=== PATIENT | female | born 1960 ===

== ENCOUNTER → 2020-03-04 15:56 | Outpatient (BNVA) | payer OTHER, SELFPAY | PROVIDERS: PCP Internal Medicine; Visit Provider Anesthesiology | DX: Z76.89 Persons encountering health services in other specified circumstances (principal) ==

== ENCOUNTER 2020-03-29 09:19 | Outpatient (REF) | payer OTHER, SELFPAY | END 2020-03-29 09:20 | disposition home or self-care (01) | LOC: HO.LAB 09:19 | PROVIDERS: Visit Provider Internal Medicine | DX: Z20.828 Contact with and (suspected) exposure to other viral communicable diseases (principal) | CPT/HCPCS: 87635 ==

== ENCOUNTER 2020-04-05 13:48 | Outpatient (REF) | payer OTHER, SELFPAY ==
--- NOTE | 2020-04-05 15:41 | XR_ITS ---
EXAMINATION: XR THORACOLUMBAR SPINE CLINICAL INFORMATION: M96.1 - Postlaminectomy syndrome, not elsewhere classified COMPARISON: Chest radiographs 08/26/2011 TECHNIQUE: AP and lateral views of the thoracic spine are obtained. FINDINGS: There is normal thoracic segmentation with 12 rib-bearing thoracic vertebrae of normal height and normal thoracic kyphosis. The T12 ribs are likely hypoplastic. There is gentle dextrocurvature thoracic spine. Spinal stimulator is present with electrodes extending up to the level of T6-T7. Visualized hardware appears intact. There is mild multilevel degenerative disc changes thoracic spine. Some bridging osteophytes are noted on the right at T9-T10. There is no thoracic vertebral compression, spondylolisthesis, or erosive changes, or paraspinal soft tissue swelling. XR/XR thoracic spine 2V IMPRESSION: 1. Gentle dextrocurvature lower thoracic spine. Mild multilevel degenerative disc changes. 2. Spinal stimulator with electrode tips at level T6-T7. 3. No vertebral compression, spondylolisthesis, or destructive process.
== END 2020-04-05 13:49 | disposition home or self-care (01) ==
LOC: HO.XRAY 13:48
PROVIDERS: Absent Provider Nurse Practitioner Family; PCP Internal Medicine; Visit Provider Anesthesiology
DX: M96.1 Postlaminectomy syndrome, not elsewhere classified (principal); Z98.890 Other specified postprocedural states; M54.16 Radiculopathy, lumbar region; E11.42 Type 2 diabetes mellitus with diabetic polyneuropathy
CPT/HCPCS: 72070; 99212

== ENCOUNTER 2020-04-19 10:52 | Outpatient (REF) | payer OTHER, SELFPAY | END 2020-04-19 10:53 | disposition home or self-care (01) | LOC: HO.LAB 10:52 | PROVIDERS: Visit Provider Internal Medicine | DX: Z20.828 Contact with and (suspected) exposure to other viral communicable diseases (principal) | CPT/HCPCS: C9803; U0003 ==

== ENCOUNTER 2020-06-03 09:01 | Outpatient (REF) | payer OTHER, SELFPAY | END 2020-06-03 09:02 | disposition home or self-care (01) | LOC: HO.LAB 09:01 | PROVIDERS: Visit Provider Internal Medicine | DX: Z20.828 Contact with and (suspected) exposure to other viral communicable diseases (principal) | CPT/HCPCS: C9803; U0003 ==

== ENCOUNTER 2020-06-30 08:26 | Outpatient (REF) | payer OTHER, SELFPAY ==
--- NOTE | 2020-06-30 08:45 | XR_ITS ---
EXAMINATION: XR CHEST CLINICAL INFORMATION: Chest pain. COMPARISON: None TECHNIQUE: 2 views of the chest were obtained. FINDINGS: The lungs are well-expanded and clear. The heart size and pulmonary vascularity is normal. No gross bony abnormality. There are spinal epidural electrodes in the mid thoracic spine. XR/XR chest 2V IMPRESSION: No acute process seen.
[2020-06-30 09:34] LABS: Estimated Average Glucose 117 mg/dL; Hemoglobin A1c % 5.7 %
[2020-06-30 09:35] LABS: Alanine Aminotransferase 22 U/L (0-31); Albumin Level 4.7 g/dL (3.5-5.0); Alkaline Phosphatase 66 U/L (39-117); Anion Gap 16 (12-20); Aspartate Amino Transferase 16 U/L (5-31); Bilirubin Total 0.6 mg/dL (0.0-1.0); Blood Urea Nitrogen 11 mg/dL (9-16); Calcium 9.3 mg/dL (8.4-10.2); Carbon Dioxide 20 mmol/L (22-29); Chloride 108 mmol/L (96-108); Cholesterol 182 mg/dL; Estimated Glomerular Filt Rate > 60; Glucose Fasting 114 mg/dL (60-99); HDL Cholesterol 33 mg/dL; LDL Cholesterol Calculated 99 mg/dl; Potassium 4.1 mmol/l (3.3-5.1); Sodium 140 mmol/L (135-145); Total Protein 7.2 g/dL (6.5-8.0); Triglycerides 253 mg/dL
[2020-06-30 09:36] LABS: Creatinine Urine 147.03 mg/dL; Microalbum/Creatinine Ratio Ur 78.8 ug/mg cr
[2020-06-30 09:55] LABS: Free T4 (Free Thyroxine) 0.89 ng/dL (0.71-1.85); Thyroid Stimulating Hormone 0.84 uIU/mL (0.32-4.0)
== END 2020-06-30 08:27 | disposition home or self-care (01) ==
LOC: HO.LAB 08:26
PROVIDERS: PCP Internal Medicine; Referring Provider Internal Medicine; Visit Provider Nurse Practitioner Gerontology
DX: R91.8 Other nonspecific abnormal finding of lung field (principal); E11.29 Type 2 diabetes mellitus with other diabetic kidney complication
CPT/HCPCS: 36415; 71046; 80053; 80061; 82043; 83036; 84439; 84443

== ENCOUNTER 2020-07-14 09:58 | Outpatient (REF) | payer OTHER, SELFPAY | END 2020-07-14 09:59 | disposition home or self-care (01) | LOC: HO.LAB 09:58 | PROVIDERS: Visit Provider Internal Medicine | DX: Z20.822 Contact with and (suspected) exposure to COVID-19 (principal) | CPT/HCPCS: 36415; C9803; U0003; U0005 ==

== ENCOUNTER 2020-08-26 10:07 | Outpatient (REF) | payer OTHER, SELFPAY | END 2020-08-26 10:08 | disposition home or self-care (01) | LOC: HO.LAB 10:07 | PROVIDERS: Visit Provider Internal Medicine | DX: Z20.822 Contact with and (suspected) exposure to COVID-19 (principal) | CPT/HCPCS: 36415; C9803; U0003; U0005 ==

== ENCOUNTER → 2020-11-17 07:34 | Outpatient (BNVA) | payer OTHER, SELFPAY | PROVIDERS: PCP Internal Medicine; Referring Provider Internal Medicine; Visit Provider Nurse Practitioner Gerontology | DX: E11.42 Type 2 diabetes mellitus with diabetic polyneuropathy (principal); E11.29 Type 2 diabetes mellitus with other diabetic kidney complication; E78.5 Hyperlipidemia, unspecified; E78.1 Pure hyperglyceridemia; R80.9 Proteinuria, unspecified | CPT/HCPCS: 82947; 99212 ==

== ENCOUNTER → 2020-11-18 13:52 | Outpatient (BNVA) | payer OTHER, SELFPAY | PROVIDERS: PCP Internal Medicine; Visit Provider Anesthesiology | DX: M54.16 Radiculopathy, lumbar region (principal); M96.1 Postlaminectomy syndrome, not elsewhere classified; E11.42 Type 2 diabetes mellitus with diabetic polyneuropathy; Z98.890 Other specified postprocedural states | CPT/HCPCS: 99212 ==

== ENCOUNTER → 2020-12-07 08:25 | Outpatient (REF) | payer OTHER, SELFPAY ==
--- NOTE | 2020-12-07 08:29 | CA_ITS ---
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 The visually estimated ejection fraction is between 60-65%. - E/E prime ratio is >15, consistent with elevated filling pressures. Evidence suggests grade I (mild) diastolic dysfunction. - There is mild to moderate aortic valve regurgitation. Findings Left Ventricle Normal left ventricular cavity size. There is moderately increased left ventricular wall thickness. The left ventricular systolic function is normal. The visually estimated ejection fraction is between 60-65%. There is no evidence of regional wall motion abnormalities. E/E prime ratio is >15, consistent with elevated filling pressures. Evidence suggests grade I (mild) diastolic dysfunction. Right Ventricle Normal right ventricular cavity size and systolic function. Atria The left atrium is mildly dilated. The right atrium is normal in size. Aortic Valve There is a normal trileaflet aortic valve. There is no aortic valve stenosis. There is mild to moderate aortic valve regurgitation. Mitral Valve The mitral valve appears normal. There is trace mitral valve regurgitation. There is no mitral valve stenosis. Pulmonic Valve The pulmonic valve was not well visualized. Tricuspid Valve Normal tricuspid valve structure. There is trace tricuspid valve regurgitation. The pulmonary artery systolic pressure is normal. Great Vessels The aortic annulus, sinuses of valsalva, and asc aorta are normal in size. Venous The inferior vena cava is normal in size and collapses greater than 50% with inspiration. Pericardium/Pleural There is no evidence of pericardial effusion. Prior Study Comparison No significant change compared to prior study dated: 12/19/2019. Measurements 2D Linear Measurements IVSd: 1.33 0.6-0.9/0.6-1.0 cm LVIDd: 4.14 3.9-5.3/4.2-5.9 cm LVIDd Index: 2.46 2.4-3.2/2.2-3.1 cm/m2 LVIDs: 2.34 2.0-3.6 cm LVPWd: 1.30 0.7-1.1 cm Ao Root: 3.10 2.1-3.5 cm LA Diam: 3.10 2.7-3.8/3.0-4.0 cm LAIDs Index: 1.85 1.5-2.3 cm/m2 LV Mass: 248.90 67-162/88-224 g LV Mass Index: 148.16 43-95/49-115 g/m2 LVOT Diam: 2.00 3.0+(-)1.3 cm Mitral Valve MV Pk E: 0.65 MV PK A: 1.06 MV Decel Time: 178.00 E/A: 0.60 E'Lateral: 4.57 E'Medial: 4.03 E/E' Med: 16.10 E/E' Lat: 14.20 PHT: 52.00 MVA PHT: 4.23 Decel [place]: 3.63 Aortic Valve AoV Pk Jacoby: 2.14 AoV Mn Jacoby: 1.36 AoV VTI: 0.41 AoV Pk Grad: 18.00 Aov Mn Grad: 9.00 JOSE Cont.VTI: 2.63 AI Pk Jacoby: 4.82 AI [place]: 3.49 LVOT LVOT Pk Jacoby: 1.62 LVOT Mn Jacoby: 1.10 LVOT VTI: 0.34 LVOT Pk Grad: 10.00 LVOT Mn Grad: 6.00 LVOT Diam: 2.00 LVOT Area: 3.14 Diastolic Function MV Pk E: 0.65 MV Pk A: 1.06 E/A: 0.60 E'Medial: 4.03 E/E' Med: 16.10 E' Laterial: 4.57 E/E' Lat: 14.20 Tricuspid Valve TR Pk Jacoby: 2.04 TR Pk Grad: 17.00 RA Press: 3.00 RVSP: 20.00 Great Vessels Aorta Ao Root-2D: 3.10 2.0-3.7 cm Ao Asc: 3.30 2.1-3.4 cm Pulmonary Valve PV Pk Jacoby: 1.00 Peak PV Grad: 4.00 Updated in Other Vendor System with Status of Final Anand Kowalski MD electronically signed on 12/07/2020 12:46:30 PM with status of Final
== END ==
LOC: HO.CARD 08:25
PROVIDERS: Visit Provider Internal Medicine
DX: I35.1 Nonrheumatic aortic (valve) insufficiency (principal); R94.39 Abnormal result of other cardiovascular function study
CPT/HCPCS: 93306

== ENCOUNTER → 2021-01-04 08:48 | Outpatient (BNVA) | payer OTHER, SELFPAY | PROVIDERS: PCP Internal Medicine; Referring Provider Internal Medicine; Visit Provider Internal Medicine | DX: I25.10 Atherosclerotic heart disease of native coronary artery without angina pectoris (principal); I10 Essential (primary) hypertension; F17.200 Nicotine dependence, unspecified, uncomplicated; E11.42 Type 2 diabetes mellitus with diabetic polyneuropathy; Z86.73 Personal history of transient ischemic attack (TIA), and cerebral infarction without residual deficits | CPT/HCPCS: 93005; 99212 ==

== ENCOUNTER → 2021-01-06 10:04 | Outpatient (BNVA) | payer OTHER, SELFPAY | PROVIDERS: PCP Internal Medicine; Visit Provider Nurse Practitioner Gerontology | DX: E11.42 Type 2 diabetes mellitus with diabetic polyneuropathy (principal); E11.29 Type 2 diabetes mellitus with other diabetic kidney complication; E78.5 Hyperlipidemia, unspecified; E78.1 Pure hyperglyceridemia; R80.9 Proteinuria, unspecified | CPT/HCPCS: 82947; 99212 ==

== ENCOUNTER 2021-01-21 11:17 | Outpatient (REF) | payer OTHER, SELFPAY ==
--- NOTE | ~2021-01-21 | MM_ITS ---
EXAMINATION: MM SCREENING DIGITAL BREAST TOMOSYNTHESIS, BILATERAL CLINICAL INFORMATION: Screening. Asymptomatic. The lifetime risk of breast cancer based on the Tyrer-Cuzick Model is 17%. COMPARISON: Mammography: 08/13/2019, 06/21/2018, 11/21/2017, 10/29/2015. TECHNIQUE: Digital breast tomosynthesis is performed in both the craniocaudal and mediolateral oblique views along with computer-aided detection (CAD). Synthesized 2D images are generated from the tomosynthesis. FINDINGS: There are scattered areas of fibroglandular density (ACR BI-RADS breast composition Category b). There are no significant masses, abnormal calcifications, or other abnormalities. Parenchymal pattern is similar to prior exams. Again, there is biopsy clip marker anterior upper outer left breast. Axillary nodes are similar to prior exams. The skin contours are smooth. There are no significant changes. MM/MM tomosynthesis screening BI IMPRESSION: No mammographic evidence of malignancy. ASSESSMENT: BI-RADS 2: Benign RECOMMENDATION: Routine annual mammography screening. This patient's information was entered into a reminder system with a target due date for their next mammogram.
== END 2021-01-21 11:18 | disposition home or self-care (01) ==
LOC: HO.MAMMO 11:17
PROVIDERS: Visit Provider Internal Medicine
DX: Z12.31 Encounter for screening mammogram for malignant neoplasm of breast (principal)
CPT/HCPCS: 77063; 77067

== ENCOUNTER 2021-06-24 07:51 | Outpatient (REF) | payer OTHER, SELFPAY ==
[2021-06-24 09:14] LABS: Alanine Aminotransferase 22 U/L (0-31); Albumin Level 4.3 g/dL (3.5-5.0); Alkaline Phosphatase 60 U/L (39-117); Anion Gap 11 (12-20); Aspartate Amino Transferase 16 U/L (5-31); Bilirubin Total 0.2 mg/dL (0.0-1.0); Blood Urea Nitrogen 18 mg/dL (9-16); Calcium 9.8 mg/dL (8.4-10.2); Carbon Dioxide 26 mmol/L (22-29); Chloride 109 mmol/L (96-108); Cholesterol 106 mg/dL; Estimated Glomerular Filt Rate > 60; Glucose Fasting 158 mg/dL (60-99); HDL Cholesterol 28 mg/dL; LDL Cholesterol Calculated 39 mg/dl; Potassium 3.9 mmol/L (3.3-5.1); Sodium 142 mmol/L (135-145); Total Protein 6.8 g/dL (6.5-8.0); Triglycerides 196 mg/dL
[2021-06-24 11:06] LABS: Creatinine Urine 87.86 mg/dL; Microalbum/Creatinine Ratio Ur 29.5 ug/mg cr
[2021-06-29 16:06] LABS: Vitamin D 25-OH, D2 <4 ng/mL; Vitamin D 25-OH, D3 15 ng/mL; Vitamin D 25-OH, Total 15 ng/mL (30-100)
== END 2021-06-24 07:52 | disposition home or self-care (01) ==
LOC: HO.LAB 07:51
PROVIDERS: Absent Provider Internal Medicine; PCP Internal Medicine; Visit Provider Nurse Practitioner Gerontology
DX: E11.29 Type 2 diabetes mellitus with other diabetic kidney complication (principal); E78.5 Hyperlipidemia, unspecified; E11.42 Type 2 diabetes mellitus with diabetic polyneuropathy; E55.9 Vitamin D deficiency, unspecified
CPT/HCPCS: 36415; 80053; 80061; 82043; 82306

== ENCOUNTER → 2021-08-22 10:33 | Outpatient (BNVA) | payer OTHER, SELFPAY | PROVIDERS: PCP Internal Medicine; Visit Provider Anesthesiology | DX: M96.1 Postlaminectomy syndrome, not elsewhere classified (principal); M54.16 Radiculopathy, lumbar region; I25.10 Atherosclerotic heart disease of native coronary artery without angina pectoris; I10 Essential (primary) hypertension; E11.42 Type 2 diabetes mellitus with diabetic polyneuropathy; E11.29 Type 2 diabetes mellitus with other diabetic kidney complication; E78.00 Pure hypercholesterolemia, unspecified; E78.2 Mixed hyperlipidemia; F17.210 Nicotine dependence, cigarettes, uncomplicated; Z96.82 Presence of neurostimulator; Z98.890 Other specified postprocedural states; Z88.6 Allergy status to analgesic agent | CPT/HCPCS: 99212 ==

== ENCOUNTER 2021-10-18 08:56 | Outpatient (REF) | payer OTHER, SELFPAY ==
[2021-10-18 10:04] LABS: Alanine Aminotransferase 23 U/L (0-31); Albumin Level 4.4 g/dL (3.5-5.0); Alkaline Phosphatase 46 U/L (39-117); Anion Gap 11 (12-20); Aspartate Amino Transferase 21 U/L (5-31); Bilirubin Total 0.5 mg/dL (0.0-1.0); Blood Urea Nitrogen 14 mg/dL (9-16); Calcium 9.7 mg/dL (8.4-10.2); Carbon Dioxide 25 mmol/L (22-29); Chloride 110 mmol/L (96-108); Cholesterol 103 mg/dL; Estimated Glomerular Filt Rate > 60; Glucose Fasting 128 mg/dL (60-99); HDL Cholesterol 30 mg/dL; LDL Cholesterol Calculated 46 mg/dl; Potassium 4.1 mmol/L (3.3-5.1); Sodium 142 mmol/L (135-145); Total Protein 7.1 g/dL (6.5-8.0); Triglycerides 135 mg/dL
[2021-10-18 10:54] LABS: Creatinine Urine 114.95 mg/dL; Microalbum/Creatinine Ratio Ur 48.7 ug/mg cr
== END 2021-10-18 08:57 | disposition home or self-care (01) ==
LOC: HO.LAB 08:56
PROVIDERS: PCP Internal Medicine; Visit Provider Internal Medicine
DX: E78.5 Hyperlipidemia, unspecified (principal); E11.9 Type 2 diabetes mellitus without complications
CPT/HCPCS: 36415; 80053; 80061; 82043

== ENCOUNTER → 2022-01-05 08:45 | Outpatient (BNVA) | payer OTHER, SELFPAY | PROVIDERS: PCP Internal Medicine; Referring Provider Internal Medicine; Visit Provider Internal Medicine | DX: I25.10 Atherosclerotic heart disease of native coronary artery without angina pectoris (principal); I10 Essential (primary) hypertension; E11.42 Type 2 diabetes mellitus with diabetic polyneuropathy; F17.200 Nicotine dependence, unspecified, uncomplicated; Z86.73 Personal history of transient ischemic attack (TIA), and cerebral infarction without residual deficits | CPT/HCPCS: 93005; 99212 ==

== ENCOUNTER 2022-02-17 09:46 | Day surgery (SDC) | payer OTHER, SELFPAY ==
[2022-02-14 08:41] VITALS: BMI 28.5
--- NOTE | 2022-02-16 11:26 | P.CONAN_ITS ---
Documented by User: Anel Pedroza NP 02/16/22 12:10 HPI - Anesthesia Eval Consult details Narrative: 61yo F for Lumbar Spinal Cord Stimulation EXplant Stable at 01/05/22 cardiac visit. Urged to quit smoking [facility] Active Problems Active Problems: All Active Problems (Updated 06/28/21 @ 07:57 by Neha Naylor MD) Mild recurrent major depression (Acute) Diabetes mellitus (Acute) History of stroke (Acute) Atherosclerotic cardiovascular disease (Acute) Overweight (BMI 25.0-29.9) (Acute) Smoker (Acute) Scalp tenderness (Acute) Left facial pain (Acute) GERD (gastroesophageal reflux disease) (Acute) Essential hypertension (Acute) Left hemiplegia (Acute) Lacunar infarction (Acute) Mixed hyperlipidemia (Acute) Pulmonary nodules (Acute) Type 2 diabetes mellitus with other diabetic kidney complication (Acute) Proteinuria (Acute) Hyperlipidemia LDL goal <70 (Acute) Hypertriglyceridemia (Acute) Lumbar radiculopathy (Acute) Postlaminectomy syndrome (Acute) Type 2 diabetes mellitus with polyneuropathy (Acute) Past Medical History Medical History Benign essential hypertension CAD (coronary artery disease) Depression Diabetes mellitus Essential hypertension Gastroesophageal reflux disease GERD (gastroesophageal reflux disease) Heart disease Hyperlipidemia LDL goal <70 Hypertriglyceridemia Lacunar infarct, acute Lacunar infarction Left breast mass Left facial pain Left hemiplegia Left hemiplegia Leukocytosis, 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 Low back pain Microalbuminuria Mild recurrent major depression Mixed hyperlipidemia Mixed hyperlipidemia Moderate persistent asthma without complication Overweight (BMI 25.0-29.9) Proteinuria Pulmonary nodules Pure hypercholesterolemia Scalp tenderness Slurred speech Smoker Tachycardia Type 2 diabetes mellitus 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 Brother No problems noted. Sister Diabetes Son Alive and well Daughter Alive and well Surgical History Surgical History Battery end of life of spinal cord stimulator History of back surgery History of tubal ligation S/P insertion of spinal cord stimulator Social History Social History Housing: House Alcohol intake: never Patient Tobacco Use Status: Current everyday Tobacco user Tobacco use type: Cigarette Cigarettes Per Day: 4 e-Cigarette/Vaping Use: Never Used Second Hand Smoke Exposure: No Advance Directives: No Advance Directives Information Provided: Yes service: No Current occupational status: disabled Cognitive needs: No Hearing needs: No Vision needs: No Meds Allergies Allergy/AdvReac Type Severity Reaction Status Date / Time Vicodin Allergy Intermediate Rash Verified 02/17/22 10:56 Home Medications Medication Instructions Recorded Confirmed Last Taken Type aripiprazole 5 mg tablet 5 mg PO DAILY 03/01/20 01/05/22 Unknown History blood-glucose meter (FreeStyle #1 ea 03/01/20 01/05/22 Unknown History [place] Lite kit) clonazepam 1 mg tablet 1 mg PO 03/01/20 01/05/22 Unknown History mirtazapine 30 mg tablet 30 mg PO BEDTIME 03/01/20 01/05/22 Unknown History pen needle, diabetic 32 gauge x #50 ea 03/01/20 01/05/22 Unknown History fluoxetine 20 mg capsule 20 mg PO DAILY 11/17/20 01/05/22 Unknown History Exam Exam Date and Time: February 16, 2022 1126 Height,Weight and Vital Signs: Height 5 ft 1 in Weight 68.4 kg Narrative Narrative: EKG 01/2022 sinus rhythm at 78/Min; no significant ST-T changes and otherwise unremarkable ECHO 12/2020 Conclusions: - The left ventricular systolic function is normal.? The visually estimated ejection fraction is between 60-65%. ? - E/E prime ratio is >15, consistent with elevated filling ? ? ? pressures.? Evidence suggests grade I (mild) diastolic ? dysfunction. ? - There is mild to moderate aortic valve regurgitation.? ? Carotid ultrasound from 2018 without any significant stenosis. Assessment and Plan Assessment Anesthesia Assessment: Chart Reviewed Documented by User: Delma Rodriguez MD 02/17/22 12:08 [facility] Past Medical History Medical History Benign essential hypertension CAD (coronary artery disease) Depression Diabetes mellitus Essential hypertension Gastroesophageal reflux disease GERD (gastroesophageal reflux disease) Heart disease Hyperlipidemia LDL goal <70 Hypertriglyceridemia Lacunar infarct, acute Lacunar infarction Left breast mass Left facial pain Left hemiplegia Left hemiplegia Leukocytosis, unspecified half-way current use of insulin Low back pain Microalbuminuria Mild recurrent major depression Mixed hyperlipidemia Mixed hyperlipidemia Moderate persistent asthma without complication Overweight (BMI 25.0-29.9) Proteinuria Pulmonary nodules Pure hypercholesterolemia Scalp tenderness Slurred speech Smoker Tachycardia Type 2 diabetes mellitus 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 Brother No problems noted. Sister Diabetes Son Alive and well Daughter Alive and well Family history of problems with anesthesia: No Surgical History Surgical History Battery end of life of spinal cord stimulator History of back surgery History of tubal ligation S/P insertion of spinal cord stimulator History of Problems with Anesthesia: No Social History Social History Housing: House Alcohol intake: never Patient Tobacco Use Status: Current everyday Tobacco user Tobacco use type: Cigarette Cigarettes Per Day: 4 e-Cigarette/Vaping Use: Never Used Second Hand Smoke Exposure: No Advance Directives: No Advance Directives Information Provided: Yes service: No Current occupational status: disabled Cognitive needs: No Hearing needs: No Vision needs: No Meds Allergies Allergy/AdvReac Type Severity Reaction Status Date / Time Vicodin Allergy Intermediate Rash Verified 02/17/22 10:56 Home Medications Medication Instructions Recorded Confirmed Last Taken Type aripiprazole 5 mg tablet 5 mg PO DAILY 03/01/20 01/05/22 Unknown History blood-glucose meter (FreeStyle #1 ea 03/01/20 01/05/22 Unknown History [place] Lite kit) clonazepam 1 mg tablet 1 mg PO 03/01/20 01/05/22 Unknown History mirtazapine 30 mg tablet 30 mg PO BEDTIME 03/01/20 01/05/22 Unknown History pen needle, diabetic 32 gauge x #50 ea 03/01/20 01/05/22 Unknown History fluoxetine 20 mg capsule 20 mg PO DAILY 11/17/20 01/05/22 Unknown History Exam Airway Mallampati Class: II TM Dist: >3cm Neck ROM: Full Denture: Upper Partial: Lower Heart: rrr Lungs: cta Assessment and Plan Assessment Anesthesia Assessment: Anesthesia Plan Discussed and Chart Reviewed Final Anesthetic Review Family History of Problems with Anesthesia: No History of Problems with Anesthesia: No NPO: Yes ASA Class: III Final Preanesthetic Review: No Changes in Pt Med Stat, Meds/Allgs Chart Reviewed and Consent Obtained/Reviewed Patient Risk: Intermediate Procedure Risk: Intermediate Anesthetic Plan Anesthetic Plan: GA Disposition: Standard PACU
[2022-02-17] VITALS (7 sets, daily range): BP systolic 112–142; BP diastolic 59–85; PULSE 90–98; RESP 12–16; TEMP 36.1–36.3; O2SAT 96–98
--- NOTE | ~2022-02-17 | FL_ITS ---
INDICATION: Intraoperative fluoroscopy FLUOROSCOPY: Fluoroscopy Time: 0.1 minutes Images saved: 3 FINDINGS: Multiple intraoperative fluoroscopic images are submitted during reported lumbar spinal stimulator explant. Correlation with operative report. Evaluation is limited secondary to fluoroscopic technique. FL/FL guidance in OR IMPRESSION: Intra-operative fluoroscopic imaging provided by radiology during reported InterStim placement. Please refer to operative note for further information.
--- NOTE | 2022-02-17 08:45 | MHC.SHP ---
Pre-Procedural Eval Section A Date of Service: 02/17/22 The patient is an INPATIENT: No Changes since office visit: Yes Patient answered all questions The History & Physical has been completed within 30 days and I have reviewed it.: No Section B Chief Complaint: postlaminectomy syndrome Details of Present Illness: as above Relevant Family History (Specify if Yes): No Relevant Social History: None Present Medications: see Short Stay Collaborative assessment Medical History: No relevant PMH History of Previous Operations: Relevant previous surgery/procedure and date(s) (h/o [employer] SCS implant , h/o of fusion lumbar spine) Allergies: Allergies Allergy/AdvReac Type Severity Reaction Status Date / Time Vicodin Allergy Intermediate Rash Verified 01/05/22 08:59 Review of Systems Sugical H&P ROS: Negative: Constitution, Cardiovascular, Respiratory, Neurological, Psychiatric, Hem-Onc, Allergic/Immunologic, Gastrointestinal, Genitourinary, Musculoskeletal, Integumentary, Endocrine and Eyes/Ears/Nose/Throat Exam Surgical H&P Exam: Normal: HEENT, Normal: Heart, Normal: Lungs, Normal: Extremities, Normal: Abdomen, Normal: Skin and Normal: Neurological Plan Diagnosis/Plan: Unchanged I have reviewed the history and physical and performed a pertinent physical examination on my patient. No changes have occurred unless specified.
--- NOTE | 2022-02-17 08:47 | W.PM.OPN ---
Operative Note Operative Note Date of Service: 02/17/22 Narrative: Sindi is 61 y.o female ?who came today into the operating room for explant of spinal cord stimulator? [employer],the device is Nonfunctional. She was explained before the surgery the risks and benefits of the procedure possibility of the infection possibility of I& D of the abscess if infection occurs. She insisted to remove the the device she said it irritates her loin on the left.. she was explained multiple times including this morning that it is not necessary to remove the device, he could live with the device without charging it - she continued to insist the explantation - just not charge the machine and it will be inactive. She was told that even not charged the device is fully compatible with MRI studies. She was reminded about risks of bleeding , infections and other possible complications. After obtaining informed consent patient was brought to the operating room, she was positioned supine on the stretcher, [place] [employer] monitors were applied and patient was induced with GETA. She was transferred on the OR table prone, all pressure points were protected. Time-out was performed delineating correct site, side, the nature of the procedure, patient's allergy, preoperative antibiotic.? All operating room staff was participating in OR time-out procedure. Patient's entire back was prepped with ChloraPrep twice and draped with full body drape .? Sterilely drink C-arm was brought over the operating field and picture of the device was demonstrated on the screen.. Local anesthetic mixture of lidocain and ropivacaine was injected along the scar in the right? upper buttock.? 6 cm long horizontal incision was performed onto the previous scar. wound was widened and deepened using scalpel and metzenbaum scissors.The body of the battery was located in the wound and anchoring sutures were severed, the device was delivered to the level of the skin and? gentle tugging force was applied on epidural leads.? I was able to withdraw epidural leads intact with anchoring devices on them, I? counted the number of the contacts and examined the tips of the leads closely.? The leads appear to be completely intact. after removal of the entire device thorough hemostasis was performed using electrocautery. After that the capsule of the pocket was excised using dull and sharp dissection with Metzenbaum scissors and electrocautery. The wound was irrigated? with Vancomycin containing normal saline, thorough hemostasis was checked, and after that the wound was closed using 2-0 Polysorb suture in most distal caudad portion of the wound after that 0 Polysorb sutures were used to close the main wound and after that 2-0 Polysorb sutures were used to approximate the level of the skin. The brynn were applied to the skin level. The bacitracin ointment was applied to the staple line and sterile dressing was applied using 4x4s and Medipore tape.The? patient was transferred on the stretcher supine,? awaken extubated and transferred to PACU.? she was recovering uneventfully in PACU. ?
[2022-02-17 10:49] LABS: Glucose, Whole Blood 104 mg/dL (60-115)
[2022-02-17] MEDS: Lactated Ringers 1,000 ML 100 ML IVCONT (10:58)
--- NOTE | 2022-02-17 13:59 | PM.OP ---
Brief Operative Note Date of Service: 02/17/22 Pre-op diagnosis: presence of non functional spinal cord stimulator [employer] Post-op diagnosis: same Procedure: removal of the non functional [employer] SCS Implants: none Surgeon: Duy Caraballo MD Anesthesia: GETA Was an Laborer High Density Press used for this Procedure?: No Estimated blood loss (mL): 13 Pathology: none sent Condition: stable Disposition: PACU
== END 2022-02-17 15:19 | disposition home or self-care (01) ==
PROVIDERS: PCP Internal Medicine; Visit Provider Anesthesiology
PROC: (CPT 63661; principal; 2022-02-17 12:10)
DX: Z45.42 Encounter for adjustment and management of neurostimulator (principal); M96.1 Postlaminectomy syndrome, not elsewhere classified; M54.16 Radiculopathy, lumbar region; E11.42 Type 2 diabetes mellitus with diabetic polyneuropathy; E11.29 Type 2 diabetes mellitus with other diabetic kidney complication; N28.9 Disorder of kidney and ureter, unspecified; Z79.4 Long term (current) use of insulin; E78.5 Hyperlipidemia, unspecified; J45.40 Moderate persistent asthma, uncomplicated; Z88.8 Allergy status to other drugs, medicaments and biological substances; F17.210 Nicotine dependence, cigarettes, uncomplicated; Z98.890 Other specified postprocedural states
CPT/HCPCS: 63661; 63688; 82947; J0690; J2250; J2370; J2405; J2795; J3010; J3370

== ENCOUNTER → 2022-02-23 08:55 | Outpatient (BNVA) | payer OTHER, SELFPAY | PROVIDERS: PCP Internal Medicine; Visit Provider Anesthesiology | DX: M54.16 Radiculopathy, lumbar region (principal); M96.1 Postlaminectomy syndrome, not elsewhere classified; E11.42 Type 2 diabetes mellitus with diabetic polyneuropathy; Z98.890 Other specified postprocedural states | CPT/HCPCS: 99212 ==

== ENCOUNTER → 2022-03-02 08:02 | Outpatient (BNVA) | payer OTHER, SELFPAY | PROVIDERS: PCP Internal Medicine; Visit Provider Anesthesiology | DX: M54.16 Radiculopathy, lumbar region (principal); Z98.890 Other specified postprocedural states; M96.1 Postlaminectomy syndrome, not elsewhere classified; E11.42 Type 2 diabetes mellitus with diabetic polyneuropathy | CPT/HCPCS: 99212 ==

== ENCOUNTER 2022-04-15 07:13 | Outpatient (REF) | payer OTHER, SELFPAY ==
[2022-04-15 08:35] LABS: Creatinine Urine 66.89 mg/dL; Microalbum/Creatinine Ratio Ur 22.4 ug/mg cr
[2022-04-15 08:42] LABS: Alanine Aminotransferase 28 U/L (0-31); Albumin Level 4.5 g/dL (3.5-5.0); Alkaline Phosphatase 49 U/L (39-117); Anion Gap 13 (12-20); Aspartate Amino Transferase 20 U/L (5-31); Bilirubin Total 0.3 mg/dL (0.0-1.0); Blood Urea Nitrogen 13 mg/dL (9-16); Calcium 9.1 mg/dL (8.4-10.2); Carbon Dioxide 21 mmol/L (22-29); Chloride 111 mmol/L (96-108); Cholesterol 141 mg/dL; Estimated Glomerular Filt Rate > 60; Glucose Fasting 124 mg/dL (60-99); HDL Cholesterol 26 mg/dL; LDL Cholesterol Calculated 77 mg/dl; Sodium 141 mmol/L (135-145); Total Protein 6.9 g/dL (6.5-8.0); Triglycerides 193 mg/dL; Vitamin D 25-OH Total 28.8 ng/mL (>30)
== END 2022-04-15 07:14 | disposition home or self-care (01) ==
LOC: HO.LAB 07:13
PROVIDERS: PCP Internal Medicine; Visit Provider Internal Medicine
DX: E55.9 Vitamin D deficiency, unspecified (principal); E78.5 Hyperlipidemia, unspecified; E11.9 Type 2 diabetes mellitus without complications
CPT/HCPCS: 36415; 80053; 80061; 82043; 82306

== ENCOUNTER 2022-09-28 10:52 | Outpatient (REF) | payer OTHER, SELFPAY ==
--- NOTE | ~2022-09-28 | MM_ITS ---
EXAMINATION: MM SCREENING DIGITAL BREAST TOMOSYNTHESIS, BILATERAL CLINICAL INFORMATION: Screening. Asymptomatic. The lifetime risk of breast cancer based on the Tyrer-Cuzick Model is 9.8%. COMPARISON: Mammography: January 21, 2021 and studies dating back to October 29, 2015 TECHNIQUE: Digital breast tomosynthesis is performed in both the craniocaudal and mediolateral oblique views along with computer-aided detection (CAD). Synthesized 2D images are generated from the tomosynthesis. FINDINGS: There are scattered areas of fibroglandular density (ACR BI-RADS breast composition Category b). There are no significant masses, abnormal calcifications, or other abnormalities. MM/MM tomosynthesis screening BI IMPRESSION: No significant changes from prior exam. ASSESSMENT: BI-RADS 1: Negative RECOMMENDATION: Routine annual mammography screening. This patient's information was entered into a reminder system with a target due date for their next mammogram.
== END 2022-09-28 10:53 | disposition home or self-care (01) ==
LOC: HO.MAMMO 10:52
PROVIDERS: PCP Internal Medicine; Visit Provider Internal Medicine
DX: Z12.31 Encounter for screening mammogram for malignant neoplasm of breast (principal)
CPT/HCPCS: 77063; 77067

== ENCOUNTER 2022-11-03 13:55 | Outpatient (REF) | payer OTHER, SELFPAY ==
--- NOTE | ~2022-11-03 | CT_ITS ---
EXAMINATION: LUNG CANCER SCREENING CT CHEST WITHOUT CONTRAST CLINICAL INFORMATION: Current smoker with 50 pack year history COMPARISON: None available at the time of dictation. TECHNIQUE: Multidetector volumetric CT imaging of the chest was obtained noncontrast using low dose screening CT technique. Axial thin section 0.625 mm reformations in soft tissue and lung windows were obtained. Sagittal and coronal reformations were obtained. Axial MIP images were also created and reviewed. This CT examination was performed using dose optimization techniques as appropriate, variously including the following: *Automated exposure control *Adjustment of mA and/or kV according to patient size (this includes techniques or standardized protocols for targeted exams where dose is matched to indication/reason for exam; i.e. extremities or head) *Use of iterative reconstruction technique TOTAL EXAM DLP: 47.05 mGy-cm FINDINGS: PULMONARY NODULES (see hightower images): No suspicious pulmonary nodules. There is a 4.3 mm nodule in the right upper lobe, a 3 mm pleural nodule along the right upper lobe, and a 3 mm pleural nodule along the left lower lobe. A small major fissural nodule in the left likely represents an intrapulmonary lymph node. LUNGS / PLEURA: Assessment for emphysema precluded by low-dose technique. No moderate or worse emphysematous changes evident. There is diffuse cylindrical bronchiectasis. No pleural effusion or pneumothorax. MEDIASTINUM / DIANNE: Heart normal in size without pericardial effusion. Great vessels normal caliber. No lymphadenopathy. Coronary calcifications present. Imaged thyroid gland unremarkable. CHEST WALL / AXILLA: Unremarkable. UPPER ABDOMEN: Hepatic steatosis. OSSEOUS STRUCTURES: No acute or suspicious osseous abnormalities. CT/CT lung screening IMPRESSION: * No evidence of pulmonary malignancy. * There are no pulmonary nodules that meet criteria for short interval follow-up at this time. * Hepatic steatosis. ASSESSMENT: Lung RADS category: 2S. Benign appearance or behavior. Nodules with a very low likelihood of becoming a clinically active cancer due to size or lack of growth. Continue annual screening with low-dose CT in 12 months. Probability of malignancy less than 1%. Clinically significant or potentially clinically significant findings (non lung cancer). Management as appropriate to the specific finding. RECOMMENDATION: Follow up low dose CT chest in 1 year.
== END 2022-11-03 13:56 | disposition home or self-care (01) ==
LOC: HO.CT 13:55
PROVIDERS: PCP Internal Medicine; Visit Provider Physician Assistant Medical
DX: Z12.2 Encounter for screening for malignant neoplasm of respiratory organs (principal); F17.210 Nicotine dependence, cigarettes, uncomplicated
CPT/HCPCS: 71271; G0296

== ENCOUNTER 2023-01-03 10:53 | Outpatient (AMB) | payer OTHER, SELFPAY ==
--- NOTE | 2023-01-03 11:10 | MHC.PC.OV ---
Vital Signs 01/03/23 11:11 Height 5 ft 1 in Weight 148 lb BMI 28.0 BP 128/70 Blood Pressure Location Rt brachial Position Sitting Intake Visit Reasons: dm Intake Note: Patient here for a follow up DM Experience Planning Strategist Required: No Accompanied by: Self / Same As Patient Allergies acetaminophen [From Vicodin] Allergy (Intermediate, Verified 01/03/23 11:19) Rash hydrocodone [From Vicodin] Allergy (Intermediate, Verified 01/03/23 11:19) Rash Medication List - Last Reconciled 01/03/23 by Neha Naylor MD amlodipine 5 mg PO DAILY 90 days aripiprazole 5 mg PO DAILY atorvastatin 80 mg PO DAILY blood sugar diagnostic (FreeStyle Lite Strips) Use 1 test strip twice a day blood-glucose meter (FreeStyle [place] Lite kit) As directed buspirone 10 mg PO BID clonazepam 1 mg PO dulaglutide (Trulicity) 0.75 mg (0.5 mL) subcut QWEEK ergocalciferol (vitamin D2) 1,250 mcg PO QWEEK 90 days fenofibrate 160 mg PO DAILY 90 days flash glucose sensor (FreeStyle [place] 14 Day Sensor kit) 1 ea topical Q2W 90 days fluoxetine 20 mg PO DAILY isosorbide mononitrate ER 30 mg PO QAM 90 days lisinopril 40 mg PO DAILY 90 days metformin 500 mg PO BID 90 days mirtazapine 30 mg PO BEDTIME omeprazole 20 mg PO DAILY 90 days ondansetron HCl 4 mg PO Q8H PRN 10 days pen needle, diabetic As directed transparent dressings (Tegaderm First Aid Style) As directed Ventolin HFA 90 mcg/actuation (albuterol sulfate) 2 puffs inhalation Q6H PRN 30 days NS Tobacco use date assessed: 08/29/22 Dental Screening Dental Screen Date: 01/03/23 Did you have a dental visit in the last 12 months?: Yes Did you have a dental problem in the last 6 months where you did not have access to dental care?: No Was dental information given to patient?: Patient has dentist HPI HPI Comments History of Present Illness Details This is a 62-year-old female with diabetes mellitus type 2, hypertension, mixed hyperlipidemia and mild recurrent major depression that comes today for follow-up on her conditions. A1c within goal. Blood pressure stable. Lipid panel will be order and her LDL goal should be less than 70. Depression also stable with medications. Denies any chest pain or shortness of breath. [facility] Medical History CAD (coronary artery disease) Essential hypertension GERD (gastroesophageal reflux disease) History of stroke Hypertriglyceridemia Left breast mass Left hemiplegia Leukocytosis, unspecified Low back pain Microalbuminuria Mild recurrent major depression Mixed hyperlipidemia Moderate persistent asthma without complication Nicotine dependence, cigarettes, uncomplicated Overweight (BMI 25.0-29.9) Pulmonary nodules Scalp tenderness Tachycardia Surgical History History of back surgery History of laparoscopy History of tubal ligation S/P insertion of spinal cord stimulator Family History Father Diabetes Mother Diabetes HTN (hypertension) CVD (cardiovascular disease) Brother No problems noted. Brother No problems noted. Sister Diabetes Son Alive and well Daughter Alive and well Social History Housing: House Alcohol intake: never Patient Tobacco Use Status: Current everyday Tobacco user Tobacco use type: Cigarette Cigarette Packs Per Day: 0.25 Years Smoked: (current smoker - onset 13yo, 1-2ppd x 49yrs, now 1/4ppd, 60pyh) Packs Per Year: 0 e-Cigarette/Vaping Use: Never Used Second Hand Smoke Exposure: No service: No Current occupational status: disabled Cognitive needs: No Hearing needs: No Vision needs: Yes Questionnaire Thrive Questionnaire Date Thrive assessed: 08/29/22 CIELO-7 AMB Questionnaire CIELO-7 Date CIELO - 7 assessed: 08/29/22 Source: Developed by Drs. Dmitry Ruffin, Supriya Wolff, Bg Low and colleagues, with an educational deb from [employer]. Review of Systems Const All systems reviewed & are unremarkable except as noted in HPI and below Eyes Reports no additional complaints, Denies change in vision and Denies other visual disturbances Card Denies chest pain at rest, Denies chest pain with activity, Denies edema, Denies irregular heart rhythm, Denies claudication, Denies dyspnea, Denies dyspnea on exertion, Denies orthopnea, Denies paroxysmal nocturnal dyspnea and Denies slow heart rate Resp Denies cough, Denies dyspnea and Denies dyspnea on exertion GI Denies abdominal pain, Denies change in bowel habits, Denies excessive flatus, Denies nausea and Denies vomiting Denies urinary incontinence, Denies urinary hesitancy and Denies urinary urgency Musc Denies abnormal gait, Denies atrophy, Denies deformity and Denies limited range of motion Skin/Breast Denies bleeding lesions, Denies changing lesions and Denies rash Neuro Denies abnormal gait and Denies lack of coordination Physical exam (Primary Care) Vital Signs: Last Vital Signs BP 128/70 01/03/23 11:11 BMI result Body Mass Index 28.0 Tobacco/Smoking Status: Tobacco use Status Tobacco use date assessed 08/29/22 01/03/23 11:14 Patient Tobacco Use Status Current everyday Tobacco 01/03/23 11:14 Tobacco use type Cigarette 01/03/23 11:14 e-Cigarette/Vaping Use Never Used 01/03/23 11:14 Thrive Assessment: Date of Thrive Assessment Date Thrive assessed 08/29/22 01/03/23 11:14 Eyes General: appearance normal, both eyes and all related structures Eyelids: Yes eyelids normal Conjunctivae: conjunctivae normal Neck Neck: Yes normal visual inspection and Yes supple Resp Effort & Inspection: normal respiratory effort Auscultation: clear to auscultation bilaterally Cardio Jugular venous distension: no JVD Rate: regular rate Rhythm: regular rhythm Heart sounds: S1 normal heart sound present and S2 normal heart sound present Extrem General: Yes full ROM Results AMB Hemoglobin A1c AMB Hemoglobin A1c 5.7 % Last Edit by MONY Villalobos on 01/03/23 11:18 Results Reviewed Results Reviewed: Laboratory Last Values Hgb A1c (Clinic) 5.7 % (4.0-6.0) 01/03/23 11:15 Assessment and Plan Assessment & Plan (1) Diabetes mellitus: Onset Date: ~2013 Comment: (DM2 - 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) Code(s): E11.9 - Type 2 diabetes mellitus without complications Plan: Continue insulin. A1c goal is equal or less than 7%. (2) Mixed hyperlipidemia: Code(s): E78.2 - Mixed hyperlipidemia Plan: Continue statins and fibrates. Repeat lipid panel. LDL goal is less than 70. (3) Essential hypertension: Code(s): I10 - Essential (primary) hypertension Plan: Continue amlodipine. Blood pressure goal is equal or less than 130/80. (4) Mild recurrent major depression: Code(s): F33.0 - Major depressive disorder, recurrent, mild Plan: Continue fluoxetine. Orders: Orders Comprehensive [place]. Panel Fast Today I25.10 - Atherosclerotic heart disease of [place] coronary artery without angina pectoris Lipid Panel Today E78.5 - Hyperlipidemia, unspecified Vitamin D 25-OH Total Today E55.9 - Vitamin D deficiency, unspecified Microalbumin, Random (w Creat) Today E11.9 - Type 2 diabetes mellitus without complications Complete Blood Count Auto Diff Today M54.16 - Radiculopathy, lumbar region AMB Hemoglobin A1c Today E11.9 - Type 2 diabetes mellitus without complications Coding Level of Care Code Est Pt Level 4 (56235) Diagnoses Diabetes mellitus E11.9 Mixed hyperlipidemia E78.2 Essential hypertension I10 Mild recurrent major depression F33.0 Time Spent (min) 23
[2023-01-03 11:11] VITALS: BP 128/70; BMI 28.0
== END 2023-01-03 11:27 | disposition home or self-care (01) ==
PROVIDERS: Visit Provider Internal Medicine
DX: E11.9 Type 2 diabetes mellitus without complications (principal); E78.2 Mixed hyperlipidemia; I10 Essential (primary) hypertension; F33.0 Major depressive disorder, recurrent, mild
CPT/HCPCS: 83036; 99214

== ENCOUNTER 2023-01-11 08:34 | Outpatient (AMB) | payer OTHER, SELFPAY ==
[2023-01-11 08:51] VITALS: BP 124/78; PULSE 80; BMI 28.4
--- NOTE | 2023-01-11 08:51 | A.OFFVIS_ITS ---
Intake Vital Signs 01/11/23 08:51 Height 5 ft 1 in Weight 150 lb 5.684 oz BMI 28.4 BP 124/78 Blood Pressure Location Lt brachial Position Sitting Pulse 80 Intake Visit Reasons: 1 year follow up Intake Note: 1 year follow up w/ EKG C S S Representative Required: Yes C S S Representative Language: Electrical Wirer Name: Natasha [id number] Accompanied by: Self / Same As Patient Allergies acetaminophen [From Vicodin] Allergy (Intermediate, Verified 01/11/23 08:53) Rash hydrocodone [From Vicodin] Allergy (Intermediate, Verified 01/11/23 08:53) Rash Medication List - Last Reconciled 01/11/23 by Anand Kowalski MD amlodipine 5 mg PO DAILY 90 days aripiprazole 5 mg PO DAILY aspirin (Isael Chewable Low Dose Aspirin) 81 mg PO DAILY atorvastatin 80 mg PO DAILY blood sugar diagnostic (Stroz Friedberg[place] Lite Strips) Use 1 test strip twice a day blood-glucose meter (Penelope[employer] Purse [place] Lite kit) As directed buspirone 10 mg PO BID clonazepam 1 mg PO dulaglutide (Trulicity) 0.75 mg (0.5 mL) subcut QWEEK ergocalciferol (vitamin D2) 1,250 mcg PO QWEEK 90 days fenofibrate 160 mg PO DAILY 90 days flash glucose sensor (Pen[employer] Purse Josiah 14 Day Sensor kit) 1 ea topical Q2W 90 days fluoxetine 20 mg PO DAILY isosorbide mononitrate ER 30 mg PO QAM 90 days lisinopril 40 mg PO DAILY 90 days metformin 500 mg PO BID 90 days mirtazapine 30 mg PO BEDTIME omeprazole 20 mg PO DAILY 90 days ondansetron HCl 4 mg PO Q8H PRN 10 days pen needle, diabetic As directed transparent dressings (Tegaderm First Aid Style) As directed Ventolin HFA 90 mcg/actuation (albuterol sulfate) 2 puffs inhalation Q6H PRN 30 days NS HPI HPI Comments History of Present Illness Details Sindi returns for follow-up. She has a history of stroke in the past. Has multiple cardiovascular risk factors including smoking, diabetes, hypertension, dyslipidemia. In 2018, she had a hospitalization at [facility] for stroke. Mostly recovered from that. Has reported chest pains in the past but nothing in the last few years. Unfortunately continues to smoke. From the cardiac standpoint, does not have any angina or shortness of breath or in fact anything cardiac related at all. [facility] Medical History CAD (coronary artery disease) Essential hypertension GERD (gastroesophageal reflux disease) History of stroke Hypertriglyceridemia Left breast mass Left hemiplegia Leukocytosis, unspecified Low back pain Microalbuminuria Mild recurrent major depression Mixed hyperlipidemia Moderate persistent asthma without complication Nicotine dependence, cigarettes, uncomplicated Overweight (BMI 25.0-29.9) Pulmonary nodules Scalp tenderness Tachycardia Surgical History History of back surgery History of laparoscopy History of tubal ligation S/P insertion of spinal cord stimulator Family History Father Diabetes Mother Diabetes HTN (hypertension) CVD (cardiovascular disease) Brother No problems noted. Brother No problems noted. Sister Diabetes Son Alive and well Daughter Alive and well Social History Housing: House Alcohol intake: never Patient Tobacco Use Status: Current everyday Tobacco user Tobacco use type: Cigarette Cigarette Packs Per Day: 0.25 Years Smoked: (current smoker - onset 13yo, 1-2ppd x 49yrs, now 1/4ppd, 60pyh) e-Cigarette/Vaping Use: Never Used Second Hand Smoke Exposure: No service: No Current occupational status: disabled Cognitive needs: No Hearing needs: No Vision needs: Yes Review of Systems Const Denies chills, Denies fatigue, Denies fever(s), Denies frequent falls, Denies weakness, Denies weight gain and Denies weight loss ENT Denies dizziness Card Denies chest pain, Denies leg edema, Denies lightheadedness, Denies palpitations, Denies dyspnea, Denies dyspnea on exertion, Denies orthopnea and Denies other (Loss of consciousness) Resp Denies cough, Denies dyspnea and Denies dyspnea on exertion GI Denies hematochezia and Denies change in bowel habits Musc Denies abnormal gait, Denies muscle weakness, Denies numbness, Denies radiating pain into limb and Denies tingling Neuro Denies abnormal gait, Denies dizziness, Denies frequent falls, Denies numbness, Denies tingling and Denies weakness Endo Denies fatigue and Denies palpitations Physical Exam Vital Signs: Last Vital Signs Pulse 80 01/11/23 08:51 BP 124/78 01/11/23 08:51 BMI result Body Mass Index 28.4 Const General: comfortable and no acute distress Orientation/consciousness: patient oriented x3 HEENT Other: Unremarkable Head: Yes normal to inspection Neck Neck: Yes normal visual inspection Chest Chest palpation & inspection: normal inspection of the chest Resp Auscultation: clear to auscultation bilaterally Cardio Palpation: normal PMI Heart sounds: S1 normal heart sound present, S2 normal heart sound present, no gallops, Murmur heart sound present systolic II/ and at the right sternal border and no rubs GI Palpation (GI): Soft to palpation Back/Spine/Pelvis Other: unremarkable Skin General skin exam: no rashes or lesions noted Neuro General: patient oriented x3 Extrem General: Yes normal to inspection Psych Mental Status: mental status grossly normal Assessment & Plan Assessment & Plan (1) Atherosclerotic cardiovascular disease: Code(s): I25.10 - Atherosclerotic heart disease of [place] coronary artery without angina pectoris (2) History of stroke: Comment: (Hx of lacunar infarction with left hemiplegia as residual deficit) Code(s): Z86.73 - Personal history of transient ischemic attack (TIA), and cerebral infarction without residual deficits (3) Smoker: Code(s): F17.200 - Nicotine dependence, unspecified, uncomplicated (4) Essential hypertension: Code(s): I10 - Essential (primary) hypertension (5) Type 2 diabetes mellitus with diabetic polyneuropathy: Code(s): E11.42 - Type 2 diabetes mellitus with diabetic polyneuropathy Qualifiers: Diabetes mellitus shelter insulin use: without long wall shear operator use Qualified Code(s): E11.42 - Type 2 diabetes mellitus with diabetic polyneuropathy Plan Cardiac studies reviewed. Myocardial perfusion imaging study from 2018 shows equivocal findings with a small area of possible distal anterior ischemia. Echocardiogram 2020 with normal LVEF, 60-65%, mild diastolic dysfunction and [id number] aortic regurgitation. Carotid ultrasound from 2018 without any significant stenosis. Overall, numerous cardiovascular risk factors including smoking, diabetes, hypertension, dyslipidemia, history of stroke. High likelihood of developing obstructive coronary disease. She is well aware of this. We will repeat cardiac testing with stress test and echocardiogram. She has aortic valve murmur any to also evaluate for aortic stenosis. Due to some back issues, unlikely to exercise on the treadmill hence can do pharmacological stress with Lexiscan. Patient is agreeable with the plan. Orders: Orders CA lexiscan stress w jean-pierre Today I25.10 - Atherosclerotic heart disease of [place] coronary artery without angina pectoris CA echo transthoracic complete Today I25.10 - Atherosclerotic heart disease of [place] coronary artery without angina pectoris NM cardiolite stress test Today I25.10 - Atherosclerotic heart disease of [place] coronary artery without angina pectoris, R07.2 - Precordial pain Quality Reporting (2019) Adult ([facility] 138//) Smoking risk assessment performed?: Yes Patient Tobacco Use Status: Current everyday Tobacco user Coding Level of Care Code Est Pt Level 4 (49754) Diagnoses Atherosclerotic cardiovascular disease I25.10 History of stroke Z86.73 Smoker F17.200 Essential hypertension I10 Type 2 diabetes mellitus with diabetic polyneuropathy E11.42 Diabetes mellitus shelter insulin use: without long wall shear operator use
== END 2023-01-11 09:12 | disposition home or self-care (01) ==
PROVIDERS: PCP Internal Medicine; Referring Provider Internal Medicine; Visit Provider Internal Medicine
DX: I25.10 Atherosclerotic heart disease of native coronary artery without angina pectoris (principal); Z86.73 Personal history of transient ischemic attack (TIA), and cerebral infarction without residual deficits; F17.200 Nicotine dependence, unspecified, uncomplicated; I10 Essential (primary) hypertension; E11.42 Type 2 diabetes mellitus with diabetic polyneuropathy
CPT/HCPCS: 93010; 99214

== ENCOUNTER 2023-01-11 08:34 | Outpatient (REF) | payer OTHER, SELFPAY ==
[2023-01-11 09:42] LABS: MANUAL DIFF FLAG NO
[2023-01-11 10:21] LABS: Basophils Absolute Auto 0.1 X10*3/uL (0.0-0.2); Basophils Percent Auto 0.6 % (0-2); Eosinophils Absolute Auto 0.3 X10*3/uL (0.0-0.4); Eosinophils Percent Auto 2.4 % (0-4); Hematocrit 41.8 % (37.0-47.0); Hemoglobin 13.1 g/dl (12.0-16.0); Imm Gran Abs Auto 0.03 X10*3/uL (0.00-0.03); Imm Gran Pct Auto 0.3 % (0.0-0.4); Lymphocytes Absolute Auto 4.3 X10*3/uL (1.2-4.9); Lymphocytes Percent Auto 39.5 % (20-40); Mean Corpuscular HGB Conc 31.3 g/dl (31.0-35.0); Mean Corpuscular Hemoglobin 26.1 pg (27.0-33.0); Mean Corpuscular Volume 83.4 fL (80.0-98.0); Mean Platelet Volume 11.6 fL (9.4-12.3); Monocytes Absolute Auto 0.9 X10*3/uL (0.1-1.2); Monocytes Percent Auto 8.4 % (2-11); Neutrophils Absolute Auto 5.3 x10*3/uL (2.0-8.3); Neutrophils Percent Auto 48.8 % (45-73); Platelet Count 298 X10*3/uL (160-400); Red Blood Count 5.01 X10*6/uL (4.20-5.50); Red Cell Distribution Width 15.5 % (11.0-16.0); White Blood Count 10.8 X10*3/uL (4.8-10.8)
[2023-01-11 10:50] LABS: Alanine Aminotransferase 20 U/L (0-31); Albumin Level 4.4 g/dL (3.5-5.0); Alkaline Phosphatase 47 U/L (39-117); Anion Gap 13 (12-20); Aspartate Amino Transferase 19 U/L (5-31); Bilirubin Total 0.2 mg/dL (0.0-1.0); Blood Urea Nitrogen 14 mg/dL (9-16); Calcium 9.8 mg/dL (8.4-10.2); Carbon Dioxide 22 mmol/L (22-29); Chloride 111 mmol/L (96-108); Cholesterol 116 mg/dL; Estimated Glomerular Filt Rate > 60; Glucose Fasting 126 mg/dL (60-99); HDL Cholesterol 30 mg/dL; LDL Cholesterol Calculated 59 mg/dl; Potassium 3.7 mmol/L (3.3-5.1); Sodium 142 mmol/L (135-145); Total Protein 7.2 g/dL (6.5-8.0); Triglycerides 137 mg/dL
[2023-01-11 11:06] LABS: Vitamin D 25-OH Total 38.5 ng/mL (>30)
[2023-01-11 11:39] LABS: Creatinine Urine 68.78 mg/dL; Microalbum/Creatinine Ratio Ur 17.4 ug/mg cr
== END 2023-01-11 08:35 | disposition home or self-care (01) ==
LOC: HO.LAB 08:34
PROVIDERS: PCP Internal Medicine; Referring Provider Internal Medicine; Visit Provider Internal Medicine
DX: I25.10 Atherosclerotic heart disease of native coronary artery without angina pectoris (principal); M54.16 Radiculopathy, lumbar region; E55.9 Vitamin D deficiency, unspecified; E78.5 Hyperlipidemia, unspecified; I10 Essential (primary) hypertension; E11.42 Type 2 diabetes mellitus with diabetic polyneuropathy; F17.200 Nicotine dependence, unspecified, uncomplicated; Z86.73 Personal history of transient ischemic attack (TIA), and cerebral infarction without residual deficits
CPT/HCPCS: 36415; 80053; 80061; 82043; 82306; 85025; 93005; 99212

== ENCOUNTER → 2023-02-15 07:58 | Outpatient (REF) | payer OTHER, SELFPAY ==
--- NOTE | ~2023-02-15 | NM_ITS ---
Lexiscan Myocardial perfusion study Indication: Chest pain, assess for coronary disease and ischemia Technique: The patient was brought in for a Lexiscan perfusion study on 02/15/2023 and was injected 0.4 mg of Lexiscan intravenously. Within a minute of this injection 25 mCi of sestamibi was given intravenously. Images were obtained using the SPECT gamma camera interlaced with the gating device. Images were obtained in supine position. Resting perfusion study was performed on 02/16/2023. Patient was administered 25 mCi of sestamibi intravenously at rest. Images were then obtained in supine position. Images were processed with the software and compared side to side in short axis, horizontal long axis and vertical long axis views. Total DLP 96mGy-cm. Findings: Raw acquisition reviewed. The stress perfusion study showed no significant perfusion abnormality. Both uncorrected as well as CT attenuation corrected images were reviewed. The gated study shows normal LV systolic function with calculated LVEF of 65%. LV cavity is normal in size. The gated study shows normal wall thickening and contraction of segments. Resting study shows no significant perfusion abnormality. Gating at rest reveals normal wall motion with ejection fraction at 71%. The findings are consistent with no clear reversible or fixed perfusion defects. NM/NM cardiolite stress test Impression: 1. Myocardial perfusion imaging study shows normal myocardial perfusion. 2. Gated LVEF is 64% during stress and 71% during rest. 3. Transient ischemic dilatation not present. EKG component of the test reported separately.
--- NOTE | 2023-02-15 08:01 | CA_ITS ---
Acquisition Time: 2023-02-15 08:20:39 Total Exercise Time: 00:03:04 Test Indications: CHEST PAIN Medications: SEE H Protocol: RAVI Max HR: 116 BPM 72% of Pred: 159 BPM Max BP: 144/072 mmHG Max Work Load: 4.6 METS Exercise stress test exercise 3 min 4 sec of Ravi protocol achieving 70% MPHR with request to stop due to difficulties with treadmill, without anginal symptoms, without arrhtyhmias, with normotensive response to exercise, with nondiagnositic EKGs. Test changed to pharmacolgoical stress test with Lexiscan injection, while sitting and kicking her legs, without anginal symptoms, without arrhythmias, with normotensive response to injection, with nondiagnostic EKGs. Aminophylline 75mg IVP given to reverse Lexiscan. Nuclear images pending. Test reviewed with Dr. Kowalski. PT wanted to attempt exercise stress test to avoid the medication stress test. Referred By: Anand Kowalski Overread By: Celine Gurrola
== END ==
LOC: HO.CARD 07:58
PROVIDERS: PCP Internal Medicine; Visit Provider Internal Medicine
DX: R07.2 Precordial pain (principal); I25.10 Atherosclerotic heart disease of native coronary artery without angina pectoris
CPT/HCPCS: 78452; 93017; A9500; J0280; J2785

== ENCOUNTER → 2023-02-15 08:01 | Outpatient (BNV) | payer OTHER, SELFPAY | PROVIDERS: PCP Internal Medicine; Visit Provider Nurse Practitioner | DX: R07.2 Precordial pain (principal) | CPT/HCPCS: 78452; 93016; 93018 ==

== ENCOUNTER → 2023-02-21 08:08 | Outpatient (REF) | payer OTHER, SELFPAY ==
--- NOTE | 2023-02-21 08:10 | CA_ITS ---
Transthoracic Echocardiogram Patient (Last, First, Middle): Sindi Dwyer E Gender: Female Date of : 1960 Age: 62 Procedure Date: 02/21/2023 Procedure Type: Transthoracic Echocardiogram Location: OP Height: 154.94 cm Weight: 68.04 kg BSA: 1.67 m2 Heart Rate: bpm BP: 128 / 82 mmHg Environmental Coordinator: JUAN CARLOS Referring MD: Anand Kowalski MD Symptoms: I25.10 - Atherosclerotic heart disease of [place] coronary artery without... Study Quality: Adequate ECG Rhythm: Sinus Conclusions: - The left ventricular systolic function is normal. The calculated ejection fraction is 63% by biplane method. - Evidence suggests grade I (mild) diastolic dysfunction. - There is moderately increased left ventricular wall thickness. Findings Left Ventricle Normal left ventricular cavity size. There is moderately increased left ventricular wall thickness. The left ventricular systolic function is normal. The calculated ejection fraction is 63% by biplane method. There is no evidence of regional wall motion abnormalities. Evidence suggests grade I (mild) diastolic dysfunction. LV peak GLS -17.1%. Right Ventricle Normal right ventricular cavity size and systolic function. Atria Both atria are normal in size. Aortic Valve There is a normal trileaflet aortic valve. There is mild calcification of the aortic valve. There is no aortic valve stenosis. There is mild to moderate aortic valve regurgitation. Mitral Valve The mitral valve appears normal. There is trace mitral valve regurgitation. There is no mitral valve stenosis. Pulmonic Valve The pulmonic valve is likely normal. Tricuspid Valve Normal tricuspid valve structure. There is trace tricuspid valve regurgitation. There is no evidence of pulmonary hypertension. Great Vessels The asc aorta is normal in size. Venous The inferior vena cava is normal in size and collapses greater than 50% with inspiration. Pericardium/Pleural There is no evidence of pericardial effusion. Prior Study Comparison No significant change compared to prior study dated: 12/07/2020. Measurements 2D Linear Measurements IVSd: 1.31 0.6-0.9/0.6-1.0 cm LVIDd: 3.79 3.9-5.3/4.2-5.9 cm LVIDd Index: 2.27 2.4-3.2/2.2-3.1 cm/m2 LVIDs: 2.63 2.0-3.6 cm LVPWd: 1.30 0.7-1.1 cm LA Diam: 3.00 2.7-3.8/3.0-4.0 cm LAIDs Index: 1.80 1.5-2.3 cm/m2 LV Mass: 216.01 67-162/88-224 g LV Mass Index: 129.35 43-95/49-115 g/m2 LVOT Diam: 1.80 3.0+(-)1.3 cm 2D Systolic Function EF 4C: 59.80 >55% EF 2C: 65.10 >55% EF BiP: 62.80 >55% Mitral Valve MV Pk E: 0.94 MV PK A: 1.10 MV Decel Time: 218.00 E/A: 0.90 E'Lateral: 3.92 E'Medial: 4.35 E/E' Med: 21.60 E/E' Lat: 23.90 PHT: 64.00 MVA PHT: 3.44 Decel Parke: 4.31 Aortic Valve AoV Pk Jacoby: 2.13 AoV Mn Jacoby: 1.45 AoV VTI: 0.46 AoV Pk Grad: 18.00 Aov Mn Grad: 10.00 JOSE Cont.VTI: 1.80 AI Pk Jacoby: 5.11 AI VTI: 1.95 AI Parke: 3.75 AI Alias Jacoby: 0.35 AI RV - PISA: 8.00 ERO - PISA: 4.00 LVOT LVOT Pk Jacoby: 1.57 LVOT Mn Jacoby: 1.03 LVOT VTI: 0.33 LVOT Pk Grad: 10.00 LVOT Mn Grad: 5.00 LVOT Diam: 1.80 LVOT Area: 2.54 Diastolic Function MV Pk E: 0.94 MV Pk A: 1.10 E/A: 0.90 E'Medial: 4.35 E/E' Med: 21.60 E' Laterial: 3.92 E/E' Lat: 23.90 Right Ventricle TAPSE (mm): 23.20 TVS' Jacoby: 12.90 Tricuspid Valve TR Pk Jacoby: 2.55 TR Pk Grad: 26.00 RA Press: 3.00 RVSP: 29.00 Great Vessels Aorta Sinus of Valsalva: 3.51 2.0-3.[address] [place]: 2.66 1.7-3.4 cm Ao Asc: 3.70 2.1-3.4 cm Updated in Other Vendor System with Status of Final Anand Kowalski MD electronically signed on 02/21/2023 4:08:07 PM with status of Final
== END ==
LOC: HO.CARD 08:08
PROVIDERS: PCP Internal Medicine; Visit Provider Internal Medicine
DX: I25.10 Atherosclerotic heart disease of native coronary artery without angina pectoris (principal)
CPT/HCPCS: 93306; 93356

== ENCOUNTER → 2023-02-21 08:10 | Outpatient (BNV) | payer OTHER, SELFPAY | PROVIDERS: PCP Internal Medicine; Visit Provider Internal Medicine | DX: I25.10 Atherosclerotic heart disease of native coronary artery without angina pectoris (principal); I35.1 Nonrheumatic aortic (valve) insufficiency | CPT/HCPCS: 93306 ==

== ENCOUNTER 2023-04-16 13:59 | Outpatient (REF) | payer OTHER, SELFPAY ==
[2023-04-16 14:28] LABS: MANUAL DIFF FLAG NO
[2023-04-16 14:44] LABS: Basophils Absolute Auto 0.1 X10*3/uL (0.0-0.2); Basophils Percent Auto 0.5 % (0-2); Eosinophils Absolute Auto 0.1 X10*3/uL (0.0-0.4); Eosinophils Percent Auto 1.3 % (0-4); Hemoglobin 14.3 g/dl (12.0-16.0); Imm Gran Abs Auto 0.02 X10*3/uL (0.00-0.03); Imm Gran Pct Auto 0.2 % (0.0-0.4); Lymphocytes Absolute Auto 4.4 X10*3/uL (1.2-4.9); Lymphocytes Percent Auto 43.4 % (20-40); Mean Corpuscular HGB Conc 31.8 g/dl (31.0-35.0); Mean Corpuscular Volume 81.8 fL (80.0-98.0); Mean Platelet Volume 10.1 fL (9.4-12.3); Monocytes Absolute Auto 0.8 X10*3/uL (0.1-1.2); Monocytes Percent Auto 7.4 % (2-11); Neutrophils Absolute Auto 4.8 x10*3/uL (2.0-8.3); Neutrophils Percent Auto 47.2 % (45-73); Platelet Count 406 X10*3/uL (160-400); Red Cell Distribution Width 15.4 % (11.0-16.0); White Blood Count 10.1 X10*3/uL (4.8-10.8)
[2023-04-16 15:14] LABS: Alanine Aminotransferase 19 U/L (0-31); Anion Gap 13 (12-20); Aspartate Amino Transferase 21 U/L (5-31); Carbon Dioxide 22 mmol/L (22-29); Chloride 109 mmol/L (96-108); Estimated Glomerular Filt Rate > 60; Potassium 3.7 mmol/L (3.3-5.1); Sodium 140 mmol/L (135-145)
[2023-04-17 07:25] LABS: HBsAGNum1 0.25 S/CO (0.00-0.99); HIV AB/AG Nonreactive (Nonreactive); HIV Num 1 0.13 S/CO (0.00-0.99); Hepatitis B Surface Antigen Negative (Negative); ~HepC Num1 0.39 S/CO (0.00-0.79); ~Hepatitis C Antibody Nonreactive (Nonreactive)
[2023-04-17 07:29] LABS: Syphilis Screen Nonreactive (Nonreactive)
== END 2023-04-16 14:00 | disposition home or self-care (01) ==
LOC: HO.LAB 13:59
PROVIDERS: PCP Internal Medicine; Visit Provider Internal Medicine Infectious Disease
DX: Z20.6 Contact with and (suspected) exposure to human immunodeficiency virus [HIV] (principal)
CPT/HCPCS: 36415; 80051; 82565; 84450; 84460; 85025; 86695; 86696; 86780; 86803; 87340; 87389

== ENCOUNTER 2023-05-04 08:53 | Outpatient (AMB) | payer OTHER, SELFPAY ==
[2023-05-04 09:47] VITALS: BP 120/74; PULSE 82; BMI 28.0
--- NOTE | 2023-05-04 09:47 | MHC.OFFVIS ---
Intake Vital Signs 05/04/23 09:47 Height 5 ft 1 in Weight 148 lb 2.41 oz BMI 28.0 BP 120/74 Blood Pressure Location Lt brachial Position Sitting Pulse 82 Pulse Source Pulse Oximeter Intake Visit Reasons: r/s 3 months followup stress/echo Horse Stud Worker Required: Yes Horse Stud Worker Name: [email or web address] [id number] vincenzo Allergies acetaminophen [From Vicodin] Allergy (Intermediate, Verified 05/04/23 09:50) Rash hydrocodone [From Vicodin] Allergy (Intermediate, Verified 05/04/23 09:50) Rash Medication List - Last Reconciled 05/04/23 by RENE Cuellar amlodipine 5 mg PO DAILY 90 days aripiprazole 5 mg PO DAILY atorvastatin 80 mg PO DAILY blood sugar diagnostic (FreeStyle Lite Strips) Use 1 test strip twice a day blood-glucose meter (FreeStyle [place] Lite kit) As directed buspirone 10 mg PO BID clonazepam 1 mg PO dulaglutide (Trulicity) 0.75 mg (0.5 mL) subcut QWEEK ergocalciferol (vitamin D2) 1,250 mcg PO QWEEK 90 days fenofibrate 160 mg PO DAILY 90 days flash glucose sensor (FreeStyle [place] 14 Day Sensor kit) 1 ea topical Q2W 90 days fluoxetine 20 mg PO DAILY isosorbide mononitrate ER 30 mg PO QAM 90 days lisinopril 40 mg PO DAILY 90 days metformin 500 mg PO BID 90 days mirtazapine 30 mg PO BEDTIME omeprazole 20 mg PO DAILY 90 days ondansetron HCl 4 mg PO Q8H PRN 10 days pen needle, diabetic As directed transparent dressings (Tegaderm First Aid Style) As directed Ventolin HFA 90 mcg/actuation (albuterol sulfate) 2 puffs inhalation Q6H PRN 30 days NS HPI r/s 3 months followup stress/echo HPI Details Sindi is a 62-year-old female with past medical history of diabetes, hypertension, hyperlipidemia, CVA, smoking, prior abnormal nuclear stress test to presents for follow-up after repeat nuclear stress test and echocardiogram. Today she reports that she has been doing well. She has no chest discomfort at rest or with activity. No shortness of breath, palpitations, presyncope, syncope, PND, orthopnea or edema. She does report fatigue. She does not walk much. She has some residual left-sided weakness from her prior CVA. She takes all her meds as directed. 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 [facility], LAT[facility] Medical History CAD (coronary artery disease) Essential hypertension GERD (gastroesophageal reflux disease) History of stroke Hypertriglyceridemia Left breast mass Left hemiplegia Leukocytosis, unspecified Low back pain Microalbuminuria Mild recurrent major depression Mixed hyperlipidemia Moderate persistent asthma without complication Nicotine dependence, cigarettes, uncomplicated Overweight (BMI 25.0-29.9) Pulmonary nodules Scalp tenderness Tachycardia Surgical History History of laparoscopy S/P insertion of spinal cord stimulator History of tubal ligation History of back surgery Family History (Updated 05/04/23 @ 09:52 by Tahmina Gaitan) Father Diabetes Mother Diabetes HTN (hypertension) CVD (cardiovascular disease) Brother No problems noted. Brother No problems noted. Sister Diabetes Breast cancer Son Alive and well Daughter Alive and well Breast cancer Social History Housing: House Alcohol intake: never Patient Tobacco Use Status: Current everyday Tobacco user Tobacco use type: Cigarette Cigarette Packs Per Day: 0.25 Years Smoked: (current smoker - onset 13yo, 1-2ppd x 49yrs, now 1/4ppd, 60pyh) e-Cigarette/Vaping Use: Never Used Second Hand Smoke Exposure: No service: No Current occupational status: disabled Cognitive needs: No Hearing needs: No Vision needs: Yes Review of Systems Const All systems reviewed & are unremarkable except as noted in HPI and below ENT Denies dizziness Card Denies chest pain, Denies chest pain at rest, Denies chest pain with activity, Denies rapid heart rate, Denies pedal edema, Denies edema, Denies leg edema, Denies lightheadedness, Denies palpitations, Denies dyspnea, Denies dyspnea on exertion and Denies orthopnea Resp Denies cough, Denies dyspnea and Denies dyspnea on exertion GI Denies hematochezia and Denies change in stool character Musc Denies abnormal gait, Denies limited range of motion, Denies muscle cramps, Denies muscle weakness, Denies numbness, Denies radiating pain into limb, Denies stiffness and Denies tingling Neuro Denies abnormal gait, Denies dizziness, Denies numbness and Denies tingling Endo Denies palpitations Physical Exam Vital Signs: Last Vital Signs Pulse 82 05/04/23 09:47 BP 120/74 05/04/23 09:47 BMI result Body Mass Index 28.0 Const General: cooperative, healthy appearing, comfortable and no acute distress Orientation/consciousness: patient oriented x3 Neck Neck: Yes normal visual inspection Resp Effort & Inspection: normal respiratory effort Auscultation: clear to auscultation bilaterally, no crackles, no rales, no rhonchi and no wheezes Cardio Jugular venous distension: no JVD Rate: regular rate Rhythm: regular rhythm Heart sounds: S1 normal heart sound present, S2 normal heart sound present, no murmurs and no rubs Neuro General: patient oriented x3 Extrem General: Yes normal to inspection, No no pedal edema and No calf tenderness Psych Appearance: grossly normal Mental Status: mental status grossly normal Speech and movement: Normal speech and movement present Assessment & Plan Assessment & Plan (1) Abnormal nuclear stress test: Code(s): R94.39 - Abnormal result of other cardiovascular function study Plan: Patient has coronary calcifications as seen on CT scan 11/03/2022. She has multiple cardiac risk factors including hypertension, hyperlipidemia, diabetes, smoking. She did have abnormal nuclear stress test in 2018 showing small distal anterior ischemia. On last visit due to high likely venous of developing obstructive coronary artery disease she underwent a repeat nuclear stress test and echocardiogram. Nuclear stress test done 02/15/2023 showed normal myocardial perfusion imaging. Echocardiogram done 02/21/2023 showed EF 63%, grade 1 diastolic dysfunction and moderate LVH. Test results reviewed with her in detail. Today she denies any anginal sounding symptoms. She tells me she is cutting down on smoking. On med rec today she reports not taking aspirin. Will have her restart aspirin 81 mg daily. Continue high-dose atorvastatin with ideal LDL goal less than 70. She is on isosorbide and denies any anginal symptoms. She can continue it for now. Signs and symptoms of angina reviewed. Cardiology follow-up in 6 months, sooner if needed (2) Aortic regurgitation: Code(s): I35.1 - Nonrheumatic aortic (valve) insufficiency Plan: Echocardiogram done 02/21/2023 shows normal EF and [id number] aortic regurgitation. This is overall unchanged from echocardiogram in 2020. She does not have symptoms of heart failure on examination. Continue to follow (3) LVH (left ventricular hypertrophy): Code(s): I51.7 - Cardiomegaly Plan: Recent echo showing moderate LVH. Blood pressure is currently well controlled. The importance of good blood pressure control reviewed with her. (4) CAD (coronary artery disease): Code(s): I25.10 - Atherosclerotic heart disease of [place] coronary artery without angina pectoris Plan: As above (5) History of stroke: Comment: (Hx of lacunar infarction with left hemiplegia as residual deficit) Code(s): Z86.73 - Personal history of transient ischemic attack (TIA), and cerebral infarction without residual deficits Plan: History of CVA. Restarting aspirin. Continue high-dose atorvastatin (6) Essential hypertension: Code(s): I10 - Essential (primary) hypertension Plan: Well controlled at present (7) Mixed hyperlipidemia: Code(s): E78.2 - Mixed hyperlipidemia Plan: [place] LDL goal less than 70. Labs done on 01/11/2023 shows LDL 59, normal LFT. Continue atorvastatin 80 mg daily Patient Instructions: Time spent on chart review, documentation, interview, assessment Quality Reporting (2019) Adult ([facility] 138/07/26/68) Smoking risk assessment performed?: Yes Patient Tobacco Use Status: Current everyday Tobacco user Coding Level of Care Code Est Pt Level 4 (68522) Diagnoses Abnormal nuclear stress test R94.39 Aortic regurgitation I35.1 LVH (left ventricular hypertrophy) I51.7 CAD (coronary artery disease) I25.10 History of stroke Z86.73 Essential hypertension I10 Mixed hyperlipidemia E78.2 Time Spent (min) 26
== END 2023-05-04 10:27 | disposition home or self-care (01) ==
PROVIDERS: PCP Internal Medicine; Visit Provider Nurse Practitioner Family
DX: R94.39 Abnormal result of other cardiovascular function study (principal); I35.1 Nonrheumatic aortic (valve) insufficiency; I51.7 Cardiomegaly; I25.10 Atherosclerotic heart disease of native coronary artery without angina pectoris; Z86.73 Personal history of transient ischemic attack (TIA), and cerebral infarction without residual deficits; I10 Essential (primary) hypertension; E78.2 Mixed hyperlipidemia
CPT/HCPCS: 99214

== ENCOUNTER → 2023-05-04 08:53 | Outpatient (BNVA) | payer OTHER, SELFPAY | PROVIDERS: PCP Internal Medicine; Visit Provider Nurse Practitioner Family | DX: R94.39 Abnormal result of other cardiovascular function study (principal); I35.1 Nonrheumatic aortic (valve) insufficiency; I51.7 Cardiomegaly; I25.10 Atherosclerotic heart disease of native coronary artery without angina pectoris; I10 Essential (primary) hypertension; E78.2 Mixed hyperlipidemia; Z86.73 Personal history of transient ischemic attack (TIA), and cerebral infarction without residual deficits | CPT/HCPCS: 99212 ==

== ENCOUNTER 2023-09-05 16:37 | Outpatient (AMB) | payer OTHER, SELFPAY ==
--- NOTE | 2023-09-05 16:53 | A.OFFPC_ITS ---
Vital Signs 09/05/23 16:58 Height 5 ft 1 in Weight 150 lb BMI 28.3 BP 142/80 H Blood Pressure Location Lt brachial Position Sitting Intake Visit Reasons: lump under arm Intake Note: Patient here c/o lump on right side forearm 2 weeks ago change in size Ventilated Rib Fitter Required: No Accompanied by: Self / Same As Patient Allergies acetaminophen [From Vicodin] Allergy (Intermediate, Verified 09/05/23 17:19) Rash hydrocodone [From Vicodin] Allergy (Intermediate, Verified 09/05/23 17:19) Rash Medication List - Last Reconciled 09/05/23 by Neha Naylor MD amlodipine 5 mg PO DAILY 90 days aripiprazole 5 mg PO DAILY atorvastatin 80 mg PO DAILY blood sugar diagnostic (FreeStyle Lite Strips) Use 1 test strip twice a day blood-glucose meter (FreeStyle [place] Lite kit) As directed buspirone 10 mg PO BID clonazepam 1 mg PO dulaglutide (Trulicity) 0.75 mg (0.5 mL) subcut QWEEK ergocalciferol (vitamin D2) 1,250 mcg PO QWEEK 90 days fenofibrate 160 mg PO DAILY 90 days flash glucose sensor (FreeStyle [place] 14 Day Sensor kit) 1 ea topical Q2W 90 days fluoxetine 20 mg PO DAILY isosorbide mononitrate ER 30 mg PO QAM 90 days lisinopril 40 mg PO DAILY 90 days metformin 500 mg PO BID 90 days mirtazapine 30 mg PO BEDTIME omeprazole 20 mg PO DAILY 90 days ondansetron HCl 4 mg PO Q8H PRN 10 days pen needle, diabetic As directed transparent dressings (Tegaderm First Aid Style) As directed Ventolin HFA 90 mcg/actuation (albuterol sulfate) 2 puffs inhalation Q6H PRN 30 days NS Tobacco use date assessed: 09/05/23 Dental Screening Dental Screen Date: 09/05/23 Did you have a dental visit in the last 12 months?: Yes Did you have a dental problem in the last 6 months where you did not have access to dental care?: No Was dental information given to patient?: Patient has dentist HPI HPI Comments History of Present Illness Details This is a 63-year-old female with hypertension, mixed hyperlipidemia, diabetes mellitus type 2 and left hemiplegia secondary to stroke that comes today complaining of subcutaneous right mass that has been bothering her for about 2 weeks and is increasing in size. Blood pressure stable. Lipid panel will be order. And LDL goal should be less than 70. Blood glucose stable. She also has mild recurrent major depression that is stable with SSRIs. Walks with a cane for gait stability due to left hemiplegia. Ultrasound will be order. Wants to quit smoking with a nicotine patch. [facility] Medical History (Updated 09/05/23 @ 17:30 by Neha Naylor MD) Nicotine dependence, cigarettes, uncomplicated Mild recurrent major depression History of stroke Overweight (BMI 25.0-29.9) Scalp tenderness GERD (gastroesophageal reflux disease) Left hemiplegia Mixed hyperlipidemia Pulmonary nodules Hypertriglyceridemia CAD (coronary artery disease) Low back pain Left breast mass Moderate persistent asthma without complication Essential hypertension Tachycardia Leukocytosis, unspecified Microalbuminuria Surgical History History of laparoscopy S/P insertion of spinal cord stimulator History of tubal ligation History of back surgery Family History Father Diabetes Mother Diabetes HTN (hypertension) CVD (cardiovascular disease) Brother No problems noted. Brother No problems noted. Sister Diabetes Breast cancer Son Alive and well Daughter Alive and well Breast cancer Social History Housing: House Alcohol intake: never Patient Tobacco Use Status: Current everyday Tobacco user Tobacco use type: Cigarette Cigarettes Per Day: 6 Years Smoked: (current smoker - onset 13yo, 1-2ppd x 49yrs, now 1/4ppd, 60pyh) Packs Per Year: 0 Packs per year/per ci.00 e-Cigarette/Vaping Use: Never Used Second Hand Smoke Exposure: No service: No Current occupational status: disabled Cognitive needs: No Hearing needs: No Vision needs: Yes Questionnaire PHQ-9 Over the last 2 weeks, how often have you been bothered by any of the following problems? 1. Little interest or pleasure in doing things: more than half the days 2. Feeling down, depressed, or hopeless: several days 3. Trouble falling or staying asleep, or sleeping too much: nearly every day 4. Feeling tired or having little energy: nearly every day 5. Poor appetite or overeating: several days 6. Feeling bad about yourself - or that you are a failure or have let yourself or your family down: not at all 7. Trouble concentrating on things, such as reading the newspaper or watching television: not at all 8. Moving or speaking so slowly that other people could have noticed. Or the opposite - being so fidgety or restless that you have been moving around a lot more than usual: not at all 9. Thoughts that you would be better off or of hurting yourself in some way: not at all Total score: 10 Depression Screening Interpretation: Positive Depression Screening Follow-up: Existing condition, In treatment and Community Mental Health Worker F/U Depression Screening Done: Yes 91035 - PHQ-9 Billing: Yes Source: Developed by Drs. mDitry Ruffin, Supriya Wolff, Bg Low and colleagues, with an educational deb from [employer]. Thrive Questionnaire Date Thrive assessed: 09/05/23 I am a: Patient What is your living situation today?: I have a steady place to live Within the past 12 months, did the food you bought not last and you didn't have the money to get more?: Never true Within the past 12 months, did you worry whether your food would run out before you got money to buy more?: Never true Do you have trouble paying for medicines?: No Do you have trouble getting transportation to medical appointments?: No Do you have trouble paying your heating and electricity bill?: No Do you have trouble taking care of your child, family member or friend?: No Do you have trouble with day-to-day activities such as bathing, preparing meals, shopping, managing finances, etc.?: No Are you currently unemployed and looking for a job?: No Are you interested in more education?: No Please select the resources that you would like help with: None Currently or been in a relationship where the following occur: no concerns reported THRIVE Score: 0 AUDIT C Alcohol Use Questionnaire (AUDIT-C) 1. How often do you have a drink containing alcohol?: Never Total Score: 0 Score Reviewed/Action Taken: No CIELO-7 AMB Questionnaire CIELO-7 Date CIELO - 7 assessed: 09/05/23 Feeling nervous, anxious, or on edge: 1 = Several days Not being able to stop or control worryin = Not at all Worrying too much about different things: 1 = Several days Trouble relaxin = Not at all Being so restless that it is hard to sit still: 0 = Not at all Becoming easily annoyed or irritable: 1 = Several days Feeling afraid as if something awful might happen: 1 = Several days Total CIELO-7 score (0-4 normal; 5-9 mild; 10-14 moderate; 15-21 severe): 4 Source: Developed by Drs. Dmitry Ruffin, Supriya Wolff, Bg Low and colleagues, with an educational deb from [employer]. CIELO-7 Assessment Billing CIELO-7 Assessment Tool: CIELO-7 Assessment 38738 Review of Systems Const All systems reviewed & are unremarkable except as noted in HPI and below Eyes Reports no additional complaints, Denies change in vision and Denies other visual disturbances Card Denies chest pain at rest, Denies chest pain with activity, Denies edema, Denies irregular heart rhythm, Denies claudication, Denies dyspnea, Denies dyspnea on exertion, Denies orthopnea, Denies paroxysmal nocturnal dyspnea and Denies slow heart rate Resp Denies cough, Denies dyspnea and Denies dyspnea on exertion GI Denies abdominal pain, Denies change in bowel habits, Denies excessive flatus, Denies nausea and Denies vomiting Denies urinary incontinence, Denies urinary hesitancy and Denies urinary urgency Physical exam (Primary Care) Vital Signs: Last Vital Signs BP 142/80 H 09/05/23 16:58 BMI result Body Mass Index 28.3 Tobacco/Smoking Status: Tobacco use Status Tobacco use date assessed 09/05/23 09/05/23 17:03 Patient Tobacco Use Status Current everyday Tobacco 09/05/23 16:53 Tobacco use type Cigarette 09/05/23 16:53 e-Cigarette/Vaping Use Never Used 09/05/23 16:53 PHQ-9: PHQ-9 Score PHQ-9: Total score 10 09/05/23 17:21 Depression Screening Interpretation: Positive Depression Screening Follow-up: Existing condition, In treatment and Community Mental Health Worker F/U Thrive Assessment: Date of Thrive Assessment Date Thrive assessed 09/05/23 09/05/23 17:03 Currently or been in a relationship where the following occur: no concerns reported Resp Effort & Inspection: normal respiratory effort Auscultation: clear to auscultation bilaterally Cardio Jugular venous distension: no JVD Rate: regular rate Rhythm: regular rhythm Heart sounds: S1 normal heart sound present and S2 normal heart sound present Neuro Other: left hemiplegia Extrem General: Yes full ROM Assessment and Plan Assessment & Plan (1) Diabetes mellitus: Onset Date: ~2013 Comment: (DM2 - dx 2014 - with kidney disease and polyneuropathy) Code(s): E11.9 - Type 2 diabetes mellitus without complications Plan: Continue Trulicity and metformin. A1c goal is equal or less than 7% (2) Mild recurrent major depression: Code(s): F33.0 - Major depressive disorder, recurrent, mild Plan: Continue fluoxetine. (3) Left hemiplegia: Code(s): G81.94 - Hemiplegia, unspecified affecting left nondominant side Plan: Walks with a cane for gait stability. (4) Mixed hyperlipidemia: Code(s): E78.2 - Mixed hyperlipidemia Plan: Continue statins and fibrates. LDL goal is less than 70 (5) Essential hypertension: Code(s): I10 - Essential (primary) hypertension Plan: Continue lisinopril. Blood pressure goal is equal or less than 130/80. (6) Subcutaneous mass of right forearm: Code(s): R22.31 - Localized swelling, mass and lump, right upper limb Plan: Ultrasound ordered. Orders: Orders Microalbumin, Random (w Creat) Today E11.9 - Type 2 diabetes mellitus without complications US extremity nonvascular dan Today R22.31 - Localized swelling, mass and lump, right upper limb Lipid Panel Today E78.5 - Hyperlipidemia, unspecified Vitamin D 25-OH Total Today E55.9 - Vitamin D deficiency, unspecified Comprehensive Many. Panel Fast Today E11.9 - Type 2 diabetes mellitus without complications Medications: New nicotine 1 patch transdermal Q24H 14 days 14 ea 0RF Coding Level of Care Code Est Pt Level 4 (76684) Diagnoses Diabetes mellitus E11.9 Mild recurrent major depression F33.0 Left hemiplegia G81.94 Mixed hyperlipidemia E78.2 Essential hypertension I10 Subcutaneous mass of right forearm R22.31 Additional Codes CIELO-7 Assessment Billing - CIELO-7 Assessment Tool: CIELO-7 Assessment [id number] ([id number]) Time Spent (min) 23
[2023-09-05 16:58] VITALS: BP 142/80; BMI 28.3
== END 2023-09-05 17:22 | disposition home or self-care (01) ==
PROVIDERS: PCP Internal Medicine; Visit Provider Internal Medicine
DX: R22.31 Localized swelling, mass and lump, right upper limb (principal); E11.9 Type 2 diabetes mellitus without complications; F33.0 Major depressive disorder, recurrent, mild; I69.354 Hemiplegia and hemiparesis following cerebral infarction affecting left non-dominant side; E78.2 Mixed hyperlipidemia; I10 Essential (primary) hypertension
CPT/HCPCS: 99214

== ENCOUNTER 2023-09-13 13:02 | Outpatient (REF) | payer OTHER, SELFPAY ==
--- NOTE | ~2023-09-13 | US_ITS ---
EXAMINATION: RIGHT ANTERIOR FOREARM ULTRASOUND CLINICAL INFORMATION: Swelling and lump right forearm. COMPARISON: None available. TECHNIQUE: High-frequency linear ultrasound transducer was used to examine the area of clinical concern. FINDINGS: There is an ovoid 3.6 x 0.7 x 2.8 cm well defined solid mass present with identical echogenicity to surrounding fat. No vascularity is seen. US/US extremity nonvascular dan IMPRESSION: The mass in question is consistent with a lipoma.
== END 2023-09-13 13:03 | disposition home or self-care (01) ==
LOC: HO.US 13:02
PROVIDERS: PCP Internal Medicine; Visit Provider Internal Medicine
DX: R22.31 Localized swelling, mass and lump, right upper limb (principal)
CPT/HCPCS: 76882

== ENCOUNTER 2023-09-26 08:37 | Outpatient (AMB) | payer OTHER, SELFPAY ==
--- NOTE | 2023-09-26 08:38 | A.OFFVIS_ITS ---
Vital Signs 09/26/23 08:49 Height 5 ft 1 in Weight 151 lb BMI 28.5 BP 146/80 H Blood Pressure Location Lt brachial Position Sitting Respiration 14 Pulse 86 Pulse Source Pulse Oximeter Pulse Oximetry (%) 97 Oxygen Delivery Method Room Air Intake Visit Reasons: Radiculopathy, lumbar region Intake Note: Patient was last seen in office on 03/02/2022. Today she is accompanied by a family friend name Lia. Reports pain 10/10. Allergies acetaminophen [From Vicodin] Allergy (Intermediate, Verified 09/26/23 08:48) Rash hydrocodone [From Vicodin] Allergy (Intermediate, Verified 09/26/23 08:48) Rash HPI Comments Details: Sindi is back in in my office with continuous complain on pain in lower back with radiation into the left lower extremity all the way down to her toes. She reports numbness and weakness of the left lower extremity. She reports pain 8/10 today. She is on permanent disability. She denies incontinence with urine or stool. She denies urinary retention. She brought the MRI results of which dictated in as below. She has severe spinal canal stenosis at L4-5. I explained to the patient that she needs to go for repeat MRI because this MRI was almost a year ago. I am planning to schedule her with Dr. Rosales for e valuation. Prior: Previously this patient was under my care after she admitted several sets of the injections elsewhere. She was offered [employer] SCS and initially the trial went very well. SCS was implanted. However later on patient started to complain on discomfort in the projection of the battery of spinal cord stimulator as well as not effectiveness of the device treat her pain. She insisted on removal of spinal cord stimulator although she was explained that if she does not want the action of spinal cord stimulator she just need to turn it off. Nevertheless she insisted on spinal cord stimulator removal. Spinal cord stimulator was removed. The healing went very well, however daughter of the patient who presented with the patient when brynn were removed asked me if thi s office prescribes opioid medications. When my answer was no she became visibly upset. The patient did not react at all to this statement. Opioid diversion is suspected. Please do not admit this patient in the future for the chronic opioid program. Off note: This patient had 4.5 cm procedure incision and recommended to have Tylenol and ibuprofen to treat her postoperative pain.? She is not complaining on pain today.? However her relative who was with her told me today that her pain was very severe and that she was not prescribed opioid medications postoperative.? I did receive the telephone call next day after surgery and IA explained the patient my recommendations about Tylenol and ibuprofen.? I recommended them if pain continues despite Tylenol and NSAID in takes give the call to me on Sunday02/20/2022.? However this office did not receive any telephone calls on Sunday.? The patient went to emergency room at [facility] when she was given 6 pills of oxycodone.? The relatively the patient is complaining that 6 pills of oxycodone was not enough to treat her pain.? I carefully explained the patient that small incisions which are not getting deeper than subcutaneous tissues most likely do not require our opioid medications in postoperative time.? Majority of the patient's are doing well, the visit to emergency room of [facility] gave the patient 6 pills of oxycodone which in my opinion far than enough to treat this patient's pain.? There is no signs of infection or inflammation [facility] Medical History Nicotine dependence, cigarettes, uncomplicated Mild recurrent major depression History of stroke Overweight (BMI 25.0-29.9) Scalp tenderness GERD (gastroesophageal reflux disease) Left hemiplegia Mixed hyperlipidemia Pulmonary nodules Hypertriglyceridemia CAD (coronary artery disease) Low back pain Left breast mass Moderate persistent asthma without complication Essential hypertension Tachycardia Leukocytosis, unspecified Microalbuminuria Surgical History History of laparoscopy S/P insertion of spinal cord stimulator History of tubal ligation History of back surgery Family History Father Diabetes Mother Diabetes HTN (hypertension) CVD (cardiovascular disease) Brother No problems noted. Brother No problems noted. Sister Diabetes Breast cancer Son Alive and well Daughter Alive and well Breast cancer Social History Housing: House Alcohol intake: never Patient Tobacco Use Status: Current everyday Tobacco user Tobacco use type: Cigarette Cigarettes Per Day: 6 Years Smoked: (current smoker - onset 13yo, 1-2ppd x 49yrs, now 1/4ppd, 60pyh) e-Cigarette/Vaping Use: Never Used Second Hand Smoke Exposure: No service: No Current occupational status: disabled Cognitive needs: No Hearing needs: No Vision needs: Yes Review of Systems Const All systems reviewed & are unremarkable except as noted in HPI and below ENT Reports Normal hearing present Neuro Reports Normal hearing present, Denies Abnormal speech present, Denies confusion and Denies Sensory deficit (Neuro) Psych Denies confusion Physical Exam Vital Signs: Last Vital Signs Pulse 86 09/26/23 08:49 Resp 14 09/26/23 08:49 BP 146/80 H 09/26/23 08:49 Pulse Ox 97 09/26/23 08:49 Oxygen Delivery Method Room Air 09/26/23 08:49 BMI result Body Mass Index 28.5 Const General: No confusion Orientation/consciousness: No confusion Neck Neck: Yes full ROM Chest Chest palpation & inspection: normal inspection of the chest Resp Effort & Inspection: normal respiratory effort, able to speak in complete sentences, normal respiratory pattern, no audible wheezes and no cough Cardio Jugular venous distension: no JVD GI Inspection: Yes normal to inspection Back/Spine/Pelvis Other: Unable to stand on bilateral tiptoes exhibits weakness of the left lower extre mity in the forward foot flexion. Reports numbness in the left sole. Neuro General: No confusion Cranial nerves: Yes Normal hearing present Speech: No Abnormal speech present Gait exam (Neuro): Normal gait present Motor exam (neuro): 5/5 motor strength present throughout Sensory Exam: No Sensory deficit (Neuro) Psych Speech and movement: Normal speech and movement present Affect: normal affect Attitude: cooperative Quality Reporting (2019) Adult ([facility] 138/07/26/68) Smoking risk assessment performed?: Yes Patient Tobacco Use Status: Current everyday Tobacco user Results Reviewed Results Reviewed: MRI lumbar spine 10/27/2022. Findings: Mild levoconvex curvature of the lumbar spine. There is maintenance of lumbar lordosis. The lumbar vertebral bodies are normal in height. Degenerative disc disease, disc space narrowing and endplate degenerative changes at L4-5 and L5- S1 level. No acute fractures is seen within the lumbar spine. The conus terminates normally and is normal in signal. Axial images: L3-L4 mild retrolisthesis moderate disc bulge extending the neural foramina facet and ligamentum flavum degenerative changes, moderate right neural foramina and mild left neural foraminal stenosis. L4-5 severe disc bulge focal foraminal disc protrusion and facet and ligamentum flavum degenerative changes resulting in severe central spinal canal and severe neural bilateral foraminal stenosis. There are postsurgical changes at L5-S1 level. There are degenerative changes of the sacroiliac joint spaces. Assessment & Plan Assessment & Plan (1) Lumbar radiculopathy: Code(s): M54.16 - Radiculopathy, lumbar region Category: Medical (2) Other specified postprocedural states: Code(s): Z98.890 - Other specified postprocedural states Category: Surgical (3) Postlaminectomy syndrome: Code(s): M96.1 - Postlaminectomy syndrome, not elsewhere classified Category: Medical (4) Type 2 diabetes mellitus with polyneuropathy: Code(s): E11.42 - Type 2 diabetes mellitus with diabetic polyneuropathy Category: Medical (5) Spinal stenosis: Code(s): M48.00 - Spinal stenosis, site unspecified Category: Medical (6) Spinal stenosis at L4-L5 level: Code(s): M48.061 - Spinal stenosis, lumbar region without neurogenic claudication Category: Medical (7) Left lumbar radiculopathy: Code(s): M54.16 - Radiculopathy, lumbar region Category: Medical Plan I will send this patient to the MRI and after that to Dr. Rosales for evaluation. The diagnosis is spinal canal stenosis radiculopathy lumbar. Last time in my office diversion was suspected. Do not admit this patient to chronic opioid program. Orders: Orders MR lumbar spine wo con Today M48.00 - Spinal stenosis, site unspecified, M48.061 - Spinal stenosis, lumbar region without neurogenic claudication, M54.16 - Radiculopathy, lumbar region Referrals Neuro Spine Referral M48.00 - Spinal stenosis, site unspecified, M48.061 - Spinal stenosis, lumbar region without neurogenic claudication, M54.16 - Radiculopathy, lumbar region Patient Instructions: I here by testify that I spent 32 minutes in conversation with this patient using voice porter marina [phone], as well as evaluating her prior records and diagnostic studies as well as planning her care organizing this note.. Coding Level of Care Code Est Pt Level 4 (88480) Diagnoses Lumbar radiculopathy M54.16 Other specified postprocedural states Z98.890 Postlaminectomy syndrome M96.1 Type 2 diabetes mellitus with polyneuropathy E11.42 Spinal stenosis M48.00 Spinal stenosis at L4-L5 level M48.061 Left lumbar radiculopathy M54.16
[2023-09-26 08:49] VITALS: BP 146/80; PULSE 86; RESP 14; O2SAT 97; BMI 28.5
== END 2023-09-26 09:09 | disposition home or self-care (01) ==
PROVIDERS: PCP Internal Medicine; Visit Provider Anesthesiology
DX: M54.16 Radiculopathy, lumbar region (principal); Z98.890 Other specified postprocedural states; M96.1 Postlaminectomy syndrome, not elsewhere classified; E11.42 Type 2 diabetes mellitus with diabetic polyneuropathy; M48.00 Spinal stenosis, site unspecified; M48.061 Spinal stenosis, lumbar region without neurogenic claudication
CPT/HCPCS: 99214

== ENCOUNTER → 2023-09-26 08:37 | Outpatient (BNVA) | payer OTHER, SELFPAY | PROVIDERS: PCP Internal Medicine; Visit Provider Anesthesiology | DX: M54.16 Radiculopathy, lumbar region (principal); M96.1 Postlaminectomy syndrome, not elsewhere classified; M48.00 Spinal stenosis, site unspecified; M48.061 Spinal stenosis, lumbar region without neurogenic claudication; E11.42 Type 2 diabetes mellitus with diabetic polyneuropathy; Z98.890 Other specified postprocedural states | CPT/HCPCS: 99212 ==

== ENCOUNTER 2023-10-01 09:05 | Outpatient (AMB) | payer OTHER, SELFPAY ==
--- NOTE | 2023-10-01 09:06 | MHC.OFFVIS ---
Vital Signs 10/01/23 09:12 Height 5 ft 1 in Weight 151 lb BMI 28.5 BP 161/81 H Blood Pressure Location Rt brachial Position Sitting Pulse 85 Intake Visit Reasons: Mass~ Rt forearm Intake Note: Patient referred by PCP Dr. Barrera Naylor for mass on rt forearm. Present for 2m. Patient c/o: enlarging. Denies pain or dsicomfort. Journeyman Level Acoustic Analyst Required: Yes Accompanied by: Self / Same As Patient Allergies acetaminophen [From Vicodin] Allergy (Intermediate, Verified 10/01/23 09:11) Rash hydrocodone [From Vicodin] Allergy (Intermediate, Verified 10/01/23 09:11) Rash Medication List - Last Reconciled 10/01/23 by Jj Aleman MD amlodipine 5 mg PO DAILY 90 days aripiprazole 5 mg PO DAILY atorvastatin 80 mg PO DAILY blood sugar diagnostic (FreeStyle Lite Strips) Use 1 test strip twice a day blood-glucose meter (FreeStyle Kelliher Lite kit) As directed buspirone 10 mg PO BID clonazepam 1 mg PO dulaglutide (Trulicity) 0.75 mg (0.5 mL) subcut QWEEK ergocalciferol (vitamin D2) 1,250 mcg PO QWEEK 90 days fenofibrate 160 mg PO DAILY 90 days flash glucose sensor (FreeStyle Josiah 14 Day Sensor kit) 1 ea topical Q2W 90 days fluoxetine 20 mg PO DAILY isosorbide mononitrate ER 30 mg PO QAM 90 days lisinopril 40 mg PO DAILY 90 days metformin 500 mg PO BID 90 days mirtazapine 30 mg PO BEDTIME nicotine 1 patch transdermal Q24H 14 days omeprazole 20 mg PO DAILY 90 days ondansetron HCl 4 mg PO Q8H PRN 10 days pen needle, diabetic As directed transparent dressings (Tegaderm First Aid Style) As directed Ventolin HFA 90 mcg/actuation (albuterol sulfate) 2 puffs inhalation Q6H PRN 30 days NS HPI Comments Details: Patient presents with a soft tissue mass over her dorsal aspect of right mid forearm. She has had this indeterminate amount of time. It is increasing in size, become more symptomatic. She would like to have removed. Chart was reviewed patient evaluate [facility] Medical History Nicotine dependence, cigarettes, uncomplicated Mild recurrent major depression History of stroke Overweight (BMI 25.0-29.9) Scalp tenderness GERD (gastroesophageal reflux disease) Left hemiplegia Mixed hyperlipidemia Pulmonary nodules Hypertriglyceridemia CAD (coronary artery disease) Low back pain Left breast mass Moderate persistent asthma without complication Essential hypertension Tachycardia Leukocytosis, unspecified Microalbuminuria Surgical History History of laparoscopy S/P insertion of spinal cord stimulator History of tubal ligation History of back surgery Family History Father Diabetes Mother Diabetes HTN (hypertension) CVD (cardiovascular disease) Brother No problems noted. Brother No problems noted. Sister Diabetes Breast cancer Son Alive and well Daughter Alive and well Breast cancer Social History Housing: House Alcohol intake: never Patient Tobacco Use Status: Current everyday Tobacco user Tobacco use type: Cigarette Cigarettes Per Day: 6 Years Smoked: (current smoker - onset 13yo, 1-2ppd x 49yrs, now 1/4ppd, 60pyh) e-Cigarette/Vaping Use: Never Used Second Hand Smoke Exposure: No service: No Current occupational status: disabled Cognitive needs: No Hearing needs: No Vision needs: Yes Physical Exam Vital Signs: Last Vital Signs Pulse 85 10/01/23 09:12 BP 161/81 H 10/01/23 09:12 BMI result Body Mass Index 28.5 Extrem Other: Proximally 3 x 2 cm mid dorsal right forearm mass consistent with lipoma. Office Procedures Excision Details: After appropriate positioning, patient underwent 1% lidocaine and Betadine prep and a longitudinal incision was made over the mass in question and carried down through skin, subcutaneous tissue, with uneventfully enucleation of mass consistent with lipoma measuring approximately 3 x 2 cm. Specimen sent to pathology. Wounds irrigated, secured hemostasis, and closed using running subcuticular 3-0 Vicryl suture followed by Steri-Strips and sterile dressings. Patient tolerated procedure well. 39798-bmimm/arms/legs 2.1-3cm Procedure code (CPT) selection complete Office Meds lidocaine 1 %-epinephrine 1:100,000 injection solution Performing Provider: Jj Aleman MD [place]forming Location[place] [facility] Administered by: Jj Aleman MD on 10/01/23 10:19 Dose Route Admin Location Dispensed Lot Number Expiration Date NDC Barrel Drum Cutter 10 mL Infiltration 10 mL Quality Reporting (2019) Adult ([facility] 138/07/26/68) Smoking risk assessment performed?: Yes Patient Tobacco Use Status: Current everyday Tobacco user Assessment & Plan Assessment & Plan (1) Lipoma of arm: Code(s): D112.21 - Benign lipomatous neoplasm of skin and subcutaneous tissue of unspecified limb Category: Surgical Plan: Risks, benefits, alternatives of excision of right forearm soft tissue mass reviewed the patient included but not limited to bleeding, infection, recurrence, numbness, pain, scarring, wound dehiscence, seroma formation and the patient wished to proceed. All questions answered. Plan Patient has been given local instructions including isolated wound periodically, may shower in 2 days, no strenuous activities, elevation of the wound, Tylenol or Motrin p.r.n.. All questions answered. Patient will see me as directed or p.r.n.. Orders: Orders Surgical Today D112.21 - Benign lipomatous neoplasm of skin and subcutaneous tissue of unspecified limb, R22.31 - Localized swelling, mass and lump, right upper limb AMB Excision Today - Benign lipomatous neoplasm of skin and subcutaneous tissue of unspecified limb Medications: New lidocaine-epinephrine 1 %-1:100,000 10 mL Infiltration ONCE 30 mL 0RF D112.21 - Benign lipomatous neoplasm of skin and subcutaneous tissue of unspecified limb Coding Level of Care Code New Pt Level 5 (71459) Diagnoses Lipoma of arm CPT Codes Trunk/Arms/Legs - CPT: 89608-kpvno/arms/legs 2.1-3cm ([id number])
[2023-10-01 09:12] VITALS: BP 161/81; PULSE 85; BMI 28.5
== END 2023-10-01 09:36 | disposition home or self-care (01) ==
PROVIDERS: PCP Internal Medicine; Referring Provider Internal Medicine; Visit Provider Surgery
DX: D17.21 Benign lipomatous neoplasm of skin and subcutaneous tissue of right arm (principal)
CPT/HCPCS: 11403; 99204

== ENCOUNTER 2023-10-01 09:05 | Outpatient (REF) | payer OTHER, SELFPAY | END 2023-10-01 09:06 | disposition home or self-care (01) | LOC: HO.LNP 09:05 | PROVIDERS: PCP Internal Medicine; Referring Provider Internal Medicine; Visit Provider Surgery | DX: D17.20 Benign lipomatous neoplasm of skin and subcutaneous tissue of unspecified limb (principal); R22.31 Localized swelling, mass and lump, right upper limb | CPT/HCPCS: 11403; 88304; 99202 ==

== ENCOUNTER 2023-10-02 09:12 | Outpatient (REF) | payer OTHER, SELFPAY ==
--- NOTE | ~2023-10-02 | MM_ITS ---
EXAMINATION: MM SCREENING DIGITAL BREAST TOMOSYNTHESIS, BILATERAL CLINICAL INFORMATION: Screening. Asymptomatic. COMPARISON: Mammography: This study is compared with prior exams dating back to 2019. TECHNIQUE: Digital breast tomosynthesis is performed in both the craniocaudal and mediolateral oblique views along with computer-aided detection (CAD). Synthesized 2D images are generated from the tomosynthesis. FINDINGS: There are scattered areas of fibroglandular density (ACR BI-RADS breast composition Category b). There are no significant masses, abnormal calcifications, or other abnormalities. There is a tissue marker present in the upper outer quadrant of the left breast from prior benign percutaneous biopsy. MM/MM tomosynthesis screening BI IMPRESSION: No mammographic evidence of malignancy. ASSESSMENT: BI-RADS BI-RADS 2 - Benign Findings RECOMMENDATION: Routine annual mammography screening. 1 year F/U This examination should not preclude the clinical evaluation of a suspicious palpable abnormality. This patient's information was entered into a reminder system with a target due date for their next mammogram.
== END 2023-10-02 09:13 | disposition home or self-care (01) ==
LOC: HO.MAMMO 09:12
PROVIDERS: PCP Internal Medicine; Visit Provider Internal Medicine
DX: Z12.31 Encounter for screening mammogram for malignant neoplasm of breast (principal)
CPT/HCPCS: 77063; 77067

== ENCOUNTER → 2023-10-02 10:00 | Outpatient (BNV) | payer OTHER, SELFPAY | PROVIDERS: PCP Internal Medicine; Visit Provider Radiology Diagnostic Radiology | DX: Z12.31 Encounter for screening mammogram for malignant neoplasm of breast (principal) | CPT/HCPCS: 77063; 77067 ==

== ENCOUNTER 2023-10-05 09:23 | Outpatient (REF) | payer OTHER, SELFPAY ==
--- NOTE | ~2023-10-05 | XR_ITS ---
EXAMINATION: XR LUMBOSACRAL SPINE CLINICAL INFORMATION: Reason for Exam M54.16 - Radiculopathy, lumbar region COMPARISON: Lumbar spine radiographs 12/16/2018 TECHNIQUE: 4 views of the lumbar spine FINDINGS: 5 nonrib-bearing lumbar-type vertebral bodies. Vertebral body heights are maintained. Levoconvex curvature of the lumbar spine. Straightening of the usual lumbar lordosis. Moderate multilevel degenerative disc disease with loss of disc space height and facet arthropathy similar to prior. No instability on flexion extension views. Atherosclerosis of the abdominal aorta. Right upper quadrant cholecystectomy clips. XR/XR lumbar spine 4V min IMPRESSION: Levoconvex curvature of the lumbar spine. Straightening of the usual lumbar lordosis. No instability on flexion extension views. 1. Moderate multilevel degenerative disc disease with loss of disc space height and facet arthropathy.
== END 2023-10-05 09:24 | disposition home or self-care (01) ==
LOC: HO.HOSX 09:23
PROVIDERS: PCP Internal Medicine; Visit Provider Physician Assistant
DX: M54.16 Radiculopathy, lumbar region (principal); M48.061 Spinal stenosis, lumbar region without neurogenic claudication
CPT/HCPCS: 72110; 99202

== ENCOUNTER 2023-10-05 09:23 | Outpatient (AMB) | payer OTHER, SELFPAY ==
--- NOTE | 2023-10-05 10:54 | HO.SPINEOV ---
Intake Visit Reasons: Radiculopathy, lumbar region Intake Note: Ms. Dwyer is here today c/o Low back pain. Senior Energy Market Coordinator Required: Yes Senior Energy Market Coordinator Name: Natasha Allergies acetaminophen [From Vicodin] Allergy (Intermediate, Verified 10/01/23 09:11) Rash hydrocodone [From Vicodin] Allergy (Intermediate, Verified 10/01/23 09:11) Rash Assessment & Plan Assessment & Plan (1) Left lumbar radiculopathy: Code(s): M54.16 - Radiculopathy, lumbar region Category: Medical (2) Spinal stenosis at L4-L5 level: Code(s): M48.061 - Spinal stenosis, lumbar region without neurogenic claudication Category: Medical Plan Dear Dr Caraballo, Thank you for referring Mrs Dwyer to our office today. She is a very nice 63-year-old female who underwent what sounds like lumbar diskectomy about 10 years ago or so in [place]. She believes it was at [facility] but can not remember the name of the doctors did the procedure. She tells me that at the time she had the exact same pain that she has now traveling from her low back into her left posterior lateral thigh down into her calf and into her foot. Her foot feels numb. After the procedure she was told by the doctor that there was nothing more that could be done. She is seen him recently in the not too distant past and was told that she would never be a surgical candidate again. Despite this, she continues to have severe pain which is aggravated with standing and walking. She is trialed numerous rounds of conservative treatment including years worth of injections. She underwent a spinal cord stimulator trial and had it removed. She is done medications, including [id number] medications like Motrin and Tylenol. She comes in today to see us for evaluation with an MRI at [facility] done last year showing severe stenosis at L4-5 and disc herniation at L5-S1 on the left. PMH: She is diabetic, but has not had her A1c checked in quite some time. She had a few strokes maybe 10 years ago or so when she was under tremendous amount of stress, her daughter thinks it may have been related to that. She is history of high cholesterol. She did have a tubal ligation. She has never had a heart attack, any issues with her lungs, kidneys, liver, cancer, bleeding disorders, blood clots. No history extensive intra-abdominal surgery. Social hx: She does smoke a pack a day, does not drink use any recreational drugs Medications: Amlodipine, aripiprazole, atorvastatin, buspirone, Klonopin, Trulicity, vitamin-D, fenofibrate, fluoxetine, isosorbide, lisinopril, metformin, mirtazapine, nicotine patch, omeprazole, ondansetron Allergies: Vicodin Physical exam: Very pleasant woman no acute distress, his daughter is here with her today who is helping interpret, she has weakness of both her dorsiflexion and plantar flexion which I would rate as 4-5. She has an absent Achilles reflex. Rest of her neurological examination is normal. Imaging review: I was able to review her original preoperative lumbar MRI in 2012 at [facility] as well as her imaging from 2022 done on her lumbar spine at [facility]. I can see the original large extruded disc fragment is slightly larger on the new MRI but it still residual causing compression on the nerve root. The images done without contrast so it is hard to make out specific details where the disc herniation ends in the nerve root start. Sagittal images show it fairly well that there is still about 50% of the disc still left in the lateral recess at L5-S1. The L4-5 area, is a little more difficult to make out, I can not tell exactly if there has been surgery done in this area. There is moderate to severe central canal stenosis here and some type of crowding in the lateral recess just as the nerve takes off from the dura. It may represent a soft disc fragment that is isointense, or it could be postsurgical scarring. It is difficult to make out. It extends down into the foramen. There is neuroforaminal stenosis on the L5 nerve at this level as well. Impression: 63-year-old female with previous lumbar surgery done in 2012 for which she had no appreciable relief of her leg pain. She can not recall the name of the surgeon, she did follow up with him recently and was told he she would never be a surgical candidate again. She had undergone a spinal cord stimulator but that was removed after had no effect. She has been through numerous rounds of conservative treatment including the typical physical therapy, cortisone injections etc.. The imaging from last year is a little confusing because it was done without contrast so that limits the evaluation but she certainly has some residual disc material at L5-S1 on the left and there may even be a disc herniation at L4-5 superimposed on central canal stenosis. It has an isointense finding and this can be seen with scar tissue as well in patients with previous surgery. She has an upcoming MRI, it is ordered without contrast, I will order it with and without contrast so we can see some of the postsurgical details better. Also, I am going to order a standing x-ray with flexion-extension views. I am also going to get the operative reports from the surgeon in [place]. Her daughter will call me with the name of the surgeon and we can get the records because it should be made clear exactly why despite seeing significant pathology she was told she would never be a surgical candidate it again. Sometimes this happens because the surgeon saw something at the time of surgery that was so concerning or because there was some kind of nerve injury at the time of surgery that they expect there will never be improvement again with another operation. We need to know this before considering her surgical candidate. Thank you for allowing us to care for your patient. The total time spent with this visit with this patient was 45 minutes reviewing history, physical exam, lumbar imaging review, and implementation of treatment plan or further diagnostic testing Fawad Rosales MD,PhD [facility] Orders: Orders XR lumbar spine 4V min Today M54.16 - Radiculopathy, lumbar region MR lumbar spine wo/w con Today M48.061 - Spinal stenosis, lumbar region without neurogenic claudication, M54.16 - Radiculopathy, lumbar region Coding Level of Care Code New Pt Level 4 (32169) Diagnoses Left lumbar radiculopathy M54.16 Spinal stenosis at L4-L5 level M48.061
== END 2023-10-05 11:44 | disposition home or self-care (01) ==
PROVIDERS: PCP Internal Medicine; Referring Provider Anesthesiology; Visit Provider Physician Assistant
DX: M54.16 Radiculopathy, lumbar region (principal); M48.061 Spinal stenosis, lumbar region without neurogenic claudication
CPT/HCPCS: 99204

== ENCOUNTER 2023-10-09 09:42 | Outpatient (AMB) | payer OTHER, SELFPAY ==
--- NOTE | 2023-10-09 09:49 | A.OFFVIS_ITS ---
Intake Visit Reasons: S/p Mass~ Rt forearm-in office procedure Intake Note: Patient here s/p exc on Rt inner forearm. Reports incision healing well. Patient c/o: steri strips never fell off. Site getting itchy. 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 She has no wound issues or complaints. Pathology is benign. [facility] Medical History Nicotine dependence, cigarettes, uncomplicated Mild recurrent major depression History of stroke Overweight (BMI 25.0-29.9) Scalp tenderness GERD (gastroesophageal reflux disease) Left hemiplegia Mixed hyperlipidemia Pulmonary nodules Hypertriglyceridemia CAD (coronary artery disease) Low back pain Left breast mass Moderate persistent asthma without complication Essential hypertension Tachycardia Leukocytosis, unspecified Microalbuminuria Surgical History Hx of surgical procedure (10/01/23) History of laparoscopy S/P insertion of spinal cord stimulator History of tubal ligation History of back surgery Family History Father Diabetes Mother Diabetes HTN (hypertension) CVD (cardiovascular disease) Brother No problems noted. Brother No problems noted. Sister Diabetes Breast cancer Son Alive and well Daughter Alive and well Breast cancer Social History Housing: House Alcohol intake: never Patient Tobacco Use Status: Current everyday Tobacco user Tobacco use type: Cigarette Cigarettes Per Day: 6 Years Smoked: (current smoker - onset 13yo, 1-2ppd x 49yrs, now 1/4ppd, 60pyh) e-Cigarette/Vaping Use: Never Used Second Hand Smoke Exposure: No service: No Current occupational status: disabled Cognitive needs: No Hearing needs: No Vision needs: Yes Physical Exam Extrem Other: Right forearm incision is clean dry and intact healing very well. Resolving ecchymosis. Quality Reporting (2019) Adult ([facility] 138/07/26/68) Smoking risk assessment performed?: Yes Patient Tobacco Use Status: Current everyday Tobacco user Assessment & Plan Assessment & Plan (1) Postop check: Code(s): Z09 - Encounter for follow-up examination after completed treatment for conditions other than malignant neoplasm Category: Surgical Plan Patient has been given local instructions, and will follow-up p.r.n.. All questions answered Coding Level of Care Code Global (61884) Diagnoses Postop check Z09
== END 2023-10-09 09:56 | disposition home or self-care (01) ==
PROVIDERS: PCP Internal Medicine; Visit Provider Surgery
DX: Z09 Encounter for follow-up examination after completed treatment for conditions other than malignant neoplasm (principal)
CPT/HCPCS: 99024

== ENCOUNTER → 2023-10-09 09:42 | Outpatient (BNVA) | payer OTHER, SELFPAY | PROVIDERS: PCP Internal Medicine; Visit Provider Surgery | DX: Z09 Encounter for follow-up examination after completed treatment for conditions other than malignant neoplasm (principal) | CPT/HCPCS: 99212 ==

== ENCOUNTER 2023-10-15 06:35 | Outpatient (REF) | payer OTHER, SELFPAY ==
[2023-10-15 06:57] LABS: MANUAL DIFF FLAG NO
[2023-10-15 07:52] LABS: Basophils Absolute Auto 0.1 X10*3/uL (0.0-0.2); Basophils Percent Auto 0.4 % (0-2); Eosinophils Absolute Auto 0.2 X10*3/uL (0.0-0.4); Eosinophils Percent Auto 1.3 % (0-4); Hematocrit 41.2 % (37.0-47.0); Hemoglobin 13.2 g/dl (12.0-16.0); Imm Gran Abs Auto 0.04 X10*3/uL (0.00-0.03); Imm Gran Pct Auto 0.3 % (0.0-0.4); Lymphocytes Percent Auto 33.4 % (20-40); Mean Corpuscular Hemoglobin 26.1 pg (27.0-33.0); Mean Corpuscular Volume 81.4 fL (80.0-98.0); Mean Platelet Volume 10.8 fL (9.4-12.3); Monocytes Absolute Auto 0.9 X10*3/uL (0.1-1.2); Monocytes Percent Auto 7.3 % (2-11); Neutrophils Absolute Auto 6.8 x10*3/uL (2.0-8.3); Neutrophils Percent Auto 57.3 % (45-73); Platelet Count 438 X10*3/uL (160-400); Red Blood Count 5.06 X10*6/uL (4.20-5.50); Red Cell Distribution Width 14.6 % (11.0-16.0); White Blood Count 11.9 X10*3/uL (4.8-10.8)
[2023-10-15 08:31] LABS: Alanine Aminotransferase 20 U/L (0-31); Albumin Level 4.4 g/dL (3.5-5.0); Alkaline Phosphatase 57 U/L (39-117); Anion Gap 15 (12-20); Aspartate Amino Transferase 15 U/L (5-31); Bilirubin Total 0.3 mg/dL (0.0-1.0); Blood Urea Nitrogen 14 mg/dL (9-16); Calcium 10.6 mg/dL (8.4-10.2); Carbon Dioxide 21 mmol/L (22-29); Chloride 111 mmol/L (96-108); Cholesterol 125 mg/dL (<200); Estimated Glomerular Filt Rate > 60; Glucose Fasting 190 mg/dL (60-99); HDL Cholesterol 34 mg/dL (>40); LDL Cholesterol Calculated 56 mg/dL (<100); Potassium 3.7 mmol/L (3.3-5.1); Sodium 143 mmol/L (135-145); Total Protein 7.2 g/dL (6.5-8.0); Triglycerides 175 mg/dL (<150)
[2023-10-15 08:32] LABS: Creatinine Urine 125.79 mg/dL; Microalbum/Creatinine Ratio Ur 31.7 ug/mg cr (<30)
[2023-10-15 08:37] LABS: Alanine Aminotransferase 18 U/L (0-31); Anion Gap 15 (12-20); Aspartate Amino Transferase 16 U/L (5-31); Carbon Dioxide 21 mmol/L (22-29); Chloride 112 mmol/L (96-108); Estimated Glomerular Filt Rate > 60; Potassium 3.6 mmol/L (3.3-5.1); Sodium 144 mmol/L (135-145)
[2023-10-15 08:52] LABS: Vitamin D 25-OH Total 16.1 ng/mL (>30)
[2023-10-15 09:08] LABS: HBsAGNum1 0.23 S/CO (0.00-0.99); HIV AB/AG Nonreactive (Nonreactive); HIV Num 1 0.03 S/CO (0.00-0.99); Hepatitis B Surface Antigen Negative (Negative); ~HepC Num1 0.69 S/CO (0.00-0.79); ~Hepatitis C Antibody Nonreactive (Nonreactive)
[2023-10-15 09:11] LABS: Syphilis Screen Nonreactive (Nonreactive)
[2023-10-15 11:26] LABS: CT PCR NOT DETECTED (Not Detect.); NG PCR NOT DETECTED (Not Detect.)
== END 2023-10-15 06:36 | disposition home or self-care (01) ==
LOC: HO.LAB 06:35
PROVIDERS: Absent Provider Internal Medicine Infectious Disease; PCP Internal Medicine; Visit Provider Internal Medicine
DX: E55.9 Vitamin D deficiency, unspecified (principal); E78.5 Hyperlipidemia, unspecified; E11.9 Type 2 diabetes mellitus without complications; Z20.6 Contact with and (suspected) exposure to human immunodeficiency virus [HIV]
CPT/HCPCS: 0353U; 36415; 80051; 80053; 80061; 82043; 82306; 82565; 82570; 84450; 84460; 85025; 86695; 86696; 86780; 86803; 87340; 87389

== ENCOUNTER 2023-10-22 10:29 | Outpatient (REF) | payer OTHER, SELFPAY ==
[2023-10-22 11:58] LABS: Phosphorus 2.5 mg/dL (2.7-4.5)
[2023-10-22 12:02] LABS: Parathyroid Hormone Intact 20.1 pg/mL (8.7-77.1)
[2023-10-23 18:48] LABS: Calcium, Random Urine 22.7 mg/dL
[2023-10-24 12:59] LABS: Calcium, Ionized 5.3 mg/dL (4.7-5.5)
[2023-10-25 05:34] LABS: Vitamin A 45 mcg/dL (38-98)
== END 2023-10-22 10:30 | disposition home or self-care (01) ==
LOC: HO.LAB 10:29
PROVIDERS: PCP Internal Medicine; Visit Provider Internal Medicine
DX: E83.52 Hypercalcemia (principal); F17.210 Nicotine dependence, cigarettes, uncomplicated
CPT/HCPCS: 36415; 82310; 82330; 83970; 84100; 84590

== ENCOUNTER 2023-10-25 12:52 | Outpatient (AMB) | payer OTHER, SELFPAY ==
[2023-10-25 13:07] VITALS: BP 128/70; BMI 28.3
--- NOTE | 2023-10-25 13:07 | MHC.PC.OV ---
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 Required: No Accompanied by: Self / Same As Patient Allergies acetaminophen [From Vicodin] Allergy (Intermediate, Verified 10/25/23 13:49) Rash hydrocodone [From Vicodin] Allergy (Intermediate, Verified 10/25/23 13:49) Rash Medication List - Last Reconciled 10/25/23 by Neha Naylor MD amlodipine 5 mg PO DAILY 90 days aripiprazole 5 mg PO DAILY atorvastatin 80 mg PO DAILY blood sugar diagnostic (FreeStyle Lite Strips) Use 1 test strip twice a day blood-glucose meter (FreeStyle Paramount Lite kit) As directed buspirone 10 mg PO BID cholecalciferol (vitamin D3) 50 mcg PO DAILY 90 days clonazepam 1 mg PO dulaglutide (Trulicity) 0.75 mg (0.5 mL) subcut QWEEK fenofibrate 160 mg PO DAILY 90 days flash glucose sensor (FreeStyle Josiah 14 Day Sensor kit) 1 ea topical Q2W 90 days fluoxetine 20 mg PO DAILY isosorbide mononitrate ER 30 mg PO QAM 90 days lisinopril 40 mg PO DAILY 90 days metformin 500 mg PO BID 90 days mirtazapine 30 mg PO BEDTIME nicotine 1 patch transdermal Q24H 14 days omeprazole 20 mg PO DAILY 90 days ondansetron HCl 4 mg PO Q8H PRN 10 days pen needle, diabetic As directed transparent dressings (Tegaderm First Aid Style) As directed Ventolin HFA 90 mcg/actuation (albuterol sulfate) 2 puffs inhalation Q6H PRN 30 days NS Tobacco use date assessed: 09/05/23 Dental Screening Dental Screen Date: 09/05/23 HPI HPI Comments History of Present Illness Details This is a 63-year-old female with diabetes mellitus type 2, mild recurrent major depression follow by Psychiatry and left hemiplegia secondary to CVA few years ago that comes for her physical exam. A1c elevated and I will increase Trulicity.. Depression stable with medications and closely follow by Psychiatry. Walks with a cane for gait stability due to her left hemiplegia. Labs were discussed. Mammogram is up-to-date. Last Pap smear was about 5 years ago. As per patient she had a fit test which was negative last year but I do not have those records. Diabetic eye exam was this year. [facility] Medical History (Updated 10/26/23 @ 13:32 by Neha Naylor MD) Nicotine dependence, cigarettes, uncomplicated Mild recurrent major depression History of stroke Overweight (BMI 25.0-29.9) Scalp tenderness GERD (gastroesophageal reflux disease) Left hemiplegia Mixed hyperlipidemia Pulmonary nodules Hypertriglyceridemia CAD (coronary artery disease) Low back pain Left breast mass Moderate persistent asthma without complication Essential hypertension Tachycardia Leukocytosis, unspecified Microalbuminuria Surgical History Hx of surgical procedure (10/01/23) History of laparoscopy S/P insertion of spinal cord stimulator History of tubal ligation History of back surgery Family History Father Diabetes Mother Diabetes HTN (hypertension) CVD (cardiovascular disease) Brother No problems noted. Brother No problems noted. Sister Diabetes Breast cancer Son Alive and well Daughter Alive and well Breast cancer Social History Housing: House Alcohol intake: never Patient Tobacco Use Status: Current everyday Tobacco user Tobacco use type: Cigarette Cigarettes Per Day: 4 Years Smoked: (current smoker - onset 13yo, 1-2ppd x 49yrs, now 1/4ppd, 60pyh) e-Cigarette/Vaping Use: Never Used Second Hand Smoke Exposure: No service: No Current occupational status: disabled Cognitive needs: No Hearing needs: No Vision needs: Yes Questionnaire PHQ-9 Over the last 2 weeks, how often have you been bothered by any of the following problems? 1. Little interest or pleasure in doing things: several days 2. Feeling down, depressed, or hopeless: several days 3. Trouble falling or staying asleep, or sleeping too much: several days 4. Feeling tired or having little energy: several days 5. Poor appetite or overeating: not at all 6. Feeling bad about yourself - or that you are a failure or have let yourself or your family down: not at all 7. Trouble concentrating on things, such as reading the newspaper or watching television: not at all 8. Moving or speaking so slowly that other people could have noticed. Or the opposite - being so fidgety or restless that you have been moving around a lot more than usual: not at all 9. Thoughts that you would be better off or of hurting yourself in some way: not at all Total score: 4 Depression Screening Interpretation: Positive Depression Screening Follow-up: Existing condition, In treatment, Community Mental Health Worker F/U and Follow-up Visit Requested Depression Screening Done: Yes 48617 - PHQ-9 Billing: Yes Source: Developed by Drs. Dmitry Ruffin, Bg Singh and colleagues, with an educational deb from [employer]. Thrive Questionnaire Date Thrive assessed: 09/05/23 Currently or been in a relationship where the following occur: no concerns reported THRIVE Score: 0 AUDIT C Alcohol Use Questionnaire (AUDIT-C) 1. How often do you have a drink containing alcohol?: Never 2. How many drinks containing alcohol do you have on a typical day when you are drinking?: 1 or 2 Total Score: 0 Score Reviewed/Action Taken: No CIELO-7 AMB Questionnaire CIELO-7 Date CIELO - 7 assessed: 09/05/23 Source: Developed by Drs. Dmitry Ruffin, Supriya Wolff, Bg Low and colleagues, with an educational deb from [employer]. Review of Systems Const All systems reviewed & are unremarkable except as noted in HPI and below Eyes Reports no additional complaints, Denies change in vision and Denies other visual disturbances Card Denies chest pain at rest, Denies chest pain with activity, Denies edema, Denies irregular heart rhythm, Denies claudication, Denies dyspnea, Denies dyspnea on exertion, Denies orthopnea, Denies paroxysmal nocturnal dyspnea and Denies slow heart rate Resp Denies cough, Denies dyspnea and Denies dyspnea on exertion Musc Reports abnormal gait Neuro Reports abnormal gait and Reports focal weakness Physical exam (Primary Care) Vital Signs: Last Vital Signs BP 128/70 10/25/23 13:07 BMI result Body Mass Index 28.3 Tobacco/Smoking Status: Tobacco use Status Tobacco use date assessed 09/05/23 10/25/23 13:12 Patient Tobacco Use Status Current everyday Tobacco 10/25/23 13:12 Tobacco use type Cigarette 10/25/23 13:12 e-Cigarette/Vaping Use Never Used 10/25/23 13:12 Are you ready to quit: Yes Tobacco cessation counseling provided: Yes Items discussed: Nicotine replacement and QuitWorks Relapse Prevention: discussed the importance of a supportive environment, discussed extending NRT, discussed negative mood or depression after quitting, weight gain after smoking is common and discussed dietary, exercise and/or lifestyle changes Number of minutes spent counselin CPT code: 02030 - 4-10 Minutes Depression Screening Interpretation: Positive Depression Screening Follow-up: Existing condition, In treatment, Community Mental Health Worker F/U and Follow-up Visit Requested Thrive Assessment: Date of Thrive Assessment Date Thrive assessed 09/05/23 10/25/23 13:12 Currently or been in a relationship where the following occur: no concerns reported Const General: cooperative Orientation/consciousness: patient oriented x3 Limitations: ambulation with cane HENMT Head: Yes normal to inspection, Yes normocephalic and Yes atraumatic Ears: external ears normal Eyes General: appearance normal, both eyes and all related structures Eyelids: Yes eyelids normal Conjunctivae: conjunctivae normal Neck Neck: Yes normal visual inspection and Yes supple Resp Effort & Inspection: normal respiratory effort Auscultation: clear to auscultation bilaterally Cardio Jugular venous distension: no JVD Rate: regular rate Rhythm: regular rhythm Heart sounds: S1 normal heart sound present and S2 normal heart sound present GI Inspection: Yes normal to inspection Palpation (GI): Soft to palpation and nontender Auscultation: normal bowel sounds Skin General skin exam: no rashes or lesions noted Neuro General: patient oriented x3 Cognition (Neuro): normal cognition Gait exam (Neuro): Assistive device used Motor exam (neuro): Abnormal motor strength present (5/5 right side, 3/5 left side) Psych Speech and movement: Clear speech present Affect: Sad affect present Attitude: cooperative Results AMB Hemoglobin A1c AMB Hemoglobin A1c 7.8 % Last Edit by MONY Villalobos on 10/25/23 13:23 Results Reviewed Results Reviewed: Laboratory Last Values Hgb A1c (Clinic) 7.8 % (4.0-6.0) H 10/25/23 13:16 Assessment and Plan Assessment & Plan (1) Diabetes mellitus: Onset Date: ~2013 Comment: (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 Continue metformin. A1c goal is equal or less than 7%. (2) Mild recurrent major depression: Code(s): F33.0 - Major depressive disorder, recurrent, mild Plan: Continue fluoxetine and mirtazapine. Follow-up with psychiatry. (3) Left hemiplegia: Code(s): G81.94 - Hemiplegia, unspecified affecting left nondominant side Plan: Continue the use of a cane for gait stability. Orders: Orders AMB Hemoglobin A1c 10/25/23 E11.9 - Type 2 diabetes mellitus without complications Medications: New dulaglutide (Trulicity) 1.5 mg (0.5 mL) subcut QWEEK 90 days 6.5 mL 1RF Discontinued dulaglutide (Trulicity) Discontinued Reason: Patient Completed Course 0.75 mg (0.5 mL) subcut QWEEK 6 mL 1RF E11.42 - Type 2 diabetes mellitus with diabetic polyneuropathy Coding Level of Care Code Est Pt Prev Care 40-64y(14282) Diagnoses Type 2 diabetes mellitus with hyperglycemia, without long-term current use of insulin E11.65 Diabetes mellitus type: type 2 Diabetes mellitus retirement insulin use: without retirement use Diabetes mellitus complication status: with hyperglycemia Mild recurrent major depression F33.0 Left hemiplegia G81.94 Additional Codes Vital Signs *Quality* - CPT code: 20109 - 4-10 Minutes ([id number]) Time Spent (min) 40
== END 2023-10-25 14:08 | disposition home or self-care (01) ==
PROVIDERS: PCP Internal Medicine; Visit Provider Internal Medicine
DX: Z00.00 Encounter for general adult medical examination without abnormal findings (principal); E11.65 Type 2 diabetes mellitus with hyperglycemia; F33.0 Major depressive disorder, recurrent, mild; G81.94 Hemiplegia, unspecified affecting left nondominant side; F17.210 Nicotine dependence, cigarettes, uncomplicated
CPT/HCPCS: 83036; 99396; 99406

== ENCOUNTER 2023-10-31 08:32 | Outpatient (AMB) | payer OTHER, SELFPAY ==
--- NOTE | 2023-10-31 09:36 | HO.SPINEOV ---
Intake Visit Reasons: MRI f/u Intake Note: Ms. Dwyer is here today for her F/u on MRI Radio Talk Show Host Required: Yes Radio Talk Show Host Name: Tablet Allergies acetaminophen [From Vicodin] Allergy (Intermediate, Verified 10/25/23 13:49) Rash hydrocodone [From Vicodin] Allergy (Intermediate, Verified 10/25/23 13:49) Rash Assessment & Plan Assessment & Plan (1) Left lumbar radiculopathy: Code(s): M54.16 - Radiculopathy, lumbar region Category: Medical Plan Sindi is a pleasant 63 y/o female who comes in today for a subsequent follow-up visit after being previously evaluated in clinic for her lumbar radiculopathy. To recap she has a history of an L5-S1 microdiskectomy with metrics completed by Dr. Armijo in November of 2012. She reports that he informed her she will never be a surgical candidate again. Additionally, she reports that she never had resolution of symptoms after surgery, and has been dealing with persistent left-sided lumbar radiculopathy since 2012. When describing her radiculopathy she states the pain begins in her low back, radiates into her left posterior lateral thigh, travels down into her calf and terminates in her left foot. Additionally, she states her left foot feels numb. I reviewed her MRI imaging with the attending neurosurgeon Dr. Rosales. There appears to be evidence of a disc herniation at both L4-5 and L5-S1. The disc bulge/herniation at L4-5 is causing moderate-severe central canal and severe bilateral foraminal stenosis. The disc herniation at L5-S1 seems more severe nature in his causing severe compression of the left-sided S1 nerve root. This is likely responsible for her reported symptoms. I would like to send Sindi for a CT scan of the lumbar spine to evaluate for any calcification around the disc herniations as she has likely had one or both for about a decade. In the interim our medical referral coordinator Neha we will be attempting to obtain the operative reports from Dr. Armijo in 2012, has NEL Page previously discussed. It is imperative that we review this report and ensure that no extreme abnormalities were encountered as the patient was informed she will never be a surgical candidate again. We will see the patient back in office after CT scan is completed and the operative reports are obtained. Total amount of time spent in this visit was 30 minutes in discussion of symptoms, MRI imaging results and subsequent plan of care Neil Rosales MD,PhD [facility] Orders: Orders CT lumbar spine wo IV con Today M54.16 - Radiculopathy, lumbar region Coding Level of Care Code Est Pt Level 4 (75415) Diagnoses Left lumbar radiculopathy M54.16
== END 2023-10-31 10:03 | disposition home or self-care (01) ==
PROVIDERS: PCP Internal Medicine; Visit Provider Physician Assistant
DX: M54.16 Radiculopathy, lumbar region (principal)
CPT/HCPCS: 99214

== ENCOUNTER → 2023-10-31 08:32 | Outpatient (BNVA) | payer OTHER, SELFPAY | PROVIDERS: PCP Internal Medicine; Visit Provider Physician Assistant | DX: M54.16 Radiculopathy, lumbar region (principal) | CPT/HCPCS: 99212 ==

== ENCOUNTER 2023-11-13 08:35 | Outpatient (AMB) | payer OTHER, SELFPAY ==
[2023-11-13 09:13] VITALS: BP 144/82; PULSE 84; BMI 28.4
--- NOTE | 2023-11-13 09:13 | MHC.OFFVIS ---
Vital Signs 11/13/23 09:13 Height 5 ft 1 in Weight 150 lb 5.684 oz BMI 28.4 BP 144/82 H Blood Pressure Location Rt brachial Position Sitting Pulse 84 Pulse Source Pulse Oximeter Intake Visit Reasons: 6 month follow up National Sales Consultant Required: Yes National Sales Consultant Name: yahaira marie [id number] Allergies acetaminophen [From Vicodin] Allergy (Intermediate, Verified 11/13/23 09:15) Rash hydrocodone [From Vicodin] Allergy (Intermediate, Verified 11/13/23 09:15) Rash Medication List - Last Reconciled 11/13/23 by RENE Cuellar amlodipine 5 mg PO DAILY 90 days atorvastatin 80 mg PO DAILY blood sugar diagnostic (FreeStyle Lite Strips) Use 1 test strip twice a day blood-glucose meter (FreeStyle Julian Lite kit) As directed buspirone 10 mg PO BID cholecalciferol (vitamin D3) 50 mcg PO DAILY 90 days clonazepam 1 mg PO dulaglutide (Trulicity) 1.5 mg (0.5 mL) subcut QWEEK 90 days fenofibrate 160 mg PO DAILY 90 days flash glucose sensor (FreeStyle Josiah 14 Day Sensor kit) 1 ea topical Q2W 90 days fluoxetine 20 mg PO DAILY isosorbide mononitrate ER 30 mg PO QAM 90 days lisinopril 40 mg PO DAILY 90 days metformin 500 mg PO BID 90 days mirtazapine 30 mg PO BEDTIME nicotine 1 patch transdermal Q24H 14 days ondansetron HCl 4 mg PO Q8H PRN 10 days pen needle, diabetic As directed transparent dressings (Tegaderm First Aid Style) As directed Ventolin HFA 90 mcg/actuation (albuterol sulfate) 2 puffs inhalation Q6H PRN 30 days NS HPI HPI 6 month follow up: Details: Sindi is a 63-year-old female with past medical history of diabetes, hypertension, hyperlipidemia, CVA, smoking, prior abnormal nuclear stress test who presents for follow-up. Today she reports that she has been doing well. She has no chest discomfort at rest or with activity. No shortness of breath, palpitations, presyncope, syncope, PND, orthopnea or edema. She does report fatigue. She admits to being mostly sedentary. She has chronic back pain. She has some residual left-sided weakness from her prior CVA. She takes all her meds as directed. 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 [facility] Medical History Nicotine dependence, cigarettes, uncomplicated Mild recurrent major depression History of stroke Overweight (BMI 25.0-29.9) Scalp tenderness GERD (gastroesophageal reflux disease) Left hemiplegia Mixed hyperlipidemia Pulmonary nodules Hypertriglyceridemia CAD (coronary artery disease) Low back pain Left breast mass Moderate persistent asthma without complication Essential hypertension Tachycardia Leukocytosis, unspecified Microalbuminuria Surgical History Hx of surgical procedure (10/01/23) History of laparoscopy S/P insertion of spinal cord stimulator History of tubal ligation History of back surgery Family History Father Diabetes Mother Diabetes HTN (hypertension) CVD (cardiovascular disease) Brother No problems noted. Brother No problems noted. Sister Diabetes Breast cancer Son Alive and well Daughter Alive and well Breast cancer Social History Housing: House Alcohol intake: never Patient Tobacco Use Status: Current everyday Tobacco user Tobacco use type: Cigarette Cigarettes Per Day: 4 Years Smoked: (current smoker - onset 13yo, 1-2ppd x 49yrs, now 1/4ppd, 60pyh) e-Cigarette/Vaping Use: Never Used Second Hand Smoke Exposure: No service: No Current occupational status: disabled Cognitive needs: No Hearing needs: No Vision needs: Yes Review of Systems Const All systems reviewed & are unremarkable except as noted in HPI and below ENT Denies dizziness Card Details: palpitation Denies chest pain, Denies chest pain at rest, Denies chest pain with activity, Denies rapid heart rate, Denies pedal edema, Denies edema, Denies leg edema, Denies lightheadedness, Denies palpitations, Denies dyspnea, Denies dyspnea on exertion and Denies orthopnea Resp Denies cough, Denies dyspnea and Denies dyspnea on exertion GI Denies hematochezia and Denies change in stool character Musc Details: low back pain Reports abnormal gait, Reports limited range of motion, Denies muscle cramps, Denies muscle weakness, Denies numbness, Denies radiating pain into limb, Denies stiffness and Denies tingling Neuro Reports abnormal gait, Denies dizziness, Denies numbness and Denies tingling Endo Denies palpitations Physical Exam Vital Signs: Last Vital Signs Pulse 84 11/13/23 09:13 BP 144/82 H 11/13/23 09:13 BMI result Body Mass Index 28.4 Const General: cooperative, healthy appearing, comfortable and no acute distress Orientation/consciousness: patient oriented x3 Neck Neck: Yes normal visual inspection Resp Effort & Inspection: normal respiratory effort Auscultation: clear to auscultation bilaterally, no crackles, no rales, no rhonchi and no wheezes Cardio Jugular venous distension: no JVD Rate: regular rate Rhythm: regular rhythm Heart sounds: S1 normal heart sound present, S2 normal heart sound present, no murmurs and no rubs Neuro General: patient oriented x3 Extrem General: Yes normal to inspection, No no pedal edema and No calf tenderness Psych Appearance: grossly normal Mental Status: mental status grossly normal Speech and movement: Normal speech and movement present Quality Reporting (2019) Adult ([facility] ) Smoking risk assessment performed?: Yes Patient Tobacco Use Status: Current everyday Tobacco user Assessment & Plan Assessment & Plan (1) Abnormal nuclear stress test: Code(s): R94.39 - Abnormal result of other cardiovascular function study Category: Medical Plan: Presumed history of nonobstructive CAD. Patient has coronary calcifications as seen on CT scan 11/03/2022. She has multiple cardiac risk factors including hypertension, hyperlipidemia, diabetes, smoking. She did have abnormal nuclear stress test in 2018 showing small distal anterior ischemia. She then had Nuclear stress test done 02/15/2023 showed normal myocardial perfusion imaging. Echocardiogram done 02/21/2023 showed EF 63%, grade 1 diastolic dysfunction and moderate LVH. She denies any anginal sounding symptoms. She tells me she is still cutting down on smoking. On med rec today she reports not taking aspirin. Again will have her restart aspirin 81 mg daily- sent to her pharmacy.. Continue high-dose atorvastatin with ideal LDL goal less than 70. Labs done 10/15/2023 showed LDL 56. She is on isosorbide 30 mg daily which she can continue at this time. She has not on beta-yolanda for unclear reason. Since she is feeling well will continue her current med management. Signs and symptoms of angina reviewed. Cardiology follow-up in 6 months, sooner if needed (2) Aortic regurgitation: Code(s): I35.1 - Nonrheumatic aortic (valve) insufficiency Category: Medical Plan: Echocardiogram done 02/21/2023 shows normal EF and [id number] aortic regurgitation. This is overall unchanged from echocardiogram in 2020. She does not have symptoms of heart failure on examination. Continue to follow (3) LVH (left ventricular hypertrophy): Code(s): I51.7 - Cardiomegaly Category: Medical Plan: Recent echo showing moderate LVH. Blood pressure mildly elevated at 144/82. Blood pressure trending reviewed and overall is somewhat elevated. Will increase her amlodipine up to 10 mg daily. The importance of good blood pressure control reviewed with her. She has follow-up with PCP in a few months. (4) CAD (coronary artery disease): Code(s): I25.10 - Atherosclerotic heart disease of tang[place]q coronary artery without angina pectoris Category: Medical Plan: As above (5) History of stroke: Comment: (Hx of lacunar infarction with left hemiplegia as residual deficit) Code(s): Z86.73 - Personal history of transient ischemic attack (TIA), and cerebral infarction without residual deficits Category: Medical Plan: History of CVA. Restarting aspirin. Continue high-dose atorvastatin (6) Essential hypertension: Code(s): I10 - Essential (primary) hypertension Category: Medical Plan: As above (7) Mixed hyperlipidemia: Code(s): E78.2 - Mixed hyperlipidemia Category: Medical Plan: [place] LDL goal less than 70. Labs done on 01/11/2023 shows LDL 59, normal LFT. Continue atorvastatin 80 mg daily Plan Time spent on chart review, documentation, interview and assessment Medications: New aspirin 81 mg PO DAILY 90 tabs 3RF amlodipine Dose increased 10 mg PO DAILY 90 tabs 3RF Discontinued amlodipine Discontinued Reason: Doctor's Order 5 mg PO DAILY 90 days 90 tabs 3RF Coding Level of Care Code Est Pt Level 4 (41513) Diagnoses Abnormal nuclear stress test R94.39 Aortic regurgitation I35.1 LVH (left ventricular hypertrophy) I51.7 CAD (coronary artery disease) I25.10 History of stroke Z86.73 Essential hypertension I10 Mixed hyperlipidemia E78.2 Time Spent (min) 28
== END 2023-11-13 09:40 | disposition home or self-care (01) ==
PROVIDERS: PCP Internal Medicine; Visit Provider Nurse Practitioner Family
DX: R94.39 Abnormal result of other cardiovascular function study (principal); I35.1 Nonrheumatic aortic (valve) insufficiency; I51.7 Cardiomegaly; I25.10 Atherosclerotic heart disease of native coronary artery without angina pectoris; Z86.73 Personal history of transient ischemic attack (TIA), and cerebral infarction without residual deficits; I10 Essential (primary) hypertension; E78.2 Mixed hyperlipidemia
CPT/HCPCS: 99214

== ENCOUNTER → 2023-11-13 08:35 | Outpatient (BNVA) | payer OTHER, SELFPAY | PROVIDERS: PCP Internal Medicine; Visit Provider Nurse Practitioner Family | DX: R94.39 Abnormal result of other cardiovascular function study (principal); I35.1 Nonrheumatic aortic (valve) insufficiency; I51.7 Cardiomegaly; I25.10 Atherosclerotic heart disease of native coronary artery without angina pectoris; I10 Essential (primary) hypertension; E78.2 Mixed hyperlipidemia; Z86.73 Personal history of transient ischemic attack (TIA), and cerebral infarction without residual deficits | CPT/HCPCS: 99212 ==

== ENCOUNTER 2023-12-05 07:02 | Outpatient (REF) | payer OTHER, SELFPAY ==
--- NOTE | ~2023-12-05 | CT_ITS ---
EXAMINATION: CT LUMBAR SPINE WITHOUT CONTRAST CLINICAL INFORMATION: Lumbar radiculopathy COMPARISON: Lumbar spine x-ray on 10/05/2023, CT scan of abdomen and pelvis on 01/20/2019. TECHNIQUE: Multiple 3 mm axial images of the lumbar spine were obtained from lower T12 to S1 levels without IV contrast enhancement. Bone window and soft tissue window images were reconstructed. Coronal and Sagittal bone window images were also reconstructed from the axial image data. This CT examination was performed using dose optimization techniques as appropriate, variously including the following: *Automated exposure control *Adjustment of mA and/or kV according to patient size (this includes techniques or standardized protocols for targeted exams where dose is matched to indication/reason for exam; i.e. extremities or head) *Use of iterative reconstruction technique DLP; 437 mGy-cm FINDINGS: The visualized lumbar vertebrae are intact with mild L3-L4 levoscoliosis. T12/L1: Bony structures are intact with normal alignment. Intervertebral disc height is normal. Bilateral neuroforamina are patent. Bilateral apophyseal joints are intact with normal alignment. Bilateral apophyseal joints show loss of joint space, sclerosis, facet hypertrophy and osteophytosis. L-1/L-2: Bony structures are intact with normal alignment. Intervertebral disc height is normal. Bilateral neuroforamina are patent. Bilateral apophyseal joints are intact with normal alignment. Bilateral apophyseal joints show loss of joint space, sclerosis, facet hypertrophy and osteophytosis. L2/L3: Bony structures are intact with normal alignment. Bilateral L3 syndesmophytes are present. Intervertebral disc height is normal. Bilateral neuroforamina are patent. Bilateral apophyseal joints are intact with normal alignment. Bilateral apophyseal joints show loss of joint space, sclerosis, facet hypertrophy and osteophytosis. L3/L4: Bony structures are intact with normal alignment. Sharp bilateral L3 and L4 syndesmophytes are present, more prominent on the right side. Intervertebral disc height is normal. Bilateral neuroforamina are patent. Bilateral apophyseal joints are intact with normal alignment. Bilateral apophyseal joints show loss of joint space, sclerosis, facet hypertrophy and osteophytosis. L4/L5: Bony structures are intact with left lateral L4 on L5 displacement by 0.5 cm. Intervertebral disc height is markedly decreased with vacuum disc phenomenon. Moderate posterior disc protrusion is present. There is marked spinal stenosis due to additional impingement by hypertrophic ligamentum flavum. There is marked asymmetric right L4-L5 neural foramen stenosis due to impingement by syndesmophytes. Bilateral apophyseal joints are intact with normal alignment. Bilateral apophyseal joints show loss of joint space, sclerosis, facet hypertrophy and osteophytosis. L5/S1: Bony structures are intact with normal alignment. Intervertebral disc height is normal with vacuum disc phenomenon. Marked midline and asymmetric left posterior disc protrusion with calcified rim, completely effacing the left lateral recess is present. There is mild spinal stenosis due to additional impingement by hypertrophic ligamentum flavum. Bilateral neuroforamina are patent. Bilateral apophyseal joints are intact with normal alignment. Bilateral apophyseal joints show loss of joint space, sclerosis, facet hypertrophy and osteophytosis. CT/CT lumbar spine wo IV con IMPRESSION: 1. No evidence of acute fracture or dislocation. 2. Interval development of Marked L4-L5 spinal stenosis due to increased moderate posterior disc protrusion and hypertrophic ligamentum flavum, marked right L4-L5 neural foramen stenosis. 3. Unchanged Marked L5-S1 midline and asymmetric left posterior disc protrusion with calcified rim, completely effacing the left lateral recess. Unchanged Mild spinal stenosis due to additional impingement by hypertrophic ligamentum flavum. 4. Unchanged Mild L3-L4 levoscoliosis and left-sided L4-L5 spondylolisthesis. 5. Multilevel degenerative changes of the lumbar spine, advanced L4-L5 and L5-S1 degenerative lumbar disc disease. 6. Interval removal of left posterior lumbar nerve stimulator and lower thoracic spinal canal electrodes.
[2023-12-05 07:17] LABS: MANUAL DIFF FLAG NO
[2023-12-05 07:41] LABS: Basophils Absolute Auto 0.1 X10*3/uL (0.0-0.2); Basophils Percent Auto 0.4 % (0-2); Eosinophils Absolute Auto 0.2 X10*3/uL (0.0-0.4); Hematocrit 41.3 % (37.0-47.0); Hemoglobin 13.3 g/dl (12.0-16.0); Imm Gran Abs Auto 0.04 X10*3/uL (0.00-0.03); Imm Gran Pct Auto 0.3 % (0.0-0.4); Lymphocytes Absolute Auto 4.4 X10*3/uL (1.2-4.9); Lymphocytes Percent Auto 37.4 % (20-40); Mean Corpuscular HGB Conc 32.2 g/dl (31.0-35.0); Mean Corpuscular Hemoglobin 26.7 pg (27.0-33.0); Mean Corpuscular Volume 82.8 fL (80.0-98.0); Mean Platelet Volume 10.5 fL (9.4-12.3); Monocytes Percent Auto 8.2 % (2-11); Neutrophils Percent Auto 51.7 % (45-73); Platelet Count 411 X10*3/uL (160-400); Red Blood Count 4.99 X10*6/uL (4.20-5.50); Red Cell Distribution Width 15.4 % (11.0-16.0); White Blood Count 11.7 X10*3/uL (4.8-10.8)
[2023-12-05 08:04] LABS: Alanine Aminotransferase 18 U/L (0-31); Anion Gap 12 (12-20); Aspartate Amino Transferase 17 U/L (5-31); Carbon Dioxide 23 mmol/L (22-29); Chloride 110 mmol/L (96-108); Estimated Glomerular Filt Rate > 60; Potassium 3.7 mmol/L (3.3-5.1); Sodium 141 mmol/L (135-145)
[2023-12-05 08:19] LABS: Syphilis Screen Nonreactive (Nonreactive)
[2023-12-05 08:20] LABS: HIV AB/AG Nonreactive (Nonreactive); HIV Num 1 0.05 S/CO (0.00-0.99); ~Hepatitis C Antibody Nonreactive (Nonreactive)
[2023-12-05 09:47] LABS: CT PCR NOT DETECTED (Not Detect.); NG PCR NOT DETECTED (Not Detect.)
== END 2023-12-05 07:03 | disposition home or self-care (01) ==
LOC: HO.CT 07:02
PROVIDERS: Absent Provider Internal Medicine; PCP Internal Medicine; Referring Provider Internal Medicine Infectious Disease; Visit Provider Physician Assistant
DX: M54.16 Radiculopathy, lumbar region (principal); Z20.6 Contact with and (suspected) exposure to human immunodeficiency virus [HIV]
CPT/HCPCS: 72132; 80051; 82565; 84450; 84460; 85025; 86780; 86803; 87389; 87491; 87591

== ENCOUNTER 2024-01-15 14:45 | Outpatient (AMB) | payer OTHER, SELFPAY ==
--- NOTE | 2024-01-15 15:03 | HO.SPINEOV ---
Intake Visit Reasons: CT follow up Intake Note: Ms. Dwyer is here today to F/u on CT. Outpatient Pharmacy Manager Required: Yes Outpatient Pharmacy Manager Name: Tablet Allergies acetaminophen [From Vicodin] Allergy (Intermediate, Verified 01/15/24 15:13) Rash hydrocodone [From Vicodin] Allergy (Intermediate, Verified 01/15/24 15:13) Rash Assessment & Plan Assessment & Plan (1) Spinal stenosis at L4-L5 level: Code(s): M48.061 - Spinal stenosis, lumbar region without neurogenic claudication Category: Medical Plan Sindi comes in today to discuss her CT scan results. To recap she was previously seen by NEL Page for left lumbar radiculopathy. She has a surgical history of a L5-S1 microdiskectomy with metrics completed by Dr. Armijo in November of 2012. She never got any better after the surgery. A repeat MRI was ordered by our colleagues in pain management, unfortunately it was done without gadolinium. NEL Page attempted to order a subsequent MRI with gadolinium but it appears it was not completed in the without contrast MRI was completed instead. CT scan of the lumbar spine completed here at [facility] shows some calcification formed over the disc space at L5-S1. We discussed these results. We extensively discussed the continued pathology seen at L4-5 and L5-S1. Her symptoms continue to worsen per the patient's report. I will be reviewing her operative report, her MRI imaging, and her CT scan with Dr. Rosales later this week, and will call her within the next week or so with a surgical decision. Neil Rosales MD,PhD [facility] Coding Level of Care Code Global (01880) Diagnoses Spinal stenosis at L4-L5 level M48.061
== END 2024-01-15 15:35 | disposition home or self-care (01) ==
PROVIDERS: PCP Internal Medicine; Visit Provider Physician Assistant
DX: M48.061 Spinal stenosis, lumbar region without neurogenic claudication (principal)
CPT/HCPCS: 99213

== ENCOUNTER → 2024-01-15 14:45 | Outpatient (BNVA) | payer OTHER, SELFPAY | PROVIDERS: PCP Internal Medicine; Visit Provider Physician Assistant | DX: Z01.818 Encounter for other preprocedural examination (principal); M48.061 Spinal stenosis, lumbar region without neurogenic claudication | CPT/HCPCS: 99212 ==

== ENCOUNTER 2024-01-27 12:16 | Emergency (ER) | payer OTHER, SELFPAY ==
--- NOTE | ~2024-01-27 | US_ITS ---
EXAMINATION: US BREAST, LEFT CLINICAL INFORMATION: Left breast pain in the upper outer quadrant, rule out abscess COMPARISON: Mammography most recent 10/02/2023 and left breast ultrasound at 11/21/2017 TECHNIQUE: High-resolution grayscale sonography was performed with attention to the upper outer quadrant of the left breast. FINDINGS: Ultrasound examination demonstrates no abscess or drainable collection in the upper outer quadrant of the left breast. At the site of palpable in the 1:00-2:00 position, there is a tubular structure containing echogenic soft tissue or debris, and also demonstrating prominent vascularity, felt to reflect a distended duct with wall thickening. US/US breast LT limited IMPRESSION: 1. Tubular soft tissue structure in the left upper outer quadrant at 1:00, with wall thickening and increased vascularity. This is felt to reflect a distended duct with either inflammation, debris or perhaps intraductal neoplasm. Follow-up left mammogram and targeted/monitored left breast ultrasound are recommended. Surgical consultation also should be considered. 2. No abscess or drainable collection in the left upper outer quadrant. BI-RADS 0- Incomplete- Need additional imaging evaluation and/or prior studies for comparison. Electronically signed by: Home Vinson MD 01/27/2024 04:34 PM EDT
[2024-01-27 12:25] VITALS: BP 132/84; PULSE 89; RESP 18; TEMP 36.6; O2SAT 97; BMI 28.2
--- NOTE | 2024-01-27 12:26 | ED_ITS ---
HPI - General Adult General Chief complaint: Back Pain/Injury Stated complaint: Bump on breast/back pain Time Seen by Provider: 01/27/24 12:37 Source: patient, RN notes reviewed, old records reviewed and production shift supervisor (Trinidadian) Mode of arrival: ambulatory Limitations: language barrier (Trinidadian speaking) History of Present Illness ED Provider: DEO DAVIS PA-C HPI narrative: 63 year old vincentian speaking female with pmhx significant for known left breast mass, asthma, HTN, HDL, GERD, MDD, nicotine dependence, L4/5 spinal stenosis with lumbar radiculopathy presents to the ED today for evaluation of left breast pain since last night. Patient states she began having pain around her left nipple last night and noticed a small, painful mass. Denies overlying skin changes to the breast. Denies discharge from the nipple. Reports history of benign left breast mass years ago for which she had biopsy done. Admits to mammograms year. Last mammogram was in August 2023 and was normal. She also endorses acute on chronic low back pain. She has known spinal stenosis of L4/L5 with subsequent radiculopathy. She follows with neuro spine for this and has surgery scheduled for 03/13/24. She currently takes Aleve for this (last dose this morning) however states this no longer works for her. Has been having diffculty sleeping due to the pain. Requesting pain control. Denies new numbness/tingling/weakness of the LEs, saddle anesthesia, bowel/bladder incontinence or retention, dysuria, hematuria. Denies recent injury/ trauma. Denies hx of IVDU. Denies hx of spinal surgery. police chief utilized throughout visit to communicate with patient. Related Data Home Medications ?Medication ?Instructions ?Recorded ?Confirmed blood-glucose meter (FreeStyle #1 ea 03/01/20 11/13/23 [place]ck Lite kit) clonazepam 1 mg tablet 1 mg PO 03/01/20 11/13/23 mirtazapine 30 mg tablet 30 mg PO BEDTIME 03/01/20 11/13/23 pen needle, diabetic 32 gauge x #50 ea 03/01/20 11/13/23 fluoxetine 20 mg capsule 20 mg PO DAILY 11/17/20 11/13/23 buspirone 10 mg tablet 10 mg PO BID 03/02/22 11/13/23 Previous Rx's ?Medication ?Instructions ?Recorded transparent dressings 2 3/8 X 2 #8 ea 11/17/20 3/4 (Tegaderm First Aid Style) ondansetron HCl 4 mg tablet 4 mg PO Q8H PRN nausea and 12/17/20 vomiting 10 days #30 tabs isosorbide mononitrate 30 mg 30 mg PO QAM 90 days #90 tabs 03/10/23 tablet,extended release 24 hr lisinopril 40 mg tablet 40 mg PO DAILY 90 days #90 tabs 05/24/23 fenofibrate 160 mg tablet 160 mg PO DAILY 90 days #90 tabs 08/01/23 Ventolin HFA 90 mcg/actuation 2 puff inhalation Q6H PRN 08/27/23 aerosol inhaler (albuterol sulfate) bronchospasm 30 days #8 grams nicotine 7 mg/24 hr daily 1 patch transdermal Q24H 14 days 09/05/23 transdermal patch #14 ea metformin 500 mg tablet 500 mg PO BID 90 days #180 tabs 10/22/23 dulaglutide 1.5 mg/0.5 mL 1.5 mg (0.5 mL) subcut QWEEK 90 10/25/23 subcutaneous pen injector days #6.5 mL (Trulicity) blood sugar diagnostic (FreeStyle #50 ea 10/29/23 Lite Strips) amlodipine 10 mg tablet 10 mg PO DAILY #90 tabs 11/13/23 aspirin 81 mg tablet,delayed 81 mg PO DAILY #90 tabs 11/13/23 release flash glucose sensor (FreeStyle 1 ea topical Q2W 90 days #6 kits 12/27/23 Josiah 14 Day Sensor kit) cholecalciferol (vitamin D3) 50 50 mcg PO DAILY 90 days #90 caps 01/08/24 mcg (2,000 unit) capsule atorvastatin 80 mg tablet 80 mg PO DAILY #90 tabs 01/15/24 baclofen 5 mg tablet 5 mg PO TID #12 tabs 01/27/24 lidocaine 5 % topical patch 1 patch topical DAILY #15 ea 01/27/24 (Lidoderm) naproxen 500 mg tablet 500 mg PO Q8-12H PRN pain (scale 01/27/24 score 4-6) #14 tabs Allergies Allergy/AdvReac Type Severity Reaction Status Date / Time acetaminophen [From Vicodin] Allergy Intermediate Rash Verified 01/27/24 12:27 hydrocodone [From Vicodin] Allergy Intermediate Rash Verified 01/27/24 12:27 Review of Systems Review of Systems: Constitutional: No fever, chills, fatigue, night sweats, weight changes ENT/Mouth: No ear pain, hearing loss, nasal congestion, sinus pain, rhinorrhea, sore throat Eyes: No eye pain, swelling, redness, vision changes, discharge Cardio: No chest pain, palpitations, RODRIGES, orthopnea, peripheral edema Pulm: No SOB, cough, sputum, wheezing, dyspnea, hemoptysis GI: No nausea, vomiting, hematemesis, abdominal pain, diarrhea, constipation, hematochezia, melena : No irregular bleeding, dysuria, frequency, urgency, hesitancy, hematuria, flank pain, urinary flow changes, urinary incontinence or retention MSK: No neck pain, joint pain, myalgias, +back pain, +left breast pain Skin: No lesions, rashes Neuro: No weakness, numbness, paresthesias, LOC, dizziness, headache Psych: No anxiety/panic, depression, SI/HI, AH/VH All other systems reviewed and are negative. [facility] Past Medical History Attestation statement: The following information was validated with the patient. Source: old records reviewed and nursing notes reviewed Medical History Nicotine dependence, cigarettes, uncomplicated Mild recurrent major depression History of stroke Overweight (BMI 25.0-29.9) Scalp tenderness GERD (gastroesophageal reflux disease) Left hemiplegia Mixed hyperlipidemia Pulmonary nodules Hypertriglyceridemia CAD (coronary artery disease) Low back pain Left breast mass Moderate persistent asthma without complication Essential hypertension Tachycardia Leukocytosis, unspecified Microalbuminuria Surgical History Hx of surgical procedure (10/01/23) History of laparoscopy S/P insertion of spinal cord stimulator History of tubal ligation History of back surgery Family History Family History Father Diabetes Mother Diabetes HTN (hypertension) CVD (cardiovascular disease) Brother No problems noted. Brother No problems noted. Sister Diabetes Breast cancer Son Alive and well Daughter Alive and well Breast cancer Social History Social History Housing: House Alcohol intake: never Patient Tobacco Use Status: Current everyday Tobacco user Tobacco use type: Cigarette Cigarettes Per Day: 4 Years Smoked: (current smoker - onset 13yo, 1-2ppd x 49yrs, now 1/4ppd, 60pyh) e-Cigarette/Vaping Use: Never Used Second Hand Smoke Exposure: No Advance Directives: No Do you have a plan to hurt others: No Plan service: No Current occupational status: disabled Cognitive needs: No Hearing needs: No Vision needs: Yes Physical Exam ED Vital Signs: Vital Signs - 24 hr 01/27/24 12:25 01/27/24 15:17 Temperature 97.8 F 98.9 F Pulse Rate 89 83 Respiratory Rate 18 16 Blood Pressure 132/84 131/66 Pulse Oximetry 97 94 Oxygen Delivery Method Room Air Room Air BMI result Body Mass Index 28.2 Vital signs stable. General: Well appearing, in no acute distress. Skin: Warm, dry, intact. No rashes or lesions. Head: Normocephalic, atraumatic. Neck: Supple without LAD. FROM. Trachea midline.? Cardiac: Chest wall symmetric. RRR. No MRG. No JVD. Breast: hand knitter offered - patient declined. right breast unremarkable. left breast without overlying skin changes/ deformity. no expressible discharge from nipple. ttp over left upper outer quadrant with small palpable mass that is mobile yet firm. ttp. Lungs: Normal respiratory effort without accessory muscle use. CTA bilaterally. No rales, rhonchi, or wheezes.? Abdomen: Soft, non-tender, non-distended. No rebound tenderness or guarding. Positive BS x4. Back: No midline spinous or paraspinal tenderness. No step off deformity. Ambulating with steady gait. Ext: Upper and lower extremities atraumatic, without tenderness, deformity, swelling or erythema. Full ROM throughout. Capillary refill <2 seconds in all extremities. Pulses 2+ equal and bilateral. Neuro: AOx3. Normal speech. CN 2-12 grossly intact. Strength 5/5 intact throughout. No saddle anesthesia. Sensation intact to light touch. NV intact distally. Reflexes 2+ bilaterally. Psych: Appropriate mood and affect. Responds appropriately to questions. Course Course Course Narrative: This is a rapid medical exam performed by Kris Wright NP: Additional HPI, ROS, PE not included below will be deferred to primary provider. Patient is a 63-year-old female presenting with complaint of mass to left breast which is painful for two days, also chronic back pain for which she is scheduled to have surgery in March. Breast not examined in triage due to privacy concerns. Plan: u/s breast Reevaluation(s) Reevaluation #1: 8333-- I did review mammogram obtained on 10/02/2023 which shows scattered areas of fibroglandular density without significant masses, calcifications or other abnormalities. No evidence of malignancy. > ultrasound pending. 1643 -- US of left breast shows tubular soft tissue structure in the left upper outer quadrant at 1:00 with wall thickening and increased vascularity that is felt to reflect a distended duct with either inflammation, debris or perhaps intraductal neoplasm. Recommending follow up mammogram and or surgical consultation. There is no evidence of abscess or drainable collection within the left breast. > I did discuss these workup results with patient. I stressed the fact that cancer can not be definitively ruled out and she will require a follow-up mammogram. I stressed the importance of calling her PCP/ OBGYN tomorrow morning to schedule this. I will also provide her with a referral to Dr. Barclay for follow-up. She verbalizes understanding. Will send naproxen to pharmacy for pain control in the meantime. > on re-evaluation, she does report a significant improvement in her back pain with baclofen and lidocaine patch. Will send these to pharmacy for pain control. she is agreeable with this. Patient has remained stable throughout ED visit today. Discussed worrisome signs and symptoms and when to return to the ED. All questions answered at this time. Patient is agreeable with disposition and stable for discharge. Medications Administered Discontinued Medications Generic Name Dose Route Start Last Admin Trade Name Freq PRN Reason Stop Dose Admin Baclofen 10 mg 01/27/24 13:44 01/27/24 14:25 Baclofen 10 Mg Tablet PO 01/27/24 13:45 10 mg ONCE ONE Administration Lidocaine 1 patch 01/27/24 13:44 01/27/24 14:25 Lidocaine 4 % Patch Adh..Patch TRANSDERMA 01/27/24 13:45 1 patch ONCE ONE Administration Protocol Medical Decision Making Medical Decision Making MDM Narrative: 63 year old vincentian speaking female with pmhx significant for known left breast mass, asthma, HTN, HDL, GERD, MDD, nicotine dependence, L4/5 spinal stenosis with lumbar radiculopathy presents to the ED today for evaluation of left breast pain since last night. Vital signs stable. Afebrile. She is nontoxic appearing in no acute distress. On exam, there is no midline spinous tenderness or step off deformity. No paraspinal muscle tenderness. She is ambulating with steady gait. NV intact distally. Strength and sensation to light touch intact throughout. On breast examination, left breast does not demonstrate overlying skin changes or deformity. There is no expressible discharge from the nipple. She is tender to palpation over the left upper outer quadrant with small palpable mass that is mobile yet firm just adjacent to the nipple. Tender to palpation. Differential diagnosis includes fibroadenoma. Lower suspicion for breast abscess, malignancy. Suspicion for chronic spinal stenosis and lumbar radiculopathy. Lower suspicion for fracture. Unlikely cauda equina, Guillain- Harbert, epidural abscess, cord compression. Plan for ultrasound, pain control, re-evaluation. Given lumbar pain is unchanged from priors without new injury/ trauma, will treat with pain control. Imaging is not warranted at this time. Differential Diagnosis Differential Diagnoses: The differential diagnosis associated with the presentation includes as above. Admission/Observation not indicated. Independent Interpretation I performed an independent interpretation of an: Ultrasound and CT Scan Interpretation: CT lumbar spine 12/05/23 with out obvious fracture, agree with radiologist's interpretation. US left breast with mass noted to LUOQ, agree with radiologist's interpretation. Radiology Impression Discussion of test interpretation with radiology: I have reviewed the radiologist's reading. Radiologist Impression: EXAMINATION: MM SCREENING DIGITAL BREAST TOMOSYNTHESIS, BILATERAL CLINICAL INFORMATION: Screening. Asymptomatic. COMPARISON: Mammography: This study is compared with prior exams dating back to 2019. TECHNIQUE: Digital breast tomosynthesis is performed in both the craniocaudal and mediolateral oblique views along with computer-aided detection (CAD). Synthesized 2D images are generated from the tomosynthesis. FINDINGS: There are scattered areas of fibroglandular density (ACR BI-RADS breast composition Category b). There are no significant masses, abnormal calcifications, or other abnormalities. There is a tissue marker present in the upper outer quadrant of the left breast from prior benign percutaneous biopsy. MM/MM tomosynthesis screening BI IMPRESSION: No mammographic evidence of malignancy. ASSESSMENT: BI-RADS BI-RADS 2 - Benign Findings RECOMMENDATION: Routine annual mammography screening. 1 year F/U This examination should not preclude the clinical evaluation of a suspicious palpable abnormality. This patient's information was entered into a reminder system with a target due date for their next mammogram. EXAMINATION: CT LUMBAR SPINE WITHOUT CONTRAST CLINICAL INFORMATION: Lumbar radiculopathy COMPARISON: Lumbar spine x-ray on 10/05/2023, CT scan of abdomen and pelvis on 01/20/2019. TECHNIQUE: Multiple 3 mm axial images of the lumbar spine were obtained from lower T12 to S1 levels without IV contrast enhancement. Bone window and soft tissue window images were reconstructed. Coronal and Sagittal bone window images were also reconstructed from the axial image data. This CT examination was performed using dose optimization techniques as appropriate, variously including the following: *Automated exposure control *Adjustment of mA and/or kV according to patient size (this includes techniques or standardized protocols for targeted exams where dose is matched to indication/reason for exam; i.e. extremities or head) *Use of iterative reconstruction technique DLP; 437 mGy-cm FINDINGS: The visualized lumbar vertebrae are intact with mild L3-L4 levoscoliosis. T12/L1: Bony structures are intact with normal alignment. Intervertebral disc height is normal. Bilateral neuroforamina are patent. Bilateral apophyseal joints are intact with normal alignment. Bilateral apophyseal joints show loss of joint space, sclerosis, facet hypertrophy and osteophytosis. L-1/L-2: Bony structures are intact with normal alignment. Intervertebral disc height is normal. Bilateral neuroforamina are patent. Bilateral apophyseal joints are intact with normal alignment. Bilateral apophyseal joints show loss of joint space, sclerosis, facet hypertrophy and osteophytosis. L2/L3: Bony structures are intact with normal alignment. Bilateral L3 syndesmophytes are present. Intervertebral disc height is normal. Bilateral neuroforamina are patent. Bilateral apophyseal joints are intact with normal alignment. Bilateral apophyseal joints show loss of joint space, sclerosis, facet hypertrophy and osteophytosis. L3/L4: Bony structures are intact with normal alignment. Sharp bilateral L3 and L4 syndesmophytes are present, more prominent on the right side. Intervertebral disc height is normal. Bilateral neuroforamina are patent. Bilateral apophyseal joints are intact with normal alignment. Bilateral apophyseal joints show loss of joint space, sclerosis, facet hypertrophy and osteophytosis. L4/L5: Bony structures are intact with left lateral L4 on L5 displacement by 0.5 cm. Intervertebral disc height is markedly decreased with vacuum disc phenomenon. Moderate posterior disc protrusion is present. There is marked spinal stenosis due to additional impingement by hypertrophic ligamentum flavum. There is marked asymmetric right L4-L5 neural foramen stenosis due to impingement by syndesmophytes. Bilateral apophyseal joints are intact with normal alignment. Bilateral apophyseal joints show loss of joint space, sclerosis, facet hypertrophy and osteophytosis. L5/S1: Bony structures are intact with normal alignment. Intervertebral disc height is normal with vacuum disc phenomenon. Marked midline and asymmetric left posterior disc protrusion with calcified rim, completely effacing the left lateral recess is present. There is mild spinal stenosis due to additional impingement by hypertrophic ligamentum flavum. Bilateral neuroforamina are patent. Bilateral apophyseal joints are intact with normal alignment. Bilateral apophyseal joints show loss of joint space, sclerosis, facet hypertrophy and osteophytosis. CT/CT lumbar spine wo IV con IMPRESSION: 1. No evidence of acute fracture or dislocation. 2. Interval development of Marked L4-L5 spinal stenosis due to increased moderate posterior disc protrusion and hypertrophic ligamentum flavum, marked right L4-L5 neural foramen stenosis. 3. Unchanged Marked L5-S1 midline and asymmetric left posterior disc protrusion with calcified rim, completely effacing the left lateral recess. Unchanged Mild spinal stenosis due to additional impingement by hypertrophic ligamentum flavum. 4. Unchanged Mild L3-L4 levoscoliosis and left-sided L4-L5 spondylolisthesis. 5. Multilevel degenerative changes of the lumbar spine, advanced L4-L5 and L5-S1 degenerative lumbar disc disease. 6. Interval removal of left posterior lumbar nerve stimulator and lower thoracic spinal canal electrodes. EXAMINATION: US BREAST, LEFT CLINICAL INFORMATION: Left breast pain in the upper outer quadrant, rule out abscess COMPARISON: Mammography most recent 10/02/2023 and left breast ultrasound at 11/21/2017 TECHNIQUE: High-resolution grayscale sonography was performed with attention to the upper outer quadrant of the left breast. FINDINGS: Ultrasound examination demonstrates no abscess or drainable collection in the upper outer quadrant of the left breast. At the site of palpable in the 1:00-2:00 position, there is a tubular structure containing echogenic soft tissue or debris, and also demonstrating prominent vascularity, felt to reflect a distended duct with wall thickening. US/US breast LT limited IMPRESSION: 1. Tubular soft tissue structure in the left upper outer quadrant at 1:00, with wall thickening and increased vascularity. This is felt to reflect a distended duct with either inflammation, debris or perhaps intraductal neoplasm. Follow-up left mammogram and targeted/monitored left breast ultrasound are recommended. Surgical consultation also should be considered. 2. No abscess or drainable collection in the left upper outer quadrant. BI-RADS 0- Incomplete- Need additional imaging evaluation and/or prior studies for comparison. Electronically signed by: Home Vinson MD 01/27/2024 04:34 PM EDT External Record Review External record reviewed: Inpatient record, Office record, Outpatient record, Prior outpatient labs, Prior outpatient radiology, Primary care record and Outside ED record Prescription Management I considered prescription management with: Pain Medication (naproxen) and Other (lidocaine patch, baclofen) Chronic Conditions Patient?s care impacted by: Other (chronic back pain) Social Determinants Patient?s care significantly limited by Social Determinants of Health including: Other Social Determinant of Health Critical Care Time Critical Care Time Critical Care Time: No Discharge Plan Discharge Clinical Impression: Breast mass, left, Chronic lumbar radiculopathy Patient Disposition: Home, Self-Care Instructions: Breast Cancer in Women (DC), Breast Mass (ED), Fine Needle Breast Biopsy (DC) Additional Instructions: You were evaluated in the Emergency Department today for left breast pain. As discussed, the ultrasound of your breast shows the following: US breast LT limited IMPRESSION: 1. Tubular soft tissue structure in the left upper outer quadrant at 1:00, with wall thickening and increased vascularity. This is felt to reflect a distended duct with either inflammation, debris or perhaps intraductal neoplasm. Follow-up left mammogram and targeted/monitored left breast ultrasound are recommended. Surgical consultation also should be considered. 2. No abscess or drainable collection in the left upper outer quadrant. It is extremely important that you follow-up with your PCP and or OBGYN for repeat mammogram as cancer can not be ruled out at this time. Please call them tomorrow morning to make an appointment. You were also provided with a referral to our general surgeon Dr. Barclay. Please call him to schedule an appointment for follow up. In the mean time, I recommend anti-inflammatory pain medication for your left breast pain. Naproxen has been sent to your pharmacy for you to take as needed. Do not take this with other NSAIDs such as Motrin as this may cause increased risk of GI bleeding. Regarding your chronic back pain, your pain improved in ED with lidocaine patch and baclofen. Avoid bending, lifting, or twisting. Use ice several times per day for 20 minutes at a time for the next 48 hours and then change to heat. Baclofen is a muscle relaxer. Take this at night as it makes you drowsy. Do not drive, drink alcohol, or operate machinery while taking it. Lidoderm patches are numbing patches. Apply to painful areas. Please schedule an appointment for follow-up with your primary care provider this week for further evaluation of your symptoms. Return to the Emergency Department if you experience worsening back pain, difficulty walking, fevers, numbness, tingling, incontinence, or any other concerning symptoms. In the case of an emergency call 911. Prescriptions: New naproxen 500 mg tablet 500 mg PO Q8-12H PRN (Reason: pain (scale score 4-6)) Qty: 14 0RF lidocaine [Lidoderm] 5 % adhesive patch,medicated 1 patch topical DAILY Qty: 15 0RF Rx Instructions: leave on most painful area for up to 12 hrs baclofen 5 mg tablet 5 mg PO TID Qty: 12 0RF No Action isosorbide mononitrate 30 mg tablet extended release 24 hr 30 mg PO QAM 90 Days Qty: 90 3RF lisinopril 40 mg tablet 40 mg PO DAILY 90 Days Qty: 90 3RF fenofibrate 160 mg tablet 160 mg PO DAILY 90 Days Qty: 90 3RF Rx Instructions: 1 tablet with food Orally Once a day albuterol sulfate [Ventolin HFA] 90 mcg/actuation HFA aerosol inhaler 2 puff inhalation Q6H PRN (Reason: bronchospasm) 30 Days Qty: 8 3RF metformin 500 mg tablet 500 mg PO BID 90 Days Qty: 180 1RF (DME) FreeStyle Lite Strips Strip See Rx Instructions .ROUTE .MEDSUPPLY Qty: 50 6RF Rx Instructions: Use 1 test strip twice a day FreeStyle Josiah 14 Day Sensor Kit 1 ea topical Q2W 90 Days Qty: 6 2RF cholecalciferol (vitamin D3) 50 mcg (2,000 unit) capsule 50 mcg PO DAILY 90 Days Qty: 90 0RF atorvastatin 80 mg tablet 80 mg PO DAILY Qty: 90 1RF ondansetron HCl 4 mg tablet 4 mg PO Q8H PRN (Reason: nausea and vomiting) 10 Days Qty: 30 1RF Trulicity 1.5 mg/0.5 mL pen injector 1.5 mg subcut QWEEK 90 Days Qty: 6.5 1RF nicotine 7 mg/24 hr patch 24 hour 1 patch transdermal Q24H 14 Days Qty: 14 0RF (DME) transparent dressings [Tegaderm First Aid Style] 2 3/8 X 2 3/4 bandage See Rx Instructions .ROUTE .MEDSUPPLY Qty: 8 3RF Rx Instructions: As directed clonazepam 1 mg tablet 1 mg PO (DME) pen needle, diabetic 32 gauge x 5/32 needle See Rx Instructions .ROUTE .MEDSUPPLY Qty: 50 Rx Instructions: As directed mirtazapine 30 mg tablet 30 mg PO BEDTIME (DME) blood-glucose meter [FreeStyle [place] Lite] Kit See Rx Instructions .ROUTE .MEDSUPPLY Qty: 1 Rx Instructions: As directed fluoxetine 20 mg capsule 20 mg PO DAILY buspirone 10 mg tablet 10 mg PO BID aspirin 81 mg tablet,delayed release (DR/EC) 81 mg PO DAILY Qty: 90 3RF amlodipine 10 mg tablet 10 mg PO DAILY Qty: 90 3RF Rx Instructions: Dose increased Referrals: [facility] [place] [facility] [Provider Group] Gume Barclay MD [Physician] - 2 days (ubular soft tissue structure in the left upper outer quadrant at 1:00, with wall thickening and increased vascularity. This is felt to reflect a distended duct with either inflammation, debris or perhaps intraductal neoplasm. Follow-up left mammogram and targeted/monitored left breast ultrasound are recommended. Surgical consultation also should be considered.) Neha Benoit MD [Primary Care Provider] - Interventions: ED Discharge Assessment Last Done: 01/27/24 17:37 Discharge Date/Time: 01/27/24 17:37 Print Language: Trinidadian
[2024-01-27] MEDS: Baclofen 10 MG TABLET PO (14:25)
[2024-01-27] MEDS: Lidocaine 4 % Patch ADH..PATCH 1 PATCH TRANSDERMA (14:25)
[2024-01-27 15:17] VITALS: BP 131/66; PULSE 83; RESP 16; TEMP 37.2; O2SAT 94
[2024-01-27 17:37] VITALS: BP 131/66; PULSE 83; RESP 16; TEMP 37.2; O2SAT 94
== END 2024-01-27 17:37 | disposition home or self-care (01) ==
PROVIDERS: Emergency Provider Emergency Medicine; PCP Internal Medicine
DX: N63.20 Unspecified lump in the left breast, unspecified quadrant (principal); M54.16 Radiculopathy, lumbar region
CPT/HCPCS: 76642; 99283

== ENCOUNTER 2024-01-30 08:37 | Outpatient (AMB) | payer OTHER, SELFPAY ==
[2024-01-30 08:42] VITALS: BP 118/70; BMI 28.3
--- NOTE | 2024-01-30 08:42 | A.OFFPC_ITS ---
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 Accompanied by: Self / Same As Patient Allergies acetaminophen [From Vicodin] Allergy (Intermediate, Verified 01/30/24 09:16) Rash hydrocodone [From Vicodin] Allergy (Intermediate, Verified 01/30/24 09:16) Rash trulicity Adverse Reaction (Intermediate, Uncoded 01/30/24 09:16) headaches Medication List - Last Reconciled 01/30/24 by Neha Naylor MD amlodipine 10 mg PO DAILY aspirin 81 mg PO DAILY atorvastatin 80 mg PO DAILY baclofen 5 mg PO TID blood sugar diagnostic (FreeStyle Lite Strips) Use 1 test strip twice a day blood-glucose meter (FreeStyle [place] Lite kit) As directed buspirone 10 mg PO BID cholecalciferol (vitamin D3) 50 mcg PO DAILY 90 days clonazepam 1 mg PO dulaglutide (Trulicity) 1.5 mg (0.5 mL) subcut QWEEK 90 days fenofibrate 160 mg PO DAILY 90 days flash glucose sensor (FreeStyle Josiah 14 Day Sensor kit) 1 ea topical Q2W 90 days fluoxetine 20 mg PO DAILY isosorbide mononitrate ER 30 mg PO QAM 90 days lidocaine 5% (Lidoderm) 1 patch topical DAILY lisinopril 40 mg PO DAILY 90 days metformin 500 mg PO BID 90 days mirtazapine 30 mg PO BEDTIME naproxen 500 mg PO Q8-12H PRN nicotine 1 patch transdermal Q24H 14 days ondansetron HCl 4 mg PO Q8H PRN 10 days pen needle, diabetic As directed transparent dressings (Tegaderm First Aid Style) As directed Ventolin HFA 90 mcg/actuation (albuterol sulfate) 2 puffs inhalation Q6H PRN 30 days NS Tobacco use date assessed: 09/05/23 Dental Screening Dental Screen Date: 01/30/24 Did you have a dental visit in the last 12 months?: Yes Did you have a dental problem in the last 6 months where you did not have access to dental care?: No Was dental information given to patient?: Patient has dentist HPI HPI Comments History of Present Illness Details This is a 63-year-old female with diabetes mellitus type 2, hypertension, mixed hyperlipidemia, mild recurrent major depression and lumbar stenosis that comes today complaining of left breast pain that started about 5 days ago when she wakes up in the morning. She felt left breast swelling that has mildly improved. Went to ER and had ultrasound of the breast showing tissue swelling at 01:00 o'clock. Had a mammogram in September of this year which was negative. I will order diagnostic mammogram. She already has an appointment with surgeon next week. No nipple discharge or retraction. No breast redness. A1c elevated today and said that Trulicity gives her headaches. I will increase metformin and start her on Ozempic. Patient was advised that it can cause weight loss and abdominal pain as well as nausea and vomiting. Blood pressure stable. Lipid panel will be order and her LDL goal should be less than 70. Depression stable with SSRIs. Has lumbar stenosis and walks with a cane for gait stability. Will have surgery in March for this matter. [facility] Medical History Nicotine dependence, cigarettes, uncomplicated Mild recurrent major depression History of stroke Overweight (BMI 25.0-29.9) Scalp tenderness GERD (gastroesophageal reflux disease) Left hemiplegia Mixed hyperlipidemia Pulmonary nodules Hypertriglyceridemia CAD (coronary artery disease) Low back pain Left breast mass Moderate persistent asthma without complication Essential hypertension Tachycardia Leukocytosis, unspecified Microalbuminuria Surgical History Hx of surgical procedure (10/01/23) History of laparoscopy S/P insertion of spinal cord stimulator History of tubal ligation History of back surgery Family History Father Diabetes Mother Diabetes HTN (hypertension) CVD (cardiovascular disease) Brother No problems noted. Brother No problems noted. Sister Diabetes Breast cancer Son Alive and well Daughter Alive and well Breast cancer Social History Housing: House Alcohol intake: never Patient Tobacco Use Status: Current everyday Tobacco user Tobacco use type: Cigarette Cigarettes Per Day: 4 Years Smoked: (current smoker - onset 13yo, 1-2ppd x 49yrs, now 1/4ppd, 60pyh) e-Cigarette/Vaping Use: Never Used Second Hand Smoke Exposure: No service: No Current occupational status: disabled Cognitive needs: No Hearing needs: No Vision needs: Yes Questionnaire Thrive Questionnaire Date Thrive assessed: 09/05/23 CIELO-7 AMB Questionnaire CIELO-7 Date CIELO - 7 assessed: 09/05/23 Source: Developed by Drs. Dmitry Ruffin, Supriya Wolff, Bg Low and colleagues, with an educational deb from [employer]. Review of Systems Const All systems reviewed & are unremarkable except as noted in HPI and below Card Denies chest pain at rest, Denies chest pain with activity, Denies edema, Denies irregular heart rhythm, Denies claudication, Denies dyspnea, Denies dyspnea on exertion, Denies orthopnea, Denies paroxysmal nocturnal dyspnea and Denies slow heart rate Resp Denies cough, Denies dyspnea and Denies dyspnea on exertion Skin/Breast Reports breast pain Physical exam (Primary Care) Vital Signs: Last Vital Signs BP 118/70 01/30/24 08:42 BMI result Body Mass Index 28.3 BMI Assessment/Plan discussion: High BMI High, discussed plan: lifestyle, weight reduction, dietary and physical activity Tobacco/Smoking Status: Tobacco use Status Tobacco use date assessed 09/05/23 01/30/24 08:43 Patient Tobacco Use Status Current everyday Tobacco 01/30/24 08:43 Tobacco use type Cigarette 01/30/24 08:43 e-Cigarette/Vaping Use Never Used 01/30/24 08:43 Are you ready to quit: No Tobacco cessation counseling provided: Yes Items discussed: Nicotine replacement Relapse Prevention: discussed the importance of a supportive environment and discussed extending NRT Number of minutes spent counselin CPT code: Less than 3 minutes Thrive Assessment: Date of Thrive Assessment Date Thrive assessed 09/05/23 01/30/24 08:43 Const General: cooperative Limitations: ambulation with cane Chest Breast/axilla inspection: normal inspection of the breasts and normal inspection of the axillae Breast/axilla palpation: normal palpation of the axillae and abnormal palpation of the breast (left breast pain at 1 o'clock) Resp Effort & Inspection: normal respiratory effort Auscultation: clear to auscultation bilaterally Cardio Jugular venous distension: no JVD Rate: regular rate Rhythm: regular rhythm Heart sounds: S1 normal heart sound present and S2 normal heart sound present Results AMB Hemoglobin A1c AMB Hemoglobin A1c 8.7 % Last Edit by MONY Villalobos on 01/30/24 08:5 5 Results Reviewed Results Reviewed: Laboratory Last Values Hgb A1c (Clinic) 8.7 % (4.0-6.0) H 01/30/24 08:41 Assessment and Plan Assessment & Plan (1) Breast pain, left: Code(s): N64.4 - Mastodynia Plan: Mammogram ordered. Follow-up with breast surgeon. (2) Spinal stenosis at L4-L5 level: Code(s): M48.061 - Spinal stenosis, lumbar region without neurogenic claudication Plan: Follow-up with pain management. Surgery scheduled for March. 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 Discontinue Trulicity. Start Ozempic. A1c goal is equal or less than 7%. (4) Essential hypertension: Code(s): I10 - Essential (primary) hypertension Plan: Continue lisinopril. Blood pressure goal is equal or less than 130/80. (5) Mixed hyperlipidemia: Code(s): E78.2 - Mixed hyperlipidemia Plan: Continue statins and fibrates. LDL goal is less than 70. Repeat lipid panel. Advised to continue low-cholesterol diet. (6) Mild recurrent major depression: Code(s): F33.0 - Major depressive disorder, recurrent, mild Plan: Continue SSRIs. Orders: Orders AMB Hemoglobin A1c Today E11.65 - Type 2 diabetes mellitus with hyperglycemia Microalbumin, Random (w Creat) Today E11.9 - Type 2 diabetes mellitus without complications Lipid Panel Today E78.5 - Hyperlipidemia, unspecified Comprehensive [place]. Panel Fast Today E11.65 - Type 2 diabetes mellitus with hyperglycemia MM diagnostic mammo unilat LT Today N64.4 - Mastodynia Medications: New metformin 1,000 mg PO BID 90 days 180 tabs 1RF E11.65 - Type 2 diabetes mellitus with hyperglycemia semaglutide (Ozempic) for 4 weeks 0.25 mg (0.368 mL) subcut QWEEK 4 weeks 1.472 mL 0RF E11.65 - Type 2 diabetes mellitus with hyperglycemia Discontinued metformin Discontinued Reason: Patient Completed Course 500 mg PO BID 90 days 180 tabs 1RF E11.9 - Type 2 diabetes mellitus without complications dulaglutide (Trulicity) Discontinued Reason: Patient Completed Course 1.5 mg (0.5 mL) subcut QWEEK 90 days 6.5 mL 1RF Coding Level of Care Code Est Pt Level 4 (57919) Complex EM visit Add On G2211 Diagnoses Breast pain, left N64.4 Spinal stenosis at L4-L5 level M48.061 Type 2 diabetes mellitus with hyperglycemia, without long-term current use of insulin E11.65 Diabetes mellitus type: type 2 Diabetes mellitus custodial insulin use: without education managers use Diabetes mellitus complication status: with hyperglycemia Essential hypertension I10 Mixed hyperlipidemia E78.2 Mild recurrent major depression F33.0 Time Spent (min) 25
== END 2024-01-30 09:10 | disposition home or self-care (01) ==
PROVIDERS: PCP Internal Medicine; Visit Provider Internal Medicine
DX: N64.4 Mastodynia (principal); M48.061 Spinal stenosis, lumbar region without neurogenic claudication; E11.65 Type 2 diabetes mellitus with hyperglycemia; I10 Essential (primary) hypertension; E78.2 Mixed hyperlipidemia; F33.0 Major depressive disorder, recurrent, mild
CPT/HCPCS: 83036; 99214; G2211

== ENCOUNTER 2024-02-05 12:43 | Outpatient (AMB) | payer OTHER, SELFPAY ==
--- NOTE | 2024-02-05 12:44 | MHC.OFFVIS ---
Vital Signs 02/05/24 12:45 Height 5 ft 1 in Weight 150 lb BMI 28.3 Intake Visit Reasons: left breast mass Intake Note: Patient is seen in office for ER follow up visit, following left breast mass. Pt c/o: reports she feels a mass on her left breast. ED/US B: 01/27/24 Manager Underwriting Required: No Accompanied by: Other Relationship Allergies acetaminophen [From Vicodin] Allergy (Intermediate, Verified 02/05/24 12:51) Rash hydrocodone [From Vicodin] Allergy (Intermediate, Verified 02/05/24 12:51) Rash trulicity Adverse Reaction (Intermediate, Uncoded 02/05/24 12:51) headaches Medication List - Last Reconciled 02/05/24 by Gume Barclay MD amlodipine 10 mg PO DAILY aspirin 81 mg PO DAILY atorvastatin 80 mg PO DAILY baclofen 5 mg PO TID blood sugar diagnostic (FreeStyle Lite Strips) Use 1 test strip twice a day blood-glucose meter (FreeStyle [place] Lite kit) As directed buspirone 10 mg PO BID cholecalciferol (vitamin D3) 50 mcg PO DAILY 90 days clonazepam 1 mg PO fenofibrate 160 mg PO DAILY 90 days flash glucose sensor (FreeStyle Josiah 14 Day Sensor kit) 1 ea topical Q2W 90 days fluoxetine 20 mg PO DAILY isosorbide mononitrate ER 30 mg PO QAM 90 days lidocaine 5% (Lidoderm) 1 patch topical DAILY lisinopril 40 mg PO DAILY 90 days metformin 1,000 mg PO BID 90 days mirtazapine 30 mg PO BEDTIME naproxen 500 mg PO Q8-12H PRN nicotine 1 patch transdermal Q24H 14 days ondansetron HCl 4 mg PO Q8H PRN 10 days pen needle, diabetic As directed semaglutide (Ozempic) 0.25 mg (0.368 mL) subcut QWEEK 4 weeks transparent dressings (Tegaderm First Aid Style) As directed Ventolin HFA 90 mcg/actuation (albuterol sulfate) 2 puffs inhalation Q6H PRN 30 days NS HPI Comments Details: 63-year-old female patient presenting for evaluation of a left breast mass. She recently was evaluated in the emergency department for this painful breast mass at which time an ultrasound of the left breast was obtained. She reports a previous history of a left breast needle biopsy proximally 10 years ago which was benign. She denies a history of breast surgery. Her family history is significant for a sister with breast cancer. She currently reports pain in the upper outer quadrant extending towards the nipple. She denies a history of trauma or infection. Ultrasound revealed a tubular soft tissue structure in the upper outer quadrant left breast felt to be a distended duct or inflammation and further workup with a diagnostic mammogram and focused ultrasound was recommended. She has not been scheduled for this test as of yet. [facility] Medical History Nicotine dependence, cigarettes, uncomplicated Mild recurrent major depression History of stroke Overweight (BMI 25.0-29.9) Scalp tenderness GERD (gastroesophageal reflux disease) Left hemiplegia Mixed hyperlipidemia Pulmonary nodules Hypertriglyceridemia CAD (coronary artery disease) Low back pain Left breast mass Moderate persistent asthma without complication Essential hypertension Tachycardia Leukocytosis, unspecified Microalbuminuria Surgical History Hx of surgical procedure (10/01/23) History of laparoscopy S/P insertion of spinal cord stimulator History of tubal ligation History of back surgery Family History Father Diabetes Mother Diabetes HTN (hypertension) CVD (cardiovascular disease) Brother No problems noted. Brother No problems noted. Sister Diabetes Breast cancer Son Alive and well Daughter Alive and well Breast cancer Social History Housing: House Alcohol intake: never Patient Tobacco Use Status: Current everyday Tobacco user Tobacco use type: Cigarette Cigarettes Per Day: 4 Years Smoked: (current smoker - onset 13yo, 1-2ppd x 49yrs, now 1/4ppd, 60pyh) e-Cigarette/Vaping Use: Never Used Second Hand Smoke Exposure: No service: No Current occupational status: disabled Cognitive needs: No Hearing needs: No Vision needs: Yes Review of Systems Const All systems reviewed & are unremarkable except as noted in HPI and below Physical Exam Vital Signs: BMI result Body Mass Index 28.3 Const General: cooperative and no acute distress Nutritional Appearance: well nourished Orientation/consciousness: patient oriented x3 Limitations: no limitations HEENT Head: Yes normocephalic and Yes atraumatic Ears: hearing grossly normal bilaterally Chest Other: Left breast with an area of tenderness extending from the 2 o'clock position at the nipple-areolar complex and extending to the axilla. A palpable density is noted in the lateral upper outer quadrant close to the axilla and may represent lymphadenopathy. This is exquisitely tender to palpation and measures least 2 cm in diameter. No other palpable abnormalities are appreciated. There are no overlying skin changes no nipple discharge could be expressed. Right breast reveals no skin change, nipple discharge, palpable mass or enlarged lymph nodes. There is no tenderness to palpation. Resp Effort & Inspection: normal respiratory effort, no audible wheezes, no cough and no respiratory distress Cardio Jugular venous distension: no JVD GI Inspection: Yes normal to inspection Skin Other: Warm, dry, no rash Neuro General: patient oriented x3 Extrem General: Yes no clubbing, cyanosis or edema Quality Reporting (2019) Adult ([facility] 138/07/26/68) Smoking risk assessment performed?: Yes Patient Tobacco Use Status: Current everyday Tobacco user Assessment & Plan Assessment & Plan (1) Left breast mass: Code(s): N63.20 - Unspecified lump in the left breast, unspecified quadrant Category: Medical Qualifiers: Breast mass location: upper outer quadrant Qualified Code(s): N63.21 - Unspecified lump in the left breast, upper outer quadrant (2) Breast pain, left: Code(s): N64.4 - Mastodynia Category: Medical Plan 63-year-old female patient with complaints of a painful breast mass in the upper outer quadrant of the left breast. Examination confirmed a palpable mass which may be lymphadenopathy in the upper outer quadrant of the left breast. I have requested the mammogram and ultrasound and asked the patient to return following the study to review the results and discuss treatment options. She expressed understanding and agrees with the plan. Orders: Orders US breast LT limited Today N63.20 - Unspecified lump in the left breast, unspecified quadrant, N64.4 - Mastodynia MM diagnostic mammo unilat LT Today N63.20 - Unspecified lump in the left breast, unspecified quadrant, N64.4 - Mastodynia Coding Level of Care Code New Pt Level 4 (11692) Diagnoses Mass of upper outer quadrant of left breast N63.21 Breast mass location: upper outer quadrant Breast pain, left N64.4
[2024-02-05 12:45] VITALS: BMI 28.3
== END 2024-02-05 13:05 | disposition home or self-care (01) ==
PROVIDERS: PCP Internal Medicine; Visit Provider Surgery
DX: N63.21 Unspecified lump in the left breast, upper outer quadrant (principal); N64.4 Mastodynia
CPT/HCPCS: 99204

== ENCOUNTER → 2024-02-05 12:43 | Outpatient (BNVA) | payer OTHER, SELFPAY | PROVIDERS: PCP Internal Medicine; Visit Provider Surgery | DX: N63.21 Unspecified lump in the left breast, upper outer quadrant (principal); N64.4 Mastodynia | CPT/HCPCS: 99202 ==

== ENCOUNTER 2024-02-28 08:58 | Outpatient (REF) | payer OTHER, SELFPAY ==
[2024-02-28 10:06] LABS: Creatinine Urine 98.69 mg/dL; Microalbum/Creatinine Ratio Ur 25.3 ug/mg cr (<30)
[2024-02-28 10:09] LABS: Alanine Aminotransferase 20 U/L (0-31); Albumin Level 4.6 g/dL (3.5-5.0); Alkaline Phosphatase 57 U/L (39-117); Anion Gap 11 (12-20); Aspartate Amino Transferase 16 U/L (5-31); Bilirubin Total 0.3 mg/dL (0.0-1.0); Blood Urea Nitrogen 17 mg/dL (9-16); Carbon Dioxide 25 mmol/L (22-29); Chloride 110 mmol/L (96-108); Cholesterol 144 mg/dL (<200); Estimated Glomerular Filt Rate > 60; Glucose Fasting 180 mg/dL (60-99); HDL Cholesterol 31 mg/dL (>40); LDL Cholesterol Calculated 80 mg/dL (<100); Sodium 142 mmol/L (135-145); Total Protein 7.6 g/dL (6.5-8.0); Triglycerides 165 mg/dL (<150)
== END 2024-02-28 08:59 | disposition home or self-care (01) ==
LOC: HO.LAB 08:58
PROVIDERS: PCP Internal Medicine; Visit Provider Internal Medicine
DX: E11.65 Type 2 diabetes mellitus with hyperglycemia (principal); E11.9 Type 2 diabetes mellitus without complications; E78.5 Hyperlipidemia, unspecified
CPT/HCPCS: 36415; 80053; 80061; 82043; 82570

== ENCOUNTER 2024-03-04 14:10 | Outpatient (REF) | payer OTHER, SELFPAY ==
--- NOTE | ~2024-03-04 | MM_ITS ---
EXAMINATION: MM DIAGNOSTIC DIGITAL BREAST TOMOSYNTHESIS, LEFT US BREAST LIMITED, LEFT MAMMOGRAPHY: CLINICAL INFORMATION: 63-year-old female, complaining of palpable abnormality periareolar 1-2 o'clock axis left breast with associated tenderness. Patient was seen in the emergency department 01/27/2024 for this same complaint, underwent a left breast targeted ultrasound of the same area, and was discharged with instructions to follow-up with a surgeon. She states the palpable focus persists but has greatly improved since that time . COMPARISON: Mammography: 10/02/2023, 09/28/2022, 01/21/2021, 08/13/2019, 06/21/2018. Left breast [place]27[place]2024 [place] [facility] [place] TECHNIQUE: Digital left breast tomosynthesis is performed in both the craniocaudal and mediolateral oblique views along with computer-aided detection (CAD). Synthesized 2D images are generated from the tomosynthesis. FINDINGS: There are scattered areas of fibroglandular density (ACR BI-RADS breast composition Category b). There is a prominent ectatic duct again noted in the 1-2 o'clock axis periareolar location. Stable appearance of lymph nodes in the left axilla. There is a post benign biopsy clip in the upper outer left breast anterior one third. There are a few scattered benign-appearing calcifications. There are no suspicious masses, areas of architectural distortion, suspicious grouped calcifications, skin, or axillary abnormality. ULTRASOUND: CLINICAL INFORMATION: As above. COMPARISON: 01/27/2024 left breast targeted ultrasound. TECHNIQUE: Targeted sonographic evaluation was performed using a high frequency linear transducer. Left breast was evaluated from the 11-2 o'clock axis to include the area of concern. Selected archived documentation. FINDINGS: LEFT BREAST: Correlating with the area of palpable concern in the 1-2:00 axis left breast, there is focal duct ectasia without intraductal mass or echogenic debris. Previously seen edematous changes surrounding these ducts has resolved, as has inflammatory appearance of the surrounding fatty tissue. Findings overall suggest resolved focal mastitis. This finding correlated well with the area of palpable concern. There are no findings suspicious for malignancy. No masses, abnormal shadowing, or architectural abnormalities. MM/MM tomosynthesis diagnostic LT IMPRESSION: 1. Area of palpable concern correlates with a focus of duct ectasia at the 1-2 o'clock axis far anterior right breast. Previously seen inflammatory changes have essentially resolved, and likely represented focal mastitis or an infected debris-filled duct. No persistent intraductal abnormality seen. No persistent inflammation seen. 2. No findings suspicious for malignancy in the left breast. Recommend the patient resume routine annual screening mammography. Clinical management recommended for any residual left breast symptomatology. OVERALL ASSESSMENT: Mammography: BI-RADS 2 - Benign Findings Ultrasound: BI-RADS 2 - Benign Findings RECOMMENDATION: 1 year F/U Electronically signed by: Vikram Gurrola MD 03/04/2024 05:17 PM EDT
== END 2024-03-04 14:11 | disposition home or self-care (01) ==
LOC: HO.MAMMO 14:10
PROVIDERS: PCP Internal Medicine; Visit Provider Surgery
DX: N64.4 Mastodynia (principal)
CPT/HCPCS: 76642; 77061; 77065

== ENCOUNTER → 2024-03-04 15:00 | Outpatient (BNV) | payer OTHER, SELFPAY | PROVIDERS: PCP Internal Medicine; Visit Provider Radiology Diagnostic Radiology | DX: N63.21 Unspecified lump in the left breast, upper outer quadrant (principal) | CPT/HCPCS: 76642; 77065; G0279 ==

== ENCOUNTER 2024-03-11 08:53 | Outpatient (AMB) | payer OTHER, SELFPAY ==
--- NOTE | 2024-03-11 09:30 | A.OFFVIS_ITS ---
Vital Signs 03/11/24 09:39 Height 5 ft 1 in Weight 151 lb BMI 28.5 BP 137/70 Blood Pressure Location Lt brachial Position Sitting Pulse 80 Intake Visit Reasons: 03/04 Mammo Follow up Intake Note: Patient is seen in office for ultrasound and mammogram results, following left breast mass. Pt c/o: no pain or changes in the breast, here for results us & mm:03/04/24 Suppression Crew Leader Required: Yes Suppression Crew Leader Language: S[employer] Maker Services: Suppression Crew Leader Offered & Declined Suppression Crew Leader Name: Ruma SYKES Information Interpreted: non-clinical & clinical Pediatric Nurse: Pediatric Nurse Present Accompanied by: Self / Same As Patient Allergies hydrocodone [From Vicodin] Allergy (Intermediate, Verified 03/11/24 09:59) Rash trulicity Adverse Reaction (Intermediate, Uncoded 03/11/24 09:59) headaches Medication List - Last Reconciled 03/11/24 by Gume Barclay MD amlodipine 10 mg PO DAILY aspirin 81 mg PO DAILY atorvastatin 80 mg PO DAILY baclofen 5 mg PO TID blood sugar diagnostic (FreeStyle Lite Strips) Use 1 test strip twice a day blood-glucose meter (FreeStyle [place] Lite kit) As directed buspirone 10 mg PO BID cholecalciferol (vitamin D3) 50 mcg PO DAILY 90 days clonazepam 1 mg PO fenofibrate 160 mg PO DAILY 90 days flash glucose sensor (FreeStyle Josiah 14 Day Sensor kit) 1 ea topical Q2W 90 days fluoxetine 20 mg PO DAILY isosorbide mononitrate ER 30 mg PO QAM 90 days lidocaine 5% (Lidoderm) 1 patch topical DAILY lisinopril 40 mg PO DAILY 90 days metformin 1,000 mg PO BID 90 days mirtazapine 30 mg PO BEDTIME naproxen 500 mg PO Q8-12H PRN nicotine 1 patch transdermal Q24H 14 days ondansetron HCl 4 mg PO Q8H PRN 10 days pen needle, diabetic As directed semaglutide (Ozempic) 0.25 mg subcut .QWEDNESDAY transparent dressings (Tegaderm First Aid Style) As directed [Tums ] Ventolin HFA 90 mcg/actuation (albuterol sulfate) 2 puffs inhalation Q6H PRN 30 days NS HPI Comments Details: 63-year-old female patient presenting for evaluation of a left breast mass. She recently was evaluated in the emergency department for this painful breast mass at which time an ultrasound of the left breast was obtained. She reports a previous history of a left breast needle biopsy proximally 10 years ago which was benign. She denies a history of breast surgery. Her family history is significant for a sister with breast cancer. She currently reports pain in the upper outer quadrant extending towards the nipple. She denies a history of trauma or infection. Ultrasound revealed a tubular soft tissue structure in the upper outer quadrant left breast felt to be a distended duct or inflammation and further workup with a diagnostic mammogram and focused ultrasound was recommended. She returns today feeling much improved with no further breast pain. Follow-up mammogram and ultrasound performed on 03/04/2024 revealed no residual suspicious findings. Routine follow-up is recommended. [facility] Medical History CVA (cerebral vascular accident) (~2018) Cardiomegaly Nicotine dependence, cigarettes, uncomplicated Mild recurrent major depression History of stroke Overweight (BMI 25.0-29.9) Scalp tenderness GERD (gastroesophageal reflux disease) Left hemiplegia Mixed hyperlipidemia Pulmonary nodules Hypertriglyceridemia CAD (coronary artery disease) Low back pain Left breast mass Moderate persistent asthma without complication Essential hypertension Tachycardia Leukocytosis, unspecified Microalbuminuria Surgical History Hx of surgical procedure (10/01/23) History of laparoscopy S/P insertion of spinal cord stimulator History of tubal ligation History of back surgery Family History Father Diabetes Mother Diabetes HTN (hypertension) CVD (cardiovascular disease) Brother No problems noted. Brother No problems noted. Sister Diabetes Breast cancer Son Alive and well Daughter Alive and well Breast cancer Social History Household Members: None Housing: House Housing Other:: 2 family Are you a primary skin care therapist to a significant other at home: No Do you presently have visiting nurse or other home services: Yes ([employer] daily) Alcohol intake: never Patient Tobacco Use Status: Current everyday Tobacco user Tobacco use type: Cigarette Cigarettes Per Day: 5 Years Smoked: (current smoker - onset 13yo, 1-2ppd x 49yrs, now 1/4ppd, 60pyh) e-Cigarette/Vaping Use: Never Used Second Hand Smoke Exposure: No service: No Current occupational status: disabled Cognitive needs: No Hearing needs: No Vision needs: Yes Review of Systems Const All systems reviewed & are unremarkable except as noted in HPI and below Physical Exam Vital Signs: Last Vital Signs Pulse 80 03/11/24 09:39 BP 137/70 03/11/24 09:39 BMI result Body Mass Index 28.5 Const General: cooperative and no acute distress Nutritional Appearance: well nourished Orientation/consciousness: patient oriented x3 Limitations: no limitations HEENT Head: Yes normocephalic and Yes atraumatic Ears: hearing grossly normal bilaterally Chest Other: Exam deferred Resp Effort & Inspection: normal respiratory effort, no audible wheezes, no cough and no respiratory distress Cardio Jugular venous distension: no JVD GI Inspection: Yes normal to inspection Skin Other: Warm, dry, no rash Neuro General: patient oriented x3 Extrem General: Yes no clubbing, cyanosis or edema Quality Reporting (2019) Adult ([facility] 138/07/26/68) Smoking risk assessment performed?: Yes Patient Tobacco Use Status: Current everyday Tobacco user Assessment & Plan Assessment & Plan (1) Left breast mass: Code(s): N63.20 - Unspecified lump in the left breast, unspecified quadrant Category: Medical Qualifiers: Breast mass location: upper outer quadrant Qualified Code(s): N63.21 - Unspecified lump in the left breast, upper outer quadrant (2) Breast pain, left: Code(s): N64.4 - Mastodynia Category: Medical Plan 63-year-old female patient with complaints of a painful breast mass in the upper outer quadrant of the left breast. Patient is now much improved with no further pain or palpable mass. This is confirmed by mammogram and ultrasound which revealed benign findings (BI-RADS 2). Routine follow-up mammogram is recommended due in 09/21/2024. She should follow up as needed. Coding Level of Care Code Est Pt Level 3 (90398) Diagnoses Mass of upper outer quadrant of left breast N63.21 Breast mass location: upper outer quadrant Breast pain, left N64.4
[2024-03-11 09:39] VITALS: BP 137/70; PULSE 80; BMI 28.5
== END 2024-03-11 09:57 | disposition home or self-care (01) ==
PROVIDERS: PCP Internal Medicine; Visit Provider Surgery
DX: N63.21 Unspecified lump in the left breast, upper outer quadrant (principal); N64.4 Mastodynia
CPT/HCPCS: 99213

== ENCOUNTER → 2024-03-11 08:53 | Outpatient (BNVA) | payer OTHER, SELFPAY | PROVIDERS: PCP Internal Medicine; Visit Provider Surgery | DX: Z09 Encounter for follow-up examination after completed treatment for conditions other than malignant neoplasm (principal); N63.21 Unspecified lump in the left breast, upper outer quadrant; N64.4 Mastodynia; Z87.2 Personal history of diseases of the skin and subcutaneous tissue | CPT/HCPCS: 99212 ==

== ENCOUNTER 2024-03-11 09:55 | Outpatient (AMB) | payer OTHER, SELFPAY ==
--- NOTE | 2024-03-11 09:56 | A.OFFVIS_ITS ---
Vital Signs 03/11/24 09:57 Height 5 ft 1 in Weight 151 lb BMI 28.5 BP 137/70 Blood Pressure Location Lt brachial Position Sitting Pulse 80 Intake Visit Reasons: Wound check Intake Note: Patient here for wound check. Hx of lipoma excision in October. Patient c/o: bumpy, burning sensation under scarline. Patient here s/p abdominal drain insertion. Patient wants to make sure site is healing the way it's supposed to. 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 She would like to have it checked to make sure there are no issues. [facility] Medical History CVA (cerebral vascular accident) (~2018) Cardiomegaly Nicotine dependence, cigarettes, uncomplicated Mild recurrent major depression History of stroke Overweight (BMI 25.0-29.9) Scalp tenderness GERD (gastroesophageal reflux disease) Left hemiplegia Mixed hyperlipidemia Pulmonary nodules Hypertriglyceridemia CAD (coronary artery disease) Low back pain Left breast mass Moderate persistent asthma without complication Essential hypertension Tachycardia Leukocytosis, unspecified Microalbuminuria Surgical History Hx of surgical procedure (10/01/23) History of laparoscopy S/P insertion of spinal cord stimulator History of tubal ligation History of back surgery Family History Father Diabetes Mother Diabetes HTN (hypertension) CVD (cardiovascular disease) Brother No problems noted. Brother No problems noted. Sister Diabetes Breast cancer Son Alive and well Daughter Alive and well Breast cancer Social History Household Members: None Housing: House Housing Other:: 2 family Are you a primary healthcare economics manager to a significant other at home: No Do you presently have visiting nurse or other home services: Yes (RABBLER daily) Alcohol intake: never Patient Tobacco Use Status: Current everyday Tobacco user Tobacco use type: Cigarette Cigarettes Per Day: 5 Years Smoked: (current smoker - onset 13yo, 1-2ppd x 49yrs, now 1/4ppd, 60pyh) e-Cigarette/Vaping Use: Never Used Second Hand Smoke Exposure: No service: No Current occupational status: disabled Cognitive needs: No Hearing needs: No Vision needs: Yes Physical Exam Vital Signs: Last Vital Signs Pulse 80 03/11/24 09:57 BP 137/70 03/11/24 09:57 BMI result Body Mass Index 28.5 Extrem Other: Dorsal right mid forearm incision clean dry and intact healing very well. Patient was reassured. Quality Reporting (2019) Adult ([facility] 138/07/26/68) Smoking risk assessment performed?: Yes Patient Tobacco Use Status: Current everyday Tobacco user Assessment & Plan Assessment & Plan (1) Encounter for wound re-check: Code(s): Z51.89 - Encounter for other specified aftercare Category: Surgical Plan Patient has no evidence of recurrence of her lipoma or wound issues or infection. Patient was reassured. All questions answered. She will otherwise follow-up p.r.n.. Coding Level of Care Code Est Pt Level 3 (77897) Diagnoses Encounter for wound re-check Z51.89
[2024-03-11 09:57] VITALS: BP 137/70; PULSE 80; BMI 28.5
== END 2024-03-11 10:00 | disposition home or self-care (01) ==
LOC: HO.HGS 09:55
PROVIDERS: PCP Internal Medicine; Visit Provider Surgery
DX: Z51.89 Encounter for other specified aftercare (principal)
CPT/HCPCS: 99213

== ENCOUNTER 2024-03-13 06:43 | Day surgery (SDC) | payer OTHER, SELFPAY ==
--- NOTE | 2024-02-28 | ECG_ITS ---
Test Reason : pre op Blood Pressure : / mmHG Vent. Rate : 092 BPM Atrial Rate : 092 BPM P-R Int : 140 ms QRS Dur : 070 ms QT Int : 360 ms P-R-T Axes : 043 042 050 degrees QTc Int : 445 ms Normal sinus rhythm Nonspecific T wave abnormality Abnormal ECG When compared with ECG of 12-DEC-2017 13:38, No significant change was found Referred By: Anel Pedroza Electronically Signed By:NORI MARC
[2024-02-28 11:28] VITALS: BP 144/82; PULSE 100; RESP 16; O2SAT 96; BMI 28.4
--- NOTE | 2024-02-28 11:59 | P.CONAN_ITS ---
Documented by User: Anel Pedroza NP 03/03/24 13:52 HPI - Anesthesia Eval Consult details Narrative: 63yo F for Left L5-S1 Lumbar Decompression, 03/13/24 s/p spinal stim implant removal 2021 with GA-ETT No recent illness No CP/SOB with minimal activity CVA 2018: Left side weakness Nonobstructive CAD: [place] [facility] [place]. Stable at 11/2023 office visit Smoker: 5 cigs daily Asthma: albuterol twice daily DM: recently started ozempic Anesthesia Pre-Procedure Meds Is the patient on any of the following meds?: GLP1/DPP4 PMFSH Active Problems Active Problems: All Active Problems Breast pain, left (Acute) Hypercalcemia (Acute) Postop check (Acute) Left lumbar radiculopathy (Acute) Spinal stenosis at L4-L5 level (Acute) Spinal stenosis (Acute) Lipoma of arm (Acute) Subcutaneous mass of right forearm (Acute) LVH (left ventricular hypertrophy) (Acute) Aortic regurgitation (Acute) Abnormal nuclear stress test (Acute) Hepatic steatosis (Acute) Costovertebral angle tenderness (Acute) Right knee pain (Acute) Diabetes mellitus (Acute ~2013) Atherosclerotic cardiovascular disease (Acute) Left facial pain (Acute) Lumbar radiculopathy (Acute) Postlaminectomy syndrome (Acute) Left breast mass (Acute) CAD (coronary artery disease) (Acute) History of stroke (Acute) Essential hypertension (Acute) Mixed hyperlipidemia (Acute) Hypertriglyceridemia (Acute) GERD (gastroesophageal reflux disease) (Acute) Nicotine dependence, cigarettes, uncomplicated (Acute) Pulmonary nodules (Acute) Mild recurrent major depression (Acute) Overweight (BMI 25.0-29.9) (Acute) Left hemiplegia (Acute) Past Medical History Medical History CVA (cerebral vascular accident) (~2018) Cardiomegaly Nicotine dependence, cigarettes, uncomplicated Mild recurrent major depression History of stroke Overweight (BMI 25.0-29.9) Scalp tenderness GERD (gastroesophageal reflux disease) Left hemiplegia Mixed hyperlipidemia Pulmonary nodules Hypertriglyceridemia CAD (coronary artery disease) Low back pain Left breast mass Moderate persistent asthma without complication Essential hypertension Tachycardia Leukocytosis, unspecified Microalbuminuria Family History Family History Father Diabetes Mother Diabetes HTN (hypertension) CVD (cardiovascular disease) Brother No problems noted. Brother No problems noted. 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 If so, by whom?: No Spiritual Healthcare Practices: none Synagogue Healthcare Practices: none Cultural Healthcare Practices: none Are you DNR?: No Advance Directives: No Advance Directives Information Provided: Yes Advance Directives on File: No Recently lost weight without trying: No Nutrition Risks: No Nutritional Risk service: No Current occupational status: disabled Cognitive needs: No Hearing needs: No Vision needs: Yes Meds Allergies Allergy/AdvReac Type Severity Reaction Status Date / Time hydrocodone [From Vicodin] Allergy Intermediate Rash Verified 03/11/24 09:59 trulicity AdvReac Intermediate headaches Uncoded 03/11/24 09:59 Home Medications ?Medication ?Instructions ?Recorded ?Confirmed ?Last Taken ?Type blood-glucose meter (FreeStyle #1 ea 03/01/20 03/12/24 Unknown History [place] Lite kit) clonazepam 1 mg tablet 1 mg PO 03/01/20 03/12/24 Unknown History mirtazapine 30 mg tablet 30 mg PO BEDTIME 03/01/20 03/12/24 Unknown History pen needle, diabetic 32 gauge x #50 ea 03/01/20 03/12/24 Unknown History fluoxetine 20 mg capsule 20 mg PO DAILY 11/17/20 03/12/24 Unknown History buspirone 10 mg tablet 10 mg PO BID 03/02/22 03/12/24 Unknown History Tums 02/28/24 03/12/24 Unknown History semaglutide 0.25 mg or 0.5 mg (2 0.25 mg subcut .QWEDNESDAY 02/28/24 03/12/24 Unknown History mg/3 mL) subcutaneous pen injector (Ozempic) Exam Height,Weight and Vital Signs: Height 5 ft 1 in Weight 68.3 kg Last Vital Signs Pulse 100 02/28/24 11:28 Resp 16 02/28/24 11:28 BP 144/82 H 02/28/24 11:28 Pulse Ox 96 02/28/24 11:28 O2 Del Method Room Air 02/28/24 11:28 Pertinent Lab Results Pertinent Lab Results: Laboratory Tests 01/20/19 10/18/21 12/05/23 01:04 09:27 07:16 WBC 11.7 H Hgb 13.3 Hct 41.3 Plt Count 411 H 02/28/24 09:05 WBC Hgb Hct Plt Count Sodium 142 Potassium 4.0 Chloride 110 H Carbon Dioxide 25 BUN 17 H Creatinine 0.71 Narrative Narrative: EKG 02/2024 Vent. Rate : 092 BPM Atrial Rate : 092 BPM P-R Int : 140 ms QRS Dur : 070 ms QT Int : 360 ms P-R-T Axes : 043 042 050 degrees QTc Int : 445 ms Normal sinus rhythm Nonspecific T wave abnormality Abnormal ECG When compared with ECG of 12-DEC-2017 13:38, No significant change was found Airway Mallampati Class: II TM Dist: >3cm Neck ROM: Full Denture: Upper Partial: Lower Heart: tachy, +M Lungs: CTAB Assessment and Plan Assessment Anesthesia Assessment: Anesthesia Plan Discussed, Smoking Cess. Discussed and PAT Visit Final Anesthetic Review Family History of Problems with Anesthesia: No History of Problems with Anesthesia: No Documented by User: Dlema Rodriguez MD 03/13/24 07:38 [facility] Past Medical History Medical History CVA (cerebral vascular accident) (~2018) Cardiomegaly Nicotine dependence, cigarettes, uncomplicated Mild recurrent major depression History of stroke Overweight (BMI 25.0-29.9) Scalp tenderness GERD (gastroesophageal reflux disease) Left hemiplegia Mixed hyperlipidemia Pulmonary nodules Hypertriglyceridemia CAD (coronary artery disease) Low back pain Left breast mass Moderate persistent asthma without complication Essential hypertension Tachycardia Leukocytosis, unspecified Microalbuminuria Family History Family History Father Diabetes Mother Diabetes HTN (hypertension) CVD (cardiovascular disease) Brother No problems noted. Brother No problems noted. 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 If so, by whom?: No Spiritual Healthcare Practices: none Synagogue Healthcare Practices: none Cultural Healthcare Practices: none Are you DNR?: No Advance Directives: No Advance Directives Information Provided: Yes Advance Directives on File: No Recently lost weight without trying: No Nutrition Risks: No Nutritional Risk service: No Current occupational status: disabled Cognitive needs: No Hearing needs: No Vision needs: Yes Meds Allergies Allergy/AdvReac Type Severity Reaction Status Date / Time hydrocodone [From Vicodin] Allergy Intermediate Rash Verified 03/11/24 09:59 trulicity AdvReac Intermediate headaches Uncoded 03/11/24 09:59 Home Medications ?Medication ?Instructions ?Recorded ?Confirmed ?Last Taken ?Type blood-glucose meter (FreeStyle #1 ea 03/01/20 03/12/24 Unknown History [place] Lite kit) clonazepam 1 mg tablet 1 mg PO 03/01/20 03/12/24 Unknown History mirtazapine 30 mg tablet 30 mg PO BEDTIME 03/01/20 03/12/24 Unknown History pen needle, diabetic 32 gauge x #50 ea 03/01/20 03/12/24 Unknown History fluoxetine 20 mg capsule 20 mg PO DAILY 11/17/20 03/12/24 Unknown History buspirone 10 mg tablet 10 mg PO BID 03/02/22 03/12/24 Unknown History Tums 02/28/24 03/12/24 Unknown History semaglutide 0.25 mg or 0.5 mg (2 0.25 mg subcut .QWEDNESDAY 02/28/24 03/12/24 Unknown History mg/3 mL) subcutaneous pen injector (Ozempic) Assessment and Plan Assessment Anesthesia Assessment: Chart Reviewed Final Anesthetic Review NPO: Yes ASA Class: III Final Preanesthetic Review: No Changes in Pt Med Stat, Meds/Allgs Chart Reviewed and Consent Obtained/Reviewed Patient Risk: Intermediate Procedure Risk: Low Anesthetic Plan Anesthetic Plan: GA Disposition: Standard PACU
[2024-03-13] VITALS (9 sets, daily range): BP systolic 108–139; BP diastolic 62–83; PULSE 87–98; RESP 12–18; TEMP 36.1–37; O2SAT 93–97; BMI 28.5
--- NOTE | 2024-03-13 07:14 | MHC.SHP ---
Pre-Procedural Eval Section A - 24 Hr Update-Section A only Date of Service: 03/13/24 The patient is an INPATIENT: No Changes since office visit: No Cold of Flu in the past 2 weeks, No New Medical Problems, No Changes in Medication and No Patient answered all questions The patient has been examined within 24 hours of the surgical procedure. The History & Physical has been completed within 30 days and I have reviewed it.: No Section B - Complete if H&P > 30 days Chief Complaint: Spinal stenosis, lumbar region without neurogenic Allergies: Allergies Allergy/AdvReac Type Severity Reaction Status Date / Time hydrocodone [From Vicodin] Allergy Intermediate Rash Verified 03/11/24 09:59 trulicity AdvReac Intermediate headaches Uncoded 03/11/24 09:59 Review of Systems Sugical H&P ROS: Negative: Constitution, Cardiovascular, Respiratory, Neurological, Psychiatric, Hem-Onc, Allergic/Immunologic, Gastrointestinal, Genitourinary, Musculoskeletal, Integumentary, Endocrine and Eyes/Ears/Nose/Throat Exam Surgical H&P Exam: Normal: HEENT, Normal: Heart, Normal: Lungs, Normal: Extremities, Normal: Abdomen, Normal: Skin and Normal: Neurological (awake, alert,oriented x 3 ) Plan Diagnosis/Plan: Unchanged left L5-S1 decompression Time Spent With Patient Time: Total time managing care of this patient today __4__ minutes.
[2024-03-13 07:48] LABS: Glucose, Whole Blood 158 mg/dL (60-115)
[2024-03-13] MEDS: Gabapentin 300 MG CAPSULE PO (07:58)
[2024-03-13] MEDS: methocarbamoL 750 MG TABLET PO (07:58)
--- NOTE | 2024-03-13 10:28 | P.OP_ITS ---
Operative Note Operative Note Date of Service: 03/13/24 Narrative: Preoperative Diagnosis: Left L4-5, L5-S1 spinal stenosis/lateral recess stenosis/neural foraminal stenosis Operation: Left L4-5 and L5-S1 Laminotomy, Partial facetectomy; left L5 foraminotomy; left L5-S1 diskectomy with use of microscope Consent Informed Consent was obtained for this operation. I have explained the nature, purpose and benefits of the operation. I have discussed the risks and benefit of the operation including possible complications or adverse events with patient/family. Alternative(s) were discussed with the patient with their relative benefits and risks as well as the consequences of not accepting the operation were included in obtaining consent. Surgeon: KAE ADEN MD, PHD Procedure Assisted By: Fawad Mujica Description of Procedure This 63-year-old female who had a left L5-S1 lumbar microdiskectomy done in another institution and never experienced any relief. The patient saw us for 2nd opinion. Repeat MRI and CT scan of the lumbar spine shows severe L4-5 spinal stenosis, L5 foraminal stenosis and severe L5-S1 lateral recess stenosis . There may or may not be a herniated disc involved at those levels. The patient was offered a decompression. The procedure complications were explained. The patient was consented. The patient was brought to the operating room and endotracheally intubated. The patient was turned in prone position on the Masoud frame. Prep and drape was done followed by timeout. The Physician assistant food service director provided access. A mid lumbar incision was made followed by release of the paravertebral muscle on the left side to expose the L4-5 and S1 lamina and facet joints. An intraoperative x-ray was obtained to confirm the correct level. The microscope was brought in. I took over the procedure. The high-speed drill was used to do a left L4-5 laminotomy until flavum ligament was reached. A #2 Kerrison was used to expand the laminotomy near flush to the pedicles and to include a partial facetectomy. The flavum ligament was opened and resected with a #3 Kerrison to decompress the underlying thecal sac. The flavum ligament was removed to decompress the lateral recess. The L5 nerve root was not identified. The nerve root was severely compressed. When the decompression of the lateral recess was done and a left L5 foraminotomy was performed the nerve root returned to its original color as sign of adequate decompression. I extended the L5 laminotomy caudally until I felt the S1 pedicle. Between the L5 nerve root an S1 nerve root a mixture of calcification ligaments and disc fragments were removed. I used a nerve hook to go under the S1 nerve root and felt a L5-S1 disc bulge. I did perform a diskectomy but majority of compression was from the material described before. Anatomically there was an abnormality as the L5 nerv e root was significantly dilated. Palpation did not show any resistance so I do not think a benign tumor was involved. In the end A long nerve hook could be easily passed along the medial side of the pedicles as a sign of adequate decompression. The microscope was removed. Hemostasis was done. The physician assistant food service director close the Incision in 2 layers. Steri-Strips were used to approximate incision. An OpSite with Tegaderm was used to cover the incision. All sponge needle counts were correct. Patient was extubated and transported in stable is to recovery room. Anesthesia: General Estimated Blood Loss (ml): 30 Complications: None Duration of Surgery: 60 Minutes Postoperative Plan: Discharge to home
--- NOTE | 2024-03-13 10:33 | PM.DS ---
DS: Providers Provider Date of Service: 03/13/24 Date of discharge: 03/13/24 Primary care physician: Neha Naylor MD Admitting clinician: Alexey Rosales DS: Diagnosis Discharge Diagnosis (1) Left lumbar radiculopathy: Status: Acute DS: Summary Time Attestation Discharge Coordination Time (in mins): 5 Quality: Safe Use of Opioids Does Pt have an Active Cancer Diagnosis on the Problem List?: No Quality: Stroke Does the patient have a stroke diagnosis?: No Physical Exam Vital Signs: Vital Signs: Last Vital Signs Temp 98.6 F 03/13/24 07:55 Pulse 87 03/13/24 07:55 Resp 18 03/13/24 07:55 BP 108/62 03/13/24 07:55 Pulse Ox 95 03/13/24 07:55 O2 Del Method Room Air 03/13/24 07:55 BMI result Body Mass Index 28.5 DS: Data Data Completed and Pending Labs on day of discharge: Laboratory Results - last 24 hr 03/13/24 07:44 POC Glucose 158 H Discharge Plan Discharge Patient Disposition: Home, Self-Care Referrals: Neha Benoit MD [Primary Care Provider] - 1 Week Discharge Medications: New docusate sodium [Colace] 100 mg capsule 100 mg PO BID Qty: 20 0RF oxycodone 5 mg tablet 5 mg PO Q4H PRN (Reason: pain) Qty: 20 0RF Rx Instructions: Partial Fill upon patient request. Continued isosorbide mononitrate 30 mg tablet extended release 24 hr 30 mg PO QAM 90 Days Qty: 90 3RF lisinopril 40 mg tablet 40 mg PO DAILY 90 Days Qty: 90 3RF fenofibrate 160 mg tablet 160 mg PO DAILY 90 Days Qty: 90 3RF Rx Instructions: 1 tablet with food Orally Once a day albuterol sulfate [Ventolin HFA] 90 mcg/actuation HFA aerosol inhaler 2 puff inhalation Q6H PRN (Reason: bronchospasm) 30 Days Qty: 8 3RF (DME) FreeStyle Lite Strips Strip See Rx Instructions .ROUTE .MEDSUPPLY Qty: 50 6RF Rx Instructions: Use 1 test strip twice a day FreeStyle Josiah 14 Day Sensor Kit 1 ea topical Q2W 90 Days Qty: 6 2RF cholecalciferol (vitamin D3) 50 mcg (2,000 unit) capsule 50 mcg PO DAILY 90 Days Qty: 90 0RF atorvastatin 80 mg tablet 80 mg PO DAILY Qty: 90 1RF Tums Ozempic 0.25 mg or 0.5 mg (2 mg/3 mL) pen injector 0.25 mg subcut .QWEDNESDAY Rx Instructions: for 4 weeks naproxen 500 mg tablet 500 mg PO Q8-12H PRN (Reason: pain (scale score 4-6)) Qty: 14 0RF lidocaine [Lidoderm] 5 % adhesive patch,medicated 1 patch topical DAILY Qty: 15 0RF Rx Instructions: leave on most painful area for up to 12 hrs baclofen 5 mg tablet 5 mg PO TID Qty: 12 0RF ondansetron HCl 4 mg tablet 4 mg PO Q8H PRN (Reason: nausea and vomiting) 10 Days Qty: 30 1RF nicotine 7 mg/24 hr patch 24 hour 1 patch transdermal Q24H 14 Days Qty: 14 0RF metformin 1,000 mg tablet 1,000 mg PO BID 90 Days Qty: 180 1RF (DME) transparent dressings [Tegaderm First Aid Style] 2 3/8 X 2 3/4 bandage See Rx Instructions .ROUTE .MEDSUPPLY Qty: 8 3RF Rx Instructions: As directed clonazepam 1 mg tablet 1 mg PO (DME) pen needle, diabetic 32 gauge x 5/32 needle See Rx Instructions .ROUTE .MEDSUPPLY Qty: 50 Rx Instructions: As directed mirtazapine 30 mg tablet 30 mg PO BEDTIME (DME) blood-glucose meter [FreeStyle [place] Lite] Kit See Rx Instructions .ROUTE .MEDSUPPLY Qty: 1 Rx Instructions: As directed fluoxetine 20 mg capsule 20 mg PO DAILY buspirone 10 mg tablet 10 mg PO BID amlodipine 10 mg tablet 10 mg PO DAILY Qty: 90 3RF Rx Instructions: Dose increased Held aspirin 81 mg tablet,delayed release (DR/EC) 81 mg PO DAILY Qty: 90 3RF Hold Instructions: Resume on 03/20/24. You may resume aspirin 1 week from the date of surgery Discharge Orders: Discharge Order (Routine); Ordered 03/13/24 Ordered By: Fawad Page Diet: Advance to usual diet Activity on Discharge: As tolerated Activity Restrictions/Additional Instructions: After your spinal surgery we ask you to observe the following restrictions/guidelines: Activity: It is normal to feel some discomfort as you increase your activity, but that will improve with time. We ask you avoid heavy lifting or acitivities that cause pain. As a general rule, 8lbs is a safe limit for lifting right after surgery. Walk as much as you feel comfortable but not to exhaustion. You will feel extra tired the first few days after surgery. Stay well hydrated. It is OK to walk up and down stairs You may return to driving when you are off narcotics (such as vicodin, oxycodone, dilaudid, etc), and you are back to normal functional capacity. If you have any concerns please check with office before driving. Return to work is specific to each patient and each surgery, so please speak with your doctor/PA at first follow up. Please bring paperwork such as FMLA at that time if you need it filled out. Medications: You may resume aspirin 1 week after the date of surgery For optimum pain control, it is best to start with a combination of 500 mg of Tylenol every 4 hours with 600 mg of Motrin every 8 hours, and use narcotics as needed in between for breakthrough pain. We will give you a short supply of narcotics after surgery (usually one weeks worth). If you need more please call the office but do not use more than prescribed. You will need to give our office 48 hours notice if you need narcotics refilled and we do not fill narcotics on weekends or evenings. If you are on a narcotic, it is a good idea to take a stool softener such as colace or senna to avoid constipation If you take blood thinner such as aspirin, Plavix, Coumadin, Effient, Eliquis etc for conditions such as Afib, DVT, Pulmonary embolus, coronary disease, stents etc please speak with your surgeon about specific details as to when you can resume these medications. You can resume NSAIDs on post op day 1 (eg: Motrin, Naproxen, etc). Follow up: Please call the office, , after surgery to arrange a 3 week follow up for wound check. Wound Care: You may remove your dressing on the first day after surgery. ?You may ?leave open to air. Please do not remove the steri strips underneath. they will fall off on their own in one week. IT IS NORMAL FOR THE WOUND TO OOZE OR BE BLOODY FOR A FEW DAYS AFTER SURGERY. ?IF THIS HAPPENS JUST PLACE NEW DRESSING OVER IT TO AVOID STAINING CLOTHES. You may shower on post op day # 1 We ask that you do not let the water soak the wound. If it does get wet, just towel dry lightly. Please do not scrub your incision or place any type of chemical/ointment on the wound. No tub baths, pools or jacuzzis for one month. If you have any leaking or redness from your wound, or fevers, please call office Print Language: Vietnamese
[2024-03-13] MEDS: fentaNYL citrate/PF 100 MCG/2 ML VIAL 50 MCG IVPUSH (11:15)
== END 2024-03-13 12:46 | disposition home or self-care (01) ==
PROVIDERS: PCP Internal Medicine; Visit Provider Neurological Surgery
PROC: (CPT 63047; principal; 2024-03-13 09:20)
DX: M48.061 Spinal stenosis, lumbar region without neurogenic claudication (principal); M54.16 Radiculopathy, lumbar region; I25.10 Atherosclerotic heart disease of native coronary artery without angina pectoris; I10 Essential (primary) hypertension; I69.954 Hemiplegia and hemiparesis following unspecified cerebrovascular disease affecting left non-dominant side; E11.9 Type 2 diabetes mellitus without complications; J45.909 Unspecified asthma, uncomplicated; Z79.85 Long-term (current) use of injectable non-insulin antidiabetic drugs; Z88.5 Allergy status to narcotic agent; F17.210 Nicotine dependence, cigarettes, uncomplicated; Z98.890 Other specified postprocedural states
CPT/HCPCS: 63047; 63048; 82947; 93005; J0131; J0690; J1100; J1885; J2003; J2250; J2405; J2704; J3010

== ENCOUNTER → 2024-03-13 06:43 | Outpatient (BNV) | payer OTHER, SELFPAY | PROVIDERS: PCP Internal Medicine; Visit Provider Neurological Surgery | DX: M48.062 Spinal stenosis, lumbar region with neurogenic claudication (principal) | CPT/HCPCS: 63047; 63048; 99499 ==

== ENCOUNTER 2024-03-27 10:15 | Outpatient (AMB) | payer OTHER, SELFPAY ==
[2024-03-27 10:24] VITALS: BP 110/76; BMI 27.8
--- NOTE | 2024-03-27 10:24 | A.OFFPC_ITS ---
Vital Signs 03/27/24 10:24 Height 5 ft 1 in Weight 147 lb BMI 27.8 BP 110/76 Blood Pressure Location Lt brachial Position Sitting Intake Visit Reasons: 4 month follow up Intake Note: Patient here for a 4 month follow up Parachute Crown Sewer Required: No Accompanied by: Self / Same As Patient Allergies hydrocodone [From Vicodin] Allergy (Intermediate, Verified 03/27/24 10:36) Rash trulicity Adverse Reaction (Intermediate, Uncoded 03/27/24 10:36) headaches Medication List - Last Reconciled 03/27/24 by Neha Naylor MD amlodipine 10 mg PO DAILY aspirin 81 mg PO DAILY atorvastatin 80 mg PO DAILY baclofen 5 mg PO TID blood sugar diagnostic (FreeStyle Lite Strips) Use 1 test strip twice a day blood-glucose meter (FreeStyle [place] Lite kit) As directed buspirone 10 mg PO BID cholecalciferol (vitamin D3) 50 mcg PO DAILY 90 days clonazepam 1 mg PO docusate sodium (Colace) 100 mg PO BID fenofibrate 160 mg PO DAILY 90 days flash glucose sensor (FreeStyle Josiah 14 Day Sensor kit) 1 ea topical Q2W 90 days fluoxetine 20 mg PO DAILY isosorbide mononitrate ER 30 mg PO QAM 90 days lidocaine 5% (Lidoderm) 1 patch topical DAILY lisinopril 40 mg PO DAILY 90 days metformin 1,000 mg PO BID 90 days mirtazapine 30 mg PO BEDTIME naproxen 500 mg PO Q8-12H PRN nicotine 1 patch transdermal Q24H 14 days ondansetron HCl 4 mg PO Q8H PRN 10 days oxycodone 5 mg PO Q4H PRN pen needle, diabetic As directed semaglutide (Ozempic) 0.25 mg (0.368 mL) subcut QWEEK 4 weeks transparent dressings (Tegaderm First Aid Style) As directed [Tums ] Ventolin HFA 90 mcg/actuation (albuterol sulfate) 2 puffs inhalation Q6H PRN 30 days NS Tobacco use date assessed: 09/05/23 Dental Screening Dental Screen Date: 01/30/24 HPI HPI Comments History of Present Illness Details This is a 63-year-old female with diabetes mellitus type 2, hypertension, mixed hyperlipidemia, mild recurrent major depression and left hemiplegia secondary to CVA that comes today for follow-up on her conditions. Last A1c was elevated and dietary changes were advised. Blood pressure stable. LDL very close to goal and she is compliant with her medications. Low- cholesterol diet was advised. Depression stable with SSRIs. Use a cane due to her left hemiplegia. On aspirin for secondary prophylaxis for CVA. Had a lumbar procedure recently and complains of low back pain radiating to the left leg. Will see neurosurgeon soon. No fever, bowel or bladder incontinence. She has been complaining of GERD and wants to restart omeprazole. [facility] Medical History CVA (cerebral vascular accident) (~2018) Cardiomegaly Nicotine dependence, cigarettes, uncomplicated Mild recurrent major depression History of stroke Overweight (BMI 25.0-29.9) Scalp tenderness GERD (gastroesophageal reflux disease) Left hemiplegia Mixed hyperlipidemia Pulmonary nodules Hypertriglyceridemia CAD (coronary artery disease) Low back pain Left breast mass Moderate persistent asthma without complication Essential hypertension Tachycardia Leukocytosis, unspecified Microalbuminuria Surgical History Hx of surgical procedure (10/01/23) History of laparoscopy S/P insertion of spinal cord stimulator History of tubal ligation History of back surgery Family History Father Diabetes Mother Diabetes HTN (hypertension) CVD (cardiovascular disease) Brother No problems noted. Brother No problems noted. Sister Diabetes Breast cancer Son Alive and well Daughter Alive and well Breast cancer Social History Household Members: None Housing: House Housing Other:: 2 family Are you a primary home care chaplain to a significant other at home: No Do you presently have visiting nurse or other home services: No Alcohol intake: never Patient Tobacco Use Status: Current everyday Tobacco user Tobacco use type: Cigarette Cigarette Packs Per Day: 1 Cigarettes Per Day: 20.0 Years Smoked: (current smoker - onset 13yo, 1-2ppd x 49yrs, now 1/4ppd, 60pyh) e-Cigarette/Vaping Use: Never Used Second Hand Smoke Exposure: No service: No Current occupational status: disabled Cognitive needs: No Hearing needs: No Vision needs: Yes Questionnaire Thrive Questionnaire Date Thrive assessed: 09/05/23 AUDIT C Alcohol Use Questionnaire (AUDIT-C) 3. How often do you have six or more drinks on one occasion?: Never Total Score: 0 CIELO-7 AMB Questionnaire CIELO-7 Date CIELO - 7 assessed: 09/05/23 Source: Developed by Drs. Dmitry Ruffin, Supriya Wolff, Bg Low and colleagues, with an educational deb from [employer]. Review of Systems Const All systems reviewed & are unremarkable except as noted in HPI and below Card Denies chest pain at rest, Denies chest pain with activity, Denies edema, Denies irregular heart rhythm, Denies claudication, Denies dyspnea, Denies dyspnea on exertion, Denies orthopnea, Denies paroxysmal nocturnal dyspnea and Denies slow heart rate Resp Denies cough, Denies dyspnea and Denies dyspnea on exertion GI Denies abdominal pain, Denies change in bowel habits, Denies excessive flatus, Denies nausea and Denies vomiting Denies urinary incontinence, Denies urinary hesitancy and Denies urinary urgency Musc Reports back pain, Denies atrophy, Denies deformity and Denies limited range of motion Physical exam (Primary Care) BMI result Body Mass Index 27.8 BMI Assessment/Plan discussion: High BMI High, discussed plan: lifestyle, weight reduction, dietary and physical activity Tobacco/Smoking Status: Tobacco use Status Tobacco use date assessed 09/05/23 03/27/24 10:30 Patient Tobacco Use Status Current everyday Tobacco 03/27/24 10:30 Tobacco use type Cigarette 03/27/24 10:30 e-Cigarette/Vaping Use Never Used 03/27/24 10:30 Are you ready to quit: No Tobacco cessation counseling provided: No Thrive Assessment: Date of Thrive Assessment Date Thrive assessed 09/05/23 03/27/24 10:30 Resp Effort & Inspection: normal respiratory effort Auscultation: clear to auscultation bilaterally Cardio Jugular venous distension: no JVD Rate: regular rate Rhythm: regular rhythm Heart sounds: S1 normal heart sound present and S2 normal heart sound present Neuro Cognition (Neuro): normal cognition Motor exam (neuro): Abnormal motor strength present (4/5 left side, 5/5 right side) Extrem General: Yes full ROM Office Procedures Flu Questionnaire Does the patient have a severe egg allergy?: No Does the patient have severe life threatening allergies?: No Does the patient have a fever or illness today?: No Has the patient ever had Guillain-[place] Syndrome?: No Has the patient ever had any past reaction to a flu shot?: No Immunizations Fluarix Triv [id number] (PF) 45 mcg (15 mcg x 3)/0.5 mL IM syringe Performing Provider: Neha Naylor MD [facility] [place] [facility] Administered by: MONY Villalobos on 03/27/24 10:46 Dose Route Admin Location Dispensed Lot Number Expiration Date NDC Front Office Coordinator 0.5 mL IM Left Deltoid 0.5 mL [id number] 12/01/24 [id number] [email or web address] VIS Given Date VIS Provided VIS Publication Date 03/27/24 Single Vaccine 21 Eligibility Eligibility Date [place] [facility] [place]/27/24 Private Coding Level of Care Code Est Pt Level 4 (62093) Complex EM visit Add On G2211 Diagnoses Type 2 diabetes mellitus with hyperglycemia, without long-term current use of insulin E11.65 Diabetes mellitus type: type 2 Diabetes mellitus detention insulin use: without long term care pharmacist use Diabetes mellitus complication status: with hyperglycemia Mixed hyperlipidemia E78.2 Mild recurrent major depression F33.0 Left hemiplegia G81.94 Essential hypertension I10 Gastroesophageal reflux disease, unspecified whether esophagitis present K21.9 Esophagitis presence: esophagitis presence not specified Time Spent (min) 23 Assessment & Plan Assessment & Plan (1) Diabetes mellitus: Onset Date: ~2013 Comment: (DM2 - 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) Code(s): E11.9 - Type 2 diabetes mellitus without complications Category: Medical Qualifiers: Diabetes mellitus type: type 2 Diabetes mellitus long term care pharmacist insulin use: without detention use Diabetes mellitus complication status: with hyperglycemia Qualified Code(s): E11.65 - Type 2 diabetes mellitus with hyperglycemia Plan: Continue metformin and Ozempic. A1c goal is equal or less than 7%. (2) Mixed hyperlipidemia: Code(s): E78.2 - Mixed hyperlipidemia Category: Medical Plan: Continue statins and fibrates. LDL goal is less than 70. (3) Mild recurrent major depression: Code(s): F33.0 - Major depressive disorder, recurrent, mild Category: Medical Plan: Continue SSRIs. (4) Left hemiplegia: Code(s): G81.94 - Hemiplegia, unspecified affecting left nondominant side Category: Medical Plan: Continue aspirin for secondary prophylaxis. Use a cane for support. (5) Essential hypertension: Code(s): I10 - Essential (primary) hypertension Category: Medical Plan: Continue amlodipine and lisinopril. Blood pressure goal is equal or less than 130/80. (6) GERD (gastroesophageal reflux disease): Code(s): K21.9 - Gastro-esophageal reflux disease without esophagitis Category: Medical Qualifiers: Esophagitis presence: esophagitis presence not specified Qualified Code(s): K21.9 - Gastro-esophageal reflux disease without esophagitis Plan: Restart omeprazole. Orders: Orders Vitamin D 25-OH Total 4 Months Nhea Naylor MD E55.9 - Vitamin D deficiency, unspecified Complete Blood Count Auto Diff 4 Months Neha Naylor MD D64.9 - Anemia, unspecified Influenza [id number] Immunization Today Neha Naylor MD Z23 - Encounter for immunization Lipid Panel 4 Months Neha Naylor MD E78.5 - Hyperlipidemia, unspecified Microalbumin, Random (w Creat) 4 Months Neha Naylor MD R80.9 - Proteinuria, unspecified Comprehensive Avant. Panel Fast 4 Months Neha Naylor MD E11.65 - Type 2 diabetes mellitus with hyperglycemia Medications: New omeprazole 20 mg PO DAILY 90 days 90 caps 0RF Neha Naylor MD omeprazole 20 mg PO DAILY 90 days 90 caps 0RF Neha Naylor MD Refilled atorvastatin 80 mg PO DAILY 90 tabs 1RF Neha Naylor MD E78.5 - Hyperlipidemia, unspecified Resumed aspirin 81 mg PO DAILY 90 tabs 3RF RENE Cuellar
== END 2024-03-27 10:50 | disposition home or self-care (01) ==
PROVIDERS: PCP Internal Medicine; Visit Provider Internal Medicine
DX: E11.65 Type 2 diabetes mellitus with hyperglycemia (principal); E78.2 Mixed hyperlipidemia; F33.0 Major depressive disorder, recurrent, mild; G81.94 Hemiplegia, unspecified affecting left nondominant side; I10 Essential (primary) hypertension; K21.9 Gastro-esophageal reflux disease without esophagitis; Z23 Encounter for immunization

== ENCOUNTER → 2024-03-27 10:15 | Outpatient (BNVA) | payer OTHER, SELFPAY | PROVIDERS: PCP Internal Medicine; Visit Provider Internal Medicine | DX: Z23 Encounter for immunization (principal); E11.65 Type 2 diabetes mellitus with hyperglycemia; E78.2 Mixed hyperlipidemia; F33.0 Major depressive disorder, recurrent, mild; G81.94 Hemiplegia, unspecified affecting left nondominant side; I10 Essential (primary) hypertension; K21.9 Gastro-esophageal reflux disease without esophagitis | CPT/HCPCS: 90471; 90656; 99212 ==

== ENCOUNTER 2024-04-03 09:26 | Outpatient (AMB) | payer OTHER, SELFPAY ==
--- NOTE | 2024-04-03 09:44 | A.SPINEOV_ITS ---
Intake Visit Reasons: 1st post op Intake Note: Ms. Dwyer is here today for her 1st post-op. Insurance Claim Auditor Required: Yes Insurance Claim Auditor Name: Tablet Allergies hydrocodone [From Vicodin] Allergy (Intermediate, Verified 03/27/24 10:36) Rash trulicity Adverse Reaction (Intermediate, Uncoded 03/27/24 10:36) headaches Assessment & Plan Assessment & Plan (1) Status post lumbar spine surgery for decompression of spinal cord: Code(s): Z98.890 - Other specified postprocedural states Category: Surgical Plan Procedure: Left L4-5 and L5-S1 Laminotomy, Partial facetectomy; left L5 foraminotomy; left L5-S1 diskectomy Sindi is a pleasant 63-year-old female who comes in today for her 1st postoperative visit. To recap she was initially seen in the office for low back pain and shooting pain into her left posterior lateral thigh down into her calf and into her foot. She reports very good resolution of her back pain since her surgery. Unfortunately she still has some shooting pains into her left lower extremity, but does feel as though these have lessened since surgery. She is ambulating well, but does still have some difficulty with stairs. She continues to intermittently take oxycodone and/or tramadol while at home but only takes it on days where she feels she has flare-ups of her pain. We discussed the postoperative healing course, and I answered all of her questions to the best of my ability. No new disclosed neurological deficits. The patient ambulates well without any assistive devices. Her posterior incision site appears closed and well healing. I would like to follow up with Sindi again in 6 weeks to evaluate her progress once the bulk of her postoperative inflammation has gone down. Neil Rosales MD,PhD [facility] Coding Level of Care Code Global (38134) Diagnoses Status post lumbar spine surgery for decompression of spinal cord Z98.890
== END 2024-04-03 09:58 | disposition home or self-care (01) ==
LOC: HO.HNS 09:27
PROVIDERS: PCP Internal Medicine; Visit Provider Physician Assistant
DX: Z98.890 Other specified postprocedural states (principal)
CPT/HCPCS: 99024

== ENCOUNTER → 2024-04-03 09:26 | Outpatient (BNVA) | payer OTHER, SELFPAY | PROVIDERS: PCP Internal Medicine; Visit Provider Physician Assistant | DX: Z48.89 Encounter for other specified surgical aftercare (principal); Z98.890 Other specified postprocedural states | CPT/HCPCS: 99212 ==

== ENCOUNTER 2024-05-08 07:27 | Outpatient (AMB) | payer OTHER, SELFPAY ==
--- NOTE | 2024-05-08 07:43 | A.OFFPC_ITS ---
Vital Signs 05/08/24 07:46 05/08/24 08:20 Height 5 ft 1 in Weight 145 lb BMI 27.4 BP 156/82 H 150/80 H Blood Pressure Location Lt brachial Lt brachial Position Sitting Sitting Intake Visit Reasons: Ulcer f/u Hospital Administrator Required: No Accompanied by: Self / Same As Patient Allergies hydrocodone [From Vicodin] Allergy (Intermediate, Verified 05/08/24 08:05) Rash trulicity Adverse Reaction (Intermediate, Uncoded 05/08/24 08:05) headaches Medication List - Last Reconciled 05/08/24 by Neha Naylor MD amlodipine 10 mg PO DAILY aspirin 81 mg PO DAILY atorvastatin 80 mg PO DAILY baclofen 5 mg PO TID blood sugar diagnostic (FreeStyle Lite Strips) Use 1 test strip twice a day blood-glucose meter (FreeStyle [place] Lite kit) As directed buspirone 10 mg PO BID cholecalciferol (vitamin D3) 50 mcg PO DAILY 90 days clonazepam 1 mg PO docusate sodium (Colace) 100 mg PO BID fenofibrate 160 mg PO DAILY 90 days flash glucose sensor (FreeStyle [place] 14 Day Sensor kit) 1 ea topical Q2W 90 days fluoxetine 20 mg PO DAILY isosorbide mononitrate ER 30 mg PO QAM 90 days lidocaine 5% (Lidoderm) 1 patch topical DAILY lisinopril 40 mg PO DAILY 90 days metformin 1,000 mg PO BID 90 days mirtazapine 30 mg PO BEDTIME naproxen 500 mg PO Q8-12H PRN nicotine 1 patch transdermal Q24H 14 days omeprazole 20 mg PO DAILY 90 days ondansetron HCl 4 mg PO Q8H PRN 10 days oxycodone 5 mg PO Q4H PRN pen needle, diabetic As directed semaglutide (Ozempic) 0.25 mg (0.368 mL) subcut QWEEK 4 weeks transparent dressings (Tegaderm First Aid Style) As directed [Tums ] Ventolin HFA 90 mcg/actuation (albuterol sulfate) 2 puffs inhalation Q6H PRN 30 days NS Tobacco use date assessed: 09/05/23 Dental Screening Dental Screen Date: 01/30/24 HPI HPI Comments History of Present Illness Details The patient is a 63-year-old female presenting with follow-up for management of diabetes mellitus and to address concerns regarding excess skin after significant weight loss. She reports a history of Type 2 Diabetes Mellitus, with recent improvement in glycemic control; her current A1c is 6.4, down from 8.7 in January. She attributes this improvement to the use of Ozempic, which she states has decreased her appetite significantly. As a result, she has experienced a notable weight reduction, with her current weight at 145 pounds. The most she has weighed since 2019 was 154 pounds. Throughout the last several years, her weight has oscillated, with significant loss occurring in conjunction with her diabetes treatment. However, she is now concerned about excess skin due to this weight loss, which she has been advised can be managed surgically through plastic surgery. Additionally, the patient treated a skin ulcer by herself, using Betadine and an antibiotic ointment, and it appears to have healed. The ulcer was located on the lower abdomen, and she has reported previous issues with skin adherence and potential infection risks due to this excess skin. Her blood pressure during the visit is noted to be elevated and her target goal of less than 130/80. Prior interventions have included various medications for diabetes, hypertension, lipid management, and mental health support. [facility] Medical History (Updated 05/08/24 @ 08:14 by Neha Naylor MD) CVA (cerebral vascular accident) (~2018) Cardiomegaly Nicotine dependence, cigarettes, uncomplicated Mild recurrent major depression History of stroke Overweight (BMI 25.0-29.9) Scalp tenderness GERD (gastroesophageal reflux disease) Left hemiplegia Mixed hyperlipidemia Pulmonary nodules Hypertriglyceridemia CAD (coronary artery disease) Low back pain Left breast mass Moderate persistent asthma without complication Essential hypertension Tachycardia Leukocytosis, unspecified Microalbuminuria Surgical History (Updated 04/03/24 @ 09:59 by NEL Cardenas) Hx of surgical procedure (10/01/23) History of laparoscopy S/P insertion of spinal cord stimulator History of tubal ligation History of back surgery Family History Father Diabetes Mother Diabetes HTN (hypertension) CVD (cardiovascular disease) Brother No problems noted. Brother No problems noted. Sister Diabetes Breast cancer Son Alive and well Daughter Alive and well Breast cancer Social History Household Members: None Housing: House Housing Other:: 2 family Are you a primary child care specialist to a significant other at home: No Do you presently have visiting nurse or other home services: No Alcohol intake: never Patient Tobacco Use Status: Current everyday Tobacco user Tobacco use type: Cigarette Cigarette Packs Per Day: 1 Cigarettes Per Day: 20.0 Years Smoked: (current smoker - onset 13yo, 1-2ppd x 49yrs, now 1/4ppd, 60pyh) e-Cigarette/Vaping Use: Never Used Second Hand Smoke Exposure: No service: No Current occupational status: disabled Cognitive needs: No Hearing needs: No Vision needs: Yes Questionnaire Thrive Questionnaire Date Thrive assessed: 09/05/23 CIELO-7 AMB Questionnaire CIELO-7 Date CIELO - 7 assessed: 09/05/23 Source: Developed by Drs. Dmitry Ruffin, Supriya Wolff, Bg Low and colleagues, with an educational deb from [employer]. Review of Systems Const All systems reviewed & are unremarkable except as noted in HPI and below ENT Denies change in voice, Denies nasal discharge and Denies sinus pain Card Denies chest pain at rest, Denies chest pain with activity, Denies edema, Denies irregular heart rhythm, Denies claudication, Denies dyspnea, Denies dyspnea on exertion, Denies orthopnea, Denies paroxysmal nocturnal dyspnea and Denies slow heart rate Resp Denies cough, Denies dyspnea and Denies dyspnea on exertion GI Denies abdominal pain, Denies change in bowel habits, Denies excessive flatus, Denies nausea and Denies vomiting Physical exam (Primary Care) Vital Signs: Last Vital Signs BP 156/82 H 05/08/24 07:46 BMI result Body Mass Index 27.4 Tobacco/Smoking Status: Tobacco use Status Tobacco use date assessed 09/05/23 05/08/24 07:43 Patient Tobacco Use Status Current everyday Tobacco 05/08/24 07:43 Tobacco use type Cigarette 05/08/24 07:43 e-Cigarette/Vaping Use Never Used 05/08/24 07:43 Are you ready to quit: Yes Tobacco cessation counseling provided: Yes Items discussed: Nicotine replacement and QuitWorks Relapse Prevention: discussed the importance of a supportive environment, discussed negative mood or depression after quitting, weight gain after smoking is common and discussed dietary, exercise and/or lifestyle changes Number of minutes spent counselin CPT code: 20601 - 4-10 Minutes Thrive Assessment: Date of Thrive Assessment Date Thrive assessed 09/05/23 05/08/24 07:43 Resp Effort & Inspection: normal respiratory effort Auscultation: clear to auscultation bilaterally Cardio Jugular venous distension: no JVD Rate: regular rate Rhythm: regular rhythm Heart sounds: S1 normal heart sound present and S2 normal heart sound present Results AMB Hemoglobin A1c AMB Hemoglobin A1c 6.4 % Last Edit by MONY Villalobos on 05/08/24 08:0 2 Results Reviewed Results Reviewed: Laboratory Last Values Hgb A1c (Clinic) 6.4 % (4.0-6.0) H 05/08/24 08:01 Coding Level of Care Code Est Pt Level 4 (05469) Complex EM visit Add On G2211 Diagnoses Excess skin L98.7 Type 2 diabetes mellitus with hyperglycemia, without long-term current use of insulin E11.65 Diabetes mellitus type: type 2 Diabetes mellitus ocean transportation intermediary insulin use: without shelter use Diabetes mellitus complication status: with hyperglycemia Essential hypertension I10 Mixed hyperlipidemia E78.2 Mild recurrent major depression F33.0 Additional Codes Vital Signs *Quality* - CPT code: 56434 - 4-10 Minutes ([id number]) Time Spent (min) 24 Assessment & Plan Assessment & Plan (1) Excess skin: Code(s): L98.7 - Excessive and redundant skin and subcutaneous tissue Category: Medical (2) Diabetes mellitus: Onset Date: ~2013 Comment: (DM2 - 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) Code(s): E11.9 - Type 2 diabetes mellitus without complications Category: Medical Qualifiers: Diabetes mellitus type: type 2 Diabetes mellitus ocean transportation intermediary insulin use: without shelter use Diabetes mellitus complication status: with hyperglycemia Qualified Code(s): E11.65 - Type 2 diabetes mellitus with hyperglycemia (3) Essential hypertension: Code(s): I10 - Essential (primary) hypertension Category: Medical (4) Mixed hyperlipidemia: Code(s): E78.2 - Mixed hyperlipidemia Category: Medical (5) Mild recurrent major depression: Code(s): F33.0 - Major depressive disorder, recurrent, mild Category: Medical Plan - Type 2 Diabetes Mellitus: Continue current regimen of Metformin and Ozempic, as they have shown efficacy in glycemic control and weight management. - Essential Hypertension: Re-evaluate blood pressure in three weeks. Consider modifying antihypertensive therapy if persistently elevated. - Hyperlipidemia: Repeat lipid panel in August to evaluate LDL cholesterol levels. Continue atorvastatin 80 mg daily. - Depression and Anxiety: Maintain current medication regimen fluoxetine, buspirone, clonazepam). Monitor symptoms. - GERD: Continue omeprazole for symptom management. - Skin Ulcer: No further treatment necessary as it is healed. - Excess Skin After Weight Loss: Referral to plastic surgery for evaluation and management of excess skin and potential surgical intervention. Patient was informed and verbally consented to the use of an ambient scribe for clinic note documentation during this visit. During the consultation, I addressed the management of the patient's Type 2 Diabetes Mellitus, highlighting the significant improvement in her A1c level. I explained the role of Ozempic in her weight loss and controlled appetite. The potential plastic surgery to address excess skin was discussed, including risks of infection and cosmetic options. We also reviewed her recent hypertension readings and planned for re-evaluation shortly, with discussions of possible medication adjustments if necessary. Additionally, I advised continuous lipid management and psychiatric medication adherence for her depression and anxiety. The patient is encouraged to maintain her dietary adjustments and continue smoking cessation efforts due to their positive impact on overall health. Orders: Orders AMB Hemoglobin A1c Today E11.65 - Type 2 diabetes mellitus with hyperglycemia Referrals Plastic Surgery Referral L98.7 - Excessive and redundant skin and subcutaneous tissue Patient Instructions: - Continue all prescribed medications and monitor blood pressure regularly. - Maintain current dietary plan focusing on low carbohydrate intake. - Schedule follow-up appointment for blood pressure evaluation in three weeks. - Attend plastic surgery consultation for excess skin management. - Follow up with regular laboratory evaluations as discussed, with lipid panel review in August. - Continue smoking cessation efforts and seek support if needed.
[2024-05-08 07:46] VITALS: BP 156/82; BMI 27.4
[2024-05-08 08:20] VITALS: BP 150/80
--- OUTSIDE RECORDS SUMMARY | 2024-05-13 23:24 | XMS_ITS | Data Portability ---
Author Organization [place] - DILIP IBRD MD [facility], Main Office Address [address] [place] [address] Assessment Encounter Date Assessment Date Assessment LastModified by Organization Details LastModified Time 02/07/2024 02/07/2024 telemedicine. video. 18 min. pt home in [place] [email or web address] Not available 02/07/2024 13:03:28 Plan of Treatment Reminders Order Date Submit Date Provider Last Modified By Organization Details Last Modified Time Details Appointments PREP FOLLOW UP 2024 01:20P oBnnie Casanova MD Not available Not available Not available Lab CBC w/ diff [address] (Lab), [address] [place] [address], [id number], 05/03/2023 16:49:38 electrol ytes panel, blood [address] (Lab), [address] [place] [address], 73932, 05/03/2023 16:49:38 ALT (alanine aminotra nsferase ), serum or plasma [address] (Lab), [address] [place] [address], 13254, 05/03/2023 16:49:38 AST/SGOT (asparta te aminotra nsferase ), serum or plasma [address] (Lab), [address] [place] [address], 82390, 05/03/2023 16:49:38 CT + NG DNA, PCR, unspecif ied specimen 2022 023 [place] [id number] Not available 05/03/2023 16:49:38 creatini ne w/ estimate d GFR (eGFR), serum or plasma [address] (Lab), [address] [place] [address], 78945, 05/03/2023 16:49:38 hepatiti s C virus Ab, serum [address] (Lab), [address] [place] [address], 64702, 05/03/2023 16:49:39 RPR (rapid plasma reagin), serum [address] (Lab), [address] [place] [address], 86695, 05/03/2023 16:49:39 bacteria l vaginosi s + vaginiti s panel, vaginal 2022 023 [place] [id number] Not available 05/03/2023 16:49:39 HIV (1+2) Ab screen, serum [address] (Lab), [address] [place] [address], 92996, 05/03/2023 16:49:39 hsv (1+2) igg Ab, serum [address] (Lab), [address] [place] [address], 67404, 05/03/2023 16:49:39 HBsAg (hepatit is B surface Ag), serum [address] (Lab), [address] [place] [address], 12933, 05/03/2023 16:49:39 CBC w/ diff [address] (Lab), [address] [place] [address], 53153, 07/27/2023 16:21:38 electrol ytes panel, blood [address] (Lab), [address] [place] [address], 70042, 07/27/2023 16:21:38 ALT (alanine aminotra nsferase ), serum or plasma [address] (Lab), [address] [place] [address], 99918, 07/27/2023 16:21:38 AST/SGOT (asparta te aminotra nsferase ), serum or plasma [address] (Lab), [address] [place] [address], 35720, 07/27/2023 16:21:38 CT + NG DNA, PCR, unspecif ied specimen 2023 024 [facility], [address] [place] [address], [id number], 07/18/2023 20:31:31 creatini ne w/ estimate d GFR (eGFR), serum or plasma [address] (Lab), [address] [place] [address], [id number], 07/27/2023 16:21:38 hepatiti s C virus Ab, serum [address] (Lab), [address] [place] [address], 83089, 07/27/2023 16:21:38 RPR (rapid plasma reagin), serum [address] (Lab), [address] [place] [address], 81615, 07/27/2023 16:21:38 HIV (1+2) Ab screen, serum [address] (Lab), [address] [place] [address], 24834, 07/27/2023 16:21:38 hsv (1+2) igg Ab, serum [address] (Lab), [address] [place] [address], 87460, 07/27/2023 16:21:38 HBsAg (hepatit is B surface Ag), serum [address] (Lab), [address] [place] [address], 61722, 07/27/2023 16:21:38 CBC w/ diff [address] (Lab), [address] [place] [address], 45417, 12/11/2023 13:02:53 electrol ytes panel, blood [address] (Lab), [address] [place] [address], 37813, 12/11/2023 13:02:53 ALT (alanine aminotra nsferase ), serum or plasma [address] (Lab), [address] [place] [address], 70833, 12/11/2023 13:02:53 AST/SGOT (asparta te aminotra nsferase ), serum or plasma [address] (Lab), [address] [place] [address], 25520, 12/11/2023 13:02:53 CT + NG DNA, PCR, unspecif ied specimen [address] (Lab), [address] [place] [address], 40151, 12/11/2023 13:02:54 creatini ne w/ estimate d GFR (eGFR), serum or plasma [address] (Lab), [address] [place] [address], 59716, 12/11/2023 13:02:54 hepatiti s C virus Ab, serum [address] (Lab), [address] [place] [address], 46929, 12/11/2023 13:02:54 RPR (rapid plasma reagin), serum [address] (Lab), [address] [place] [address], 23771, 12/11/2023 13:02:54 HIV (1+2) Ab screen, serum [address] (Lab), [address] [place] [address], 63490, 12/11/2023 13:02:54 CBC w/ diff [address] (Lab), [address] [place] [address], 04076, 02/14/2024 11:58:31 electrol ytes panel, blood [address] (Lab), [address] [place] [address], 35467, 02/14/2024 11:58:31 ALT (alanine aminotra nsferase ), serum or plasma [address] (Lab), [address] [place] [address], 97583, 02/14/2024 11:58:31 AST/SGOT (asparta te aminotra nsferase ), serum or plasma [address] (Lab), [address] [place] [address], 40043, 02/14/2024 11:58:31 CT + NG DNA, PCR, unspecif ied specimen [address] (Lab), [address] [place] [address], 40497, 02/14/2024 11:58:31 creatini ne w/ estimate d GFR (eGFR), serum or plasma [address] (Lab), [address] [place] [address], 33537, 02/14/2024 11:58:31 hepatiti s C virus Ab, serum [address] [place] [address] (Lab), [address] [place] [address], 87359, 02/14/2024 11:58:31 RPR (rapid plasma reagin), serum [address] [place] [address] (Lab), [address] [place] [address], 18404, 02/14/2024 11:58:32 HIV (1+2) Ab screen, serum [address] [place] [address] (Lab), [address] [place] [address], 91435, 02/14/2024 11:58:32 Referral None recorded . Procedures None recorded . Surgeries None recorded . Imaging None recorded . Medication Orders Truvada 200 mg-300 mg tablet 2022 023 [email or web address] [facility]armacy #[id number], [address] [place], [address], 04/10/2023 01:49:13 emtricit abine 200 mg-tenof ovir disoprox il fumarate 300 mg tablet 2022 023 [facility]/Pharmacy #4471, [address] [place], [address], 04/09/2023 15:03:02 emtricit abine 200 mg-tenof ovir disoprox il fumarate 300 mg tablet 2023 024 [email or web address] [facility]/Pharmacy #4471, [address] [place] [address], 86[address], 07/18/2023 12:44:12 emtricit abine 200 mg-tenof ovir disoprox il fumarate 300 mg tablet 2023 024 [facility]/Pharmacy #4471, [address] [place], [address], 10/19/2023 11:11:59 nicotine 21 mg/24 hr daily transder mal patch 2023 024 [facility]/Pharmacy #1026, [address] [place], [address], 10/19/2023 11:11:58 emtricit abine 200 mg-tenof ovir disoprox il fumarate 300 mg tablet 2023 024 [email or web address] [facility]/Pharmacy #4471, [address] [place], [address], 12/04/2023 12:31:20 lidocain e 5 % topical patch 2023 024 [email or web address], [address] [place], [address], 12/04/2023 12:31:21 nicotine 21 mg/24 hr daily transder mal patch 2023 024 [email or web address] [facility]/Pharmacy #1026, [address] [place], [address], 12/04/2023 12:31:20 emtricit abine 200 mg-tenof ovir disoprox il fumarate 300 mg tablet 2023 024 [facility]/Pharmacy #4471, [address] [place], [address], 02/07/2024 13:03:15 Naprosyn 500 mg tablet 2023 024 [facility]/Pharmacy #1026, [address] [place], [address], 02/07/2024 13:03:15 nicotine 21 mg/24 hr daily transder mal patch 2023 024 [facility] [address] [place], [address], 02/07/2024 13:03:15 Patient TargetsNo targets recorded. Patient InstructionsNo instructions recorded. Reason for Referral None Reported. Results Created Date Observation Date Name Description Value Unit Range Abnormal Flag Note LastModifiedBy Organization Detail LastModifiedTime 04/09/20 23 04/10/2023 CHLAM YDIA DNA URINE chlamydia DNA urine NEGATI VE negati ve Not Available [facility] [address] [place] [address], 80657, 04/10/2023 10:46:07 04/09/20 23 04/10/2023 GC DNA URINE GC DNA urine NEGATI VE negati ve Not Available [facility] [address] [place] [address], 13[address], 04/10/2023 10:46:07 04/09/20 23 04/10/2023 GC DNA URINE performing lab Perfor [facility] [address] [place] [address] Medic al Direc braden mares MD Not Available [facility] [address] [place], [address], 04/10/2023 10:46:07 04/09/20 23 04/10/2023 VAGIN OSIS DNA PANEL trichomonas vaginalis NEGATI VE negati ve Not Available [facility] [address] [place] [address], 57185, 04/10/2023 11:24:12 04/09/20 23 04/10/2023 VAGIN OSIS DNA PANEL garderella vaginalis NEGATI VE negati ve Not Available [facility] [address] [place], [address], 04/10/2023 11:24:12 04/09/20 23 04/10/2023 VAGIN OSIS DNA PANEL camron species NEGATI VE negati ve Not Available [facility] [address] [place] [address], 930[address], 04/10/2023 11:24:12 04/09/20 23 04/10/2023 VAGIN OSIS DNA PANEL performing lab Perfor shayna [facility], niko chang r of [address] [place] [address] Medic al [facility] braden mares MD Not Available [facility] [address] [place], [address], 04/10/2023 11:24:12 04/10/20 23 04/11/2023 CHLAM YDIA DNA SWAB chlamydia DNA swab NEGATI VE negati ve Not Available [facility] [address] [place], [address], 04/11/2023 10:47:38 04/10/20 23 04/11/2023 GC DNA SWAB GC DNA swab NEGATI VE negati ve Not Available [facility] [address] [place] [address], 21442, 04/11/2023 10:47:38 04/10/20 23 04/11/2023 GC DNA SWAB performing lab Perfor sh[facility]na [facility], a [facility] [address] [address] [address] Medic al Dire braden mares MD Not Available [facility] [address], [place], [address], 04/11/2023 10:47:38 Result Notes None recorded. Problems Name Problem SNOMED Code Status Onset Date Resolution Date Notes Provider Name and Address Organization Details Recorded Time Smoker 59527543 Active 024 Dilip Casanova MD [address] [place] [address], [phone] , DARVIN CASANOVA MD [facility] 12/04/2023 12:12:45 Genital herpes simplex 53325362 Active Dilip Casanova MD [address] [place] [address], [phone] , DARVIN CASANOVA MD [facility] 12/04/2023 12:31:12 Problem Notes None recorded. Medical Equipment None Reported. Medications Name Sig Start Date Stop Date Status Note LastModified by Organization Details LastModified Time quetiapine 25 mg tablet TOME MARIA LUZ TABLETA POR V A ORAL TODOS LOS D AL ACOSTARSE active Not Available Not Available No t Available metformin 500 mg tablet TOME 1 TABLETA POR V A ORAL DOS VECES AL D A FOR 90 DAYS active Not Available Not Available No t Available atorvastatin 80 mg tablet TOME MARIA LUZ TABLETA POR V A ORAL TODOS LOS D active Not Available Not Available No t Available nicotine 14 mg/24 hr daily transdermal patch APPLY 1 PATCH PATCH EVERY MORNING REMOVE AT NIGHT. active Not Available Not Available No t Available isosorbide mononitrate ER 30 mg tablet,exten ded release 24 hr TOME MARIA LUZ TABLETA POR V A ORAL CADA MA RICK active Not Available Not Available Not Available clonazepam 1 mg tablet TOME 1 TABLETA POR V A ORAL DOS VECES AL D A CUANDO SEA NECESARIO active Not Available Not Available No t Available amlodipine 5 mg tablet TOME MARIA LUZ TABLETA POR V A ORAL TODOS LOS D active Not Available Not Available No t Available aspirin 81 mg tablet,delay ed release TOME 1 TABLETA POR V A ORAL TODOS LOS D active Not Available Not Available No t Available amlodipine 10 mg tablet TOME MARIA LUZ TABLETA POR V A ORAL TODOS LOS D active Not Available Not Available No t Available erythromycin 5 mg/gram (0.5 %) eye ointment active Not Available Not Available Not Available mirtazapine 30 mg tablet TOME MARIA LUZ TABLETA TODOS LOS D AL ACOSTARSE active Not Available Not Available No t Available metformin 1,000 mg tablet TOME 1 TABLETA POR V A ORAL DOS VECES AL D A active Not Available Not Available No t Available lidocaine 5 % topical patch APPLY 1 PATCH TOPICALLY ONCE DAILY, 12 HOURS ON 12 HOURS OFF active Not Available Not Available No t Available nicotine 21 mg/24 hr daily transdermal patch APPLY 1 PATCH EVERY DAY BY TRANSDERMAL ROUTE FOR 30 DAYS, FOR SMOKING CESSATION. active Not Available Not Available N ot Available omeprazole 20 mg capsule,josefa yed release TOME MARIA LUZ C PSULA TODOS LOS D FOR 90 DAYS active Not Available Not Available Not Available lisinopril 40 mg tablet TOME MARIA LUZ TABLETA POR V A ORAL TODOS LOS D active Not Available Not Available No t Available naproxen 500 mg tablet TOME MARIA LUZ TABLETA POR VIA ORAL DOS VECES AL ROBBY CUANDO SEA NECESARIO FOR BACK PAIN active Not Available Not Available No t Available nicotine 7 mg/24 hr daily transdermal patch APPLY 1 PATCH TRANSDERMAL LY EVERY 24 HOURS FOR 14 DAYS active Not Available Not Available No t Available Ventolin HFA 90 mcg/actuatio n aerosol inhaler INHALE 2 PUFFS CADA SEIS HORAS CUANDO SEA NECESARIO FOR BRONCHOSPAS MS active Not Available Not Available No t Available bupropion HCl XL 150 mg 24 hr tablet, extended release TOME MARIA LUZ TABLETA TODOS LOS D EN LA MA RICK active Not Available Not Available No t Available emtricitabin e 200 mg-tenofovir disoproxil fumarate 300 mg tablet Take 1 tablet every day by oral route for 30 days. 2023 active Not Available Not Available Not Avai lable fenofibrate 160 mg tablet TAKE 1 TABLET BY MOUTH WITH FOOD ONCE DAILY. active Not Available Not Available No t Available FreeStyle Lite Strips USE 1 TEST STRIP TWICE A DAY active Not Available Not Available No t Available cholecalcife rol (vitamin D3) 50 mcg (2,000 unit) capsule TOME 1 C PSULA POR V A ORAL TODOS LOS D FOR 90 MCCORD active Not Available Not Available No t Available Trulicity 1.5 mg/0.5 mL subcutaneous pen injector INJECT 1 PEN POR V A SUBCUT JANUSZ ONCE WEEKLY active Not Available Not Available Not Available Trulicity 0.75 mg/0.5 mL subcutaneous pen injector INYECTE 0.75 MG (0.5 ML) POR V A SUBCUT JANUSZ SEMANALMENT E active Not Available Not Available No t Available baclofen 5 mg tablet TOME MARIA LUZ TABLETA POR V A ORAL LASHELL VECES AL D A active Not Available Not Available No t Available FreeStyle Josiah 14 Day Sensor kit APPLY TOPICALLY TO CHECK BLOOD SUGAR EVERY 14 DAYS active Not Available Not Available No t Available Ozempic 0.25 mg or 0.5 mg (2 mg/3 mL) subcutaneous pen injector 0.25 MG (0.368 ML) SUBCUTANEOU SLY EVERY WEEK FOR 4 WEEKS FOR 4 WEEKS active Not Available Not Available No t Available Vitals Date Recorded Body height Heart rate Respiratory rate Body temperature Body mass index (BMI) Body weight Oxygen saturation Oxygen saturation in Arterial blood by Pulse oximetry Systolic blood pressure Diastolic blood pressure Provider Name and Address Organization Details Last Updated DateTime 4 154.94 cm 103 /min 16 /min 98.7 [degF] 28.5 kg/m2 34560.4 5 g 98 % 98 % 140 mm[Hg] 78 mm[Hg] Mattie CASANOVA MD [facility] 4 11:01:50 Date Recorded Body height Heart rate Respiratory rate Body temperature Body mass index (BMI) Body weight Systolic blood pressure Diastolic blood pressure Provider Name and Address Organization Details Last Updated DateTime 4 154.94 cm 98 /min 11 /min 97.9 [degF] 28.7 kg/m2 62128.0 4 g 119 mm[Hg] 70 mm[Hg] Roseanna CASANOVA MD [facility] 4 12:04:08 Date Recorded Body height Body temperature Body mass index (BMI) Body weight Systolic blood pressure Diastolic blood pressure Provider Name and Address Organization Details Last Updated DateTime 4 154.94 cm 97.5 [degF] 28.5 kg/m2 42837.4 5 g 130 mm[Hg] 70 mm[Hg] Roseanna CASANOVA MD [facility] 12:31:38 Social History None recorded. Functional Status None recorded. Mental Status None recorded. Family History Nothing Reported. Medical History No medical history recorded. Gynecological HistoryNo gynecological history recorded. Obstetrics History GPAL:G 0 P 0 0 0 0 Past Encounters Encounter ID Performer Location Encounter Start Date Encounter Closed Date Diagnosis/Indication Diagnosis SNOMED-CT Code Diagnosis ICD10 Code [id number] Dilip Casanova MD Main Office [address] [place] [address] [phone] [id number] 04/09/2023 14:02:53 04/09/2023 15:05:19 Exposure to Human immunodeficiency virus 283056073 Z20.6 [id number] Dilip Casanova MD Main Office [address] [place] [address] [phone] 07/18/2023 12:22:25 07/18/2023 15:10:38 Exposure to Human immunodeficiency virus 127622483 Z20.6 Genital he rpes simplex 39732102 A60.9 [id number] Dilip Casanova MD Main Office [address] [place] [address] [phone] 10/19/2023 10:44:43 10/19/2023 11:15:21 Exposure to Human immunodeficiency virus 953082088 Z20.6 Genital he rpes simplex 40336524 A60.9 Smoker 02623893 F17.200 [id number] Dilip Casanova MD Main Office [address] [place] [address] [id number] 12/04/2023 11:59:20 12/04/2023 12:18:34 Exposure to Human immunodeficiency virus 164923282 Z20.6 Genital he rpes simplex 94875685 A60.9 Smoker 67714725 F17.200 Spasm of back muscles 20 4207159 M62.830 [id number] Dilip Casanova MD Main Office [address] [place] [address] [phone] 6 02/07/2024 12:27:38 02/07/2024 13:08:01 Exposure to Human immunodeficiency virus 044951821 Z20.6 Genital he rpes simplex 33106489 A60.9 Smoker 98452522 F17.200 Spasm of back muscles 20 9150694 M62.830 Health Concerns Section Related Observation LastModified by Organization Detai ls LastModified Time None Recorded Concern Status LastModified by Organization Details LastModified Time None Recorded Advance Directives Directive None Recorded Payers Encounter Date Sequence Insurance Name Policy Number Policy Fraser Covered Member ID Fraser Member ID Guarantor Name 04/09/2023 1 [facility] - DOS ON OR AFTER 2022 - [place]IC[place]ANT[place] - PPO) Sindi Dwyer [id number] Sindi Grier 07/18/2023 1 [facility] - DOS ON OR AFTER 2022 - [place]ANT[place] - [place]PO) Sindi Dwyer [id number] Sindi Grier 10/19/2023 1 [facility] - DOS ON OR AFTER 2022 - [place] - PPO) Sindi Dwyer [id number] Sindi Grier 12/04/2023 1 [facility] - DOS ON OR AFTER 2022 - [place]ANT[place] - PPO) Sindi Dwyer [id number] Sindi Grier 02/07/2024 1 [facility] - DOS ON OR AFTER 2022 - [place] RE[place]ANT[place] - PPO) Sindi Dwyer [id number] Sindi Grier Notes Date Note Type Note Provider Name and Address Organization Details Recorded Time 04/09/2023 text/html came in for STi testing.no STI sx nor sx of STI'shas one male partner. 1 male partner in the last 2 years. another male partner prior to this last timeWants to get tested for STI's because male partner has used drugs up until recently.no fever. no thrush. no chills. no sweats. no weight loss.no rash. no vaginal discharge.no hx STI.male partnerGERD,takes her meds.last ETOH use 2015; denies liver disease.no jaundiceno drug use.Hx DM. Hx sciatica. Denies renal disease. Dilip Casanova MD [address] [place] [address], [phone], DARVIN CASANOVA MD [facility] 04/10/2023 01:53:21 07/18/2023 text/html PrePstarted Truv ada 1 tab po qdtaking daily. compliant.no concernsno side effectsno n/v/d. no abd pain.no STI sx nor sx of STI'shas one male partner. 1 male partner in the last 2 years. from partner.no rash. no vaginal discharge.no hx STI.GERD stable. no worse w trauvada.no drug use.Hx DM. Hx sciatica. Denies renal disease.04/2023 GC/chlamydia neg; BD affirm neg; HIV neg; HCV neg; HBV neg; ALT/AST wnl; eGFR>60; no syphilis ; HSV 1 and 2 serology positive. no hx of active flareupsvaccines upto date to include COVID and flu vaccines. Dilip Casanova MD [address] [place] [address], [phone], DARVIN CASANOVA MD [facility] 07/18/2023 12:46:12 10/19/2023 text/html PrePOn daily Rod anette 1 tab po qdtaking daily. compliant.no concernsno side effectshappy w regimenno n/v/d. no abd pain.no STI sx nor sx of STI'shas one male partner.no rash. no vaginal discharge.no hx STI.GERD stable. no worse w trauvada.no drug use.10/2023: HIV neg; HCV neg; syphilis neg;04/2023 GC/chlamydia neg; BD affirm neg; HIV neg; HCV neg; HBV neg; ALT/AST wnl; eGFR>60; no syphilis ; HSV 1 and 2 serology positive. no hx of active flareupsmammogram 2023; PAP uptodate; never colonoscopyinterested in smoking cessation Dilip Casanova MD [address] [place] [address], [phone], DARVIN CASANOVA MD [facility] 10/19/2023 11:58:11 12/04/2023 text/html PrePOn daily Rod anette 1 tab po qddenies missing dosestaking daily. compliant.no concernsno side effectsno new medsno n/v/d. no abd pain. no jaundiceno STI sx nor sx of STI'shas one male partner.no rash. no vaginal discharge.no drug use. R back pain: spams for few days.wishes to continue smoking cessation patch; smoking less. 10/2023: HIV neg; HCV neg; syphilis neg;04/2023 GC/chlamydia neg; BD affirm neg; HIV neg; HCV neg; HBV neg; ALT/AST wnl; eGFR>60; no syphilis ; HSV 1 and 2 serology positive. no hx of active flareupsmammogram 2023; PAP uptodate; never colonoscopyinterested in smoking cessation Dilip Casanova MD [address] [place] [address], [phone], DARVIN CASANOVA MD [facility] 12/04/2023 12:32:21 02/07/2024 text/html PreP On daily Truvada 1 tab po qd denies missing doses taking daily. compliant. no concerns no side effects no n/v/d. no abd pain. no jaundice no STI sx nor sx of STI's has one male partner. sexually acyive no rash. no vaginal discharge. no drug use. R back pain: spams for few days. needs naprosyn for pain . will undergo surgery 02/2024. on pain tx. wishes to continue smoking cessation patch; it is helping her with sx. 12/2023 HIV negative; GC/chlamydia neg eGFR>60; RPR NR; HCV negl ALT/AST wnl; neg syphilis.10/2023: HIV neg; HCV neg; syphilis neg; Dilip Casanova MD [address] [place] [address], [phone], DARVIN CASANOVA MD [facility] 02/07/2024 13:06:12 OBGyn Episode No OBEpisode recorded.
== END 2024-05-08 08:18 | disposition home or self-care (01) ==
PROVIDERS: PCP Internal Medicine; Visit Provider Internal Medicine
DX: L98.7 Excessive and redundant skin and subcutaneous tissue (principal); E11.65 Type 2 diabetes mellitus with hyperglycemia; I10 Essential (primary) hypertension; E78.2 Mixed hyperlipidemia; F33.0 Major depressive disorder, recurrent, mild

== ENCOUNTER → 2024-05-08 07:27 | Outpatient (BNVA) | payer OTHER, SELFPAY | PROVIDERS: PCP Internal Medicine; Visit Provider Internal Medicine | DX: L98.7 Excessive and redundant skin and subcutaneous tissue (principal); E11.65 Type 2 diabetes mellitus with hyperglycemia; E78.2 Mixed hyperlipidemia; I10 Essential (primary) hypertension; F33.0 Major depressive disorder, recurrent, mild | CPT/HCPCS: 83036; 99212 ==

== ENCOUNTER 2024-05-15 08:58 | Outpatient (AMB) | payer OTHER, SELFPAY ==
--- NOTE | 2024-05-15 09:10 | A.SPINEOV_ITS ---
Intake Visit Reasons: 2nd post op Intake Note: Ms. Dwyer is here today for a 2nd post op. Aerial Hurricane Hunter Required: Yes Aerial Hurricane Hunter Name: Tablet Allergies hydrocodone [From Vicodin] Allergy (Intermediate, Verified 05/08/24 08:05) Rash trulicity Adverse Reaction (Intermediate, Uncoded 05/08/24 08:05) headaches Assessment & Plan Assessment & Plan (1) Status post lumbar spine surgery for decompression of spinal cord: Code(s): Z98.890 - Other specified postprocedural states Category: Surgical Plan Operation: Left L4-5 and L5-S1 Laminotomy, Partial facetectomy; left L5 foraminotomy; left L5-S1 diskectomy Sindi comes in today for her 2nd postoperative visit. To recap she was initially seen in the office for low back pain and shooting pain into her left posterior lateral thigh down into her calf and into her foot. During her last office visit she was reporting some continuation of shooting pains into her left lower extremity. Unfortunately she continues to report this pain during this visit today. She states that it is newer pain than the pain that she had prior to surgery. When describing the pain she runs her hand from her low back on the left side over her left lateral thigh down toward the left lateral calf. She denies any numbness/tingling associated with this pain. We discussed the postoperative healing course, and I answered all of her questions to the best of my ability. No new neurological deficits. The patient ambulates well and rises from a seated position without assistance. No assistive devices to walk. Her posterior incision site is closed and well healed. Sindi is status post 2 level lumbar decompression with diskectomy at L5-S1. Her back pain is gone, and her right leg pain has gone. Given this, she continues to have this newer onset left leg pain which arose after surgery. I would like to send her for a set of lumbar x-rays to ensure that she does not have any instability after decompression. I will also be sending her to physical therapy and would like to have her follow up with me again after physical therapy to ensure that her symptoms are improving. We will call her with the results of the x-ray. Neil Rosales MD,PhD [facility] Coding Level of Care Code Global (07148) Diagnoses Status post lumbar spine surgery for decompression of spinal cord Z98.890
--- OUTSIDE RECORDS SUMMARY | 2024-05-15 09:11 | XMS_ITS | Data Portability ---
Author Organization [place] - DILIP BIRD MD [facility], Main Office Address [address] [place] [address] Assessment Encounter Date Assessment Date Assessment LastModified by Organization Details LastModified Time 02/07/2024 02/07/2024 telemedicine. video. 18 min. pt home in [place] [email or web address] Not available 02/07/2024 13:03:28 Plan of Treatment Reminders Order Date Submit Date Provider Last Modified By Organization Details Last Modified Time Details Appointments PREP FOLLOW UP 2024 01:20P Bonnie Casanova MD Not available Not available Not available Lab CBC w/ diff [address] (Lab), [address] [place] [address], [id number], 05/03/2023 16:49:38 electrol ytes panel, blood [address] (Lab), [address] [place] [address], 24015, 05/03/2023 16:49:38 ALT (alanine aminotra nsferase ), serum or plasma [address] (Lab), [address] [place] [address], [id number], 05/03/2023 16:49:38 AST/SGOT (asparta te aminotra nsferase ), serum or plasma [address] (Lab), [address] [place] [address], 70738, 05/03/2023 16:49:38 CT + NG DNA, PCR, unspecif ied specimen 2022 023 [place] [id number] Not available 05/03/2023 16:49:38 creatini ne w/ estimate d GFR (eGFR), serum or plasma [address] (Lab), [address] [place] [address], [id number], 05/03/2023 16:49:38 hepatiti s C virus Ab, serum [address] (Lab), [address] [place] [address], 20485, 05/03/2023 16:49:39 RPR (rapid plasma reagin), serum [address] (Lab), [address] [place] [address], 81089, 05/03/2023 16:49:39 bacteria l vaginosi s + vaginiti s panel, vaginal 2022 023 [place] [id number] Not available 05/03/2023 16:49:39 HIV (1+2) Ab screen, serum [address] (Lab), [address] [place] [address], 33763, 05/03/2023 16:49:39 hsv (1+2) igg Ab, serum [address] (Lab), [address] [place] [address], 92352, 05/03/2023 16:49:39 HBsAg (hepatit is B surface Ag), serum [address] (Lab), [address] [place] [address], 00595, 05/03/2023 16:49:39 CBC w/ diff [address] (Lab), [address] [place] [address], 15950, 07/27/2023 16:21:38 electrol ytes panel, blood [address] (Lab), [address] [place] [address], 40604, 07/27/2023 16:21:38 ALT (alanine aminotra nsferase ), serum or plasma [address] (Lab), [address] [place] [address], [id number], 07/27/2023 16:21:38 AST/SGOT (asparta te aminotra nsferase ), serum or plasma [address] (Lab), [address] [place] [address], 56131, 07/27/2023 16:21:38 CT + NG DNA, PCR, unspecif ied specimen 2023 024 [facility], [address] [place] [address], [id number], 07/18/2023 20:31:31 creatini ne w/ estimate d GFR (eGFR), serum or plasma [address] (Lab), [address] [place] [address], 11763, 07/27/2023 16:21:38 hepatiti s C virus Ab, serum [address] (Lab), [address] [place] [address], 49823, 07/27/2023 16:21:38 RPR (rapid plasma reagin), serum [address] (Lab), [address] [place] [address], 84877, 07/27/2023 16:21:38 HIV (1+2) Ab screen, serum [address] (Lab), [address] [place] [address], 59899, 07/27/2023 16:21:38 hsv (1+2) igg Ab, serum [address] (Lab), [address] [place] [address], 96067, 07/27/2023 16:21:38 HBsAg (hepatit is B surface Ag), serum [address] (Lab), [address] [place] [address], 07051, 07/27/2023 16:21:38 CBC w/ diff [address] (Lab), [address] [place] [address], 19436, 12/11/2023 13:02:53 electrol ytes panel, blood [address] (Lab), [address] [place] [address], 46327, 12/11/2023 13:02:53 ALT (alanine aminotra nsferase ), serum or plasma [address] (Lab), [address] [place] [address], 81009, 12/11/2023 13:02:53 AST/SGOT (asparta te aminotra nsferase ), serum or plasma [address] (Lab), [address] [place] [address], 05086, 12/11/2023 13:02:53 CT + NG DNA, PCR, unspecif ied specimen [address] (Lab), [address] [place] [address], 58116, 12/11/2023 13:02:54 creatini ne w/ estimate d GFR (eGFR), serum or plasma [address] (Lab), [address] [place] [address], 64925, 12/11/2023 13:02:54 hepatiti s C virus Ab, serum [address] (Lab), [address] [place] [address], 24091, 12/11/2023 13:02:54 RPR (rapid plasma reagin), serum [address] (Lab), [address] [place] [address], 84345, 12/11/2023 13:02:54 HIV (1+2) Ab screen, serum [address] (Lab), [address] [place] [address], 87829, 12/11/2023 13:02:54 CBC w/ diff [address] (Lab), [address] [place] [address], 99091, 02/14/2024 11:58:31 electrol ytes panel, blood [address] (Lab), [address] [place] [address], 26229, 02/14/2024 11:58:31 ALT (alanine aminotra nsferase ), serum or plasma [address] (Lab), [address] [place] [address], 15648, 02/14/2024 11:58:31 AST/SGOT (asparta te aminotra nsferase ), serum or plasma [address] (Lab), [address] [place] [address], 19208, 02/14/2024 11:58:31 CT + NG DNA, PCR, unspecif ied specimen [address] (Lab), [address] [place] [address], 73528, 02/14/2024 11:58:31 creatini ne w/ estimate d GFR (eGFR), serum or plasma [address] (Lab), [address] [place] [address], 44415, 02/14/2024 11:58:31 hepatiti s C virus Ab, serum [address] [place] [address] (Lab), [address] [place] [address], 00142, 02/14/2024 11:58:31 RPR (rapid plasma reagin), serum [address] [place] [address] (Lab), [address] [place] [address], 86653, 02/14/2024 11:58:32 HIV (1+2) Ab screen, serum [address] [place] [address] (Lab), [address] [place] [address], 08141, 02/14/2024 11:58:32 Referral None recorded . Procedures None recorded . Surgeries None recorded . Imaging None recorded . Medication Orders Truvada 200 mg-300 mg tablet 2022 023 [email or web address] [facility]/Pharmacy #[id number], [address] [place], [address], 04/10/2023 01:49:13 emtricit abine 200 mg-tenof ovir disoprox il fumarate 300 mg tablet 2022 023 [facility] #4471, [address] [place], [address], 04/09/2023 15:03:02 emtricit abine 200 mg-tenof ovir disoprox il fumarate 300 mg tablet 2023 024 cmartorell [facility]/Pharmacy #4471, [address] [place] [address], [address], 07/18/2023 12:44:12 emtricit abine 200 mg-tenof ovir disoprox il fumarate 300 mg tablet 2023 024 [facility] [place]armacy #4471, [address] [place], [address], 10/19/2023 11:11:59 nicotine 21 mg/24 hr daily transder mal patch 2023 024 [facility]armacy #1026, [address] [place], [address], 10/19/2023 11:11:58 emtricit abine 200 mg-tenof ovir disoprox il fumarate 300 mg tablet 2023 024 [email or web address] [facility]/Pharmacy #4471, [address] [place], [address], 12/04/2023 12:31:20 lidocain e 5 % topical [facility] [address] [place], [address], 12/04/2023 12:31:21 nicotine 21 mg/24 hr daily transder mal patch 2023 024 cmartorell [facility]/Pharmacy #1026, [address] [place], [address], 12/04/2023 12:31:20 emtricit abine 200 mg-tenof ovir disoprox il fumarate 300 mg tablet 2023 024 [facility] [place] [place]armacy #4471, [address] [place], [address], 02/07/2024 13:03:15 Naprosyn 500 mg tablet 2023 024 [facility] [place] [place]armacy #1026, [address] [place], [address], 02/07/2024 13:03:15 nicotine 21 mg/24 hr daily transder mal patch [facility]23 [facility]24 [facility] [address] [place], [address], 02/07/2024 13:03:15 Patient TargetsNo targets recorded. Patient InstructionsNo instructions recorded. Reason for Referral None Reported. Results Created Date Observation Date Name Description Value Unit Range Abnormal Flag Note LastModifiedBy Organization Detail LastModifiedTime 04/09/20 23 04/10/2023 CHLAM YDIA DNA URINE chlamydia DNA urine NEGATI VE negati ve Not Available [facility] [address] [place] [address], [address], 04/10/2023 10:46:07 04/09/20 23 04/10/2023 GC DNA URINE GC DNA urine NEGATI VE negati ve Not Available [facility] [address] [place] [address], [address], 04/10/2023 10:46:07 04/09/20 23 04/10/2023 GC DNA URINE performing lab [facility] [address] [place] [address] Medic al Direc braden mares MD Not Available [facility] [address] [place], [address], 04/10/2023 10:46:07 04/09/20 23 04/10/2023 VAGIN OSIS DNA PANEL trichomonas vaginalis NEGATI VE negati ve Not Available [facility] [address] [place] [address], [address], 04/10/2023 11:24:12 04/09/20 23 04/10/2023 VAGIN OSIS DNA PANEL garderella vaginalis NEGATI VE negati ve Not Available [facility] [address] [place], [address], 04/10/2023 11:24:12 04/09/20 23 04/10/2023 VAGIN OSIS DNA PANEL camron species NEGATI VE negati ve Not Available [facility] [address] [place] [address], [address], 04/10/2023 11:24:12 04/09/20 23 04/10/2023 VAGIN OSIS DNA PANEL performing lab Perfor sh[facility], [facility]iko chang r of [address] [place] [address] Medic al [facility] braden mares MD Not Available [facility] [address] [place], [address], 04/10/2023 11:24:12 04/10/20 23 04/11/2023 CHLAM YDIA DNA SWAB chlamydia DNA swab NEGATI VE negati ve Not Available [facility] [address] [place], [address], 04/11/2023 10:47:38 04/10/20 23 04/11/2023 GC DNA SWAB GC DNA swab NEGATI VE negati ve Not Available [facility] [address] [place] [address], [address], 04/11/2023 10:47:38 04/10/20 23 04/11/2023 GC DNA SWAB performing lab Perfor [facility], [facility] [address] [place] [address] Medic al Dire braden mares MD Not Available [facility] [address], [place], [address], 04/11/2023 10:47:38 Result Notes None recorded. Problems Name Problem SNOMED Code Status Onset Date Resolution Date Notes Provider Name and Address Organization Details Recorded Time Smoker 41105416 Active 024 Dilip Casanova MD [address] [place] [address], [phone] , DARVIN CASANOVA MD [facility] 12/04/2023 12:12:45 Genital herpes simplex 18543334 Active Dilip Casanova MD [address] [place] [address], [phone] , DARVIN CASANOVA MD [facility] 12/04/2023 12:31:12 Problem Notes None recorded. Medical [...] /min 16 /min 98.7 [degF] 28.5 kg/m2 05381.4 5 g 98 % 98 % 140 mm[Hg] 78 mm[Hg] Mattie CASANOVA MD [facility] 4 11:01:50 Date Recorded Body height Heart rate Respiratory rate Body temperature Body mass index (BMI) Body weight Systolic blood pressure Diastolic blood pressure Provider Name and Address Organization Details Last Updated DateTime 4 154.94 cm 98 /min 11 /min 97.9 [degF] 28.7 kg/m2 96461.0 4 g 119 mm[Hg] 70 mm[Hg] Roseanna CASANOVA MD [facility] 4 12:04:08 Date Recorded Body height Body temperature Body mass index (BMI) Body weight Systolic blood pressure Diastolic blood pressure Provider Name and Address Organization Details Last Updated DateTime 4 154.94 cm 97.5 [degF] 28.5 kg/m2 15119.4 5 g 130 mm[Hg] 70 mm[Hg] Roseanna CASANOVA MD [facility] 12:31:38 Social History None recorded. Functional Status None recorded. Mental Status None recorded. Family History Nothing Reported. Medical History No medical history recorded. Gynecological HistoryNo gynecological history recorded. Obstetrics History GPAL:G 0 P 0 0 0 0 Past Encounters Encounter ID Performer Location Encounter Start Date Encounter Closed Date Diagnosis/Indication Diagnosis SNOMED-CT Code Diagnosis ICD10 Code [id number] Dilip Casanova MD Main Office [address] [place] [phone] 04/09/2023 14:02:53 04/09/2023 15:05:19 Exposure to Human immunodeficiency virus 185299159 Z20.6 [id number] Dilip Casanova MD Main Office [address] [place] [address] [phone] 07/18/2023 12:22:25 07/18/2023 15:10:38 Exposure to Human immunodeficiency virus 178940217 Z20.6 Genital he rpes simplex 05355706 A60.9 [id number] Dilip Casanova MD Main Office [address] [place] [address] [phone] 10/19/2023 10:44:43 10/19/2023 11:15:21 Exposure to Human immunodeficiency virus 385056129 Z20.6 Genital he rpes simplex 07152889 A60.9 Smoker 19329661 F17.200 [id number] Dilip Casanova MD Main Office [address] [place] [address] [phone] 12/04/2023 11:59:20 12/04/2023 12:18:34 Exposure to Human immunodeficiency virus 728823486 Z20.6 Genital he rpes simplex 06028199 A60.9 Smoker 08062574 F17.200 Spasm of back muscles 20 0932689 M62.830 [id number] Dilip Casanova MD Main Office [address] [place] [address] [phone] 6 02/07/2024 12:27:38 02/07/2024 13:08:01 Exposure to Human immunodeficiency virus 283068992 Z20.6 Genital he rpes simplex 24280062 A60.9 Smoker 55804405 F17.200 Spasm of back muscles 20 9007239 M62.830 Health Concerns Section Related Observation LastModified by Organization Detai ls LastModified Time None Recorded Concern Status LastModified by Organization Details LastModified Time None Recorded Advance Directives Directive None Recorded Payers Encounter Date Sequence Insurance Name Policy Number Policy Fraser Covered Member ID Fraser Member ID Guarantor Name 04/09/2023 1 [facility] [employer] - DOS ON OR AFTER 2022 - [place]IC[place]ANT[place] - PPO) Sindi Dwyer [id number] Sindi Grier 07/18/2023 1 [facility] [employer] [employer] - DOS ON OR AFTER 2022 - [place]ANT[place] - [place]PO) Sindi Dwyer [id number] Sindi Grier 10/19/2023 1 [facility] [employer] - DOS ON OR AFTER 2022 - [place] - [place]) Sindi Dwyer [id number] Sindi Grier 12/04/2023 1 [facility] - DOS ON OR AFTER 2022 - [place]ANT[place] - PPO) Sindi Dwyer [id number] Sindi Grier 02/07/2024 1 [facility] [employer] - DOS ON OR AFTER 2022 - [place]ANT[place] - PPO) Sindi Dwyer [id number] Sindi Grier Notes Date Note Type Note [...] sciatica. Denies renal disease. Dilip Casanova MD [address] [place] [address], [phone], DARVIN CASANOVA MD [facility] 04/10/2023 01:53:21 07/18/2023 text/html PrePstarted Truv ada [...] COVID and flu vaccines. Dilip Casanova MD [address] [place] [address], [phone], DARVIN CASANOVA MD [facility] 07/18/2023 12:46:12 10/19/2023 text/html PrePOn daily Rod [...] colonoscopyinterested in smoking cessation Dilip Casanova MD [address] [place] [address], [phone], DARVIN CASANOVA MD [facility] 10/19/2023 11:58:11 12/04/2023 text/html PrePOn daily Rod [...] colonoscopyinterested in smoking cessation Dilip Casanova MD [address] [place] [address], [phone], DARVIN CASANOVA MD [facility] 12/04/2023 12:32:21 02/07/2024 text/html PreP On daily [...] HCV neg; syphilis neg; Dilip Casanova MD [address] [place] [address], [phone], DARVNI CASANOVA MD [facility] 02/07/2024 13:06:12 OBGyn Episode No OBEpisode recorded.
== END 2024-05-15 09:29 | disposition home or self-care (01) ==
PROVIDERS: PCP Internal Medicine; Visit Provider Physician Assistant
DX: Z98.890 Other specified postprocedural states (principal)
CPT/HCPCS: 99024

== ENCOUNTER 2024-05-15 08:58 | Outpatient (REF) | payer OTHER, SELFPAY | END 2024-05-15 08:59 | disposition home or self-care (01) | LOC: HO.HOSX 08:58 | PROVIDERS: PCP Internal Medicine; Visit Provider Physician Assistant | DX: Z13.89 Encounter for screening for other disorder (principal) | CPT/HCPCS: 99212 ==

== ENCOUNTER 2024-05-15 09:39 | Outpatient (REF) | payer OTHER, SELFPAY | END 2024-05-15 09:40 | disposition home or self-care (01) | LOC: HO.XRAY 09:39 | PROVIDERS: PCP Internal Medicine; Visit Provider Physician Assistant | DX: Z98.890 Other specified postprocedural states (principal) | CPT/HCPCS: 72110 ==

== ENCOUNTER → 2024-05-22 08:58 | Outpatient (BNVA) | payer OTHER, SELFPAY | PROVIDERS: PCP Internal Medicine ==

== ENCOUNTER 2024-06-26 09:43 | Outpatient (RCR) | payer OTHER, SELFPAY ==
--- NOTE | 2024-06-26 14:22 | MHC.PT.EP ---
[facility] [place] Office [place] Office [address] Desire Mcgee [address] [phone] F: [phone] F: [phone] F: [phone] F: [phone] Physical Therapy Plan of Care Date of Evaluation: 06/26/24 Date of Surgery: 03/13/24 Diagnosis: left leg pain (RL) s/p L4-L5, L5-S1 lumbar decompression w/ discectomy at L5-S1 03/13/24 Assessment: pt is a 64 y/o female presenting to physical therapy w/ referring diagnosis of left leg pain. pt underwent Left L4-5 and L5-S1 Laminotomy, Partial facetectomy; left L5 foraminotomy; left L5-S1 diskectomy on 03/13/24. Impairments include pain, decreased range of motion, decreased strength, impaired functional mobility, impaired postural awareness, and altered ambulation mechanics. pt is a fair candidate for skilled PT due to age, potential remediation of impairments, typical disease/condition progression and prognosis, comorbidities, and motivation. pt would benefit from skilled PT intervention to provide a tailored strengthening and stretching exercise program, functional training, gait training, postural re-training, neuromuscular re-education, modalities as needed for pain, equipment safety demonstration. Frequency and Duration: The patient will be seen 1x/wk for 3 wks Short Term Goals: pt will be I w/ HEP to promote self-management of condition. pt will demo proper sitting posture w/ lumbar roll to promote neutral spine w/ seated ADLs. Snf Goals: pt will improve B quad strength by 1 MMT to promote ease in sit<>stand transfers. pt will report a statistically significant improvement in self-reported outcome measure, LEFI, to promote return to PLOF. Treatment Plan: Modalities to reduce pain, spasms and effusion. Manual therapy to restore motion and function. Therapeutic exercise to improve strength and flexibility. Neuromuscular re-education for posture and balance. Therapeutic activities to return to functional activities of daily living. Electronically signed by: Delma Garcia PT, DPT Please sign and return to therapist. Thank you for your referral.
--- NOTE | 2024-07-17 10:19 | MHC.PT.DC ---
[facility] [place] Office [place] Office [place] Office [address] Desire Mcgee 140 [facility] [phone] F: [phone] F: [phone] F: [phone] F: [phone] Physical Therapy Discharge Report Diagnosis: left leg pain (RL) s/p L4-L5, L5-S1 lumbar decompression w/ discectomy at L5-S1 03/13/24 Date of Surgery: 03/13/24 Date of Evaluation: 06/26/24 Date of Discharge: 07/17/24 Treatments to Date: 1 Cancellations to Date: 1 No Shows to Date: 2 Discharge Status: Discharge Summary: The patient attended the initial evaluation but cancelled or no showed the follow-up appointments she scheduled. Per [facility] policy she is discharged from this physical therapy plan of care. Of note, the patient did endorse a history of two CVAs that affected her left side. Questionable left lower extremity pain and dysfunction as a result of strokes versus radiculopathy due to lumbar derangements. Electronically signed by: Delma Garcia PT, DPT Please sign and return to therapist. Thank you for your referral.
== END 2024-07-17 10:19 | disposition home or self-care (01) ==
LOC: HO.PT 09:43
PROVIDERS: PCP Internal Medicine; Visit Provider Physician Assistant
DX: M79.605 Pain in left leg (principal); Z98.890 Other specified postprocedural states
CPT/HCPCS: 97112; 97162

== ENCOUNTER 2024-06-26 11:04 | Outpatient (REF) | payer OTHER, SELFPAY ==
[2024-06-26 11:22] LABS: MANUAL DIFF FLAG NO
[2024-06-26 11:56] LABS: Basophils Absolute Auto 0.1 X10*3/uL (0.0-0.2); Basophils Percent Auto 0.4 % (0-2); Eosinophils Absolute Auto 0.2 X10*3/uL (0.0-0.4); Eosinophils Percent Auto 1.7 % (0-4); Hematocrit 42.9 % (37.0-47.0); Hemoglobin 13.5 g/dl (12.0-16.0); Imm Gran Abs Auto 0.05 X10*3/uL (0.00-0.03); Imm Gran Pct Auto 0.4 % (0.0-0.4); Lymphocytes Absolute Auto 4.6 X10*3/uL (1.2-4.9); Lymphocytes Percent Auto 38.4 % (20-40); Mean Corpuscular HGB Conc 31.5 g/dl (31.0-35.0); Mean Corpuscular Hemoglobin 25.6 pg (27.0-33.0); Mean Corpuscular Volume 81.4 fL (80.0-98.0); Mean Platelet Volume 10.4 fL (9.4-12.3); Monocytes Absolute Auto 1.1 X10*3/uL (0.1-1.2); Monocytes Percent Auto 8.9 % (2-11); Neutrophils Percent Auto 50.2 % (45-73); Platelet Count 471 X10*3/uL (160-400); Red Blood Count 5.27 X10*6/uL (4.20-5.50); Red Cell Distribution Width 16.2 % (11.0-16.0); White Blood Count 11.9 X10*3/uL (4.8-10.8)
[2024-06-26 12:28] LABS: Alanine Aminotransferase 26 U/L (0-31); Anion Gap 11 (12-20); Aspartate Amino Transferase 25 U/L (5-31); Carbon Dioxide 27 mmol/L (22-29); Chloride 112 mmol/L (96-108); Estimated Glomerular Filt Rate > 60; Potassium 4.2 mmol/L (3.3-5.1); Sodium 146 mmol/L (135-145)
[2024-06-26 12:51] LABS: HBsAGNum1 0.39 S/CO (0.00-0.99); HIV AB/AG Nonreactive (Nonreactive); HIV Num 1 0.05 S/CO (0.00-0.99); Hepatitis B Surface Antigen Negative (Negative); Syphilis Screen Nonreactive (Nonreactive); ~HepC Num1 0.75 S/CO (0.00-0.79); ~Hepatitis C Antibody Nonreactive (Nonreactive)
--- OUTSIDE RECORDS SUMMARY | 2024-06-26 13:20 | XMS_ITS | Data Portability ---
Author Organization [facility], Main Office Address [address] [place] [phone] Assessment Encounter Date Assessment Date Assessment LastModified by Organization Details LastModified Time 02/07/2024 02/07/2024 telemedicine. video. 18 min. pt home in [place] cmartorell Not available 02/07/2024 13:03:28 06/12/2024 06/12/2024 telemedicine. video. 18 min. pt home in [place] cmartore[place] Not available 06/12/2024 13:51:28 Plan of Treatment Reminders Order Date Submit Date Provider Last Modified By Organization Details Last Modified Time Details Appointments PREP FOLLOW UP 2024 02:00P Bonnie Casanova MD Not available Not available Not available Lab CBC w/ diff [address] (Lab), [address] [place] [address], [id number], 07/27/2023 16:21:38 electrol ytes panel, blood [address] (Lab), [address] [place] [address], [id number], 07/27/2023 16:21:38 ALT (alanine aminotra nsferase ), serum or plasma [address] (Lab), [address] [place] [address], 16892, 07/27/2023 16:21:38 AST/SGOT (asparta te aminotra nsferase ), serum or plasma [address] (Lab), [address] [place] [address], 530[address], 07/27/2023 16:21:38 CT + NG DNA, PCR, unspecif ied specimen 2023 024 [facility], [address] [place] [address], [id number], 07/18/2023 20:31:31 creatini ne w/ estimate d GFR (eGFR), serum or plasma [address] (Lab), [address] [place] [address], 00[address], 07/27/2023 16:21:38 hepatiti s C virus Ab, serum [address] [place] [address] (Lab), [address] [place] [address], [address], 07/27/2023 16:21:38 RPR (rapid plasma reagin), serum [address] [place] [address] (Lab), [address] [place] [address], 59560, 07/27/2023 16:21:38 HIV (1+2) Ab screen, serum [address] [place] [address] (Lab), [address] [place] [address], 7[address], 07/27/2023 16:21:38 hsv (1+2) igg Ab, serum [address] [place] [address] (Lab), [address] [place] [address], [address], 07/27/2023 16:21:38 HBsAg (hepatit is B surface Ag), serum [address] (Lab), [address] [place] [address], 286[address], 07/27/2023 16:21:38 CBC w/ diff [address] (Lab), [address] [place] [address], 610[address], 12/11/2023 13:02:53 electrol ytes panel, blood [address] (Lab), [address] [place] [address], 770[address], 12/11/2023 13:02:53 ALT (alanine aminotra nsferase ), serum or plasma [address] (Lab), [address] [place] [address], 164[address], 12/11/2023 13:02:53 AST/SGOT (asparta te aminotra nsferase ), serum or plasma [address] (Lab), [address] [place] [address], 13705, 12/11/2023 13:02:53 CT + NG DNA, PCR, unspecif ied specimen [address] (Lab), [address] [place] [address], 825[address], 12/11/2023 13:02:54 creatini ne w/ estimate d GFR (eGFR), serum or plasma [address] (Lab), [address] [place] [address], 31465, 12/11/2023 13:02:54 hepatiti s C virus Ab, serum [address] (Lab), [address] [place] [address], 657[address], 12/11/2023 13:02:54 RPR (rapid plasma reagin), serum [address] (Lab), [address] [place] [address], 14366, 12/11/2023 13:02:54 HIV (1+2) Ab screen, serum [address] (Lab), [address] [place] [address], 55719, 12/11/2023 13:02:54 CBC w/ diff [address] (Lab), [address] [place] [address], 13731, 02/14/2024 11:58:31 electrol ytes panel, blood [address] (Lab), [address] [place] [address], 05798, 02/14/2024 11:58:31 ALT (alanine aminotra nsferase ), serum or plasma [address] (Lab), [address] [place] [address], 75274, 02/14/2024 11:58:31 AST/SGOT (asparta te aminotra nsferase ), serum or plasma [address] (Lab), [address] [place] [address], 97207, 02/14/2024 11:58:31 CT + NG DNA, PCR, unspecif ied specimen [address] (Lab), [address] [place] [address], 22531, 02/14/2024 11:58:31 creatini ne w/ estimate d GFR (eGFR), serum or plasma [address] (Lab), [address] [place] [address], 26290, 02/14/2024 11:58:31 hepatiti s C virus Ab, serum [address] (Lab), [address] [place] [address], 45903, 02/14/2024 11:58:31 RPR (rapid plasma reagin), serum [address] (Lab), [address] [place] [address], 15374, 02/14/2024 11:58:32 HIV (1+2) Ab screen, serum [address] (Lab), [address] [place] [address], 42371, 02/14/2024 11:58:32 CBC w/ diff [address] (Lab), [address] [place] [address], 80284, 06/19/2024 10:23:22 electrol ytes panel, blood [address] (Lab), [address] [place] [address], 60985, 06/19/2024 10:23:22 ALT (alanine aminotra nsferase ), serum or plasma [address] (Lab), [address] [place] [address], 32165, 06/19/2024 10:23:22 AST/SGOT (asparta te aminotra nsferase ), serum or plasma [address] (Lab), [address] [place] [address], 22114, 06/19/2024 10:23:22 CT + NG DNA, PCR, unspecif ied specimen [address] [place] [address] (Lab), [address] [place] [address], 14518, 06/12/2024 15:19:45 creatini ne w/ estimate d GFR (eGFR), serum or plasma [address] [place] [address] (Lab), [address] [place] [address], 14676, 06/19/2024 10:23:22 hepatiti s C virus Ab, serum [address] [place] [address] (Lab), [address] [place] [address], 38369, 06/19/2024 10:23:22 RPR (rapid plasma reagin), serum [address] [place] [address] (Lab), [address] [place] [address], 33576, 06/19/2024 10:23:22 HIV (1+2) Ab screen, serum [address] [place] [address] (Lab), [address] [place] [address], 35024, 06/19/2024 10:23:23 HBsAg (hepatit is B surface Ag), serum [address] [place] [address] (Lab), [address] [place] [address], 19039, 06/19/2024 10:23:23 chlamydi a + gonorrhe a DNA panel, unspecif ied specimen [address] [place] [address] (Lab), [address] [place] [address], 43469, 06/12/2024 15:19:24 bacteria l vaginosi s + vaginiti s panel, vaginal [address] (Lab), [address] [place] [address], 82929, 06/12/2024 15:20:04 Referral None recorded . Procedures None recorded . Surgeries None recorded . Imaging None recorded . Medication Orders emtricit abine 200 mg-tenof ovir disoprox il fumarate 300 mg tablet 2023 024 cmartorell [facility]acy #[id number], [address] [place], [address], 07/18/2023 12:44:12 emtricit abine 200 mg-tenof ovir disoprox il fumarate 300 mg tablet 2023 024 [facility], [address] [place], [address], 10/19/2023 11:11:59 nicotine 21 mg/24 hr daily transder mal patch 2023 024 JEFFERY [facility] #1026, [address] [place], [address], 10/19/2023 11:11:58 emtricit abine 200 mg-tenof ovir disoprox il fumarate 300 mg tablet 2023 024 cmart[facility], [address] [place], [address], 12/04/2023 12:31:20 lidocain e 5 % topical patch 2023 024 cmartorell [facility]/Pharmacy #1026, [address] [place], [address], 12/04/2023 12:31:21 nicotine 21 mg/24 hr daily transder mal [facility] [address] [place], [address], 12/04/2023 12:31:20 emtricit abine 200 mg-tenof ovir disoprox il fumarate 300 mg tablet 2023 024 [facility]/Pharmacy #4471, [address] [place], [address], 02/07/2024 13:03:15 Naprosyn [address] [facility] [address] [place], [address], 02/07/2024 13:03:15 nicotine 21 mg/24 hr daily transder mal patch [address] [facility] [address] [place], [address], 02/07/2024 13:03:15 emtricit abine 200 mg-tenof ovir disoprox il fumarate [address] [address] [place], [address], 06/12/2024 14:18:37 Patient TargetsNo targets recorded. Patient InstructionsNo instructions recorded. Reason for Referral None Reported. Results Created Date Observation Date Name Description Value Unit Range Abnormal Flag Note LastModifiedBy Organization Detail LastModifiedTime 06/12/1906/12/2024 VAGIN ITIS PATHO GENS MOLEC ULAR STUDY .note See Note Origi nal Order ing Provi jessica: RAÚL IA T MARTO PELON [facility] [address] [facility], [place], [place] [address] Not Available [facility] [address] [place], [address], 06/13/2024 10:51:08 06/12/19 25 06/12/2024 VAGIN ITIS PATHO GENS MOLEC ULAR STUDY trichomonas vaginalis Negati ve negati ve Not Available [facility] [address] [place], [address], 06/13/2024 10:51:08 06/12/19 25 06/12/2024 VAGIN ITIS PATHO GENS MOLEC ULAR STUDY gardnerella vaginalis Positi ve negati ve abnormal Not Available [facility] [address] [place] [address], [address], 06/13/2024 10:51:08 06/12/19 25 06/12/2024 VAGIN ITIS PATHO GENS MOLEC ULAR STUDY camron species Positi ve negati ve abnormal Not Available [facility] [address] [place] [address], [address], 06/13/2024 10:51:08 06/12/19 25 06/12/2024 CHLAM YDIA TRACH OMATI S AND NEISS ERIA GONOR RHOEA E MOLEC ULAR STUDY .note See Note Origi nal Order ing Provi jessiac: RAÚL FONG PELON [facility] - [address] [place] [address], [place] [address], [facility] [address] Not Available [facility] [address] [place] [address], [address], 06/13/2024 11:25:13 06/12/19 25 06/12/2024 CHLAM YDIA TRACH OMATI S AND NEISS ERIA GONOR RHOEA E MOLEC ULAR STUDY neisseria gonorrhoeae PCR Negati ve negati ve Not Available [facility] [address] [place] [address], [address], 06/13/2024 11:25:13 06/12/19 25 06/12/2024 CHLAM YDIA TRACH OMATI S AND NEISS ERIA GONOR RHOEA E MOLEC ULAR STUDY chlamydia trachomatis PCR Negati ve negati ve Not Available [facility] [address] [place] [address], [address], 06/13/2024 11:25:13 06/12/19 25 06/12/2024 CHLAM YDIA TRACH OMATI S AND NEISS ERIA GONOR RHOEA E MOLEC ULAR STUDY .note See Note Origi nal Order ing Provi jessica: RAÚL FONG PELON [facility] - [address] [facility], [place] [address], [place] [address] Not Available [facility] [address] [place], [address], 06/13/2024 13:00:18 06/12/19 25 06/12/2024 CHLAM YDIA TRACH OMATI S AND NEISS ERIA GONOR RHOEA E MOLEC ULAR STUDY neisseria gonorrhoeae PCR Negati ve negati ve Not Available [facility] [address] [place], [address], 06/13/2024 13:00:18 06/12/19 25 06/12/2024 CHLAM YDIA TRACH OMATI S AND NEISS ERIA GONOR RHOEA E MOLEC ULAR STUDY chlamydia trachomatis PCR Negati ve negati ve Not Available [facility] [address] [place], [address], 06/13/2024 13:00:18 Result Notes None recorded. Problems Name Problem SNOMED Code Status Onset Date Resolution Date Notes Provider Name and Address Organization Details Recorded Time Smoker 59068926 Active 024 Dilip Casanova MD [address] [place] [address], [phone] , [facility] - DILIP [facility] 12/04/2023 12:12:45 Genital herpes simplex 14350742 Active 024 Dilip Casanova MD [address] [place] [address], [phone] , [facility] - DILIP [facility] 12/04/2023 12:31:12 Problem Notes None recorded. Medical Equipment None Reported. Medications Name Sig Start Date Stop Date Status Note LastModified by Organization Details LastModified Time quetiapine 25 mg tablet TOME 1 TABLETA POR V A ORAL TODOS LOS D AL ACOSTARSE active Not Available Not Available No t Available metformin 500 mg tablet TOME 1 TABLETA POR V A ORAL DOS VECES AL D A FOR 90 DAYS active Not Available Not Available No t Available atorvastatin 80 mg tablet TOME 1 TABLETA POR V [...] Not Available Not Available No t Available quetiapine 100 mg tablet TOME 1 TABLETA POR V [...] Not Available mirtazapine 30 mg tablet TOME 1 TABLETA POR V [...] Not Available Not Available N ot Available docusate sodium 100 mg capsule active Not Available Not Available N ot [...] Not Available Not Available No t Available oxycodone 5 mg tablet active Not Available Not Available No t Available bupropion HCl XL 150 mg 24 hr tablet, extended release TOME 1 TABLETA POR V A ORAL TODOS LOS D EN LA MA RICK active Not Available Not Available No t Available emtricitabin e 200 mg-tenofovir disoproxil fumarate 300 mg tablet Take 1 tablet every day by oral route for 30 days. active Not Available Not Available No t Available fenofibrate 160 mg tablet TAKE 1 TABLET BY MOUTH WITH FOOD ONCE DAILY. active Not Available Not Available No t Available FreeStyle Lite Strips USE 1 TEST STRIP TWICE A DAY active Not Available Not Available No t Available cholecalcife rol (vitamin D3) 50 mcg (2,000 unit) capsule TAKE ONE CAPSULE BY MOUTH EVERY DAY active Not Available Not Available No [...] mg (2 mg/3 mL) subcutaneous pen injector INJECT 0.25 MG (0.368 ML) SUBCUTANEOU SLY EVERY [...] /min 16 /min 98.7 [degF] 28.5 kg/m2 41523.4 5 g 98 % 98 % 140 mm[Hg] 78 mm[Hg] Mattie [facility] 4 11:01:50 Date Recorded Body height Heart rate Respiratory rate Body temperature Body mass index (BMI) Body weight Systolic blood pressure Diastolic blood pressure Provider Name and Address Organization Details Last Updated DateTime 4 154.94 cm 98 /min 11 /min 97.9 [degF] 28.7 kg/m2 49431.0 4 g 119 mm[Hg] 70 mm[Hg] Roseanna [facility] 4 12:04:08 Date Recorded Body height Heart rate Respiratory rate Body temperature Body mass index (BMI) Body weight Systolic blood pressure Diastolic blood pressure Provider Name and Address Organization Details Last Updated DateTime 5 154.94 cm 93 /min 12 /min 98.4 [degF] 28.7 kg/m2 76012.0 4 g 118 mm[Hg] 64 mm[Hg] Roseanna CASANOVA MD [facility] 5 14:02:10 Date Recorded Body height Body temperature Body mass index (BMI) Body weight Systolic blood pressure Diastolic blood pressure Provider Name and Address Organization Details Last Updated DateTime 4 154.94 cm 97.5 [degF] 28.5 kg/m2 71783.4 5 g 130 mm[Hg] 70 mm[Hg] Roseanna [facility] 4 12:31:38 Social History None recorded. Functional Status None recorded. Mental Status None recorded. Family History Nothing Reported. Medical History No medical history recorded. Gynecological HistoryNo gynecological history recorded. Obstetrics History GPAL:G 0 P 0 0 0 0 Past Encounters Encounter ID Performer Location Encounter Start Date Encounter Closed Date Diagnosis/Indication Diagnosis SNOMED-CT Code Diagnosis ICD10 Code Diagnosis Note [id number] Dilip Casanova MD Main Office [address] [place] [address] 04/09/2023 14:02:53 04/09/2023 15:05:19 Exposure to Human immunodeficiency virus 739277341 Z20.6 PreP reviewed.c onsent reviewed and signed.Rod anette (generic) 1 tab po qd.correct and daily use reviewed to prevent HIV.labs.p otetnial side effects reviewed such as allergic reactions among other; renal safety reviewed. hydration. avoid NSAIDScond om use.safe sex. [id number] Dilip Casanova MD Main Office [address] [place] [phone] 07/18/2023 12:22:25 07/18/2023 15:10:38 Exposure to Human immunodeficiency virus 304530872 Z20.6 PreP reviewed.c onsent reviewed and signed.Rod anette (generic) 1 tab po qd.correct and daily use reviewed to prevent HIV.labs.p otetnial side effects reviewed such as allergic reactions among other; renal safety reviewed. hydration. avoid NSAIDScond om use.safe sex. Genital he rpes simplex 76986005 A60.9 HSV 1 and 2 positive serology. no flareups.V altrex PRN reviewed; valtrex suppressio n reviewed.m odes of transmissi on reviewed; in particular HSV 2 associated with other STI trasnmissi onto call if flareupcon dom use rveiewed [id number] Dilip Casanova MD Main Office [address] [place] [phone] 6 10/19/2023 10:44:43 10/19/2023 11:15:21 Exposure to Human immunodeficiency virus 568952281 Z20.6 PreP reviewed.T ruvada (generic) 1 tab po qd.correct and daily use reviewed to prevent HIV.hydrat ion. avoid NSAIDScond om use.safe sex. STI prevention . Genital he rpes simplex 20166311 A60.9 HSV 1 and 2 positive serology. no flareups.V altrex PRN reviewed; valtrex suppressio n reviewed.m odes of transmissi on reviewed; in particular HSV 2 associated with other STI transmissi onto call if flareup Smoker 68072127 F17.200 has used nicotine patch in the past. she prefers 21mg qd dose, and wean as tolerated. other options reviewed [id number] Dilip Casanova MD Main Office [address] [place] [phone] 12/04/2023 11:59:20 12/04/2023 12:18:34 Exposure to Human immunodeficiency virus 219931358 Z20.6 PreP reviewed.c ontinue Truvada (generic) 1 tab po qd.correct and daily use reviewed to prevent HIV.hydrat ion. avoid NSAIDScond om use.safe sex. STI prevention .labsaware of DoxyPEP Genital he rpes simplex 47235131 A60.9 HSV 1 and 2 positive serology. no flareups.V altrex PRN reviewed; valtrex suppressio n reviewed.m odes of transmissi on reviewed; in particular HSV 2 associated with other STI transmissi onto call if flareup Smoker 36160916 F17.200 21mg qd dose, and wean as tolerated. Spasm of back muscles 20 4275099 M62.830 hydrationt ylenol pRNwarm compressbe ngay or biofreezel idocaine patch for pain qd PRN. [id number] Dilip Casanova MD Main Office [address] [place] [phone] 02/07/2024 12:27:38 02/07/2024 13:08:01 Exposure to Human immunodeficiency virus 160928645 Z20.6 PreP reviewed.c ontinue Truvada (generic) 1 tab po qd. wishes to keep PrePcorrec t and daily use reviewed to prevent HIV.hydrat ion.condom use.safe sex. STI prevention .labs 02/2024 Genital he rpes simplex 50897480 A60.9 HSV 1 and 2 positive serology. no flareups.V altrex PRN reviewed; valtrex suppressio n reviewed. Smoker 48825859 F17.200 21mg qd dose, and wean as tolerated. refilled. Spasm of back muscles 20 1143407 M62.830 hydrationt ylenol pRNwarm compressbe ngay or biofreezea wait surgery 02/2024 [id number] Dilip Casanova MD Main Office [address] [place] [phone] 6 06/12/2024 13:46:04 06/12/2024 14:38:24 Exposure to Human immunodeficiency virus 778634077 Z20.6 PreP reviewed.c ontinue Truvada (generic) 1 tab po qd.interes nikos in clinical trials with injectable s.correct and daily use reviewed to prevent HIV.hydrat ion.condom use.safe sex. STI prevention .labs orderedpt aware of DOXYPEP availabili ty, an dcondom use.sample s for BD affirm, GC/chlamyd ia obtained Genital he rpes simplex 96690869 A60.9 HSV 1 and 2 positive serology. no flareups.V altrex PRN reviewed; valtrex suppressio n reviewed. Health Concerns Section Related Observation LastModified by Organization Detai ls LastModified Time None Recorded Concern Status LastModified by Organization Details LastModified Time None Recorded Advance Directives Directive None Recorded Payers Encounter Date Sequence Insurance Name Policy Number Policy Fraser Covered Member ID Fraser Member ID Guarantor Name 07/18/2023 1 [employer] [facility] - DOS ON OR AFTER 2022 - MEDICARE [place]VANTAGE [place]AC[place]/ADV ANTAGE - PPO) Sindi Dwyer [id number] Sindi Dwyer 10/19/2023 1 [facility] DOS ON OR AFTER 2022 - [place]/ADV ANTAGE - PPO) Sindi Dwyer [id number] Sindi Dwyer 12/04/2023 1 [facility] DOS ON OR AFTER 2022 - [place]V ANTAGE - PPO) Sindi Dwyer [id number] Sindi Dwyer 02/07/2024 1 [facility] DOS ON OR AFTER 2022 - [place]/ADV ANTAGE - PPO) Sindi Dwyer [id number] Sindi Dwyer 06/12/2024 1 [facility] - DOS ON OR AFTER 2022 - [place] RE[place]/ADV ANTAGE - PPO) Sindi Dwyer [id number] Sindi Dwyer Notes Date Note Type Note Provider Name and Address Organization Details Recorded Time 07/18/2023 text/html PrePstarted Truv ada 1 tab [...] COVID and flu vaccines. Dilip Casanova MD [address] [place] [address], [phone], [facility]IN [facility] 07/18/2023 12:46:12 10/19/2023 text/html PrePOn daily [...] colonoscopyinterested in smoking cessation Dilip Casanova MD [address] [place] [address], [phone], [facility]IN [facility] 10/19/2023 11:58:11 12/04/2023 text/html PrePOn daily [...] colonoscopyinterested in smoking cessation Dilip Casanova MD [address] [place] [address], [phone], [facility]IN [facility] 12/04/2023 12:32:21 02/07/2024 text/html PreP On [...] HCV neg; syphilis neg; Dilip Casanova MD [address] [place] [address], [phone], [facility] Gertrudis CASANOVA [facility] 02/07/2024 13:06:12 06/12/2024 text/html PrePOn daily Rod anette 1 tab po qd interested in clinical trials. willing to get on injectables.denies missing dosestaking daily. compliant.no concernsno side effectsno n/v/d. no abd pain. no jaundiceno STI sx nor sx of STI'sno rash. no vaginal discharge.no drug use.she is not with current partner since February 2024 due to infidelity issues from his part; she may be seeing other people. she owuld like to get tested.sciatica hx: underwent surgery 02/2024. on pain tx.no recent labs12/2023 HIV negative; GC/chlamydia neg eGFR>60; RPR NR; HCV negl ALT/AST wnl; neg syphilis.10/2023: HIV neg; HCV neg; syphilis neg; also has sciatica on L side. chronic pain manmagement Nicotine patch helped. smoking 2 cigarettes per day. wishes to hold it for now. DM well controlled; has lost weight due to meds; Reports HgAIC less than 6.6; she will get evaluation by plastic surgeon for abdominoplaty 2nd weight loss Dilip T. [place], MD [address] [place] [address], [phone], [facility] - DILIP CASANOVA [facility] 06/12/2024 14:29:17 OBGyn Episode No OBEpisode recorded.
--- OUTSIDE RECORDS SUMMARY | 2024-06-26 13:20 | XMS_ITS | Continuity of Care Document ---
Author Organization [facility] - DILIP BIRD MD [facility], Main Office Address [address] [place] [address] Assessment Encounter Date Assessment Date Assessment LastModified by Organization Details LastModified Time 06/12/2024 06/12/2024 telemedicine. video. 18 min. pt home in [place] [email or web address] Not available 06/12/2024 13:51:28 Plan of Treatment Reminders Order Date Submit Date Provider Last Modified By Organization Details Last Modified Time Details Appointments PREP FOLLOW UP 2024 02:00P Bonnie Casanova MD Not available Not available Not available Lab CBC w/ diff [address] (Lab), [address] [place] [address], [id number], 06/19/2024 10:23:22 electroly willow panel, blood [address] (Lab), [address] [place] [address], [id number], 06/19/2024 10:23:22 ALT (alanine aminotran sferase), serum or plasma [address] (Lab), [address] [place] [address], [id number], 06/19/2024 10:23:22 AST/SGOT (aspartat e aminotran sferase), serum or plasma [address] (Lab), [address] [place] [address], [id number], 06/19/2024 10:23:22 CT + NG DNA, PCR, unspecifi ed specimen [address] [place] [address] (Lab), [address] [place] [address], [id number], 06/12/2024 15:19:45 creatinin e w/ estimated GFR (eGFR), serum or plasma [address] [place] [address] (Lab), [address] [place] [address], [id number], 06/19/2024 10:23:22 hepatitis C virus Ab, serum [address] [place] [address] (Lab), [address] [place] [address], [id number], 06/19/2024 10:23:22 RPR (rapid plasma reagin), serum [address] [place] [address] (Lab), [address] [place] [address], [id number], 06/19/2024 10:23:22 HIV (1+2) Ab screen, serum [address] [place] [address] (Lab), [address] [place] [address], [id number], 06/19/2024 10:23:23 HBsAg (hepatiti s B surface Ag), serum [address] [place] [address] (Lab), [address] [place] [address], [id number], 06/19/2024 10:23:23 chlamydia + gonorrhea DNA panel, unspecifi ed specimen [address] [place] [address] (Lab), [address] [place] [address], [id number], 06/12/2024 15:19:24 bacterial vaginosis + vaginitis panel, vaginal [address] [place] [address] (Lab), [address] [place], [id number], 06/12/2024 15:20:04 Referral None recorded. Procedures None recorded. Surgeries None recorded. Imaging None recorded. Medication Orders emtricita bine 200 mg-tenofo vir disoproxi l fumarate 300 mg tablet 2024 025 [facility] #[id number], [address] [place], [address], 06/12/2024 14:18:37 Patient TargetsNo targets recorded. Patient InstructionsNo instructions recorded. Reason for Referral None Reported. Problems Name Problem SNOMED Code Status Onset Date Resolution Date Notes Provider Name and Address Organization Details Recorded Time Smoker 50227133 Active 024 Dilip Casanova MD [address] [place] [address], [phone] , [facility] - DILIP CASANOVA MD [facility] 12/04/2023 12:12:45 Genital herpes simplex 47990408 Active 024 Dilip Casanova MD [address] [place] [address], [phone] , [facility] - DILIP CASANOVA MD [facility] 12/04/2023 12:31:12 Problem Notes None [...] A ORAL TODOS LOS D EN LA DARVIN RICK active Not Available Not Available No [...] /min 12 /min 98.4 [degF] 28.7 kg/m2 90139.0 4 g 118 mm[Hg] 64 mm[Hg] Roseanna ROBERTS 5 14:02:10 Social History None recorded. Functional Status None recorded. Mental Status None recorded. Family History Nothing Reported. Medical History No medical history recorded. Gynecological HistoryNo gynecological history recorded. Obstetrics History GPAL:G 0 P 0 0 0 0 Past Encounters Encounter ID Performer Location Encounter Start Date Encounter Closed Date Diagnosis/Indication Diagnosis SNOMED-CT Code Diagnosis ICD10 Code Diagnosis Note [id number] Dilip Casanova MD Main Office [address] [place] [address] 06/12/2024 13:46:04 06/12/2024 14:38:24 Exposure to Human immunodeficiency virus 964266334 Z20.6 PreP reviewed.c ontinue Truvada (generic) 1 tab po qd.interes nikos in clinical trials with injectable s.correct and daily use reviewed to prevent HIV.hydrat ion.condom use.safe sex. STI prevention .labs orderedpt aware of DOXYPEP availabili ty, an dcondom use.sample s for BD affirm, GC/chlamyd ia obtained Genital he rpes simplex 84211833 A60.9 HSV 1 and 2 positive serology. no flareups.V altrex PRN reviewed; valtrex suppressio n reviewed. Health Concerns Section Related Observation LastModified by Organization Detai ls LastModified Time None Recorded Concern Status LastModified by Organization Details LastModified Time None Recorded Payers Encounter Date Sequence Insurance Name Policy Number Policy Fraser Covered Member ID Fraser Member ID Guarantor Name 06/12/2024 1 [facility] - DOS ON OR AFTER 2022 - MEDICARE [place]VANTAGE [place] (MEDICARE REPLACEMENT/ADV ANTAGE - PPO) Sindi Dwyer [id number] Sindi Dwyer Notes Date Note Type Note Provider Name and Address Organization Details Recorded Time 06/12/2024 text/html PrePOn daily Truvada 1 tab po qd interested in clinical [...] surgeon for abdominoplaty 2nd weight loss Dilip Casanova MD [address] [place] [address], [phone], [facility] - DILIP CASANOVA MD [facility] 06/12/2024 14:29:17 OBGyn Episode No OBEpisode recorded.
== END 2024-06-26 11:05 | disposition home or self-care (01) ==
LOC: HO.LAB 11:04
PROVIDERS: PCP Internal Medicine; Visit Provider Internal Medicine Infectious Disease
DX: Z20.6 Contact with and (suspected) exposure to human immunodeficiency virus [HIV] (principal)
CPT/HCPCS: 36415; 80051; 82565; 84450; 84460; 85025; 86780; 86803; 87340; 87389

== ENCOUNTER 2024-08-04 10:39 | Outpatient (AMB) | payer OTHER, SELFPAY ==
--- NOTE | 2024-08-04 10:49 | MHC.PC.OV ---
Vital Signs 08/04/24 10:50 Height 5 ft 1 in Weight 145 lb BMI 27.4 BP 122/80 Blood Pressure Location Lt brachial Position Sitting Intake Visit Reasons: 3 month f/u Intake Note: Patient here for a 3 month follow up Commercial Crabber Required: Yes Commercial Crabber Language: Junior [employer] D[employer] Name: Neha Naylor MD Information Interpreted: non-clinical & clinical Accompanied by: Self / Same As Patient Allergies hydrocodone [From Vicodin] Allergy (Intermediate, Verified 08/04/24 11:01) Rash trulicity Adverse Reaction (Intermediate, Uncoded 08/04/24 11:01) headaches Medication List - Last Reconciled 08/04/24 by Neha Naylor MD amlodipine 10 mg PO DAILY aspirin 81 mg PO DAILY atorvastatin 80 mg PO DAILY baclofen 5 mg PO TID blood sugar diagnostic (FreeStyle Lite Strips) Use 1 test strip twice a day blood-glucose meter (FreeStyle [place] Lite kit) As directed buspirone 10 mg PO BID cholecalciferol (vitamin D3) 50 mcg PO DAILY 90 days clonazepam 1 mg PO docusate sodium (Colace) 100 mg PO BID fenofibrate 160 mg PO DAILY 90 days flash glucose sensor (FreeStyle Josiah 14 Day Sensor kit) 1 ea topical Q2W 90 days fluoxetine 20 mg PO DAILY isosorbide mononitrate ER 30 mg PO QAM 90 days lidocaine 5% (Lidoderm) 1 patch topical DAILY lisinopril 40 mg PO DAILY 90 days metformin 1,000 mg PO BID 90 days mirtazapine 30 mg PO BEDTIME naproxen 500 mg PO Q8-12H PRN nicotine 1 patch transdermal Q24H 14 days omeprazole 20 mg PO DAILY 90 days ondansetron HCl 4 mg PO Q8H PRN 10 days oxycodone 5 mg PO Q4H PRN pen needle, diabetic As directed semaglutide (Ozempic) 0.25 mg (0.368 mL) subcut QWEEK 4 weeks transparent dressings (Tegaderm First Aid Style) As directed [Tums ] Ventolin HFA 90 mcg/actuation (albuterol sulfate) 2 puffs inhalation Q6H PRN 30 days NS Tobacco use date assessed: 08/04/24 Dental Screening Dental Screen Date: 08/04/24 Did you have a dental visit in the last 12 months?: No Did you have a dental problem in the last 6 months where you did not have access to dental care?: No Was dental information given to patient?: Patient has dentist HPI HPI Comments History of Present Illness Details The patient is a 64-year-old female presenting with follow-up for diabetes management, hypertension control, and medication adjustments. Her diabetes is well-managed with a regimen including Metformin and Ozempic, supported by lifestyle changes. Essential Hypertension is suitably controlled, receiving Amlodipine and Lisinopril. The patient survived a Cerebrovascular Accident in 2018, enduring mobility deficits managed by ambulation aid. Her mental health, including depression and anxiety, is maintained under psychiatric care. Gastroesophageal Reflux Disease and postoperative back discomfort are controlled pharmacologically. She reports symptomatic relief from chronic constipation. [facility] Medical History (Updated 08/04/24 @ 12:07 by Neha Naylor MD) CVA (cerebral vascular accident) (~2018) Cardiomegaly Nicotine dependence, cigarettes, uncomplicated Mild recurrent major depression History of stroke Overweight (BMI 25.0-29.9) Scalp tenderness GERD (gastroesophageal reflux disease) Left hemiplegia Mixed hyperlipidemia Pulmonary nodules Hypertriglyceridemia CAD (coronary artery disease) Low back pain Left breast mass Moderate persistent asthma without complication Essential hypertension Tachycardia Leukocytosis, unspecified Microalbuminuria Surgical History Hx of surgical procedure (10/01/23) History of laparoscopy S/P insertion of spinal cord stimulator History of tubal ligation History of back surgery Family History Father Diabetes Mother Diabetes HTN (hypertension) CVD (cardiovascular disease) Brother No problems noted. Brother No problems noted. Sister Diabetes Breast cancer Son Alive and well Daughter Alive and well Breast cancer Social History Household Members: None Housing: House Housing Other:: 2 family Are you a primary career developer to a significant other at home: No Do you presently have visiting nurse or other home services: No Alcohol intake: never Patient Tobacco Use Status: Current everyday Tobacco user Tobacco use type: Cigarette Cigarette Packs Per Day: 1 Cigarettes Per Day: 20.0 Years Smoked: (current smoker - onset 13yo, 1-2ppd x 49yrs, now 1/4ppd, 60pyh) Packs Per Year: 0 Packs per year/per ci.00 e-Cigarette/Vaping Use: Never Used Second Hand Smoke Exposure: No service: No Current occupational status: disabled Cognitive needs: No Hearing needs: No Vision needs: Yes Questionnaire PHQ-9 Over the last 2 weeks, how often have you been bothered by any of the following problems? 1. Little interest or pleasure in doing things: not at all 2. Feeling down, depressed, or hopeless: not at all 3. Trouble falling or staying asleep, or sleeping too much: not at all 4. Feeling tired or having little energy: not at all 5. Poor appetite or overeating: not at all 6. Feeling bad about yourself - or that you are a failure or have let yourself or your family down: not at all 7. Trouble concentrating on things, such as reading the newspaper or watching television: not at all 8. Moving or speaking so slowly that other people could have noticed. Or the opposite - being so fidgety or restless that you have been moving around a lot more than usual: not at all 9. Thoughts that you would be better off or of hurting yourself in some way: not at all Total score: 0 Depression Screening Interpretation: Negative Depression Screening Done: Yes 80541 - PHQ-9 Billing: Yes Source: Developed by Drs. Dmitry Ruffin, Supriya oWlff, Bg Low and colleagues, with an educational deb from [employer]. Thrive Questionnaire Date Thrive assessed: 08/04/24 I am a: Patient What is your living situation today?: I have a steady place to live Within the past 12 months, did the food you bought not last and you didn't have the money to get more?: Never true Within the past 12 months, did you worry whether your food would run out before you got money to buy more?: Never true Do you have trouble paying for medicines?: No Do you have trouble getting transportation to medical appointments?: No Do you have trouble paying your heating and electricity bill?: No Do you have trouble taking care of your child, family member or friend?: No Do you have trouble with day-to-day activities such as bathing, preparing meals, shopping, managing finances, etc.?: No Are you currently unemployed and looking for a job?: No Are you interested in more education?: No Please select the resources that you would like help with: None Currently or been in a relationship where the following occur: No concerns reported THRIVE Score: 0 AUDIT C Alcohol Use Questionnaire (AUDIT-C) 1. How often do you have a drink containing alcohol?: Never Total Score: 0 Score Reviewed/Action Taken: No CIELO-7 AMB Questionnaire CIELO-7 Date CIELO - 7 assessed: 08/04/24 Feeling nervous, anxious, or on edge: 0 = Not at all Not being able to stop or control worryin = Not at all Worrying too much about different things: 0 = Not at all Trouble relaxin = Not at all Being so restless that it is hard to sit still: 0 = Not at all Becoming easily annoyed or irritable: 0 = Not at all Feeling afraid as if something awful might happen: 0 = Not at all Total CIELO-7 score (0-4 normal; 5-9 mild; 10-14 moderate; 15-21 severe): 0 Source: Developed by Drs. Dmitry Ruffin, Supriya Wolff, Bg Low and colleagues, with an educational deb from [employer]. CIELO-7 Assessment Billing CIELO-7 Assessment Tool: CIELO-7 Assessment 63495 Review of Systems Const All systems reviewed & are unremarkable except as noted in HPI and below Card Denies chest pain at rest, Denies chest pain with activity, Denies edema, Denies irregular heart rhythm, Denies claudication, Denies dyspnea, Denies dyspnea on exertion, Denies orthopnea, Denies paroxysmal nocturnal dyspnea and Denies slow heart rate Resp Denies cough, Denies dyspnea and Denies dyspnea on exertion Physical exam (Primary Care) Vital Signs: Last Vital Signs BP 122/80 08/04/24 10:50 BMI result Body Mass Index 27.4 Tobacco/Smoking Status: Tobacco use Status Tobacco use date assessed 08/04/24 08/04/24 10:56 Patient Tobacco Use Status Current everyday Tobacco 08/04/24 10:56 Tobacco use type Cigarette 08/04/24 10:56 e-Cigarette/Vaping Use Never Used 08/04/24 10:56 PHQ-9: PHQ-9 Score PHQ-9: Total score 0 08/04/24 11:15 Depression Screening Interpretation: Negative Thrive Assessment: Date of Thrive Assessment Date Thrive assessed 08/04/24 08/04/24 10:56 Currently or been in a relationship where the following occur: No concerns reported Resp Effort & Inspection: normal respiratory effort Auscultation: clear to auscultation bilaterally Cardio Jugular venous distension: no JVD Rate: regular rate Rhythm: regular rhythm Heart sounds: S1 normal heart sound present and S2 normal heart sound present Extrem General: Yes full ROM Results AMB Hemoglobin A1c AMB Hemoglobin A1c 6.4 % Last Edit by MONY Villalobos on 08/04/24 11:15 Results Reviewed Results Reviewed: Laboratory Last Values Hgb A1c (Clinic) 6.4 % (4.0-6.0) H 08/04/24 11:00 Coding Level of Care Code Est Pt Level 4 (48480) Complex EM visit Add On G2211 Diagnoses Type 2 diabetes mellitus with hyperglycemia, without long-term current use of insulin E11.65 Diabetes mellitus type: type 2 Diabetes mellitus termite control service representative insulin use: without snf use Diabetes mellitus complication status: with hyperglycemia Essential hypertension I10 Mixed hyperlipidemia E78.2 Gastroesophageal reflux disease, unspecified whether esophagitis present K21.9 Esophagitis presence: esophagitis presence not specified Mild recurrent major depression F33.0 Left hemiplegia G81.94 CVA (cerebral vascular accident) I63.9 Additional Codes CIELO-7 Assessment Billing - CIELO-7 Assessment Tool: CIELO-7 Assessment 14464 ([id number]) PHQ-9 - 22687 - PHQ-9 Billing: Yes ([id number]) Time Spent (min) 25 Assessment & Plan Assessment & Plan (1) Diabetes mellitus: Onset Date: ~2013 Comment: (DM2 - 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) Code(s): E11.9 - Type 2 diabetes mellitus without complications Category: Medical Qualifiers: Diabetes mellitus type: type 2 Diabetes mellitus snf insulin use: without termite control service representative use Diabetes mellitus complication status: with hyperglycemia Qualified Code(s): E11.65 - Type 2 diabetes mellitus with hyperglycemia (2) Essential hypertension: Code(s): I10 - Essential (primary) hypertension Category: Medical (3) Mixed hyperlipidemia: Code(s): E78.2 - Mixed hyperlipidemia Category: Medical (4) GERD (gastroesophageal reflux disease): Code(s): K21.9 - Gastro-esophageal reflux disease without esophagitis Category: Medical Qualifiers: Esophagitis presence: esophagitis presence not specified Qualified Code(s): K21.9 - Gastro-esophageal reflux disease without esophagitis (5) Mild recurrent major depression: Code(s): F33.0 - Major depressive disorder, recurrent, mild Category: Medical (6) Left hemiplegia: Code(s): G81.94 - Hemiplegia, unspecified affecting left nondominant side Category: Medical (7) CVA (cerebral vascular accident): Onset Date: ~2018 Comment: some left sided weakness Code(s): I63.9 - Cerebral infarction, unspecified Category: Medical Plan The patient's diabetes regimen with Metformin and Ozempic facilitates control with supportive lifestyle adaptations. Hypertension remains under adequate management using Amlodipine and Lisinopril. Stroke history with left hemiparesis requires ambulatory aid continuation. Psychiatric support is vital in maintaining mental health stability for depression, insomnia, and anxiety. GERD management with Omeprazole shows therapeutic success. Weight management efforts should persist due to efficacy observed thus far. Chronic left leg pain continues to require optimization, likely with pain management strategies. Patient was informed and verbally consented to the use of an ambient scribe for clinic note documentation during this visit. During the visit, I discussed with the patient the notable success in managing her diabetes, hypertension, and mood disorders under the current therapeutic regimen. The risks of non-compliance with her prescribed medication, particularly concerning blood pressure and glucose control, were emphasized. We discussed the option of maintaining her recent weight loss efforts by integrating consistent exercise. I reiterated the importance of regular monitoring of glucose levels at home. Insurance-related denials but approval nuances were clarified, explaining the potential necessity for alternative coverage or [id number] payments. Anticipatory guidance concerning her leg pain involved exploring eventual comprehensive pain management interventions. Orders: Orders AMB Hemoglobin A1c Today E11.65 - Type 2 diabetes mellitus with hyperglycemia Vitamin D 25-OH Total Today E55.9 - Vitamin D deficiency, unspecified Comprehensive [place]. Panel Fast Today E11.65 - Type 2 diabetes mellitus with hyperglycemia Lipid Panel Today E78.5 - Hyperlipidemia, unspecified Microalbumin, Random (w Creat) Today R80.9 - Proteinuria, unspecified Patient Instructions: - Continue with current medication regimen; take medications as prescribed. - Monitor blood glucose levels at home; report any significant deviations. - Maintain dietary and lifestyle changes to support weight loss and diabetes control. - Continue using the cane for stability and as needed for ambulation. - Follow up with mental health professionals for anxiety and depression management. - Report any new or worsening symptoms, particularly in regard to left leg pain. - Ensure regular check-ins for blood pressure and routine blood tests as scheduled.
[2024-08-04 10:50] VITALS: BP 122/80; BMI 27.4
--- OUTSIDE RECORDS SUMMARY | 2024-08-04 12:25 | XMS_ITS | Clinical Summary ---
Author Organization 299 [facility] Address [address] [place] [address] Phone Care Team Providers Care Final Tester Name Role Phone Neha Naylor MD Primary Care Provider [phone] Encounters Date Type Department Care Team Description 06/12/2024 Lab Requisition [facility] - Main Lab [address] [facility] [place] [address] Dayna Casanova MD Contact with and (suspected) exposure to human immunodeficiency virus (hiv) from Last 3 Months Social History Tobacco Use Types Packs/Day Years Used Date Smoking Tobacco: Never Assessed Comments Unknown Sex and Gender Information Value Date Recorded Sex Assigned at Not on file Legal Sex Female 6:17 PM EST Gender Identity Not on file Sexual Orientation Not on file Plan of Treatment Health Maintenance Due Date Last Done Comments Breast Cancer Screening 1961 DTaP,Tdap,and Td Vaccines (1 - Tdap) 1980 Hepatitis A Vaccines (1 of 2 - Risk 2-dose series) 1980 Cervical Cancer Screening: P ap Smear 1982 Pneumococcal Vaccine: 50+ Ye ars (1 of 1 - PCV) 2011 Zoster Vaccines (1 of 2) 2011 Hepatitis B Vaccines (1 of 3 - Risk 3-dose series) 2021 RSV Immunization Patients 60 + Years Old (1 - Risk 60-74 years 1-dose series) 2021 Cholesterol Screening (Lipid Panel) 05/17/2022 Colorectal Cancer Screening: Colonoscopy 05/17/2022 Depression Screening 05/17/2022 HIV Screening 05/17/2022 Hepatitis C Screening 05/17/2022 Social Influencers of Health Screening 05/17/2022 Hypertension/CHF/CAD Annual BMP Blood Test 05/18/2022 COVID-19 Vaccine (1 - 2023-2 5 season) 2024 Influenza Vaccine (#1) 2024 06/26/2018 HIB Vaccines Aged Out No longer eligi ble based on patient's age to complete this topic HPV Vaccines Aged Out No longer eligi ble based on patient's age to complete this topic IPV Vaccines Aged Out No longer eligi ble based on patient's age to complete this topic MMR Vaccines Aged Out No longer eligi ble based on patient's age to complete this topic Meningococcal ACWY Vaccine Aged Out N o longer eligible based on patient's age to complete this topic Meningococcal B Vacine Aged Out No lo nger eligible based on patient's age to complete this topic Pneumococcal Vaccine: Pediat rics (0 to 5 Years) and At-Risk Patients (6 to 64 Years) Aged Out No longer eligi ble based on patient's age to complete this topic RSV Immunization Patients Un jessica 20 months Aged Out No longer eligible b ased on patient's age to complete this topic Varicella Vaccines Aged Out No longer eligible based on patient's age to complete this topic Procedures Procedure Name Priority Date/Time Associated Diagnosis Comments VAGINITIS PATHOGENS BY PCR Routine 06/12/2024 12:00 AM EST Contact with and (suspected) exposure to human immunodeficiency virus (hiv) CHLAMYDIA TRACHOMATIS AND NEISSERIA GONORRHOEAE PCR Routine 06/12/2024 12:00 AM EST Contact with and (suspected) exposure to human immunodeficiency virus (hiv) CHLAMYDIA TRACHOMATIS AND NEISSERIA GONORRHOEAE PCR Routine 06/12/2024 12:00 AM EST Contact with and (suspected) exposure to human immunodeficiency virus (hiv) from Last 3 Months Results * (ABNORMAL) Vaginitis pathogens molecular study (06/12/2024 12:00 AM EST) Trichomonas vaginalis Negative Negative 06/13/2024 10:49 AM EST [facility] Gardnerella vaginalis Positive(A) Negative 06/13/2024 10:49 AM EST [facility] Kaelyn Species Positive(A) Negative 06/13/19 10:[address] [facility] Swab Vaginal structure / Unknown 06/12/2024 06/12/2024 7:03 PM EST Dayna Casanova MD LAB MICROBIOLOGY - GENERA L ORDERABLES Final Result Performing Organization Address [facility]/ZIP Co de Phone Number [facility] [address] [place] [address], [place] [phone] * Chlamydia trachomatis and Neisseria gonorrhoeae molecular study (06/12/2024 12:00 AM EST) Only the most recent of2 resultswithin the time period is included. Neisseria gonorrhoeae PCR Negative Negative LAB MOLECULAR DIAGNOSTICS METHOD 06/13/2024 11:23 AM EST [facility] Chlamydia trachomatis PCR Negative Negative LAB MOLECULAR DIAGNOSTICS METHOD 06/13/2024 11:23 AM EST [facility] Urine Cervix uteri structure / Unknown 06/12/2024 06/12/2024 7:03 PM EST Dayna Casanova MD LAB MICROBIOLOGY - GENERA L ORDERABLES Final Result Performing Organization Address [facility]/ZIP Co de Phone Number [facility] [address] [place] [address], [place] [phone] from Last 3 Months Insurance [place] Care Teams Final Tester Relationship Specialty Start Date End Date Neha Naylor MD [address] [facility] , [address] [facility] D/B/A: [facility] DARVIN Mclaughlin PCP - General 02/08/16
--- OUTSIDE RECORDS SUMMARY | 2024-08-04 12:25 | XMS_ITS | Data Portability ---
Author Organization [facility] - DILIP BIRD MD [facility], Main Office Address [address] [place] [phone] Assessment Encounter Date Assessment Date Assessment LastModified by Organization Details LastModified Time 02/07/2024 02/07/2024 telemedicine. video. 18 min. pt home in [place] [email or web address] Not available 02/07/2024 13:03:28 06/12/2024 06/12/2024 telemedicine. video. 18 min. [place] home [email or web address] Not available 06/12/2024 13:51:28 Plan of Treatment Reminders Order Date Submit Date Provider Last Modified By Organization Details Last Modified Time Details Appointments PREP FOLLOW UP 2024 02:00P Bonnie Casanova MD Not available Not available Not available Lab CBC w/ diff [address] (Lab), [address] [place] [address], [id number], 06/19/2024 10:23:22 electrol ytes panel, blood [address] (Lab), [address] [place] [address], [address], 06/19/2024 10:23:22 ALT (alanine aminotra nsferase ), serum or plasma [address] (Lab), [address] [place] [address], [address], 06/19/2024 10:23:22 AST/SGOT (asparta te aminotra nsferase ), serum or plasma [address] (Lab), [address] [place] [address], [address], 06/19/2024 10:23:22 CT + NG DNA, PCR, unspecif ied specimen [address] [place] [address] (Lab), [address] [place] [address], [address], 06/12/2024 15:19:45 creatini ne w/ estimate d GFR (eGFR), serum or plasma [address] [place] [address] (Lab), [address] [place] [address], [id number], 06/19/2024 10:23:22 hepatiti s C virus Ab, serum [address] [place] [address] (Lab), [address] [place] [address], [address], 06/19/2024 10:23:22 RPR (rapid plasma reagin), serum [address] [place] [address] (Lab), [address] [place] [address], [address], 06/19/2024 10:23:22 HIV (1+2) Ab screen, serum [address] [place] [address] (Lab), [address] [place] [address], [address], 06/19/2024 10:23:23 HBsAg (hepatit is B surface Ag), serum [address] [place] [address] (Lab), [address] [place] [address], [address], 06/19/2024 10:23:23 chlamydi a + gonorrhe a DNA panel, unspecif ied specimen [address] [place] [address] (Lab), [address] [place] [address], [address], 06/12/2024 15:19:24 bacteria l vaginosi s + vaginiti s panel, vaginal [address] (Lab), [address] [place] [address], [address], 06/12/2024 15:20:04 CBC w/ diff [address] (Lab), [address] [place] [address], [address], 02/14/2024 11:58:31 electrol ytes panel, blood [address] (Lab), [address] [place] [address], [address], 02/14/2024 11:58:31 ALT (alanine aminotra nsferase ), serum or plasma [address] (Lab), [address] [place] [address], [address], 02/14/2024 11:58:31 AST/SGOT (asparta te aminotra nsferase ), serum or plasma [address] (Lab), [address] [place] [address], [address], 02/14/2024 11:58:31 CT + NG DNA, PCR, unspecif ied specimen [address] (Lab), [address] [place] [address], 340[address], 02/14/2024 11:58:31 creatini ne w/ estimate d GFR (eGFR), serum or plasma [address] (Lab), [address] [place] [address], [address], 02/14/2024 11:58:31 hepatiti s C virus Ab, serum [address] (Lab), [address] [place] [address], [address], 02/14/2024 11:58:31 RPR (rapid plasma reagin), serum [address] (Lab), [address] [place] [address], [address], 02/14/2024 11:58:32 HIV (1+2) Ab screen, serum [address] (Lab), [address] [place] [address], [address], 02/14/2024 11:58:32 CBC w/ diff [address] (Lab), [address] [place] [address], 599[address], 12/11/2023 13:02:53 electrol ytes panel, blood [address] (Lab), [address] [place] [address], 977[address], 12/11/2023 13:02:53 ALT (alanine aminotra nsferase ), serum or plasma [address] (Lab), [address] [place] [address], 890[address], 12/11/2023 13:02:53 AST/SGOT (asparta te aminotra nsferase ), serum or plasma [address] (Lab), [address] [place] [address], 00[address], 12/11/2023 13:02:53 CT + NG DNA, PCR, unspecif ied specimen [address] (Lab), [address] [place], [address], 12/11/2023 13:02:54 creatini ne w/ estimate d GFR (eGFR), serum or plasma [address] (Lab), [address] [place] [address], 53669, 12/11/2023 13:02:54 hepatiti s C virus Ab, serum [address] (Lab), [address] [place] [address], 270[address], 12/11/2023 13:02:54 RPR (rapid plasma reagin), serum [address] (Lab), [address] [place] [address], 03974, 12/11/2023 13:02:54 HIV (1+2) Ab screen, serum [address] (Lab), [address] [place] [address], 06897, 12/11/2023 13:02:54 CBC w/ diff [address] (Lab), [address] [place] [address], 444[address], 07/27/2023 16:21:38 electrol ytes panel, blood [address] (Lab), [address] [place] [address], [address], 07/27/2023 16:21:38 ALT (alanine aminotra nsferase ), serum or plasma [address] (Lab), [address] [place] [address], 798[address], 07/27/2023 16:21:38 AST/SGOT (asparta te aminotra nsferase ), serum or plasma [address] (Lab), [address] [place] [address], 47[address], 07/27/2023 16:21:38 CT + NG DNA, PCR, unspecif ied specimen 2023 024 [facility], [address] [place] [address], [address], 07/18/2023 20:31:31 creatini ne w/ estimate d GFR (eGFR), serum or plasma [address] (Lab), [address] [place] [address], 85955, 07/27/2023 16:21:38 hepatiti s C virus Ab, serum [address] (Lab), [address] [place] [address], 32352, 07/27/2023 16:21:38 RPR (rapid plasma reagin), serum [address] (Lab), [address] [place] [address], 90946, 07/27/2023 16:21:38 HIV (1+2) Ab screen, serum [address] (Lab), [address] [place] [address], 36583, 07/27/2023 16:21:38 hsv (1+2) igg Ab, serum [address] (Lab), [address] [place] [address], 057[address], 07/27/2023 16:21:38 HBsAg (hepatit is B surface Ag), serum [id number] (Lab), [address] [place] [address], [address], 07/27/2023 16:21:38 Referral None recorded . Procedures None recorded . Surgeries None recorded . Imaging None recorded . Medication Orders emtricit abine 200 mg-tenof ovir disoprox il fumarate 300 mg tablet 2024 025 [facility]/Pharmacy #4471, [address] [place], [address], 06/12/2024 14:18:37 emtricit abine 200 mg-tenof ovir disoprox il fumarate 300 mg tablet 2023 024 [facility]/Pharmacy #4471, [address] [place], [address], 02/07/2024 13:03:15 Naprosyn 500 mg tablet 2023 024 [facility]/Pharmacy #1026, [address] [place], [address], 02/07/2024 13:03:15 nicotine 21 mg/24 hr daily transder mal patch 2023 024 [facility]/Pharmacy #1026, [address] [place], [address], 02/07/2024 13:03:15 emtricit abine 200 mg-tenof ovir disoprox il fumarate 300 mg tablet 2023 024 [email or web address]/Pharmacy #4471, [address] [place], [address], 12/04/2023 12:31:20 lidocain e 5 % topical patch 2023 024 [email or web address]/Pharmacy #1026, [address] [place], [address], 12/04/2023 12:31:21 nicotine 21 mg/24 hr daily transder mal patch 2023 024 [facility]/Pharmacy #1026, [address] [place], [address], 12/04/2023 12:31:20 emtricit abine 200 mg-tenof ovir disoprox il fumarate 300 mg tablet 2023 024 [facility]/Pharmacy #4471, [address] [place], [address], 10/19/2023 11:11:59 nicotine 21 mg/24 hr daily transder mal patch 2023 024 [facility]/Pharmacy #1026, [address] [place], [address], 10/19/2023 11:11:58 emtricit abine 200 mg-tenof ovir disoprox il fumarate 300 mg tablet 2023 024 [facility] [address] [place], [address], 07/18/2023 12:44:12 Patient TargetsNo targets recorded. Patient InstructionsNo instructions recorded. Reason for Referral None Reported. Results Created Date Observation Date Name Description Value Unit Range Abnormal Flag Note LastModifiedBy Organization Detail LastModifiedTime 06/12/1906/12/2024 VAGIN ITIS PATHO GENS MOLEC ULAR STUDY .note See Note Origi nal Order ing Provi jessica: RAÚL IA T MARTO PELON [facility] - [address] [facility], [place] [address] Not Available [facility] [address] [place], [address], 06/13/2024 10:51:08 06/12/19 25 06/12/2024 VAGIN ITIS PATHO GENS MOLEC ULAR STUDY trichomonas vaginalis Negati ve negati ve Not Available [facility] [address] [place], [address], 06/13/2024 10:51:08 06/12/19 25 06/12/2024 VAGIN ITIS PATHO GENS MOLEC ULAR STUDY gardnerella vaginalis Positi ve negati ve abnormal Not Available [facility] [address] [place] [address], [address], 06/13/2024 10:51:08 06/12/19 25 06/12/2024 VAGIN ITIS PATHO GENS MOLEC ULAR STUDY camron species Positi ve negati ve abnormal Not Available [facility] [address] [place] [address], [address], 06/13/2024 10:51:08 06/12/19 25 06/12/2024 CHLAM YDIA TRACH OMATI S AND NEISS ERIA GONOR RHOEA E MOLEC ULAR STUDY .note See Note Origi nal Order ing Provi jessica: RAÚL FONG PELON [facility] - [address] [place] [address], [place] [address], [facility] [address] Not Available [facility] [address] [place] [address], [address], 06/13/2024 11:25:13 06/12/19 25 06/12/2024 CHLAM YDIA TRACH OMATI S AND NEISS ERIA GONOR RHOEA E MOLEC ULAR STUDY neisseria gonorrhoeae PCR Negati ve negati ve Not Available [facility] [address] [place] [address], [address], 06/13/2024 11:25:13 06/12/19 25 06/12/2024 CHLAM YDIA TRACH OMATI S AND NEISS ERIA GONOR RHOEA E MOLEC ULAR STUDY chlamydia trachomatis PCR Negati ve negati ve Not Available [facility] [address] [place] [address], [address], 06/13/2024 11:25:13 06/12/19 25 06/12/2024 CHLAM YDIA TRACH OMATI S AND NEISS ERIA GONOR RHOEA E MOLEC ULAR STUDY .note See Note Origi nal Order ing Provi jessica: RAÚL FONG PELON [facility] - [address] [facility], [place] [address], [place] [address] Not Available [facility] [address] [place], [address], 06/13/2024 13:00:18 06/12/19 25 06/12/2024 CHLAM YDIA TRACH OMATI S AND NEISS ERIA GONOR RHOEA E MOLEC ULAR STUDY neisseria gonorrhoeae PCR Negati ve negati ve Not Available [facility] [address] [place], [address], 06/13/2024 13:00:18 06/12/19 25 06/12/2024 CHLAM YDIA TRACH OMATI S AND NEISS ERIA GONOR RHOEA E MOLEC ULAR STUDY chlamydia trachomatis PCR Negati ve negati ve Not Available [facility] [address] [place], [address], 06/13/2024 13:00:18 Result Notes None recorded. Problems Name Problem SNOMED Code Status Onset Date Resolution Date Notes Provider Name and Address Organization Details Recorded Time Smoker 47828445 Active 024 Dilip Casanova MD [address] [place] [address], [phone] , [facility] - DILIP CASANOVA MD [facility] 12/04/2023 12:12:45 Genital herpes simplex 62497124 Active 024 Dilip Casanova MD [address] [place] [address], [phone] , [facility] - DILIP CASANOVA MD [facility] 12/04/2023 12:31:12 Problem Notes None recorded. [...] /min 16 /min 98.7 [degF] 28.5 kg/m2 48266.4 5 g 98 % 98 % 140 mm[Hg] 78 mm[Hg] Mattie CASANOVA MD [facility] 4 11:01:50 Date Recorded Body height Heart rate Respiratory rate Body temperature Body mass index (BMI) Body weight Systolic blood pressure Diastolic blood pressure Provider Name and Address Organization Details Last Updated DateTime 4 154.94 cm 98 /min 11 /min 97.9 [degF] 28.7 kg/m2 17634.0 4 g 119 mm[Hg] 70 mm[Hg] Roseanna CASANOAV MD [facility] 4 12:04:08 Date Recorded Body height Heart rate Respiratory rate Body temperature Body mass index (BMI) Body weight Systolic blood pressure Diastolic blood pressure Provider Name and Address Organization Details Last Updated DateTime 5 154.94 cm 93 /min 12 /min 98.4 [degF] 28.7 kg/m2 89364.0 4 g 118 mm[Hg] 64 mm[Hg] Roseanna CASANOVA MD [facility] 5 14:02:10 Date Recorded Body height Body temperature Body mass index (BMI) Body weight Systolic blood pressure Diastolic blood pressure Provider Name and Address Organization Details Last Updated DateTime 4 154.94 cm 97.5 [degF] 28.5 kg/m2 46207.4 5 g 130 mm[Hg] 70 mm[Hg] Roseanna CASANOVA MD [facility] 4 12:31:38 Social History None recorded. [...] 1055 Dilip Casanova MD Main Office [address] [place] [address] 04/09/2023 14:02:53 04/09/2023 15:05:19 Exposure to Human immunodeficiency virus 936120223 Z20.6 PreP reviewed.c onsent reviewed and signed.Rod anette (generic) 1 tab po qd.correct and daily use reviewed to prevent HIV.labs.p otetnial side effects reviewed such as allergic reactions among other; renal safety reviewed. hydration. avoid NSAIDScond om use.safe sex. 2224 Dilip Casanova MD Main Office [address] [place] [phone] 07/18/2023 12:22:25 07/18/2023 15:10:38 Exposure to Human immunodeficiency virus 303840239 Z20.6 PreP reviewed.c onsent reviewed and signed.Rod anette (generic) 1 tab po qd.correct and daily use reviewed to prevent HIV.labs.p otetnial side effects reviewed such as allergic reactions among other; renal safety reviewed. hydration. avoid NSAIDScond om use.safe sex. Genital he rpes simplex 76171095 A60.9 HSV 1 and 2 positive serology. no flareups.V altrex PRN reviewed; valtrex suppressio n reviewed.m odes of transmissi on reviewed; in particular HSV 2 associated with other STI trasnmissi onto call if flareupcon dom use rveiewed 88685 Dilip Casanova MD Main Office [address] [place] [phone] 10/19/2023 10:44:43 10/19/2023 11:15:21 Exposure to Human immunodeficiency virus 880311193 Z20.6 PreP reviewed.T ruvada (generic) 1 tab po qd.correct and daily use reviewed to prevent HIV.hydrat ion. avoid NSAIDScond om use.safe sex. STI prevention . Genital he rpes simplex 39283479 A60.9 HSV 1 and 2 positive serology. no flareups.V altrex PRN reviewed; valtrex suppressio n reviewed.m odes of transmissi on reviewed; in particular HSV 2 associated with other STI transmissi onto call if flareup Smoker 48317482 F17.200 has used nicotine patch in the past. she prefers 21mg qd dose, and wean as tolerated. other options reviewed 03124 Dilip Casanova MD Main Office [address] [place] [phone] 12/04/2023 11:59:20 12/04/2023 12:18:34 Exposure to Human immunodeficiency virus 840658046 Z20.6 PreP reviewed.c ontinue Truvada (generic) 1 tab po qd.correct and daily use reviewed to prevent HIV.hydrat ion. avoid NSAIDScond om use.safe sex. STI prevention .labsaware of DoxyPEP Genital he rpes simplex 07820193 A60.9 HSV 1 and 2 positive serology. no flareups.V altrex PRN reviewed; valtrex suppressio n reviewed.m odes of transmissi on reviewed; in particular HSV 2 associated with other STI transmissi onto call if flareup Smoker 59848403 F17.200 21mg qd dose, and wean as tolerated. Spasm of back muscles 20 9257415 M62.830 hydrationt ylenol pRNwarm compressbe ngay or biofreezel idocaine patch for pain qd PRN. 06896 Dilip Casanova MD Main Office [address] [place] [phone] 02/07/2024 12:27:38 02/07/2024 13:08:01 Exposure to Human immunodeficiency virus 828247737 Z20.6 PreP reviewed.c ontinue Truvada (generic) 1 tab po qd. wishes to keep PrePcorrec t and daily use reviewed to prevent HIV.hydrat ion.condom use.safe sex. STI prevention .labs 02/2024 Genital he rpes simplex 83100189 A60.9 HSV 1 and 2 positive serology. no flareups.V altrex PRN reviewed; valtrex suppressio n reviewed. Smoker 41866249 F17.200 21mg qd dose, and wean as tolerated. refilled. Spasm of back muscles 20 3651887 M62.830 hydrationt ylenol pRNwarm compressbe ngay or biofreezea wait surgery 02/2024 07987 Dilip Casanova MD Main Office [address] [place] [phone] 06/12/2024 13:46:04 06/12/2024 14:38:24 Exposure to Human immunodeficiency virus 714739019 Z20.6 PreP reviewed.c ontinue Truvada (generic) 1 tab po qd.interes nikos in clinical trials with injectable s.correct and daily use reviewed to prevent HIV.hydrat ion.condom use.safe sex. STI prevention .labs orderedpt aware of DOXYPEP availabili ty, an dcondom use.sample s for BD affirm, GC/chlamyd ia obtained Genital he rpes simplex 37445542 A60.9 HSV 1 and 2 positive serology. [...] Fraser Member ID Guarantor Name 07/18/2023 1 [employer] [facility] - DOS ON OR AFTER 2022 - MEDICARE ADVANTAGE [place] (MEDICARE REPLACEMENT/ADV ANTAGE - PPO) Sindi Dwyer [id number] Sindi Dwyer 10/19/2023 1 [employer] [facility] - DOS ON OR AFTER 2022 - [place]IC[place]AGE [place] ([place] RE[place]ACEMENT/ADV ANTAGE - PPO) Sindi Dwyer [id number] Sindi Dwyer 12/04/2023 1 [employer] [facility] - DOS ON OR AFTER 2022 - [place] ([place]/ADV ANTAGE - PPO) Sindi Dwyer [id number] Sindi Dwyer 02/07/2024 1 [employer] [facility] - DOS ON OR AFTER 2022 - [place]IC[place] ([place]/ADV ANTAGE - PPO) Sindi Dwyer [id number] Sindi Dwyer 06/12/2024 1 [employer] [facility] - DOS ON OR AFTER 2022 - [place]IC[place] (MED[place]ARE REPLACEMENT/ADV ANTAGE - PPO) Sindi Dwyer [id number] Sindi Dwyer Notes Date Note Type Note [...] COVID and flu vaccines. Dilip Casanova MD [address] [place] [address], [phone], DARVIN CASANOVA MD [facility] 07/18/2023 12:46:12 10/19/2023 text/html PrePOn daily [...] colonoscopyinterested in smoking cessation Dilip Casanova MD [address] [place] [address], [phone], DARVIN CASANOVA MD [facility] 10/19/2023 11:58:11 12/04/2023 text/html PrePOn daily [...] colonoscopyinterested in smoking cessation Dilip Casanova MD [address] [place] [address], [phone], DARVIN CASANOVA MD [facility] 12/04/2023 12:32:21 02/07/2024 text/html PreP On [...] HCV neg; syphilis neg; Dilip Casanova MD [address] [place] [address], [phone], [facility] Gertrudis CASANOVA MD [facility] 02/07/2024 13:06:12 06/12/2024 text/html PrePOn daily [...] for abdominoplaty 2nd weight loss Dilip T. Chadwicks, MD [address] [place] [address], [phone], DARVIN - DILIP CASANOVA MD [facility] 06/12/2024 14:29:17 OBGyn Episode No OBEpisode recorded.
--- OUTSIDE RECORDS SUMMARY | 2024-08-04 12:25 | XMS_ITS | Clinical Summary ---
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 Role Phone Unavailable Primary Care Provider Unavailabl e Immunizations Name Administration Dates Next Due Pfizer Covid-19 Vaccine 12+ Bivalent 06/06/2022 Social History Tobacco Use Types Packs/Day Years Used Date Smoking Tobacco: Never Assessed Comments Unknown Sex and Gender Information Value Date Recorded Sex Assigned at Female 04/03/2022 10:14 AM EDT Legal Sex Female 10:14 AM EDT Gender Identity Female 04/03/2022 10:14 AM EDT Sexual Orientation Choose not to disclose 2021 10:14 AM EDT Plan of Treatment Health Maintenance Due Date Last Done Comments CT Colonography 1961 Colonoscopy 1961 Depression Screening 1961 FIT 1961 FOBT 1961 Sigmoidoscopy 1961 Alcohol/Substance Use Screening 1973 Tobacco Screening 1973 Pap Smear 1982 Cervical Cancer Screening 1991 HPV/Cotest 1991 Mammogram 2001 Pneumococcal Vaccine: 50+ Years (2 of 2 - PCV) 03/14/2012 03/14/2011 DTaP/Tdap/Td Vaccines (1 - Tdap) 08/16/2015 08/15/2015, 05/19/2008, 10/27/1997 Colorectal Cancer Screening 08/18/2022 FIT DNA/Cologuard 08/18/2022 08/19/2019 COVID-19 Vaccine ( season) 2024 06/06/2022, 05/03/2021, 09/30/2020, Additional history exists Influenza Vaccine (#1) 2024 , 01/28/2021, 02/12/2020, Additional history exists RSV Patients and Patients Aged 60 years or older (1 - 1-dose 75+ series) 2036 Hepatitis A Vaccines Aged Out 03/13/2007, 09/15/19 07 No longer eligible based on patient's age to complete this topic Hepatitis B Vaccines Completed 03/21/2007, 10/16/2006, 09/14/2006 Pneumococcal Vaccine: Pediatrics (0 to 5 Years) and At-Risk Patients (6 to 49) Years) Aged Out 03/14/2011 No longer eligible based on patient's age to complete this topic Zoster Vaccines Completed 08/31/2021, 07/01/2021 HIB Vaccines Aged Out No longer eligi ble based on patient's age to complete this topic HPV Vaccines Aged Out No longer eligi ble based on patient's age to complete this topic IPV Vaccines Aged Out No longer eligi ble based on patient's age to complete this topic Meningococcal Vaccine Aged Out No brice patricia eligible based on patient's age to complete this topic RSV under 20 months Aged Out No longe r eligible based on patient's age to complete this topic Rotavirus Vaccines Aged Out No longer eligible based on patient's age to complete this topic
--- OUTSIDE RECORDS SUMMARY | 2024-08-04 12:25 | XMS_ITS | Encounter Summary ---
Author Organization [employer] Address [address] [place] [address] Care Team Providers Care Soa Integration Architect Name Role Phone Neha Naylor MD Primary Care Provider [phone] Encounter Details Date Type Department Care Team (Latest Contact Info) Description 06/12/2024 Lab Requisition [facility] - Main Lab [address] [facility] [place] [address] Dayna Casanova MD [address] [place] [id number] Contact with and (suspected) exposure to human immunodeficiency virus (hiv) Social History Tobacco Use Types Packs/Day Years Used Date Smoking Tobacco: Never Assessed Comments Unknown Sex and Gender Information Value Date Recorded Sex Assigned at Not on file Legal Sex Female 6:17 PM EST Gender Identity Not on file Sexual Orientation Not on file documented as of this encounter Plan of Treatment Not on file documented as of this encounter Procedures Procedure Name Priority Date/Time Associated Diagnosis [...] (suspected) exposure to human immunodeficiency virus (hiv) documented in this encounter Results * (ABNORMAL) Vaginitis pathogens molecular study (06/12/2024 12:00 AM EST) Trichomonas vaginalis Negative Negative 06/13/2024 10:49 AM EST [facility] Gardnerella vaginalis Positive(A) Negative 06/13/2024 10:49 AM EST [facility] Kaelyn Species Positive(A) Negative 06/13/19 10:49 AM [facility] Swab Vaginal structure / Unknown 06/12/2024 06/12/2024 7:03 PM EST Dayna Casanova MD LAB MICROBIOLOGY - GENERA L ORDERABLES Final Result [facility] [address] [place] [address], [place] [phone] * Chlamydia trachomatis and Neisseria gonorrhoeae molecular study (06/12/2024 12:00 AM EST) Neisseria gonorrhoeae PCR Negative Negative LAB MOLECULAR DIAGNOSTICS METHOD 06/13/2024 11:23 AM [facility] Chlamydia trachomatis PCR Negative Negative LAB MOLECULAR DIAGNOSTICS METHOD 06/13/2024 11:23 AM [facility] Urine Cervix uteri structure / Unknown 06/12/2024 06/12/2024 7:03 PM EST Dayna Casanova MD LAB MICROBIOLOGY - GENERA L ORDERABLES Final Result [facility] [address] [place] [address], [place] [phone] * Chlamydia trachomatis and Neisseria gonorrhoeae molecular study (06/12/2024 12:00 AM EST) Neisseria gonorrhoeae PCR Negative Negative LAB MOLECULAR DIAGNOSTICS METHOD 06/13/2024 12:59 PM EST [facility] Chlamydia trachomatis PCR Negative Negative LAB MOLECULAR DIAGNOSTICS METHOD 06/13/2024 12:59 PM EST [facility] Swab Cervix uteri structure / Unknown 06/12/2024 06/12/2024 7:03 PM EST us Dayna Casanova MD LAB MICROBIOLOGY - GENERA L ORDERABLES Final Result [facility] ([facility]) [facility] [address] [place] [address], documented in this encounter Visit Diagnoses Diagnosis Contact with and (suspected) exposure to human immunodeficiency virus (hiv) documented in this encounter Care Teams Soa Integration Architect Relationship Specialty Start Date End Date Neha Naylor MD 2 [facility] , [address] Physician Associ D/B/A: [facility] [place] PCP - General 02/08/16 documented as of this encounter
== END 2024-08-04 11:16 | disposition home or self-care (01) ==
PROVIDERS: PCP Internal Medicine; Visit Provider Internal Medicine
DX: E11.65 Type 2 diabetes mellitus with hyperglycemia (principal); F33.0 Major depressive disorder, recurrent, mild; G81.94 Hemiplegia, unspecified affecting left nondominant side; I10 Essential (primary) hypertension; E78.2 Mixed hyperlipidemia; K21.9 Gastro-esophageal reflux disease without esophagitis

== ENCOUNTER → 2024-08-04 10:39 | Outpatient (BNVA) | payer OTHER, SELFPAY | PROVIDERS: PCP Internal Medicine; Visit Provider Internal Medicine | DX: E11.65 Type 2 diabetes mellitus with hyperglycemia (principal); E78.2 Mixed hyperlipidemia; I10 Essential (primary) hypertension; K21.9 Gastro-esophageal reflux disease without esophagitis; F33.0 Major depressive disorder, recurrent, mild; G81.94 Hemiplegia, unspecified affecting left nondominant side; I63.9 Cerebral infarction, unspecified | CPT/HCPCS: 83036; 96127; 99212 ==

== ENCOUNTER 2025-03-09 08:52 | Outpatient (REF) | payer OTHER, SELFPAY ==
--- OUTSIDE RECORDS SUMMARY | 2025-03-09 09:44 | XMS_ITS | Encounter Summary ---
Author Organization [employer] Address [address] [place] [address] Care Team Providers Care Oil Pipeline Operator Name Role Phone Neha Naylor MD Primary Care Provider [phone] Encounter Details Date Type Department Care Team (Latest Contact Info) Description 01/30/2025 Lab Requisition [facility] - Main Lab [address] [facility] [place] [address] Dayna Casanova MD [address] [place] [address] Contact with and (suspected) exposure to human immunodeficiency virus (hiv); Furuncle, unspecified; Encounter for general adult medical examination without abnormal findings; Contact with and (suspected) exposure to infections with a predominantly sexual mode of transmission Social History Tobacco Use Types Packs/Day Years [...] Procedure Name Priority Date/Time Associated Diagnosis Comments CULTURE WOUND WITH GRAM STAIN Routine 01/30/2025 12:00 AM EDT Contact with and (suspected) exposure to human immunodeficiency virus (hiv) Furuncle, unspecified Encounter for general adult medical examination without abnormal findings Contact with and (suspected) exposure to infections with a predominantly sexual mode of transmission CHLAMYDIA TRACHOMATIS AND NEISSERIA GONORRHOEAE PCR Routine 01/30/2025 12:00 AM EDT Contact with and (suspected) exposure to human immunodeficiency virus (hiv) Furuncle, unspecified Encounter for general adult medical examination without abnormal findings Contact with and (suspected) exposure to infections with a predominantly sexual mode of transmission documented in this encounter Results * (ABNORMAL) Culture wound with gram stain (01/30/2025 12:00 AM EDT) Culture, Wound No pathogens isolated. 02/02/2025 11:21 AM EDT [facility] Gram Stain Result No polymorphonuclear leukocytes seen(A) 02/02/2025 11:21 AM EDT [facility] Gram Stain Result No epithelial cells seen(A) 02/02/2025 11:21 AM EDT [facility] Gram Stain Result Few Gram positive bacilli(A) 02/02/2025 11:21 AM EDT [facility] Gram Stain Result Rare Gram positive cocci(A) 02/02/2025 11:21 AM EDT [facility] Swab Topography unknown / Unknown 01/30/2025 01/30/2025 6:26 PM EDT Narrative [facility] - 02/02/2025 11:21 AM EDT Genital - labia Normal skin/urogenital betty noted Dayna Casanova MD LAB MICROBIOLOGY - GENERA L ORDERABLES Final Result [facility] [address] [place] [address], * Chlamydia trachomatis and Neisseria gonorrhoeae molecular study (01/30/2025 12:00 AM EDT) Neisseria gonorrhoeae PCR Negative Negative LAB MOLECULAR DIAGNOSTICS METHOD 01/31/2025 9:51 AM EDT [facility] Chlamydia trachomatis PCR Negative Negative LAB MOLECULAR DIAGNOSTICS METHOD 01/31/2025 9:51 AM EDT [facility] Urine Urine specimen from urethra / Unknown 01/30/2025 01/30/2025 6:26 PM EDT us Dayna Casanova MD LAB MICROBIOLOGY - GENERA L ORDERABLES Final Result [facility] [address] [place] [address], documented in this encounter Visit Diagnoses Diagnosis Contact with and (suspected) exposure to human immunodeficiency virus (hiv) Furuncle, unspecified Encounter for general adult medical examination without abnormal findings Contact with and (suspected) exposure to infections with a predominantly sexual mode of transmission documented in this encounter Care Teams Oil Pipeline Operator Relationship Specialty Start Date End Date Neha Naylor MD 2 [facility] , [address] [facility] Physician Associ D/B/A: [facility] [place]ARV[place] PCP - General 02/08/16 documented as of this encounter
--- OUTSIDE RECORDS SUMMARY | 2025-03-09 09:44 | XMS_ITS | Encounter Summary ---
Author Organization [employer] Address [address] [place] [address] Care Team Providers Care Fixed Capital Clerk Name Role Phone Neha Naylor MD Primary Care Provider [phone] Encounter Details Date Type Department Care Team (Latest Contact Info) Description 06/12/2024 Lab Requisition [facility] - Main Lab [address] [facility] [place] [address] Dayna Casanova MD [address] [place] [address] Contact with and (suspected) exposure [...] vaginalis Negative Negative 06/13/2024 10:49 AM EST [facility] Gardnerella vaginalis Positive(A) Negative 06/13/2024 10:49 AM EST [facility] Kaelyn Species Positive(A) Negative 06/13/19 10:49 AM [facility] Swab Vaginal structure / Unknown 06/12/2024 06/12/2024 7:03 PM EST Dayna Casanova MD LAB MICROBIOLOGY - GENERA L ORDERABLES Final Result [facility] [address] [place] [address], [place] [phone] * Chlamydia trachomatis and Neisseria gonorrhoeae molecular study (06/12/2024 12:00 AM EST) Neisseria gonorrhoeae PCR Negative Negative LAB MOLECULAR DIAGNOSTICS METHOD 06/13/2024 11:23 AM EST [facility] Chlamydia trachomatis PCR Negative Negative LAB MOLECULAR DIAGNOSTICS METHOD 06/13/2024 11:23 AM [facility] Urine Cervix uteri structure / Unknown 06/12/2024 06/12/2024 7:03 PM EST Dayna Casanova MD LAB MICROBIOLOGY - GENERA L ORDERABLES Final Result [facility] [address] [place] [address], [place] [phone] * Chlamydia trachomatis and Neisseria gonorrhoeae molecular study (06/12/2024 12:00 AM EST) Neisseria gonorrhoeae PCR Negative Negative LAB MOLECULAR DIAGNOSTICS METHOD 06/13/2024 12:59 PM EST [facility] Chlamydia trachomatis PCR Negative Negative LAB MOLECULAR DIAGNOSTICS METHOD 06/13/2024 12:59 PM EST [facility] Swab Cervix uteri structure / Unknown 06/12/2024 06/12/2024 7:03 PM EST Dayna Casanova MD LAB MICROBIOLOGY - GENERA L ORDERABLES Final Result [facility] ([facility] [address] [place] [address], documented in this encounter Visit Diagnoses Diagnosis Contact with and (suspected) exposure to human immunodeficiency virus (hiv) documented in this encounter Care Teams Fixed Capital Clerk Relationship Specialty Start Date End Date Neha Naylor MD 2 [facility] , [address] Physician Associ D/B/A: [facility] [place], [place] PCP - General 02/08/16 documented as of this encounter
--- OUTSIDE RECORDS SUMMARY | 2025-03-09 09:45 | XMS_ITS | Clinical Summary ---
Author Organization [address] [facility] Address [address] [place] [address] Phone Care Team Providers Care Reporting Analyst Name Role Phone Neha Naylor MD Primary Care Provider [phone] Encounters Date Type Department Care Team Description 01/30/2025 Lab Requisition [facility] - Main Lab [address] [facility] [place] [address] Dayna Casanova MD Contact with and (suspected) exposure to human immunodeficiency virus (hiv); Furuncle, unspecified; Encounter for general adult medical examination without abnormal findings; Contact with and (suspected) exposure to infections with a predominantly sexual mode of transmission from Last 3 Months Social History Tobacco Use Types Packs/Day Years Used Date Smoking Tobacco: Never Assessed Comments Unknown Sex and Gender Information Value Date Recorded Sex Assigned at Not on file Legal Sex Female 6:17 PM EST Gender Identity Not on file Sexual Orientation Not on file Plan of Treatment Health Maintenance Due Date Last Done Comments Breast Cancer Screening 1961 Diabetes: Annual Foot Exam 1971 Diabetes: Annual Retina Eye Exam 1971 Hepatitis A Vaccines (1 of 2 - Risk 2-dose series) 1980 Cervical Cancer Screening: Pap Smear 1982 Zoster Vaccines (1 of 2) 2011 Pneumococcal Vaccine: 50+ Years (2 of 2 - PCV) 03/24/2016 03/24/2015 Hepatitis B Vaccines (1 of 3 - Risk 3-dose series) 2021 RSV Immunization Adult Patients (1 - Risk 60-74 years 1-dose series) 2021 Cholesterol Screening (Lipid Panel) 05/17/2022 Hepatitis C Screening 05/17/2022 Medicare Annual Wellness Visit 05/17/2022 Social Influencers of Health Screening 05/17/2022 Depression Screening 06/04/2024 DTaP,Tdap,and Td Vaccines (2 - Td or Tdap) 10/07/2024 10/07/2014 Diabetes: Annual Urine Albumin-Creatinine Ratio (uACR) 12/01/2024 Diabetes: Blood Sugar Control Test (HGBA1C) 12/01/2024 COVID-19 Vaccine (2 - season) 2025 06/06/2022 Influenza Vaccine (#1) 2025 9, 05/23/2017, 03/14/2016, Additional history exists Diabetes: Annual GFR (Glomerular Filtration Rate) 02/16/2026 02/16/2025, 12/01/2024 Hypertension/CHF/CAD Annual BMP Blood Test 02/16/2026 02/16/2025, 12/01/2024 Colorectal Cancer Screening: FIT-DNA (Cologuard) 12/15/2027 12/14/2024, 12/14/2024, 08/19/2019 HIV Screening Completed 02/16/2025, 12/01/2024 HIB Vaccines Aged Out No longer eligi [...] age to complete this topic Meningococcal B Vaccine Aged Out No l onger eligible based on patient's age to complete this topic RSV Immunization Patients Under 20 months Aged Out No longer eligible based on patient's age to complete this topic Varicella Vaccines Aged Out No longer eligible based on patient's age to complete this topic Procedures Procedure Name Priority Date/Time Associated Diagnosis Comments CBC WITH AUTO DIFFERENTIAL Routine 02/16/2025 1:48 PM EDT Exposure to HIV TREPONEMA PALLIDUM ANTIBODY WITH REFLEX TO RPR AND PARTICLE AGGLUTINATION Routine 02/16/2025 1:48 PM EDT Exposure to HIV HIV 1 MOLECULAR STUDY QUANTITATIVE Routine 02/16/2025 1:48 PM EDT Exposure to HIV CREATININE, SERUM Routine 02/16/2025 1:4 8 PM EDT Exposure to HIV ASPARTATE AMINOTRANSFERASE Routine 02/16/2025 1:48 PM EDT Exposure to HIV ALANINE AMINOTRANSFERASE Routine 02/16/2025 1:48 PM EDT Exposure to HIV CBC AND DIFFERENTIAL Routine 02/16/2025 1:48 PM EDT Exposure to HIV CULTURE WOUND WITH GRAM STAIN Routine 01/30/2025 [...] with a predominantly sexual mode of transmission from Last 3 Months Results * Treponema pallidum antibody with reflex to RPR and particle agglutination (02/16/2025 1:48 PM EDT) T. Pallidum Antibodies Negative Negative LAB CHEMISTRY METHOD 02/16/2025 5:06 PM EDT [facility] Blood Venous blood specimen / Unknown Venipuncture / Unknown 02/16/2025 1:48 PM EDT 02/16/2025 2:13 PM EDT us Dayna Casanova MD LAB BLOOD ORDERABLES Brie escalante Result [facility] [address] [place] [address], [place] [phone] * (ABNORMAL) CBC auto differential (02/16/2025 1:48 PM EDT) [facility] WBC 10.3 4.8 - 10.8 K/mcL LAB [facility]EM[facility]OLOG[facility] RBC 5.30(H) 3.80 - 4.80 M/mcL LAB HEMETOLOGY METHOD [facility]/16[facility]2025 [facility] Hemoglobin 13.7 11.5 - 16.0 g/dL LAB HEMETOLOGY METHOD 02/16/2025 2:22 PM [facility] Hematocrit 42.6 35.0 - 47.0 % LAB HEMETOLOGY METHOD 02/16/2025 2:22 PM [facility] MCV 81.0 79.0 - 98.0 FL LAB HEMETOLOGY METHOD 02/16/2025 2:22 PM [facility] MCH 26.0(L) 27.0 - 32.0 pcg LAB HEMETOLOGY METHOD 02/16/2025 2:22 PM [facility] MCHC 32.2 32.0 - 37.0 g/dL LAB HEMETOLOGY METHOD 02/16/2025 2:22 PM [facility] RDW 15.5(H) 11.0 - 15.0 % LAB HEMETOLOGY METHOD 02/16/2025 2:22 PM [facility] Platelets 368 130 - 400 K/mcL LAB HEMETOLOGY METHOD 02/16/2025 2:22 PM [facility] MPV 10.0 7.0 - 11.0 FL LAB HEMETOLOGY METHOD 02/16/2025 2:22 PM [facility] NRBC 0.0 <1.0 % LAB HEMETOLOGY METHOD 02/16/2025 2:[facility] NRBC Absolute 0.00 <0.10 K/mcL LAB HEMETOLOGY METHOD 02/16/2025 2:22 PM [facility] Neutrophils Relative 47.9 % LAB HEMETOLOGY METHOD 02/16/2025 2:22 PM [facility] Lymphocytes Relative 41.0 % LAB HEMETOLOGY METHOD 02/16/2025 2:22 PM [facility] Monocytes Relative 8.8 % LAB HEMETOLOGY METHOD 02/16/2025 2:22 PM [facility] Eosinophils Relative 1.5 % LAB HEMETOLOGY METHOD 02/16/2025 2:22 PM [facility] Basophils Relative 0.5 % LAB HEMETOLOGY METHOD 02/16/2025 2:22 PM [facility] Immature Granulocytes Relative 0.3 % LAB HEMETOLOGY METHOD 02/16/2025 2:22 PM [facility] Neutrophils Absolute 4.93 1.50 - 7.00 K/mcL LAB HEMETOLOGY METHOD 02/16/2025 2:22 PM [facility] Lymphocytes Absolute 4.21 1.00 - 5.00 K/mcL LAB HEMETOLOGY METHOD 02/16/2025 2:22 PM [facility] Monocytes Absolute 0.90 0.20 - 1.00 K/mcL LAB HEMETOLOGY METHOD 02/16/2025 2:22 PM [facility] Eosinophils Absolute 0.15 0.00 - 0.50 K/mcL LAB HEMETOLOGY METHOD 02/16/2025 2:22 PM [facility] Basophils Absolute 0.05 0.00 - 0.20 K/mcL LAB HEMETOLOGY METHOD 02/16/2025 2:22 PM [facility] Immature Granulocytes Absolute 0.03 0.00 - 0.03 K/mcL LAB HEMETOLOGY METHOD 02/16/2025 2:22 PM [facility] Blood Venous blood specimen / Unknown Venipuncture / Unknown 02/16/2025 1:48 PM EDT 02/16/2025 2:13 PM EDT us Dayna Casanova MD LAB BLOOD ORDERABLES Brie l Result Performing Organization Address City/[facility]/ZIP Co de Phone Number [facility] [address] [place] [address], [place] [phone] * HIV 1 molecular study quantitative (02/16/2025 1:48 PM EDT) [facility] HIV-1 RNA Interpretation Not Detected Not Detected LAB MOLECULAR DIAGNOSTICS METHOD 02/17/2025 1:23 PM EDT [facility] Comment:HIV RNA not detected , unable to report quantitative results. Blood Venous blood specimen / Unknown Venipuncture / Unknown 02/16/2025 1:48 PM EDT 02/16/2025 2:13 PM EDT us Dayna Casanova MD LAB BLOOD ORDERABLES Brie l Result Performing Organization Address [facility] Co de Phone Number [facility] [address] [place] [address], [place] [phone] * Creatinine (02/16/2025 1:48 PM EDT) [facility] Creatinine 0.53 0.50 - 1.10 mg/dL LAB CHEMISTRY METHOD 02/16/2025 4:11 PM EDT [facility] eGFR 104 >=60 mL/min/1. 73m2 LAB CHEMISTRY METHOD 02/16/2025 4:11 PM EDT [facility] Comment:Calculation based on the Chronic Kidney Disease Epidemiology Collaboration (CKD-EPI) equation refit without adjustment for race. Blood Venous blood specimen / Unknown Venipuncture / Unknown 02/16/2025 1:48 PM EDT 02/16/2025 2:13 PM EDT Dayna Casanova MD LAB BLOOD ORDERABLES Brie l Result Performing Organization Address City/[facility]/ZIP Co de Phone Number [facility] [address] [place] [address], [place] [phone] * Alanine aminotransferase (02/16/2025 1:48 PM EDT) ALT (SGPT) 32 10 - 60 unit/L LAB CHEMISTRY METHOD 02/16/2025 4:11 PM EDT [facility] Blood Venous blood specimen / Unknown Venipuncture / Unknown 02/16/2025 1:48 PM EDT 02/16/2025 2:13 PM EDT Dayna Casanova MD LAB BLOOD ORDERABLES Brie l Result Performing Organization Address City/[facility]/ZIP Co de Phone Number [facility] [address] [place] [address], [place] [phone] * Aspartate aminotransferase (02/16/2025 1:48 PM EDT) AST (SGOT) 22 10 - 42 unit/L LAB CHEMISTRY METHOD 02/16/2025 4:15 PM EDT [facility] Blood Venous blood specimen / Unknown Venipuncture / Unknown 02/16/2025 1:48 PM EDT 02/16/2025 2:13 PM EDT Dayna Casanova MD LAB BLOOD ORDERABLES Brie l Result Performing Organization Address City/[facility]/ZIP Co de Phone Number [facility] [address] [place] [address], [place] [phone] * (ABNORMAL) Culture wound with gram stain (01/30/2025 12:00 AM EDT) Culture, Wound No pathogens isolated. 02/02/2025 11:21 AM EDT [facility] Gram Stain Result No polymorphonuclear leukocytes seen(A) 02/02/2025 11:21 AM EDT [facility] Gram Stain Result No epithelial cells seen(A) 02/02/2025 11:21 AM EDT [facility] Gram Stain Result Few Gram positive bacilli(A) 02/02/2025 11:21 AM EDT [facility] Gram Stain Result Rare Gram positive cocci(A) 02/02/2025 11:21 AM EDT [facility] Swab Topography unknown / Unknown 01/30/2025 01/30/2025 6:26 PM EDT Narrative [facility] - 02/02/2025 11:21 AM EDT Genital - labia Normal skin/urogenital betty noted us Dayna Casanova MD LAB MICROBIOLOGY - GENERA L ORDERABLES Final Result Performing Organization Address City/[facility]/ZIP Co de Phone Number [facility] [address] [place] [address], [place] [phone] * Chlamydia trachomatis and Neisseria gonorrhoeae molecular study (01/30/2025 12:00 AM EDT) Neisseria gonorrhoeae PCR Negative Negative LAB MOLECULAR DIAGNOSTICS METHOD 01/31/2025 9:51 AM EDT [facility] Chlamydia trachomatis PCR Negative Negative LAB MOLECULAR DIAGNOSTICS METHOD 01/31/2025 9:51 AM EDT [facility] Urine Urine specimen from urethra / Unknown 01/30/2025 01/30/2025 6:26 PM EDT us Dayna Casanova MD LAB MICROBIOLOGY - GENERA L ORDERABLES Final Result Performing Organization Address City/[facility]/ZIP Co de Phone Number [facility] [address] [place] [address], [place] [phone] from Last 3 Months Insurance MEDICAID - [place] [employer] MEDICARE Member Subscriber Plan / Payer (Ef fective 2013-Present) Name:ALISON PALACIOS Relation to Subscriber:Self Name:Malachi Palaciosette Camilo Payer ID:[id number] Group ID:[id number] Type:Not on file Address: [address] [place] [address] Care Teams Reporting Analyst Relationship Specialty Start Date End Date Neha Naylor MD 2 [facility] [address] [facility] Physician Associ D/B/A: [facility] [place], [place] PCP - General 02/08/16
--- OUTSIDE RECORDS SUMMARY | 2025-03-09 09:45 | XMS_ITS | Clinical Summary ---
Author Organization [employer] Address [address] [facility] [address] [place] [address] Care Team Providers Care Metal Roofer Name Role Phone Unavailable Primary Care Provider Unavailabl e Immunizations Immunization Administration Dates Next Due Pfizer Covid-19 Vaccine [...] Colonoscopy 1961 Depression Screening 1961 FIT 1961 Sigmoidoscopy 1961 Disability Screening 1961 Alcohol/Substance Use Screening 1973 Tobacco Screening 1973 Pap Smear 1982 Cervical Cancer Screening 1991 HPV/Cotest 1991 Mammogram 2001 Pneumococcal Vaccine: 50+ Years (2 of 2 - PCV) 03/14/2012 03/14/2011 DTaP/Tdap/Td Vaccines (1 - Tdap) 08/16/2015 08/15/2015, 05/19/2008, 10/27/1997 FOBT 08/18/2020 08/19/2019 Colorectal Cancer Screening 08/18/2022 FIT DNA/Cologuard 08/18/2022 08/19/2019 COVID-19 Vaccine ( season) 2025 06/06/2022, 05/03/2021, 09/30/2020, Additional history exists Influenza Vaccine (#1) 2025 2, 01/28/2021, 02/12/2020, Additional history exists RSV Patients and Patients Aged 60 years or older (1 - 1-dose 75+ series) 2036 Hepatitis A Vaccines Aged Out 03/13/2007, 09/15/19 07 No longer eligible based on patient's age to complete this topic Hepatitis B Vaccines Completed 03/21/2007, 10/16/2006, 09/14/2006 Zoster Vaccines Completed 08/31/2021, 07/01/2021 HIB Vaccines [...]
== END 2025-03-09 08:53 | disposition home or self-care (01) ==
LOC: HO.MAMMO 08:52
PROVIDERS: PCP Internal Medicine; Visit Provider Internal Medicine
DX: Z12.31 Encounter for screening mammogram for malignant neoplasm of breast (principal)
CPT/HCPCS: 77063; 77067

== ENCOUNTER → 2025-03-09 09:45 | Outpatient (BNV) | payer OTHER, SELFPAY | PROVIDERS: PCP Internal Medicine; Visit Provider Internal Medicine | DX: Z12.31 Encounter for screening mammogram for malignant neoplasm of breast (principal) | CPT/HCPCS: 77063; 77067 ==

== ENCOUNTER 2025-03-18 10:22 | Outpatient (AMB) | payer OTHER, SELFPAY ==
[2025-03-18 10:40] VITALS: BP 136/82; PULSE 100; TEMP 36.4; O2SAT 95; BMI 28.8
--- NOTE | 2025-03-18 10:40 | A.OFFPC_ITS ---
Vital Signs 03/18/25 10:40 Height 5 ft 1 in Weight 152 lb 8 oz BMI 28.8 BP 136/82 Blood Pressure Location Lt brachial Position Sitting Pulse 100 Pulse Source Pulse Oximeter Temp 97.5 F Temp Source Temporal Artery Scan Pulse Oximetry (%) 95 Oxygen Delivery Method Room Air Intake Visit Reasons: follow up Chocolate Maker Required: No Accompanied by: Self / Same As Patient Allergies hydrocodone (From Vicodin) Allergy (Intermediate, Verified 03/18/25 10:54) Rash trulicity Adverse Reaction (Intermediate, Uncoded 03/18/25 10:54) headaches Medication List - Last Reconciled 03/18/25 by Neha Naylor MD amlodipine 10 mg PO DAILY aspirin 81 mg PO DAILY atorvastatin 80 mg PO DAILY baclofen 5 mg PO TID blood sugar diagnostic (FreeStyle Lite Strips) Use 1 test strip twice a day blood-glucose meter (FreeStyle Filley Lite kit) As directed buspirone 10 mg PO BID cholecalciferol (vitamin D3) 50 mcg PO DAILY 90 days clonazepam 1 mg PO docusate sodium (Colace) 100 mg PO BID fenofibrate 160 mg PO DAILY 90 days flash glucose sensor (FreeStyle Josiah 14 Day Sensor kit) 1 ea topical Q2W 90 days fluoxetine 20 mg PO DAILY isosorbide mononitrate ER 30 mg PO QAM 90 days lidocaine 5% (Lidoderm) 1 patch topical DAILY lisinopril 40 mg PO DAILY 90 days metformin 1,000 mg PO BID 90 days mirtazapine 30 mg PO BEDTIME naproxen 500 mg PO Q8-12H PRN nicotine 1 patch transdermal Q24H 14 days omeprazole 20 mg PO DAILY 90 days ondansetron HCl 4 mg PO Q8H PRN 10 days pen needle, diabetic As directed semaglutide (Ozempic) 0.25 mg (0.368 mL) subcut QWEEK 4 weeks transparent dressings (Tegaderm First Aid Style) As directed [Tums ] Ventolin HFA 90 mcg/actuation (albuterol sulfate) 2 puffs inhalation Q6H PRN 30 days NS Tobacco use date assessed: 03/18/25 Dental Screening Dental Screen Date: 03/18/25 Did you have a dental visit in the last 12 months?: No Did you have a dental problem in the last 6 months where you did not have access to dental care?: No Was dental information given to patient?: Patient has dentist HPI HPI Comments History of Present Illness Details The patient is a 64-year-old female presenting with management of chronic conditions. She has a history of hypertension, managed with amlodipine and lisinopril, with a recent blood pressure reading of 136/82 mmHg. In 2018, she experienced a stroke, resulting in hemiparesis on the left side. The patient reports anxiety and depression, treated with buspirone, clonazepam, and fluoxetine, and insomnia managed with mirtazapine. She has diabetes mellitus, treated with metformin and Ozempic, with noted weight fluctuations. Her hyperlipidemia is managed with atorvastatin and fenofibrate, with adjustments based on triglyceride levels. A1c of 7.2% which is close to goal being the goal less than 7%. The patient reports constipation, managed with docusate, and gastroesophageal reflux disease, treated with omeprazole. She also reports bruising on the left ribs, with consideration for a muscle relaxer. Preventative care includes an influenza vaccination administered during the visit. [facility] Medical History CVA (cerebral vascular accident) (~2018) Cardiomegaly Nicotine dependence, cigarettes, uncomplicated Mild recurrent major depression History of stroke Overweight (BMI 25.0-29.9) Scalp tenderness GERD (gastroesophageal reflux disease) Left hemiplegia Mixed hyperlipidemia Pulmonary nodules Hypertriglyceridemia CAD (coronary artery disease) Low back pain Left breast mass Moderate persistent asthma without complication Essential hypertension Tachycardia Leukocytosis, unspecified Microalbuminuria Surgical History Hx of surgical procedure (10/01/23) History of laparoscopy S/P insertion of spinal cord stimulator History of tubal ligation History of back surgery Family History Father Diabetes Mother Diabetes HTN (hypertension) CVD (cardiovascular disease) Brother No problems noted. Brother No problems noted. Sister Diabetes Breast cancer Son Alive and well Daughter Alive and well Breast cancer Social History Household Members: None Housing: House Housing Other:: 2 family Are you a primary animal care specialist to a significant other at home: No Do you presently have visiting nurse or other home services: No Alcohol intake: never Patient Tobacco Use Status: Current everyday Tobacco user Tobacco use type: Cigarette Cigarette Packs Per Day: 1 Cigarettes Per Day: 20.0 Years Smoked: (current smoker - onset 13yo, 1-2ppd x 49yrs, now 1/4ppd, 60pyh) e-Cigarette/Vaping Use: Never Used Second Hand Smoke Exposure: No service: No Current occupational status: disabled Cognitive needs: No Hearing needs: No Vision needs: Yes Questionnaire PHQ-9 Over the last 2 weeks, how often have you been bothered by any of the following problems? 1. Little interest or pleasure in doing things: not at all 2. Feeling down, depressed, or hopeless: not at all 3. Trouble falling or staying asleep, or sleeping too much: not at all 4. Feeling tired or having little energy: not at all 5. Poor appetite or overeating: not at all 6. Feeling bad about yourself - or that you are a failure or have let yourself or your family down: not at all 7. Trouble concentrating on things, such as reading the newspaper or watching television: not at all 8. Moving or speaking so slowly that other people could have noticed. Or the opposite - being so fidgety or restless that you have been moving around a lot more than usual: not at all 9. Thoughts that you would be better off or of hurting yourself in some way: not at all Total score: 0 Depression Screening Interpretation: Negative Depression Screening Done: Yes 56403 - PHQ-9 Billing: Yes Source: Developed by Drs. Dmitry Ruffin, Supriya Wolff, Bg Low and colleagues, with an educational deb from [employer]. Thrive Questionnaire Date Thrive assessed: 08/04/24 I am a: Patient What is your living situation today?: I have a steady place to live Within the past 12 months, did the food you bought not last and you didn't have the money to get more?: Never true Within the past 12 months, did you worry whether your food would run out before you got money to buy more?: Never true Do you have trouble paying for medicines?: No Do you have trouble getting transportation to medical appointments?: No Do you have trouble paying your heating and electricity bill?: No Do you have trouble taking care of your child, family member or friend?: No Do you have trouble with day-to-day activities such as bathing, preparing meals, shopping, managing finances, etc.?: No Are you currently unemployed and looking for a job?: No Are you interested in more education?: No Please select the resources that you would like help with: None Currently or been in a relationship where the following occur: No concerns reported THRIVE Score: 0 AUDIT C Alcohol Use Questionnaire (AUDIT-C) 1. How often do you have a drink containing alcohol?: Never 3. How often do you have six or more drinks on one occasion?: Never Total Score: 0 Score Reviewed/Action Taken: No CIELO-7 AMB Questionnaire CIELO-7 Date CIELO - 7 assessed: 08/04/24 Feeling nervous, anxious, or on edge: 0 = Not at all Not being able to stop or control worryin = Not at all Worrying too much about different things: 0 = Not at all Trouble relaxin = Not at all Being so restless that it is hard to sit still: 0 = Not at all Becoming easily annoyed or irritable: 0 = Not at all Feeling afraid as if something awful might happen: 0 = Not at all Total CIELO-7 score (0-4 normal; 5-9 mild; 10-14 moderate; 15-21 severe): 0 Source: Developed by Drs. Dmitry Ruffin, Supriya Wolff, Bg Low and colleagues, with an educational deb from [employer]. CIELO-7 Assessment Billing CIELO-7 Assessment Tool: CIELO-7 Assessment 47334 Review of Systems Const All systems reviewed & are unremarkable except as noted in HPI and below Card Denies chest pain at rest, Denies chest pain with activity, Denies edema, Denies irregular heart rhythm, Denies claudication, Denies dyspnea, Denies dyspnea on exertion, Denies orthopnea, Denies paroxysmal nocturnal dyspnea and Denies slow heart rate Resp Denies cough, Denies dyspnea and Denies dyspnea on exertion Physical exam (Primary Care) Vital Signs: Last Vital Signs Temp 97.5 F 03/18/25 10:40 Pulse 100 03/18/25 10:40 BP 136/82 03/18/25 10:40 Pulse Ox 95 03/18/25 10:40 Oxygen Delivery Method Room Air 03/18/25 10:40 BMI result Body Mass Index 28.8 Tobacco/Smoking Status: Tobacco use Status Tobacco use date assessed 03/18/25 03/18/25 10:52 Patient Tobacco Use Status Current everyday Tobacco 03/18/25 10:52 Tobacco use type Cigarette 03/18/25 10:52 e-Cigarette/Vaping Use Never Used 03/18/25 10:52 PHQ-9: PHQ-9 Score PHQ-9: Total score 0 03/18/25 11:14 Depression Screening Interpretation: Negative Thrive Assessment: Date of Thrive Assessment Date Thrive assessed 08/04/24 03/18/25 10:52 Currently or been in a relationship where the following occur: No concerns reported Resp Effort & Inspection: normal respiratory effort Auscultation: clear to auscultation bilaterally Cardio Jugular venous distension: no JVD Rate: regular rate Rhythm: regular rhythm Heart sounds: S1 normal heart sound present and S2 normal heart sound present Extrem General: Yes full ROM Office Procedures Flu Questionnaire Does the patient have a severe egg allergy?: No Does the patient have severe life threatening allergies?: No Does the patient have a fever or illness today?: No Has the patient ever had Guillain-[place] Syndrome?: No Has the patient ever had any past reaction to a flu shot?: No Results AMB Hemoglobin A1c AMB Hemoglobin A1c 7.2 % Last Edit by Citlali Alvarez CMA on 03/18/25 10:56 Immunizations Fluarix [id number] (PF) 45 mcg (15 mcg x 3)/0.5 mL IM syringe Performing Provider: Neha Naylor MD [facility] Administered by: Brandee Desai LPN on 03/18/25 11:13 Dose Route Admin Location Dispensed Lot Number Expiration Date [facility] Chucking [employer] Boring Machine Operator 0.5 mL IM Left Deltoid 0.5 mL [id number] 12/01/25 [id number] [employer] VIS Given Date VIS Provided VIS Publication Date 03/18/25 Single Vaccine 24 Eligibility Eligibility Date Funding Source Not [facility] Eligible 03/18/25 Private Results Reviewed Results Reviewed: Laboratory Last Values Hgb A1c (Clinic) 7.2 % (4.0-6.0) H 03/18/25 10:52 Coding Level of Care Code Est Pt Level 4 (64095) Complex EM visit Add On G2211 Diagnoses Essential hypertension I10 Mild recurrent major depression F33.0 Type 2 diabetes mellitus with hyperglycemia, without long-term current use of insulin E11.65 Diabetes mellitus type: type 2 Diabetes mellitus tank terminal gauger insulin use: without tank terminal gauger use Diabetes mellitus complication status: with hyperglycemia CVA (cerebral vascular accident) I63.9 Mixed hyperlipidemia E78.2 Additional Codes CIELO-7 Assessment Billing - CIELO-7 Assessment Tool: CIELO-7 Assessment 98878 ([id number]) PHQ-9 - 79909 - PHQ-9 Billing: Yes ([id number]) Time Spent (min) 23 Assessment & Plan Assessment & Plan (1) Essential hypertension: Code(s): I10 - Essential (primary) hypertension Category: Medical (2) Mild recurrent major depression: Code(s): F33.0 - Major depressive disorder, recurrent, mild Category: Medical (3) Diabetes mellitus: Onset Date: ~2013 Comment: (DM2 - 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) Code(s): E11.9 - Type 2 diabetes mellitus without complications Category: Medical Qualifiers: Diabetes mellitus type: type 2 Diabetes mellitus tank terminal gauger insulin use: without tank terminal gauger use Diabetes mellitus complication status: with hyperglycemia Qualified Code(s): E11.65 - Type 2 diabetes mellitus with hyperglycemia (4) CVA (cerebral vascular accident): Onset Date: ~2017 Comment: some left sided weakness Code(s): I63.9 - Cerebral infarction, unspecified Category: Medical (5) Mixed hyperlipidemia: Code(s): E78.2 - Mixed hyperlipidemia Category: Medical Plan Plan 1. Hypertension The patient's hypertension is managed with amlodipine and lisinopril, with a recent blood pressure reading of 136/82 mmHg indicating good control. 2. Hemiparesis Secondary To Stroke The patient experienced a stroke in 2018, resulting in hemiparesis on the left side, which is a chronic condition being monitored. 3. Anxiety Anxiety is managed with buspirone and clonazepam, with ongoing psychiatric support. 4. Depression Depression is treated with fluoxetine, with monitoring for symptom improvement. 5. Insomnia Insomnia is managed with mirtazapine, with ongoing evaluation of sleep quality. 6. Diabetes Mellitus Diabetes mellitus is managed with metformin and Ozempic, with weight monitoring and A1c evaluation planned. 7. Hyperlipidemia Hyperlipidemia is managed with atorvastatin and fenofibrate, with adjustments based on triglyceride levels. 8. Constipation Constipation is managed with docusate, with monitoring of bowel habits. 9. Gastroesophageal Reflux Disease Gastroesophageal reflux disease is treated with omeprazole, with symptom monitoring. 10. Preventative Care: Influenza Vaccination The patient received an influenza vaccination during the visit as part of preventative care. Orders: Orders Influenza [id number] Immunization Today Z23 - Encounter for immunization AMB Hemoglobin A1c Today Z13.9 - Encounter for screening, unspecified Lipid Panel Today E78.5 - Hyperlipidemia, unspecified Comprehensive [place]. Panel Fast Today E11.65 - Type 2 diabetes mellitus with hyperglycemia Vitamin D 25-OH Total Today E55.9 - Vitamin D deficiency, unspecified Vitamin B12 and Folate Today E53.8 - Deficiency of other specified B group vitamins Medications: Refilled baclofen 5 mg PO TID 12 tabs 0RF
--- OUTSIDE RECORDS SUMMARY | 2025-03-18 12:15 | XMS_ITS | Encounter Summary ---
Author Organization [employer] Address [address] [place] [address] Care Team Providers Care Ecommerce Merchandising Manager Name Role Phone Neha Naylor MD Primary Care Provider [phone] Encounter Details Date Type Department Care Team (Latest Contact Info) Description 06/12/2024 Lab Requisition [facility] - Main Lab [address] [place] [address] Dayna Casanova MD [address] [place] [address] Contact with and (suspected) exposure [...] vaginalis Negative Negative 06/13/2024 10:49 AM EST [facility] Gardnerella vaginalis Positive(A) Negative 06/13/2024 10:49 AM EST [facility] Kaelyn Species Positive(A) Negative 06/13/19 10:49 AM [facility] Swab Vaginal structure / Unknown 06/12/2024 06/12/2024 7:03 PM EST Dayna Casanova MD LAB MICROBIOLOGY - GENERA L ORDERABLES Final Result [facility] [address] [place] [address], [place] [phone] * Chlamydia trachomatis and Neisseria gonorrhoeae molecular study (06/12/2024 12:00 AM EST) Neisseria gonorrhoeae PCR Negative Negative LAB MOLECULAR DIAGNOSTICS METHOD 06/13/2024 11:23 AM EST [facility] Chlamydia trachomatis PCR Negative Negative LAB MOLECULAR DIAGNOSTICS METHOD 06/13/2024 11:23 AM [facility] Urine Cervix uteri structure / Unknown 06/12/2024 06/12/2024 7:03 PM EST Dayna Casanova MD LAB MICROBIOLOGY - GENERA L ORDERABLES Final Result [facility] [address] [place] [address], [place] [phone] * Chlamydia trachomatis and Neisseria gonorrhoeae molecular study (06/12/2024 12:00 AM EST) Neisseria gonorrhoeae PCR Negative Negative LAB MOLECULAR DIAGNOSTICS METHOD 06/13/2024 12:59 PM EST [facility] Chlamydia trachomatis PCR Negative Negative LAB MOLECULAR DIAGNOSTICS METHOD 06/13/2024 12:59 PM EST [facility] Swab Cervix uteri structure / Unknown 06/12/2024 06/12/2024 7:03 PM EST Danya Casanova MD LAB MICROBIOLOGY - GENERA L ORDERABLES Final Result [facility] [address] [place] [address], documented in this encounter Visit Diagnoses Diagnosis Contact with and (suspected) exposure to human immunodeficiency virus (hiv) documented in this encounter Care Teams Ecommerce Merchandising Manager Relationship Specialty Start Date End Date Neha Naylor MD 2 [facility] , [address] Physician Associ D/B/A: [facility] [place], [place] PCP - General 02/08/16 documented as of this encounter
--- OUTSIDE RECORDS SUMMARY | 2025-03-18 12:15 | XMS_ITS | Clinical Summary ---
Author Organization [address] [facility] Address [address] [place] [address] Phone Care Team Providers Care Logistics And Planning Manager Name Role Phone Neha Naylor MD Primary Care Provider [phone] Encounters Date Type Department Care Team Description 01/30/2025 Lab Requisition [facility] - Main Lab [address] [facility] [place] [address] Dayna Casanova MD Contact with [...] 1980 Cervical Cancer Screening: Pap Smear 1982 RSV Immunization Adult Patients (1 - Risk 50-74 years 1-dose series) 2011 Zoster Vaccines (1 of 2) 2011 Pneumococcal Vaccine: 50+ Years (2 of 2 - PCV) 03/24/2016 03/24/2015 Hepatitis B Vaccines (1 of 3 - Risk 3-dose series) 2021 Cholesterol Screening (Lipid Panel) 05/17/2022 [...] LAB CHEMISTRY METHOD 02/16/2025 5:06 PM EDT [facility] Blood Venous blood specimen / Unknown Venipuncture / Unknown 02/16/2025 1:48 PM EDT 02/16/2025 2:13 PM EDT us Dayna Casanova MD LAB BLOOD ORDERABLES Brie escalante Result [facility] [address] [place] [address], [place] [phone] * (ABNORMAL) CBC auto differential (02/16/2025 1:48 PM EDT) [facility] WBC 10.3 4.8 - 10.8 K/mcL LAB HEMETOLOGY [facility] RBC 5.30(H) 3.80 - 4.80 M/mcL LAB HEMETOLOGY METHOD 02/16[facility]2025 2:[facility] Hemoglobin 13.7 11.5 - 16.0 g/dL LAB HEMETOLOGY METHOD 02/16/2025 2:22 PM EDT [facility] Hematocrit 42.6 35.0 - 47.0 % LAB HEMETOLOGY METHOD [facility]/16[facility]2025 2:[facility] MCV 81.0 79.0 - 98.0 FL LAB HEMETOLOGY METHOD 02/16/2025 2:22 PM [facility] MCH 26.0(L) 27.0 - 32.0 pcg LAB HEMETOLOGY METHOD 02/16/2025 2:22 PM [facility] MCHC 32.2 32.0 - 37.0 g/dL LAB HEMETOLOGY METHOD 02/16/2025 2:22 PM [facility] RDW 15.5(H) 11.0 - 15.0 % LAB HEMETOLOGY METHOD 02/16/2025 2:22 PM [facility] Platelets 368 130 - 400 K/mcL LAB HEMETOLOGY METHOD 02/16/2025 2:22 PM EDT [facility] MPV 10.0 7.0 - 11.0 FL LAB HEMETOLOGY METHOD 02/16/2025 2:[facility] NRBC 0.0 <1.0 % LAB HEMETOLOGY METHOD 02/16/2025 2:[facility] NRBC Absolute 0.00 <0.10 K/mcL LAB HEMETOLOGY METHOD 02/16/2025 2:22 PM [facility] Neutrophils Relative 47.9 % LAB HEMETOLOGY METHOD 02/16/2025 2:22 PM [facility] Lymphocytes Relative 41.0 % LAB HEMETOLOGY METHOD 02/16/2025 2:22 PM [facility] Monocytes Relative 8.8 % LAB HEMETOLOGY METHOD 02/16/2025 2:22 PM [facility] Eosinophils Relative 1.5 % LAB HEMETOLOGY METHOD 02/16/2025 2:22 PM [facility] Basophils Relative 0.5 % LAB HEMETOLOGY METHOD 02/16/2025 2:22 PM [facility] Immature Granulocytes Relative 0.3 % LAB HEMETOLOGY METHOD 02/16/2025 2:22 PM [facility] Neutrophils Absolute 4.93 1.50 - 7.00 K/mcL LAB HEMETOLOGY METHOD 02/16/2025 2:22 PM [facility] Lymphocytes Absolute 4.21 1.00 - 5.00 K/mcL LAB HEMETOLOGY METHOD 02/16/2025 2:22 PM [facility] Monocytes Absolute 0.90 0.20 - 1.00 K/mcL LAB HEMETOLOGY METHOD 02/16/2025 2:22 PM [facility] Eosinophils Absolute 0.15 0.00 - 0.50 K/mcL LAB HEMETOLOGY METHOD 02/16/2025 2:22 PM [facility] Basophils Absolute 0.05 0.00 - 0.20 K/mcL LAB HEMETOLOGY METHOD 02/16/2025 2:22 PM [facility] Immature Granulocytes Absolute 0.03 0.00 - 0.03 K/mcL LAB HEMETOLOGY METHOD 02/16/2025 2:22 PM [facility] Blood Venous blood specimen / Unknown Venipuncture / Unknown 02/16/2025 1:48 PM EDT 02/16/2025 2:13 PM EDT us Dayna Casanova MD LAB BLOOD ORDERABLES Brie l Result Performing Organization Address [facility]/ZIP Co de Phone Number [facility] [address] [place] [address], [place] [phone] * HIV 1 molecular study quantitative (02/16/2025 1:48 PM EDT) [facility] HIV-1 RNA Interpretation Not Detected Not Detected LAB MOLECULAR DIAGNOSTICS METHOD 02/17/2025 1:23 PM EDT [facility] Comment:HIV RNA not detected , unable to report quantitative results. Blood Venous blood specimen / Unknown Venipuncture / Unknown 02/16/2025 1:48 PM EDT 02/16/2025 2:13 PM EDT us Dayna Casanova MD LAB BLOOD ORDERABLES Brie l Result Performing Organization Address [facility] Co de Phone Number [facility] [address] [place] [address], [place] [phone] * Creatinine (02/16/2025 1:48 PM EDT) [facility] Creatinine 0.53 0.50 - 1.10 mg/dL LAB CHEMISTRY METHOD 02/16/2025 4:11 PM EDT [facility] eGFR 104 >=60 mL/min/1. 73m2 LAB CHEMISTRY METHOD 02/16/2025 4:11 PM EDT [facility] Comment:Calculation based on the Chronic Kidney Disease Epidemiology Collaboration (CKD-EPI) equation refit without adjustment for race. Blood Venous blood specimen / Unknown Venipuncture / Unknown 02/16/2025 1:48 PM EDT 02/16/2025 2:13 PM EDT Dayna Casanova MD LAB BLOOD ORDERABLES Brie l Result Performing Organization Address City/[facility]/ZIP Co de Phone Number [facility] [address] [place] [address], [place] [phone] * Alanine aminotransferase (02/16/2025 1:48 PM EDT) ALT (SGPT) 32 10 - 60 unit/L LAB CHEMISTRY METHOD 02/16/2025 4:11 PM EDT [facility] Blood Venous blood specimen / Unknown Venipuncture / Unknown 02/16/2025 1:48 PM EDT 02/16/2025 2:13 PM EDT Dayna Casanova MD LAB BLOOD ORDERABLES Brie l Result Performing Organization Address [facility]/ZIP Co de Phone Number [facility] [address] [place] [address], [place] [phone] * Aspartate aminotransferase (02/16/2025 1:48 PM EDT) AST (SGOT) 22 10 - 42 unit/L LAB CHEMISTRY METHOD 02/16/2025 4:15 PM EDT [facility] Blood Venous blood specimen / Unknown Venipuncture / Unknown 02/16/2025 1:48 PM EDT 02/16/2025 2:13 PM EDT Dayna Casanova MD LAB BLOOD ORDERABLES Brie l Result Performing Organization Address City/[facility]/ZIP Co de Phone Number [facility] [address] [place] [address], [place] [phone] * (ABNORMAL) Culture wound with gram stain (01/30/2025 12:00 AM EDT) Culture, Wound No pathogens isolated. 02/02/2025 11:21 AM EDT [facility] Gram Stain Result No polymorphonuclear leukocytes seen(A) 02/02/2025 11:21 AM EDT [facility] Gram Stain Result No epithelial cells seen(A) 02/02/2025 11:21 AM EDT [facility] Gram Stain Result Few Gram positive bacilli(A) 02/02/2025 11:21 AM EDT [facility] Gram Stain Result Rare Gram positive cocci(A) 02/02/2025 11:21 AM EDT [facility] Swab Topography unknown / Unknown 01/30/2025 01/30/2025 6:26 PM EDT Narrative [facility] - 02/02/2025 11:21 AM EDT Genital - labia Normal skin/urogenital betty noted us Dayna Casanova MD LAB MICROBIOLOGY - GENERA L ORDERABLES Final Result Performing Organization Address City/[facility]/ZIP Co de Phone Number [facility] [address] [place] [address], [place] [phone] * Chlamydia trachomatis and Neisseria gonorrhoeae molecular study (01/30/2025 12:00 AM EDT) Neisseria gonorrhoeae PCR Negative Negative LAB MOLECULAR DIAGNOSTICS METHOD 01/31/2025 9:51 AM EDT [facility] Chlamydia trachomatis PCR Negative Negative LAB MOLECULAR DIAGNOSTICS METHOD 01/31/2025 9:51 AM EDT [facility] Urine Urine specimen from urethra / Unknown 01/30/2025 01/30/2025 6:26 PM EDT us Dayna Casanova MD LAB MICROBIOLOGY - GENERA L ORDERABLES Final Result Performing Organization Address City/[facility]/ZIP Co de Phone Number [facility] [address] [place] [address], [place] [phone] from Last 3 Months Insurance MEDICAID - [place] [employer] MEDICARE Member Subscriber Plan / Payer (Ef fective 2013-Present) Name:ALISON PALACIOS Relation to Subscriber:Self Name:Malachi Palaciosette Camilo Payer ID:[id number] Group ID:[id number] Type:Not on file Address: [address] [place] [address] Care Teams Logistics And Planning Manager Relationship Specialty Start Date End Date Neha Naylor MD 2 [facility] , [address] Physician Associ D/B/A: [facility] [place] PCP - General 02/08/16
--- OUTSIDE RECORDS SUMMARY | 2025-03-18 12:15 | XMS_ITS | Clinical Summary ---
Author Organization [facility] Address [address] [facility] [address] [place] [address] Care Team Providers Care Catalytic Case Operator Name Role Phone Unavailable Primary Care [...]
--- OUTSIDE RECORDS SUMMARY | 2025-03-18 12:15 | XMS_ITS | Encounter Summary ---
Author Organization [facility] Address [address] [place] [address] Care Team Providers Care Remote Coders Name Role Phone Neha Naylor MD Primary Care Provider [phone] Encounter Details Date Type Department Care Team (Latest Contact Info) Description 01/30/[address] [facility] - Main Lab [address] [facility] [place] [address] Dayna Casanova MD [address] [place] [address] Contact with and (suspected) exposure [...] No pathogens isolated. 02/02/2025 11:21 AM EDT [facility] Gram Stain Result No polymorphonuclear leukocytes seen(A) 02/02/2025 11:21 AM EDT [facility] Gram Stain Result No epithelial cells seen(A) 02/02/2025 11:21 AM EDT [facility] Gram Stain Result Few Gram positive bacilli(A) 02/02/2025 11:21 AM EDT [facility] Gram Stain Result Rare Gram positive cocci(A) 02/02/2025 11:21 AM EDT [facility] Swab Topography unknown / Unknown 01/30/2025 01/30/2025 6:26 PM EDT Narrative [facility] - 02/02/2025 11:21 AM EDT Genital - labia Normal skin/urogenital betty noted Dayna Casanova MD LAB MICROBIOLOGY - GENERA L ORDERABLES Final Result [facility] [address] [place] [address], * Chlamydia trachomatis and Neisseria gonorrhoeae molecular study (01/30/2025 12:00 AM EDT) Neisseria gonorrhoeae PCR Negative Negative LAB MOLECULAR DIAGNOSTICS METHOD 01/31/2025 9:51 AM EDT [facility] Chlamydia trachomatis PCR Negative Negative LAB MOLECULAR DIAGNOSTICS METHOD 01/31/2025 9:51 AM EDT [facility] Urine Urine specimen from urethra / Unknown 01/30/2025 01/30/2025 6:26 PM EDT us Dayna Casanova MD LAB MICROBIOLOGY - GENERA L ORDERABLES Final Result [facility] [address] [place] [address], documented in this encounter Visit Diagnoses Diagnosis Contact with and (suspected) exposure to human immunodeficiency virus (hiv) Furuncle, unspecified Encounter for general adult medical examination without abnormal findings Contact with and (suspected) exposure to infections with a predominantly sexual mode of transmission documented in this encounter Care Teams Remote Coders Relationship Specialty Start Date End Date Neha Naylor MD 2 [facility] , [address] [facility] Physician Associ D/B/A: [facility] DARV[place]cl[place] PCP - General 02/08/16 documented as of this encounter
== END 2025-03-18 11:18 | disposition home or self-care (01) ==
LOC: HO.HMCH 10:22
PROVIDERS: PCP Internal Medicine; Visit Provider Internal Medicine
DX: I10 Essential (primary) hypertension (principal); F33.0 Major depressive disorder, recurrent, mild; E11.65 Type 2 diabetes mellitus with hyperglycemia; I63.9 Cerebral infarction, unspecified; E78.2 Mixed hyperlipidemia; Z23 Encounter for immunization; Z13.9 Encounter for screening, unspecified

== ENCOUNTER → 2025-03-18 10:22 | Outpatient (BNVA) | payer OTHER, SELFPAY | PROVIDERS: PCP Internal Medicine; Visit Provider Internal Medicine | DX: I10 Essential (primary) hypertension (principal); I69.354 Hemiplegia and hemiparesis following cerebral infarction affecting left non-dominant side; F41.9 Anxiety disorder, unspecified; F33.0 Major depressive disorder, recurrent, mild; E11.65 Type 2 diabetes mellitus with hyperglycemia; E78.2 Mixed hyperlipidemia; G47.00 Insomnia, unspecified; E78.5 Hyperlipidemia, unspecified; E55.9 Vitamin D deficiency, unspecified; E53.8 Deficiency of other specified B group vitamins; Z23 Encounter for immunization; Z79.899 Other long term (current) drug therapy | CPT/HCPCS: 83036; 90471; 90656; 96127; 99212 ==